=== PATIENT | male | born 1945 | race Caucasian/White ===

== ENCOUNTER 2017-12-07 07:30 | Inpatient (IN) | payer MEDICARE, SELFPAY ==
[2017-12-07] VITALS (29 sets, daily range): BP systolic 61–183; BP diastolic 40–109; PULSE 67–124; RESP 14–29; TEMP 36.9–37.4; O2SAT 88–99; BMI 42.7; BMI 40.6; BMI 40.7; BMI 40.4
[2017-12-07] MEDS: Furosemide 40 MG/4 ML Vial IV ×2 (07:45→21:33)
[2017-12-07] MEDS: Propofol 10MG/Ml 1,000 MG/100 ML Bottle 4.167 MG CONT INF ×3 (07:52→17:11)
[2017-12-07] MEDS: MethylPREDNISolone 125 MG/2 ML Vial IV (07:53)
--- NOTE | 2017-12-07 08:09 | ED.VISSUMM ---
- ER Visit Summary Date of Service: 12/07/17 Chief Complaint: Chest pain History of Present Illness: The patient is a 71 M brought in by EMS. Prehospital EKG revealed STEMI. Patient is in respiratory distress and stuporous. History is limited by his condition. He does report chest pain is been off and on for couple of days. He does admit to history of cardiac disease and has had 3 stents. STEMI alert was called off prehospital EKG and Dr. Varela met the patient in the emergency department. Physical Examination: Blood pressure is 183/109, heart rate 124, respiratory rate 16, pulse ox 88% on nonrebreather. Patient is an obese male sitting upright in bed. He is stuporous. Heart is tachycardic. Lung sounds are diminished throughout. Abdomen is soft, obese, nontender. Patient is diaphoretic. Test Results: [] Emergency Department Course and Treatment: Decision was made to intubate the patient prior to transfer to the [facility]. 30 mgs of etomidate is given. Patient was intubated by myself on second attempt with visualization of tube passing through cords and positive color change on capnography. I believe to became dislodged while being secured. Patient sat started to drop and lung sounds with bagging were no longer heard. Tube was pulled and patient was bagged. 8 oh tube was passed by Dr. Grace with good visualization. Patient has tight wheezing and poor air movement following intubation. He is given Solu-Medrol and aerosols. Prior to intubation he been given 1 sublingual nitroglycerin tablet along with 40 mg of IV Lasix. Patient was delivered to the [facility]. Treatment Plan: [] Disposition: Admit Impression: 1. STEMI 2. Respiratory failure This note was generated with J[employer] dictation software. It may contain incorrect words, spelling, and punctuation that were not noted in review of the chart prior to signing ED Disposition - Plan for ED Patient: Chief Complaint: Chest Pain
--- NOTE | 2017-12-07 08:12 | ED.DCSUM_ITS ---
- ER Visit Summary Date of Service: 12/07/17 Chief Complaint: Chest pain History of Present Illness: The patient is a 71 M brought in by EMS. Prehospital EKG revealed STEMI. Patient is in respiratory distress and stuporous. History is limited by his condition. He does report chest pain is been off and on for couple of days. He does admit to history of cardiac disease and has had 3 stents. STEMI alert was called off prehospital EKG and Dr. Varela met the patient in the emergency department. Physical Examination: Blood pressure is 183/109, heart rate 124, respiratory rate 16, pulse ox 88% on nonrebreather. Patient is an obese male sitting upright in bed. He is stuporous. Heart is tachycardic. Lung sounds are diminished throughout. Abdomen is soft, obese, nontender. Patient is diaphoretic. Test Results: [] Emergency Department Course and Treatment: Decision was made to intubate the patient prior to transfer to the [facility]. 30 mgs of etomidate is given. Patient was intubated by myself on second attempt with visualization of tube passing through cords and positive color change on capnography. I believe to became dislodged while being secured. Patient sat started to drop and lung sounds with bagging were no longer heard. Tube was pulled and patient was bagged. 8 oh tube was passed by Dr. Grace with good visualization. Patient has tight wheezing and poor air movement following intubation. He is given Solu- Medrol and aerosols. Prior to intubation he been given 1 sublingual nitroglycerin tablet along with 40 mg of IV Lasix. Patient was delivered to the [facility]. Treatment Plan: [] Disposition: Admit Impression: 1. STEMI 2. Respiratory failure This note was generated with [employer] dictation software. It may contain incorrect words, spelling, and punctuation that were not noted in review of the chart prior to signing ED Disposition - Plan for ED Patient: Chief Complaint: Chest Pain
--- NOTE | 2017-12-07 08:16 | EKG12_ITS ---
Test Reason : STEMI Blood Pressure : / mmHG Vent. Rate : 165 BPM Atrial Rate : 264 BPM P-R Int : 152 ms QRS Dur : 118 ms QT Int : 240 ms P-R-T Axes : 055 039 249 degrees QTc Int : 397 ms Sinus tachycardia with rate dependent left bundle branch block Abnormal ECG When compared with ECG of 07-DEC-2017 07:30, MANUAL COMPARISON REQUIRED, DATA IS UNCONFIRMED Confirmed by KARO VARELA ([id number]), film editor supervisor BRODIE VU ([id number] on 12/18/2017 3:05:33 PM Referred By: Karo Varela Confirmed By:KARO VARELA
[2017-12-07 08:37] LABS: Absolute Lymphocyte Count 2.72 X10^3/ul (0.83-4.51); Absolute Neutrophil Count 6.1 X10^3/uL (2.0-7.7); Basophil# 0.05 X10^3/uL; Basophil% 0.5 % (0-1); Eosinophil# 0.34 X10^3/uL; Eosinophils% 3.5 % (0-5); Hematocrit 39.8 % (40-54); Hemoglobin 12.9 g/dl (13.0-16.5); Lymphocyte # 2.72 X10^3/ul (4.0); Lymphocyte % 28.3 % (19-41); Mean Corp Hgb Conc 32.4 g/gl (32-36); Mean Corpuscular Volume 95.7 fL (80-94); Mean Platelet Vol. 9.6 fl (6.2-12.0); Monocyte# 0.36 X10^3/uL; Monocyte% 3.7 % (0-10); Neutrophil # 6.07 X10^3/uL (2.7-7.7); Neutrophil % 63.3 % (47-70); Platelet Count 373 K/mm3 (150-450); RBC Distribution Width CV 15.6 % (11.6-14.6); RBC Distribution Width SD 53.5 fl (35.1-43.9); Red Blood Count 4.16 M/mm3 (4.6-6.2); White Blood Count 9.6 K/mm3 (4.4-11.0)
[2017-12-07 08:38] LABS: POSITIVE COUNT NO; POSITIVE DIFFERENTIAL NO; POSITIVE MORPHOLOGY NO
[2017-12-07 08:48] LABS: International Normalized Ratio 1.3; Prothrombin Time (Protime)PT. 15.7 SECONDS (11.7-14.9)
[2017-12-07 08:55] LABS: Anion Gap 14 (5-15); BUN 13 mg/dL (7-18); BUN/Creat Ratio 11.8 RATIO (10-20); Calcium,Total 7.9 mg/dL (8.5-10.1); Chloride 105 mmol/L (98-107); EST Glomerular Filtration Rate 70 mL/min (>60); Est Glom Filt Rate - Afr Amer 85 mL/min (>60); Estimated Creatinine Clearance 66.55 ml/min; Glucose 336 mg/dL (74-106); Potassium 3.5 mmol/L (3.5-5.1); Sodium Level 141 mmol/L (136-145)
[2017-12-07 08:55] LABS: ACT Activated Clotting Time 125 sec (74-137)
[2017-12-07 08:55] LABS: Blood Gas Specimen Type VEN; VBG BASE EXCESS -4 mmol/L (-1.0-3.5); VBG Bicarbonate 24 mmol/L (22-26); VBG Oxygen Content 26 mmol/L (23-33); VBG PO2 43 mmHg (25-40); VBG SO2 65 % (50-70); VBG pCO2 63.9 mmHg (41-51); VBG pH 7.18 (7.32-7.42)
[2017-12-07 08:55] LABS: Base Excess -8 mmol/L (-2 to +2); Bicarbonate 21.4 mmol/L (22-26); Blood Gas Specimen Type ART; PO2 126 mmHG (75-100); SO2 97 % (95-99); Total Carbon Dioxide 23 mmol/L; pCO2 66.9 mmHg (35-45); pH 7.11 (7.35-7.45)
[2017-12-07 08:55] LABS: Base Excess -5 mmol/L (-2 to +2); Bicarbonate 23.5 mmol/L (22-26); Blood Gas Specimen Type ART; PO2 40 mmHG (75-100); SO2 60 % (95-99); Total Carbon Dioxide 25 mmol/L; pCO2 64.6 mmHg (35-45); pH 7.17 (7.35-7.45)
--- NOTE | 2017-12-07 09:34 | CASEMGMT ---
RN ZAKIA Note: If transfer to Tertiary Care is recommended, pt can transfer to any MCR accepting facility. ,[facility], [facility], [facility], [facility], [facility]. Please contact CM if questions arise. Noe ALONSON RN ACM
--- NOTE | 2017-12-07 09:57 | PCM.CON.CC ---
Reason for Consult Date of Consultation: 12/07/17 Reason for Consultation: Acute respiratory failure History of Present Illness: The patient is a 71-year-old male, with a history as outlined below, who presented to the emergency department on December 07 with chest pain of several days duration, along with lethargy and acute respiratory distress. The patient has a prior history of coronary artery disease for which he is status post PCI. On arrival to the emergency department, the patient was found to have a left bundle branch block with ST segment elevation in the anterior precordial leads. He had an initial blood pressure documented to be 169/88, which climbed to 183/109. The patient was also notably tachycardic and hypoxic. A STEMI alert was activated and the patient was taken to the [facility]. However, the patient acutely decompensated from a respiratory perspective while in the emergency department and required emergent intubation. Unfortunately, the first attempt was an esophageal intubation. The patient was stabilized and upon cardiac catheterization, single vessel coronary disease of the RCA was noted along with segmental LV systolic dysfunction. No intervention was performed. An intra-aortic balloon pump was placed, as was a Tanana-Alexx catheter. The patient was noted to have elevated PA pressures. Laboratory evaluation reveals no evidence of a leukocytosis. Chemistry profile was largely unrevealing. Glucose was elevated to 336 and troponin was increased to 0.061. The patient was subsequently transferred to the medical intensive care unit for ongoing management. Although not documented in the vitals, upon discussion with cardiology, the patient was much more hypertensive than that which was documented. He did have systolic pressures greater than 200 mmHg. Past Medical History Past Medical History (Chronic Problems): Chronic Problems HLD (hyperlipidemia) (Chronic) Cardiomyopathy, ischemic (Chronic) S/P PTCA (percutaneous transluminal coronary angioplasty) (Chronic) CAD (coronary artery disease) (Chronic) CAD S/P percutaneous coronary angioplasty (Chronic) Allergies No Known Allergies Allergy (Verified 12/07/17 07:31) Home Medications: Ambulatory Orders Medication Instructions Recorded Nitroglycerin [Nitrostat] 0.4 mg SUBLINGUAL Q5M PRN #25 03/15/15 tablet isosorbide mononitrate ER 30 mg 30 mg PO QAM 05/08/17 tablet,extended release 24 hr Aspirin [Aspirin, Baby] 81 mg PO DAILY@0800 12/07/17 Atorvastatin Calcium [Lipitor] 20 mg PO QHS 12/07/17 Lisinopril [Zestril] 2.5 mg PO QDAY 12/07/17 Metformin HCl 1,000 mg PO BID 12/07/17 Metoprolol Tartrate 50 mg PO BID 12/07/17 Surgical History: angioplasty Smoking Status: Unknown if ever smoked - *Family History Paternal History Items: Heart Disease, - - No history of colon cancer, or any cancer in first-degree family relative. No history of Crohn's disease, ulcerative colitis or chronic bowel disease in first-degree family relative. Maternal History Items: Heart Disease, - - CAD/NH Review of Systems Unable to obtain accurate/complete ROS d/t: Due to current intubation and mechanical ventilation status. Objective: The patient's most recent lab work, culture data and imaging studies have all been personally reviewed. - Physical Exam General: - - Intubated, sedated and mechanically ventilated. HEENT: Atraumatic, PERRLA, Normocephalic Oral: No Gingival or Mucosal Lesions/ Ulcerations, - - Endotracheal and OG tube in place Neck: Supple, No Nodes, Trachea Midline Lungs: Diminished, - - Coarse mechanical breath sounds across anterior lung mata. Cardiovascular: Normal S1, Normal S2, Tachycardic, - - Intra-aortic balloon pump in place with augmentation of 1:2 Abdomen: Bowel Sounds Present, Soft, Obese Extremities: No clubbing, No cyanosis, No edema Skin: No breakdown Musculoskeletal: No Muscle Wasting Lymphatic: No Cervical, Supraclavicular, or Inguinal Adenopathy Neurological: - - Currently not responsive to noxious and verbal stimulation. Sedated with a RASS of -2 Vital Signs Pulse Resp BP Pulse Ox 116 H 16 169/88 H 93 12/07/17 08:07 12/07/17 07:52 12/07/17 08:07 12/07/17 08:07 Oxygen Delivery Method Mechanical Ventilator Laboratory Tests Past 24 Hrs 12/07/17 12/07/17 12/07/17 08:07 08:10 08:10 WBC 9.6 RBC 4.16 L Hgb 12.9 L Hct 39.8 L MCV 95.7 H MCH 31.0 MCHC 32.4 RDW 15.6 H RDW Differential 53.5 H Plt Count 373 MPV 9.6 Immature Gran % (Auto) 0.700 Neut % (Auto) 63.3 Lymph % (Auto) 28.3 Martin % (Auto) 3.7 Eos % (Auto) 3.5 Baso % (Auto) 0.5 Absolute Neuts (auto) 6.1 Absolute Lymphs (auto) 2.72 Total Counted Not Reportable PT 15.7 H INR 1.3 APTT 74.0 H Activated Clotting Time Specimen Type ART pH 7.11 L* Bicarbonate Actual 21.4 L POC Total CO2 23 Base Excess -8 L O2 Saturation 97 ABG pCO2 66.9 H ABG pO2 126 H VBG pH VBG pO2 VBG O2 Sat (Calc) VBG O2 Content VBG Base Excess POC Mix VBG pCO2 Pt Tmp Sodium Potassium Chloride Carbon Dioxide Anion Gap BUN Creatinine Estim Creat Clear Calc Est GFR (MDRD) Af Amer Est GFR (MDRD) Non-Af BUN/Creatinine Ratio Glucose Calcium Troponin I 12/07/17 12/07/17 12/07/17 08:10 08:33 08:41 WBC RBC Hgb Hct MCV MCH MCHC RDW RDW Differential Plt Count MPV Immature Gran % (Auto) Neut % (Auto) Lymph % (Auto) Martin % (Auto) Eos % (Auto) Baso % (Auto) Absolute Neuts (auto) Absolute Lymphs (auto) Total Counted PT INR APTT Activated Clotting Time 125 Specimen Type ART pH 7.17 L* Bicarbonate Actual 23.5 POC Total CO2 25 Base Excess -5 L O2 Saturation 60 L ABG pCO2 64.6 H ABG pO2 40 L VBG pH VBG pO2 VBG O2 Sat (Calc) VBG O2 Content VBG Base Excess POC Mix VBG pCO2 Pt Tmp Sodium 141 Potassium 3.5 Chloride 105 Carbon Dioxide 22.0 Anion Gap 14 BUN 13 Creatinine 1.10 Estim Creat Clear Calc 66.55 Est GFR (MDRD) Af Amer 85 Est GFR (MDRD) Non-Af 70 BUN/Creatinine Ratio 11.8 Glucose 336 H Calcium 7.9 L Troponin I 0.061 H 12/07/17 08:45 WBC RBC Hgb Hct MCV MCH MCHC RDW RDW Differential Plt Count MPV Immature Gran % (Auto) Neut % (Auto) Lymph % (Auto) Martin % (Auto) Eos % (Auto) Baso % (Auto) Absolute Neuts (auto) Absolute Lymphs (auto) Total Counted PT INR APTT Activated Clotting Time Specimen Type DALILA pH Bicarbonate Actual POC Total CO2 Base Excess O2 Saturation ABG pCO2 ABG pO2 VBG pH 7.18 L* VBG pO2 43 H VBG O2 Sat (Calc) 65 VBG O2 Content 26 VBG Base Excess -4 L POC Mix VBG pCO2 Pt Tmp 63.9 H Sodium Potassium Chloride Carbon Dioxide Anion Gap BUN Creatinine Estim Creat Clear Calc Est GFR (MDRD) Af Amer Est GFR (MDRD) Non-Af BUN/Creatinine Ratio Glucose Calcium Troponin I Assessment/Plan RECOMMENDATIONS: 1. Continue current supportive measures with mechanical ventilatory support and intra-aortic balloon pump 2. Gentle diuresis as ordered 3. Obtain arterial blood gas 4. Continue fentanyl and propofol for sedation 5. Start Pepcid for GI prophylaxis 6. Start as needed aerosol treatments IMPRESSIONS: 1. ST elevation myocardial infarction/history of ischemic cardiomyopathy status post previous PCI The patient underwent urgent cardiac catheterization on the morning of December 07 without intervention performed. Continue intra-aortic balloon pump and gentle diuresis per cardiology recommendations. 2. Acute hypoxemic respiratory failure The patient became encephalopathic while in the emergency department in the setting of #1. We will continue current supportive measures with full mechanical ventilatory support. Wean FiO2 and PEEP as tolerated. Obtain arterial blood gas. Continue propofol and fentanyl for sedation. Perform daily paired spontaneous awakening and breathing trials. 3. Metabolic encephalopathy No significant metabolic derangements noted on chemistry profile. Suspect that the patient may have become hypercarbic leading to his encephalopathy. Continue the aforementioned sedatives to maintain a RASS of -1 to 1. 4. Morbid obesity/hyperlipidemia/hyperglycemia Complicates care, management, recovery and prognosis. Continue statin and start sliding scale insulin coverage. TIME: 38 minutes of critical care time, independent of procedures, was spent addressing the patient's STEMI, acute respiratory failure, metabolic encephalopathy, morbid obesity, review of all data and collaboration with the care team. ([id number]) Code Visit 9xxxx: [id number] Critical care first hour
--- NOTE | 2017-12-07 10:13 | EKG12_ITS ---
Test Reason : Blood Pressure : / mmHG Vent. Rate : 103 BPM Atrial Rate : 103 BPM P-R Int : 310 ms QRS Dur : 114 ms QT Int : 340 ms P-R-T Axes : 000 023 -77 degrees QTc Int : 445 ms Probable atrial fibrillation with left bundle branch block Inferior infarct , age undetermined Abnormal ECG When compared with ECG of 10-DEC-2017 05:24, MANUAL COMPARISON REQUIRED, DATA IS UNCONFIRMED Confirmed by JENNY SOTO, MINH ([id number]), news editor BRODIE VU ([id number]) on 12/19/2017 2:08:47 PM Referred By: Lei Varela Confirmed By:MINH ALVARADO MD
--- NOTE | 2017-12-07 10:50 | CASEMGMT ---
RN CM Note: Pt to ICU, post cardiac cath, STEMI. Assessment deferred due to critical condition. will follow and assist with dc planning. Noe ALONSON RN ACM
--- NOTE | 2017-12-07 11:11 | CRPHASE1 ---
Patient Data/Charges Sizing Machine Operator:: Lei Varela Refer Phase II:: Yes Phase II Referral:: [facility] Start Phase II:: After follow up visit with cardiology Phase I Charge:: Level I - Education Risk Factors/Lifestyle Hx Hypertension: Yes Hx Dyslipidemia: Yes Hx Obesity: Yes Height: 1.8 m Weight:: 131.542 kg BMI: 40.4 Family History: Heart Disease Issues Affecting Care:: Physical - Pt on vent. CR booklet given to primary nurse in room to give to pt and/or family for follow up. Medical/Surgical History [place]:: Yes Cardiomyopathy:: Yes - ischemic Hypertension:: Yes Dyslipidemia:: Yes Discharge/Home/Social Eval Exercise/Recreation/Interests:: Pt on vent. CR booklet given to primary nurse in room to give to pt and/or family for follow up.
--- NOTE | 2017-12-07 11:17 | CRPHASE1_ITS ---
Patient Data/Charges Sprinkler Worker:: Lei Varela Refer Phase II:: Yes Phase II Referral:: [facility] Start Phase II:: After follow up visit with cardiology Phase I Charge:: Level I - Education Risk Factors/Lifestyle Hx Hypertension: Yes Hx Dyslipidemia: Yes Hx Obesity: Yes Height: 1.8 m Weight:: 131.542 kg BMI: 40.4 Family History: Heart Disease Issues Affecting Care:: Physical - Pt on vent. CR booklet given to primary nurse in room to give to pt and/or family for follow up. Medical/Surgical History [place]:: Yes Cardiomyopathy:: Yes - ischemic Hypertension:: Yes Dyslipidemia:: Yes Discharge/Home/Social Eval Exercise/Recreation/Interests:: Pt on vent. CR booklet given to primary nurse in room to give to pt and/or family for follow up.
--- NOTE | 2017-12-07 11:24 | CRPH1.INSTRU ---
General Education CAD and cardiac anatomy and function:: Not instructed - Pt intubated on vent. CR booklet given to primary nurse in room to give to pt and/or family for follow up.
[2017-12-07 11:56] LABS: Base Excess 0 mmol/L (-2 to +2); Bicarbonate 24.7 mmol/L (22-26); Blood Gas Specimen Type ALINE; FI02 100; Mode A-C; O2 Delivery Device Vent; PEEP 5; PO2 35 mmHG (75-100); RR 14; SITE R Femoral; SO2 67 % (95-99); Time Given 1150; Total Carbon Dioxide 26 mmol/L; Vt 500; pCO2 42.1 mmHg (35-45); pH 7.38 (7.35-7.45)
[2017-12-07 12:20] LABS: M R Staph aureus DNA By PCR Negative (Negative); Probe Check PASS; Specimen Processing Control PASS
[2017-12-07] MEDS: Vital AF 1.2 Cal Liquid 1,000 ML 70 ML GT (17:13)
--- NOTE | 2017-12-07 17:19 | PCM.CONS.GEN ---
Reason for Consult Date of Consultation: 12/07/17 Reason for Consultation: Medical Management History of Present Illness: The patient is a 71 year old M with a h/o CAD s/p Stent, HTN, HLD who presented to the ER with a multiday c/o chest pain. In the ER he was found to have LBBB and an anterior STEMI. He was hypoxic and required intubation. He was taken to cath immediately and was found to have a totally occluded RCA and a patent LAD stent. His EF was 20% so a balloon pump was inserted, he was started on a heparin drip and transferred to the ICU. He is currently intubated and sedated. Past Medical History Past Medical History (Chronic Problems): Chronic Problems HLD (hyperlipidemia) (Chronic) Cardiomyopathy, ischemic (Chronic) S/P PTCA (percutaneous transluminal coronary angioplasty) (Chronic) CAD (coronary artery disease) (Chronic) CAD S/P percutaneous coronary angioplasty (Chronic) Allergies No Known Allergies Allergy (Verified 12/07/17 07:31) Home Medications: Ambulatory Orders Medication Instructions Recorded Nitroglycerin [Nitrostat] 0.4 mg SUBLINGUAL Q5M PRN #25 03/15/15 tablet isosorbide mononitrate ER 30 mg 30 mg PO QAM 05/08/17 tablet,extended release 24 hr Aspirin [Aspirin, Baby] 81 mg PO DAILY@0800 12/07/17 Atorvastatin Calcium [Lipitor] 20 mg PO QHS 12/07/17 Lisinopril [Zestril] 2.5 mg PO QDAY 12/07/17 Metformin HCl 1,000 mg PO BID 12/07/17 Metoprolol Tartrate 50 mg PO BID 12/07/17 Surgical History: angioplasty Smoking Status: Unknown if ever smoked Drugs: - - Could not obtain, sedated and intubated - *Family History Paternal History Items: Heart Disease, - - No history of colon cancer, or any cancer in first-degree family relative. No history of Crohn's disease, ulcerative colitis or chronic bowel disease in first-degree family relative. Maternal History Items: Heart Disease, - - CAD/NM Review of Systems Unable to obtain accurate/complete ROS d/t: Sedation and intubation - Physical Exam General: - - sedated and intubated HEENT: Atraumatic, Normocephalic Oral: Dry Mucosa Neck: No JVD Lungs: Clear to auscultation, Normal air movement, No rhonchi, No wheeze, No rales Cardiovascular: Regular rate, Regular Rhythm Abdomen: Soft, Non-Distended, No Hepato-splenomegaly Skin: No rashes, No breakdown Vital Signs Temp Pulse Resp BP Pulse Ox 98.5 F 80 20 H 69/53 L 95 12/07/17 09:50 12/07/17 17:00 12/07/17 17:00 12/07/17 17:00 12/07/17 17:00 Oxygen Delivery Method Mechanical Ventilator Weight: 290 lb Body Mass Index (BMI) 40.6 Intake and Output for Last 24 Hours 12/05/17 12/06/17 12/07/17 23:59 23:59 23:59 Intake Total 304 / 304 Output Total 750 / 750 Balance -446 / -446 Laboratory Tests Past 24 Hrs 12/07/17 12/07/17 12/07/17 08:07 08:10 08:10 WBC 9.6 RBC 4.16 L Hgb 12.9 L Hct 39.8 L MCV 95.7 H MCH 31.0 MCHC 32.4 RDW 15.6 H RDW Differential 53.5 H Plt Count 373 MPV 9.6 Immature Gran % (Auto) 0.700 Neut % (Auto) 63.3 Lymph % (Auto) 28.3 Nuckolls % (Auto) 3.7 Eos % (Auto) 3.5 Baso % (Auto) 0.5 Absolute Neuts (auto) 6.1 Absolute Lymphs (auto) 2.72 Total Counted Not Reportable PT 15.7 H INR 1.3 APTT 74.0 H Activated Clotting Time Specimen Type ART Sample Site pH 7.11 L* Bicarbonate Actual 21.4 L POC Total CO2 23 Base Excess -8 L O2 Saturation 97 O2 % ABG pCO2 66.9 H ABG pO2 126 H VBG pH VBG pO2 VBG O2 Sat (Calc) VBG O2 Content VBG Base Excess POC Mix VBG pCO2 Pt Tmp Respiration Rate O2 Delivery Device Minute Volume Vent Mode Tidal Volume POC PEEP Blood Gas Notified Whom Blood Gas Notified Time Sodium Potassium Chloride Carbon Dioxide Anion Gap BUN Creatinine Estim Creat Clear Calc Est GFR (MDRD) Af Amer Est GFR (MDRD) Non-Af BUN/Creatinine Ratio Glucose Calcium Troponin I MRSA (PCR) 08/12/07/17 12/07/17 08:10 08:33 08:41 WBC RBC Hgb Hct MCV MCH MCHC RDW RDW Differential Plt Count MPV Immature Gran % (Auto) Neut % (Auto) Lymph % (Auto) Nuckolls % (Auto) Eos % (Auto) Baso % (Auto) Absolute Neuts (auto) Absolute Lymphs (auto) Total Counted PT INR APTT Activated Clotting Time 125 Specimen Type ART Sample Site pH 7.17 L* Bicarbonate Actual 23.5 POC Total CO2 25 Base Excess -5 L O2 Saturation 60 L O2 % ABG pCO2 64.6 H ABG pO2 40 L VBG pH VBG pO2 VBG O2 Sat (Calc) VBG O2 Content VBG Base Excess POC Mix VBG pCO2 Pt Tmp Respiration Rate O2 Delivery Device Minute Volume Vent Mode Tidal Volume POC PEEP Blood Gas Notified Whom Blood Gas Notified Time Sodium 141 Potassium 3.5 Chloride 105 Carbon Dioxide 22.0 Anion Gap 14 BUN 13 Creatinine 1.10 Estim Creat Clear Calc 66.55 Est GFR (MDRD) Af Amer 85 Est GFR (MDRD) Non-Af 70 BUN/Creatinine Ratio 11.8 Glucose 336 H Calcium 7.9 L Troponin I 0.061 H MRSA (PCR) 12/07/17 12/07/17 12/07/17 08:45 10:00 11:30 WBC RBC Hgb Hct MCV MCH MCHC RDW RDW Differential Plt Count MPV Immature Gran % (Auto) Neut % (Auto) Lymph % (Auto) Nuckolls % (Auto) Eos % (Auto) Baso % (Auto) Absolute Neuts (auto) Absolute Lymphs (auto) Total Counted PT INR APTT Activated Clotting Time Specimen Type DALILA Sample Site pH Bicarbonate Actual POC Total CO2 Base Excess O2 Saturation O2 % ABG pCO2 ABG pO2 VBG pH 7.18 L* VBG pO2 43 H VBG O2 Sat (Calc) 65 VBG O2 Content 26 VBG Base Excess -4 L POC Mix VBG pCO2 Pt Tmp 63.9 H Respiration Rate O2 Delivery Device Minute Volume Vent Mode Tidal Volume POC PEEP Blood Gas Notified Whom Blood Gas Notified Time Sodium Potassium Chloride Carbon Dioxide Anion Gap BUN Creatinine Estim Creat Clear Calc Est GFR (MDRD) Af Amer Est GFR (MDRD) Non-Af BUN/Creatinine Ratio Glucose Calcium Troponin I 1.240 H* MRSA (PCR) Negative 0812/07/17 12/07/17 11:52 14:00 14:00 WBC RBC Hgb Hct MCV MCH MCHC RDW RDW Differential Plt Count MPV Immature Gran % (Auto) Neut % (Auto) Lymph % (Auto) Nuckolls % (Auto) Eos % (Auto) Baso % (Auto) Absolute Neuts (auto) Absolute Lymphs (auto) Total Counted PT INR APTT 169.0 H* Activated Clotting Time Specimen Type ROCIO Sample Site R Femoral pH 7.38 Bicarbonate Actual 24.7 POC Total CO2 26 Base Excess 0 O2 Saturation 67 L O2 % 100 ABG pCO2 42.1 ABG pO2 35 L* VBG pH VBG pO2 VBG O2 Sat (Calc) VBG O2 Content VBG Base Excess POC Mix VBG pCO2 Pt Tmp Respiration Rate 14 O2 Delivery Device Vent Minute Volume 11.00 Vent Mode A-C Tidal Volume 500 POC PEEP 5 Blood Gas Notified Whom ICU MD Blood Gas Notified Time 1150 Sodium Potassium Chloride Carbon Dioxide Anion Gap BUN Creatinine Estim Creat Clear Calc Est GFR (MDRD) Af Amer Est GFR (MDRD) Non-Af BUN/Creatinine Ratio Glucose Calcium Troponin I 3.220 H* MRSA (PCR) Assessment/Plan All Active Problems Abdominal pain (Acute) 1. Total RCA occlusion with acute systolic heart failure with an EF of 20%/Ischemic cardiomyopathy/CAD/HTN/HLD - In the ICU with project management instructor coverage - Cardiology is managing the balloon pump - c/w the heparin drip - Will hold his home medications of imdur, metoprolol and lisinopril during the acute phase - C/w lipitor and lasix for his fluid - Fluid restriction and aspirin DVT: Heparin gtt Code: FULL Diet: NPO Dispo: ICU Code Visit Inpatient E&M: 61870 Init Hosp L3
[2017-12-07] MEDS: 0.9% NaCl Peripheral Flush Adult/Peds IV ×3 (17:21→21:33)
[2017-12-07 20:24] LABS: Partial Thromboplast Time 24.9 Seconds (24.1-36.2)
[2017-12-07] MEDS: Atorvastatin Calcium 80 MG Tablet PO (21:36)
[2017-12-07] MEDS: Famotidine 20 MG Tablet GT (21:39)
[2017-12-07 22:23] LABS: Partial Thromboplast Time > 250.0 Seconds (24.1-36.2)
[2017-12-07] MEDS: Chlorhexidine 15 ML PO (22:28)
[2017-12-08] VITALS (47 sets, daily range): BP systolic 57–146; BP diastolic 33–87; PULSE 71–129; RESP 10–18; TEMP 36.8–37.8; O2SAT 93–100
[2017-12-08] MEDS: Propofol 10MG/Ml 1,000 MG/100 ML Bottle 4.167 MG CONT INF ×6 (00:14→22:33)
[2017-12-08 00:21] LABS: Bedside Glucose 144 mg/dL (70-110)
--- NOTE | 2017-12-08 02:09 | EKG12_ITS ---
Test Reason : CHANGE EKG Blood Pressure : / mmHG Vent. Rate : 118 BPM Atrial Rate : 118 BPM P-R Int : 172 ms QRS Dur : 116 ms QT Int : 324 ms P-R-T Axes : 058 020 168 degrees QTc Int : 454 ms Sinus tachycardia with occasional Premature ventricular complexes and Fusion complexes Inferior infarct , possibly acute Marked ST abnormality, possible anterolateral subendocardial injury ACUTE MN / STEMI Consider right ventricular involvement in acute inferior infarct Abnormal ECG When compared with ECG of 08-DEC-2017 04:57, MANUAL COMPARISON REQUIRED, DATA IS UNCONFIRMED Confirmed by KARO VARELA ([id number]), video news editor BRODIE VU ([id number]) on 12/18/2017 2:58:41 PM Referred By: Karo Varela Confirmed By:KARO VARELA
[2017-12-08] MEDS: CHLORHEXIDINE GLUC 2% CLOTH 1 EACH TOWELETTE TOPICAL (04:20)
[2017-12-08 04:30] LABS: Hemoglobin 12.5 g/dl (13.0-16.5); Mean Corp Hgb Conc 32.9 g/gl (32-36); Mean Corpuscular Hgb 31.3 pg (27.0-32.0); Mean Corpuscular Volume 95.2 fL (80-94); Mean Platelet Vol. 9.7 fl (6.2-12.0); Platelet Count 260 K/mm3 (150-450); RBC Distribution Width CV 16.1 % (11.6-14.6); RBC Distribution Width SD 53.8 fl (35.1-43.9); Red Blood Count 3.99 M/mm3 (4.6-6.2); White Blood Count 15.2 K/mm3 (4.4-11.0)
[2017-12-08 04:32] LABS: Scan Indicated on CBC? Y/N NO
[2017-12-08 04:38] LABS: Partial Thromboplast Time 23.1 Seconds (24.1-36.2)
[2017-12-08 04:42] LABS: Anion Gap 11 (5-15); BUN 24 mg/dL (7-18); BUN/Creat Ratio 19.8 RATIO (10-20); Calcium,Total 8.1 mg/dL (8.5-10.1); Chloride 105 mmol/L (98-107); Creatinine, Serum 1.21 mg/dL (0.70-1.30); EST Glomerular Filtration Rate 63 mL/min (>60); Est Glom Filt Rate - Afr Amer 76 mL/min (>60); Glucose 159 mg/dL (74-106); Sodium Level 140 mmol/L (136-145)
[2017-12-08] MEDS: Heparin Injection (Vial) 5,000 UNIT/ML VIAL IV ×3 (05:04→18:59)
[2017-12-08 05:41] LABS: Bedside Glucose 171 mg/dL (70-110)
--- NOTE | 2017-12-08 06:43 | PCM.PN.INT ---
Subjective: The patient was seen and examined at the bedside this morning. Events from the last 24 hours have been reviewed. The patient is currently afebrile, hemodynamically stable and maintaining appropriate oxygen saturations with an FiO2 requirement of 70%. The patient is currently documented to be overall net +323 mL's for the admission. Nursing staff did report that the patient became extremely agitated with lightening of his sedation. Objective: The patient's most recent lab work, culture data and imaging studies have all been personally reviewed. Surface echocardiogram revealed severe global LV systolic dysfunction with an ejection fraction of 25%. General: - - Intubated, sedated and mechanically ventilated. No ventilator dyssynchrony noted. HEENT: Atraumatic, PERRLA, Normocephalic Oral: Moist Mucosa, - - Endotracheal and OG tubes in place. Neck: Supple, No Nodes, Trachea Midline Lungs: - - Clear across anterior lung mata with diminished air movement in the posterior lung bases bilaterally. Cardiovascular: Regular rate, Normal S1, Normal S2, - - Intra-aortic balloon pump augmentation of 1: 2 Abdomen: Bowel Sounds Present, Soft, Non Tender, Obese Extremities: No clubbing, No cyanosis, No edema Skin: No breakdown Musculoskeletal: No Tenderness to Palpation of Joints or Extremities, No Muscle Wasting Lymphatic: No Cervical, Supraclavicular, or Inguinal Adenopathy Neurological: - - Currently sedated and nonresponsive to verbal stimuli. RASS of -2. Vital Signs Temp Pulse Resp BP Pulse Ox 98.4 F 73 14 89/55 L 98 12/08/17 06:00 12/08/17 06:00 12/08/17 06:00 12/08/17 06:00 12/08/17 06:00 Oxygen Delivery Method Mechanical Ventilator Weight: 278 lb 7.101 oz Body Mass Index (BMI) 40.6 Intake and Output for Last 24 Hours 12/06/17 12/07/17 12/08/17 23:59 23:59 23:59 Intake Total 1193.8 / 1193.8 867 / 867 Output Total 1549 / 1549 188 / 188 Balance -355.2 / -355.2 679 / 679 Labs (Last 48 Hours) 12/07/17 12/07/17 12/07/17 08:07 08:10 08:10 WBC 9.6 RBC 4.16 L Hgb 12.9 L Hct 39.8 L MCV 95.7 H MCH 31.0 MCHC 32.4 RDW 15.6 H RDW Differential 53.5 H Plt Count 373 MPV 9.6 Immature Gran % (Auto) 0.700 Neut % (Auto) 63.3 Lymph % (Auto) 28.3 [place] % (Auto) 3.7 Eos % (Auto) 3.5 Baso % (Auto) 0.5 Absolute Neuts (auto) 6.1 Absolute Lymphs (auto) 2.72 Total Counted Not Reportable PT 15.7 H INR 1.3 APTT 74.0 H Activated Clotting Time Specimen Type ART Sample Site pH 7.11 L* Bicarbonate Actual 21.4 L POC Total CO2 23 Base Excess -8 L O2 Saturation 97 O2 % ABG pCO2 66.9 H ABG pO2 126 H VBG pH VBG pO2 VBG O2 Sat (Calc) VBG O2 Content VBG Base Excess POC Mix VBG pCO2 Pt Tmp Respiration Rate O2 Delivery Device Minute Volume Vent Mode Tidal Volume POC PEEP Blood Gas Notified Whom Blood Gas Notified Time Sodium Potassium Chloride Carbon Dioxide Anion Gap BUN Creatinine Estim Creat Clear Calc Est GFR (MDRD) Af Amer Est GFR (MDRD) Non-Af BUN/Creatinine Ratio Glucose Calcium Troponin I MRSA (PCR) POC Glucose 12/07/17 12/07/17 12/07/17 08:10 08:33 08:41 WBC RBC Hgb Hct MCV MCH MCHC RDW RDW Differential Plt Count MPV Immature Gran % (Auto) Neut % (Auto) Lymph % (Auto) [place] % (Auto) Eos % (Auto) Baso % (Auto) Absolute Neuts (auto) Absolute Lymphs (auto) Total Counted PT INR APTT Activated Clotting Time 125 Specimen Type ART Sample Site pH 7.17 L* Bicarbonate Actual 23.5 POC Total CO2 25 Base Excess -5 L O2 Saturation 60 L O2 % ABG pCO2 64.6 H ABG pO2 40 L VBG pH VBG pO2 VBG O2 Sat (Calc) VBG O2 Content VBG Base Excess POC Mix VBG pCO2 Pt Tmp Respiration Rate O2 Delivery Device Minute Volume Vent Mode Tidal Volume POC PEEP Blood Gas Notified Whom Blood Gas Notified Time Sodium 141 Potassium 3.5 Chloride 105 Carbon Dioxide 22.0 Anion Gap 14 BUN 13 Creatinine 1.10 Estim Creat Clear Calc 66.55 Est GFR (MDRD) Af Amer 85 Est GFR (MDRD) Non-Af 70 BUN/Creatinine Ratio 11.8 Glucose 336 H Calcium 7.9 L Troponin I 0.061 H MRSA (PCR) POC Glucose 12/07/17 12/07/17 12/07/17 08:45 10:00 11:30 WBC RBC Hgb Hct MCV MCH MCHC RDW RDW Differential Plt Count MPV Immature Gran % (Auto) Neut % (Auto) Lymph % (Auto) [place] % (Auto) Eos % (Auto) Baso % (Auto) Absolute Neuts (auto) Absolute Lymphs (auto) Total Counted PT INR APTT Activated Clotting Time Specimen Type DALILA Sample Site pH Bicarbonate Actual POC Total CO2 Base Excess O2 Saturation O2 % ABG pCO2 ABG pO2 VBG pH 7.18 L* VBG pO2 43 H VBG O2 Sat (Calc) 65 VBG O2 Content 26 VBG Base Excess -4 L POC Mix VBG pCO2 Pt Tmp 63.9 H Respiration Rate O2 Delivery Device Minute Volume Vent Mode Tidal Volume POC PEEP Blood Gas Notified Whom Blood Gas Notified Time Sodium Potassium Chloride Carbon Dioxide Anion Gap BUN Creatinine Estim Creat Clear Calc Est GFR (MDRD) Af Amer Est GFR (MDRD) Non-Af BUN/Creatinine Ratio Glucose Calcium Troponin I 1.240 H* MRSA (PCR) Negative POC Glucose 12/07/17 12/07/17 12/07/17 11:52 14:00 14:00 WBC RBC Hgb Hct MCV MCH MCHC RDW RDW Differential Plt Count MPV Immature Gran % (Auto) Neut % (Auto) Lymph % (Auto) [place] % (Auto) Eos % (Auto) Baso % (Auto) Absolute Neuts (auto) Absolute Lymphs (auto) Total Counted PT INR APTT 169.0 H* Activated Clotting Time Specimen Type ROCIO Sample Site R Femoral pH 7.38 Bicarbonate Actual 24.7 POC Total CO2 26 Base Excess 0 O2 Saturation 67 L O2 % 100 ABG pCO2 42.1 ABG pO2 35 L* VBG pH VBG pO2 VBG O2 Sat (Calc) VBG O2 Content VBG Base Excess POC Mix VBG pCO2 Pt Tmp Respiration Rate 14 O2 Delivery Device Vent Minute Volume 11.00 Vent Mode A-C Tidal Volume 500 POC PEEP 5 Blood Gas Notified Whom ICU MD Blood Gas Notified Time 1150 Sodium Potassium Chloride Carbon Dioxide Anion Gap BUN Creatinine Estim Creat Clear Calc Est GFR (MDRD) Af Amer Est GFR (MDRD) Non-Af BUN/Creatinine Ratio Glucose Calcium Troponin I 3.220 H* MRSA (PCR) POC Glucose 12/07/17 12/07/17 12/07/17 20:03 20:03 20:59 WBC RBC Hgb Hct MCV MCH MCHC RDW RDW Differential Plt Count MPV Immature Gran % (Auto) Neut % (Auto) Lymph % (Auto) [place] % (Auto) Eos % (Auto) Baso % (Auto) Absolute Neuts (auto) Absolute Lymphs (auto) Total Counted PT INR APTT 24.9 Cancelled Activated Clotting Time Specimen Type Sample Site pH Bicarbonate Actual POC Total CO2 Base Excess O2 Saturation O2 % ABG pCO2 ABG pO2 VBG pH VBG pO2 VBG O2 Sat (Calc) VBG O2 Content VBG Base Excess POC Mix VBG pCO2 Pt Tmp Respiration Rate O2 Delivery Device Minute Volume Vent Mode Tidal Volume POC PEEP Blood Gas Notified Whom Blood Gas Notified Time Sodium Potassium Chloride Carbon Dioxide Anion Gap BUN Creatinine Estim Creat Clear Calc Est GFR (MDRD) Af Amer Est GFR (MDRD) Non-Af BUN/Creatinine Ratio Glucose Calcium Troponin I 3.990 H* MRSA (PCR) POC Glucose 12/07/17 12/07/17 12/08/17 21:27 23:54 04:10 WBC RBC Hgb Hct MCV MCH MCHC RDW RDW Differential Plt Count MPV Immature Gran % (Auto) Neut % (Auto) Lymph % (Auto) [place] % (Auto) Eos % (Auto) Baso % (Auto) Absolute Neuts (auto) Absolute Lymphs (auto) Total Counted PT INR APTT > 250.0 H* Activated Clotting Time Specimen Type Sample Site pH Bicarbonate Actual POC Total CO2 Base Excess O2 Saturation O2 % ABG pCO2 ABG pO2 VBG pH VBG pO2 VBG O2 Sat (Calc) VBG O2 Content VBG Base Excess POC Mix VBG pCO2 Pt Tmp Respiration Rate O2 Delivery Device Minute Volume Vent Mode Tidal Volume POC PEEP Blood Gas Notified Whom Blood Gas Notified Time Sodium 140 Potassium 5.0 Chloride 105 Carbon Dioxide 24.0 Anion Gap 11 BUN 24 H Creatinine 1.21 Estim Creat Clear Calc 60.50 Est GFR (MDRD) Af Amer 76 Est GFR (MDRD) Non-Af 63 BUN/Creatinine Ratio 19.8 Glucose 159 H Calcium 8.1 L Troponin I MRSA (PCR) POC Glucose 144 H 12/08/17 12/08/17 12/08/17 04:10 04:10 05:36 WBC 15.2 H RBC 3.99 L Hgb 12.5 L Hct 38.0 L MCV 95.2 H MCH 31.3 MCHC 32.9 RDW 16.1 H RDW Differential 53.8 H Plt Count 260 MPV 9.7 Immature Gran % (Auto) Neut % (Auto) Lymph % (Auto) [place] % (Auto) Eos % (Auto) Baso % (Auto) Absolute Neuts (auto) Absolute Lymphs (auto) Total Counted PT INR APTT 23.1 L Activated Clotting Time Specimen Type Sample Site pH Bicarbonate Actual POC Total CO2 Base Excess O2 Saturation O2 % ABG pCO2 ABG pO2 VBG pH VBG pO2 VBG O2 Sat (Calc) VBG O2 Content VBG Base Excess POC Mix VBG pCO2 Pt Tmp Respiration Rate O2 Delivery Device Minute Volume Vent Mode Tidal Volume POC PEEP Blood Gas Notified Whom Blood Gas Notified Time Sodium Potassium Chloride Carbon Dioxide Anion Gap BUN Creatinine Estim Creat Clear Calc Est GFR (MDRD) Af Amer Est GFR (MDRD) Non-Af BUN/Creatinine Ratio Glucose Calcium Troponin I MRSA (PCR) POC Glucose 171 H Clinical Impression(s) from Imaging Studies KUB X-Ray 12/07/17 12:13 IMPRESSION: The tip of the orogastric tube is in the body of the stomach just distal to the gastroesophageal junction. Electronically Signed: Cliff Pyle MD at 13:25 EDT Tel [phone], Service support , Medical Necessity - Tobacco Use Smoking Status: Unknown if ever smoked Assessment/Plan All Active Problems Abdominal pain (Acute) RECOMMENDATIONS: 1. Continue current supportive measures with mechanical ventilatory support and intra-aortic balloon pump. 2. Obtain repeat plain film chest x-ray this morning. 3. Continue IV Lasix as ordered. 4. Continue fentanyl and propofol for sedation 5. Continue Pepcid for GI prophylaxis 6. Continue as needed aerosol treatments 7. Continue tube feeds and start sliding scale insulin coverage every [address]: 1. [address] elevation myocardial infarction/history of ischemic cardiomyopathy status post previous PCI The patient underwent urgent cardiac catheterization on the morning of December 07 without intervention performed. Continue intra-aortic balloon pump and gentle diuresis per cardiology recommendations. 2. Acute hypoxemic respiratory failure The patient became encephalopathic while in the emergency department in the setting of #1. We will continue current supportive measures with full mechanical ventilatory support. Wean FiO2 and PEEP as tolerated. Continue propofol and fentanyl for sedation. Perform daily paired spontaneous awakening and breathing trials, once the patient's FiO2 requirement has been able to be weaned. Continue as needed aerosol treatments. Continue tube feeds and start sliding scale insulin coverage. Will obtain repeat plain film chest x-ray this morning. 3. Metabolic encephalopathy No significant metabolic derangements noted on chemistry profile. Suspect that the patient may have become hypercarbic leading to his encephalopathy. Continue the aforementioned sedatives to maintain a RASS of -1 to 1. 4. Morbid obesity/hyperlipidemia/hyperglycemia Complicates care, management, recovery and prognosis. Continue statin and start sliding scale insulin coverage. TIME: 38 minutes of critical care time, independent of procedures, was spent addressing the patient's STEMI, acute respiratory failure, metabolic encephalopathy, morbid obesity, review of all data and collaboration with the care team. ([id number]) Code Visit 9xxxx: [id number] Critical care first hour
[2017-12-08] MEDS: Aspirin E.C. 81 MG Tablet PO (08:53)
[2017-12-08] MEDS: Furosemide 40 MG/4 ML Vial IV ×2 (08:53→19:23)
[2017-12-08] MEDS: Losartan Potassium 25 MG Tablet PO (08:53)
[2017-12-08] MEDS: Famotidine 20 MG Tablet GT ×2 (08:53→21:07)
[2017-12-08] MEDS: Chlorhexidine 15 ML PO ×2 (08:53→21:07)
[2017-12-08] MEDS: 0.9% NaCl Peripheral Flush Adult/Peds IV ×2 (08:56→19:23)
--- NOTE | 2017-12-08 11:15 | PCM.PN.CARD ---
Objective: Vital Signs Temp Pulse Resp BP Pulse Ox 98.3 F 75 14 105/87 H 100 12/08/17 10:00 12/08/17 11:02 12/08/17 11:02 12/08/17 10:00 12/08/17 11:02 Oxygen Delivery Method Mechanical Ventilator Weight: 126.3 kg Body Mass Index (BMI) 40.6 Intake and Output for Last 24 Hours 12/06/17 12/07/17 12/08/17 23:59 23:59 23:59 Intake Total 1193.8 / 1193.8 987.2 / 987.2 Output Total 1549 / 1549 527 / 527 Balance -355.2 / -355.2 460.2 / 460.2 12/07/17 11:30: Troponin I 1.240 H* 12/07/17 11:52: pH 7.38, Bicarbonate Actual 24.7, POC Total CO2 26, Base Excess 0, O2 Saturation 67 L, ABG pCO2 42.1, ABG pO2 35 L* 12/07/17 14:00: Troponin I 3.220 H* 12/07/17 14:00: APTT 169.0 H* 12/07/17 20:03: APTT 24.9 12/07/17 20:03: Troponin I 3.990 H* 12/07/17 20:59: APTT Cancelled 12/07/17 21:27: APTT > 250.0 H* 12/08/17 04:10: Sodium 140, Potassium 5.0, Chloride 105, Carbon Dioxide 24.0, Anion Gap 11, BUN 24 H, Creatinine 1.21, Est GFR (MDRD) Af Amer 76, Est GFR (MDRD) Non-Af 63, BUN/Creatinine Ratio 19.8, Glucose 159 H, Calcium 8.1 L 12/08/17 04:10: WBC 15.2 H, RBC 3.99 L, Hgb 12.5 L, Hct 38.0 L, MCV 95.2 H, MCH 31.3, MCHC 32.9, RDW 16.1 H, RDW Differential 53.8 H, Plt Count 260, MPV 9.7 12/08/17 04:10: APTT 23.1 L Rhythm: EKG: ECHO: Stress Test: Cardiac Cath: PCI: CT Surgery: Holter monitor: EPS: PPM: CXR: Chest CT Scan: Medical Necessity - Tobacco Use Smoking Status: Unknown if ever smoked Assessment/Plan Interval events, notes results were reviewed and pt examined. Pt with decompensated CHF, probably acute pulmonary edema, non ST Elevation WI, HEEL BUFFER of the RCA, couldn't be crossed. Severe LV systolic dysfunction, LVEF: 25%, by LV angiogram, severe inferior hypokinesia, Mild MR. On Vent, sedated, O2, okay on FIO2 of 0.7. IABP, mildly augmenting, no vasopressors at this time. Cold legs, feet, bilateral. Morbid obesity. Mild PHTN. Will add Dobutamine. Continue medical management. Case was discussed with Dr. Varela , nurses and the attending hospitalist. Will FU closely.
[2017-12-08 11:54] LABS: Partial Thromboplast Time 25.1 Seconds (24.1-36.2)
[2017-12-08 13:16] LABS: Bedside Glucose 139 mg/dL (70-110)
--- NOTE | 2017-12-08 15:35 | PCM.PN.HOSP ---
Subjective: f/u for cardiogenic shock and respiratory failure Patient seen and examined Chart extensively reviewed Vitals/I&O's: Vital Signs Temp Pulse Resp BP Pulse Ox 98.9 F 106 H 15 91/62 95 12/08/17 15:00 12/08/17 15:00 12/08/17 15:00 12/08/17 15:00 12/08/17 15:00 Oxygen Delivery Method Mechanical Ventilator Weight: 126.3 kg Body Mass Index (BMI) 40.6 Intake and Output for Last 24 Hours 12/06/17 12/07/17 12/08/17 23:59 23:59 23:59 Intake Total 1193.8 / 1193.8 1514.8 / 1514.8 Output Total 1549 / 1549 1057 / 1057 Balance -355.2 / -355.2 457.8 / 457.8 General: - - sedated, intubated and on ventilator HEENT: Atraumatic Oral: Dry Mucosa Neck: Supple Lungs: Clear to auscultation Cardiovascular: Regular rate, Regular Rhythm, Normal S1, Normal S2, No murmurs - heart sounds are distant Abdomen: Obese, - - MWR Skin: No rashes, Skin Tear - sedated Psych/Mental Status: - - sedated Laboratory Results 12/07/17 20:03: APTT 24.9 12/07/17 20:03: Troponin I 3.990 H* 12/07/17 20:59: APTT Cancelled 12/07/17 21:27: APTT > 250.0 H* 12/07/17 23:54: POC Glucose 144 H 12/08/17 04:10: Sodium 140, Potassium 5.0, Chloride 105, Carbon Dioxide 24.0, Anion Gap 11, BUN 24 H, Creatinine 1.21, Estim Creat Clear Calc 60.50, Est GFR (MDRD) Af Amer 76, Est GFR (MDRD) Non-Af 63, BUN/Creatinine Ratio 19.8, Glucose 159 H, Calcium 8.1 L 12/08/17 04:10: WBC 15.2 H, RBC 3.99 L, Hgb 12.5 L, Hct 38.0 L, MCV 95.2 H, MCH 31.3, MCHC 32.9, RDW 16.1 H, RDW Differential 53.8 H, Plt Count 260, MPV 9.7 12/08/17 04:10: APTT 23.1 L 12/08/17 05:36: POC Glucose 171 H 12/08/17 11:40: APTT 25.1 12/08/17 12:10: POC Glucose 139 H Current Medications Albuterol Sulfate (Ventolin Aerosols) 2.5 mg INHALATION Q2H PRN PRN PRN Reason: SOB/WHEEZING Aspirin (Ecotrin) 81 mg PO DAILY@0800 COUNT INCLUDES THE [facility] Last Admin: 12/08/17 08:53 Dose: 81 mg Atorvastatin Calcium (Lipitor) 80 mg PO QHS COUNT INCLUDES THE [facility] Last Admin: 12/07/17 21:36 Dose: 80 mg Atropine Sulfate () 0.5 mg IV UD PRN PRN Reason: HR <50 bpm Chlorhexidine Gluconate () 15 ml PO BID COUNT INCLUDES THE [facility] Last Admin: 12/08/17 08:53 Dose: 15 ml Chlorhexidine Gluconate () 1 each TOPICAL DAILY COUNT INCLUDES THE [facility] Last Admin: 12/08/17 04:20 Dose: 1 each Famotidine (Pepcid) 20 mg GT BID COUNT INCLUDES THE [facility] Last Admin: 12/08/17 08:53 Dose: 20 mg Furosemide (Lasix) 40 mg IV BID@1000,1800 COUNT INCLUDES THE [facility] Last Admin: 12/08/17 08:53 Dose: 40 mg Heparin Sodium (Beef Lung) (Heparin 500 Unit/5 Ml (100/Ml)) 500 unit IV UD PRN PRN Reason: HEPARIN FLUSH Last Admin: 12/07/17 21:35 Dose: 500 unit Heparin Sodium (Porcine) (Heparin Na) 0 unit IV UD PRN PRN Reason: Protocol Last Admin: 12/08/17 12:12 Dose: 1,000 unit Heparin Sodium/Sodium Chloride () 2,000 units IV UD NASIM Last Admin: 12/07/17 22:25 Dose: 2,000 units Heparin Sodium/Sodium Chloride () 2,000 units IV UD COUNT INCLUDES THE [facility] Last Admin: 12/08/17 11:22 Dose: Not Given Propofol (Diprivan) 1,000 mg in 100 mls @ 4.167 mls/hr CONT INF .Q12H NASIM; 5 MCG/KG/MIN PRN Reason: Protocol Last Admin: 12/08/17 15:18 Dose: 4.167 mls/hr Heparin Sodium/Sodium Chloride () 25,000 unit in 250 mls @ 10 mls/hr IV .Q25H NASIM; As Directed PRN Reason: Protocol Last Admin: 12/08/17 11:47 Dose: Not Given Sodium Chloride () 1,000 mls @ 1 mls/hr IV .Q48H PRN PRN Reason: SALINE FLUSH Fentanyl () 100 mls @ 5 mls/hr IV .Q20H COUNT INCLUDES THE [facility] Last Admin: 12/08/17 08:54 Dose: 5 mls/hr Enteral Nutritional Formula (Vital Af 1.2 Willian Liquid) 1,000 mls @ 70 mls/hr GT .[id number] COUNT INCLUDES THE [facility] Last Admin: 12/08/17 05:17 Dose: Not Given Dobutamine HCl/Dextrose 500 mg (/ N/A) 250 mls @ 11.36 mls/hr IV .Q22H1M COUNT INCLUDES THE [facility] PRN Reason: 3 MCG/KG/MIN Last Admin: 12/08/17 12:12 Dose: 11.36 mls/hr Insulin Human Lispro (Humalog Kwikpen (Bkc)) 0 unit SC Q6 NASIM PRN Reason: Protocol Last Admin: 12/08/17 12:11 Dose: Not Given Labetalol HCl (Trandate) 5 mg IV X1 PRN PRN Reason: SBP > 160 when pulling sheath Losartan Potassium (Cozaar) 25 mg PO DAILY COUNT INCLUDES THE [facility] Last Admin: 12/08/17 08:53 Dose: 25 mg Morphine Sulfate () 2 mg IV Q4H PRN PRN PRN Reason: Mild back pain (0-2/10) Sodium Chloride () 5 - 30 ml IV UD PRN PRN Reason: SALINE FLUSH Last Admin: 12/08/17 08:56 Dose: 30 ml Sodium Chloride () 500 ml IV BOLUS PRN PRN Reason: VASO-VAGAL PROTOCOL Medical Necessity - Tobacco Use Smoking Status: Unknown if ever smoked Assessment/Plan All Active Problems Abdominal pain (Acute) 1. Acute hypoxic respiratory failure. Likely related to pulmonary edema from CHF. patient intubated on on mechanical ventilation. 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 Cardiogenic shock secondary to severe MA. Patient on IABP at this time. Management per cardiology 3. STEMI. Completely occluded RCA on left heart catheterization, unamenable to any percutaneous coronary intervention and will require medical management. 4. Morbid obesity. 5. Hyperglycemia. Uncertain if has h/o DM. Blood glucose levels lower today. May be related to stress of acute MA. On SSI insulin and will see if this suffices Code Visit Inpatient E&M: 72599 Subs Hosp L3
--- NOTE | 2017-12-08 15:43 | PN_ITS ---
Subjective: f/u for cardiogenic shock and respiratory failure Patient seen and examined Chart extensively reviewed Vitals/I&O's: Vital Signs Temp Pulse Resp BP Pulse Ox 98.9 F 106 H 15 91/62 95 12/08/17 15:00 12/08/17 15:00 12/08/17 15:00 12/08/17 15:00 12/08/17 15:00 Oxygen Delivery Method Mechanical Ventilator Weight: 126.3 kg Body Mass Index (BMI) 40.6 Intake and Output for Last 24 Hours 12/06/17 12/07/17 12/08/17 23:59 23:59 23:59 Intake Total 1193.8 / 1193.8 1514.8 / 1514.8 Output Total 1549 / 1549 1057 / 1057 Balance -355.2 / -355.2 457.8 / 457.8 General: - - sedated, intubated and on ventilator HEENT: Atraumatic Oral: Dry Mucosa Neck: Supple Lungs: Clear to auscultation Cardiovascular: Regular rate, Regular Rhythm, Normal S1, Normal S2, No murmurs - heart sounds are distant Abdomen: Obese, - - MWR Skin: No rashes, Skin Tear - sedated Psych/Mental Status: - - sedated Laboratory Results 12/07/17 20:03: APTT 24.9 12/07/17 20:03: Troponin I 3.990 H* 12/07/17 20:59: APTT Cancelled 12/07/17 21:27: APTT > 250.0 H* 12/07/17 23:54: POC Glucose 144 H 12/08/17 04:10: Sodium 140, Potassium 5.0, Chloride 105, Carbon Dioxide 24.0, Anion Gap 11, BUN 24 H, Creatinine 1.21, Estim Creat Clear Calc 60.50, Est GFR ( MDRD) Af Amer 76, Est GFR (MDRD) Non-Af 63, BUN/Creatinine Ratio 19.8, Glucose 159 H, Calcium 8.1 L 12/08/17 04:10: WBC 15.2 H, RBC 3.99 L, Hgb 12.5 L, Hct 38.0 L, MCV 95.2 H, MCH 31.3, MCHC 32.9, RDW 16.1 H, RDW Differential 53.8 H, Plt Count 260, MPV 9.7 12/08/17 04:10: APTT 23.1 L 12/08/17 05:36: POC Glucose 171 H 12/08/17 11:40: APTT 25.1 12/08/17 12:10: POC Glucose 139 H Current Medications Albuterol Sulfate (Ventolin Aerosols) 2.5 mg INHALATION Q2H PRN PRN PRN Reason: SOB/WHEEZING Aspirin (Ecotrin) 81 mg PO DAILY@0800 [facility] Last Admin: 12/08/17 08:53 Dose: 81 mg Atorvastatin Calcium (Lipitor) [address] [facility] Last Admin: 12/07/17 21:36 Dose: 80 mg Atropine Sulfate () 0.5 mg IV UD PRN PRN Reason: HR <50 bpm Chlorhexidine Gluconate () [address] [facility] Last Admin: 12/08/17 08:53 Dose: 15 ml Chlorhexidine Gluconate () [address] [facility] Last Admin: 12/08/17 04:20 Dose: 1 each Famotidine (Pepcid) [address] [facility] Last Admin: 12/08/17 08:53 Dose: 20 mg Furosemide (Lasix) 40 mg IV BID@1000,1800 [facility] Last Admin: 12/08/17 08:53 Dose: 40 mg Heparin Sodium (Beef Lung) (Heparin 500 Unit/5 Ml (100/Ml)) 500 unit IV UD PRN PRN Reason: HEPARIN FLUSH Last Admin: 12/07/17 21:35 Dose: 500 unit Heparin Sodium (Porcine) (Heparin Na) 0 unit IV UD PRN PRN Reason: Protocol Last Admin: 12/08/17 12:12 Dose: 1,000 unit Heparin Sodium/Sodium Chloride () 2,000 units IV UD NASIM Last Admin: 12/07/17 22:25 Dose: 2,000 units Heparin Sodium/Sodium Chloride () 2,[address] [facility] Last Admin: 12/08/17 11:22 Dose: Not Given Propofol (Diprivan) 1,000 mg in 100 mls @ 4.167 mls/hr CONT INF .Q12H NASIM; 5 MCG/KG/MIN PRN Reason: Protocol Last Admin: 12/08/17 15:18 Dose: 4.167 mls/hr Heparin Sodium/Sodium Chloride () 25,000 unit in 250 mls @ 10 mls/hr IV .Q25H NASIM; As Directed PRN Reason: Protocol Last Admin: 12/08/17 11:47 Dose: Not Given Sodium Chloride () 1,000 mls @ 1 mls/hr IV .Q48H PRN PRN Reason: SALINE FLUSH Fentanyl () 100 mls @ 5 mls/hr IV .Q20H [facility] Last Admin: 12/08/17 08:54 Dose: 5 mls/hr Enteral Nutritional Formula (Vital Af 1.2 Willian Liquid) 1,000 mls @ 70 mls/hr GT .[id number] [facility] Last Admin: 12/08/17 05:17 Dose: Not Given Dobutamine HCl/Dextrose 500 mg (/ N/A) 250 mls @ 11.36 mls/hr IV .Q22H1M [facility] PRN Reason: 3 MCG/KG/MIN Last Admin: 12/08/17 12:12 Dose: 11.36 mls/hr Insulin Human Lispro (Humalog Kwikpen (Bkc)) 0 unit SC Q6 NASIM PRN Reason: Protocol Last Admin: 12/08/17 12:11 Dose: Not Given Labetalol HCl (Trandate) 5 mg IV X1 PRN PRN Reason: SBP > 160 when pulling sheath Losartan Potassium (Cozaar) [address] [facility] Last Admin: 12/08/17 08:53 Dose: 25 mg Morphine Sulfate () 2 mg IV Q4H PRN PRN PRN Reason: Mild back pain (0-2/10) Sodium Chloride () 5 - 30 ml IV UD PRN PRN Reason: SALINE FLUSH Last Admin: 12/08/17 08:56 Dose: 30 ml Sodium Chloride () 500 ml IV BOLUS PRN PRN Reason: VASO-VAGAL PROTOCOL Medical Necessity - Tobacco Use Smoking Status: Unknown if ever smoked Assessment/Plan All Active Problems Abdominal pain (Acute) 1. Acute hypoxic respiratory failure. Likely related to pulmonary edema from CHF. patient intubated on on mechanical ventilation. 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 Cardiogenic shock secondary to severe OR. Patient on IABP at this time. Management per cardiology 3. STEMI. Completely occluded RCA on left heart catheterization, unamenable to any percutaneous coronary intervention and will require medical management. 4. Morbid obesity. 5. Hyperglycemia. Uncertain if has h/o DM. Blood glucose levels lower today. May be related to stress of acute OR. On SSI insulin and will see if this suffices Code Visit Inpatient E&M: 22876 Subs Hosp L3
[2017-12-08 17:20] LABS: Bedside Glucose 142 mg/dL (70-110)
[2017-12-08 18:37] LABS: Partial Thromboplast Time 27.3 Seconds (24.1-36.2)
[2017-12-08 18:41] LABS: Anion Gap 11 (5-15); BUN 31 mg/dL (7-18); BUN/Creat Ratio 19.4 RATIO (10-20); Calcium,Total 7.9 mg/dL (8.5-10.1); Chloride 105 mmol/L (98-107); EST Glomerular Filtration Rate 46 mL/min (>60); Est Glom Filt Rate - Afr Amer 55 mL/min (>60); Estimated Creatinine Clearance 45.76 ml/min; Glucose 155 mg/dL (74-106); Magnesium 1.7 mg/dL (1.6-2.6); Potassium 4.5 mmol/L (3.5-5.1); Sodium Level 141 mmol/L (136-145)
[2017-12-08] MEDS: Vital AF 1.2 Cal Liquid 1,000 ML 70 ML GT (20:09)
[2017-12-08] MEDS: Atorvastatin Calcium 80 MG Tablet PO (21:07)
[2017-12-09] VITALS (63 sets, daily range): BP systolic 59–134; BP diastolic 34–96; PULSE 89–126; RESP 14–30; TEMP 37.8–38.8; O2SAT 92–99
[2017-12-09] MEDS: Insulin Lispro 100 UNIT/ML INSULN.PEN SC ×5 (00:28→23:45)
[2017-12-09 00:31] LABS: Bedside Glucose 172 mg/dL (70-110)
[2017-12-09 01:41] LABS: Partial Thromboplast Time 22.7 Seconds (24.1-36.2)
[2017-12-09] MEDS: Heparin Injection (Vial) 5,000 UNIT/ML VIAL IV (02:10)
[2017-12-09] MEDS: Propofol 10MG/Ml 1,000 MG/100 ML Bottle 4.167 MG CONT INF ×4 (02:35→21:13)
[2017-12-09 04:59] LABS: Hematocrit 37.1 % (40-54); Mean Corp Hgb Conc 32.3 g/gl (32-36); Mean Corpuscular Hgb 30.7 pg (27.0-32.0); Mean Corpuscular Volume 94.9 fL (80-94); Mean Platelet Vol. 9.8 fl (6.2-12.0); Platelet Count 234 K/mm3 (150-450); RBC Distribution Width CV 16.3 % (11.6-14.6); RBC Distribution Width SD 54.9 fl (35.1-43.9); Red Blood Count 3.91 M/mm3 (4.6-6.2); Scan Indicated on CBC? Y/N NO; White Blood Count 12.6 K/mm3 (4.4-11.0)
[2017-12-09 05:23] LABS: Anion Gap 13 (5-15); BUN 34 mg/dL (7-18); BUN/Creat Ratio 22.1 RATIO (10-20); Calcium,Total 7.9 mg/dL (8.5-10.1); Chloride 102 mmol/L (98-107); Creatinine, Serum 1.54 mg/dL (0.70-1.30); EST Glomerular Filtration Rate 48 mL/min (>60); Est Glom Filt Rate - Afr Amer 58 mL/min (>60); Estimated Creatinine Clearance 47.54 ml/min; Glucose 235 mg/dL (74-106); Magnesium 1.5 mg/dL (1.6-2.6); Phosphorus 3.1 mg/dL (2.5-4.9); Potassium 4.1 mmol/L (3.5-5.1); Sodium Level 138 mmol/L (136-145)
[2017-12-09] MEDS: CHLORHEXIDINE GLUC 2% CLOTH 1 EACH TOWELETTE TOPICAL (05:52)
[2017-12-09] MEDS: Acetaminophen 650 MG/20 ML UDC GT ×4 (06:11→23:40)
[2017-12-09] MEDS: HEPARIN/D5w 25,000 UNITS 25,000 UNITS/250 ML IV.SOLN. 10 UNITS IV (06:12)
[2017-12-09 06:31] LABS: Bedside Glucose 187 mg/dL (70-110)
--- NOTE | 2017-12-09 07:39 | PCM.PN.INT ---
Subjective: The patient was seen and examined at the bedside this morning. Events from the last 24 hours have been reviewed. The patient is now febrile with a T-max this morning of 101.6?F. The patient appears to have been started on both dobutamine and Levophed since yesterday. He is currently overall net +1.2 L for the admission. Nursing staff once again reported that with lightening of his sedation, the patient becomes extremely agitated and restless. Objective: The patient's most recent lab work, culture data and imaging studies have all been personally reviewed. Surface echocardiogram revealed severe global LV systolic dysfunction with an ejection fraction of 25%. Blood, urine and sputum cultures have been ordered for this morning. General: - - Intubated, sedated and mechanically ventilated. HEENT: Atraumatic, PERRLA, Normocephalic Oral: Moist Mucosa, - - Endotracheal and OG tubes remain in place. Neck: Supple, No Nodes, Trachea Midline Lungs: Diminished, Rhonchi Cardiovascular: Regular rate, Regular Rhythm, Normal S1, Normal S2, - - Intra-aortic balloon pump augmenting his previous Abdomen: Bowel Sounds Present, Soft, Non Tender, Obese Extremities: No clubbing, No cyanosis, No edema, - - Cold peripheral extremities Skin: - - No significant change from previous Musculoskeletal: No Muscle Wasting Lymphatic: No Cervical, Supraclavicular, or Inguinal Adenopathy Neurological: - - No focal neurological deficits. The patient is once again sedated and nonresponsive to verbal or tactile stimulation. Vital Signs Temp Pulse Resp BP Pulse Ox 101.6 F H 100 14 87/59 L 95 12/09/17 07:00 12/09/17 07:00 12/09/17 07:00 12/09/17 07:00 12/09/17 07:00 Oxygen Delivery Method Mechanical Ventilator Weight: 290 lb 2.053 oz Body Mass Index (BMI) 40.6 Intake and Output for Last 24 Hours 12/07/17 12/08/17 12/09/17 23:59 23:59 23:59 Intake Total 1193.8 / 1193.8 2418.0 / 2418.0 1326.2 / 1326.2 Output Total 1549 / 1549 1645 / 1645 510 / 510 Balance -355.2 / -355.2 773.0 / 773.0 816.2 / 816.2 Labs (Last 48 Hours) 12/07/17 12/07/17 12/07/17 08:07 08:10 08:10 WBC 9.6 RBC 4.16 L Hgb 12.9 L Hct 39.8 L MCV 95.7 H MCH 31.0 MCHC 32.4 RDW 15.6 H RDW Differential 53.5 H Plt Count 373 MPV 9.6 Immature Gran % (Auto) 0.700 Neut % (Auto) 63.3 Lymph % (Auto) 28.3 [place] % (Auto) 3.7 Eos % (Auto) 3.5 Baso % (Auto) 0.5 Absolute Neuts (auto) 6.1 Absolute Lymphs (auto) 2.72 Total Counted Not Reportable PT 15.7 H INR 1.3 APTT 74.0 H Activated Clotting Time Specimen Type ART Sample Site pH 7.11 L* Bicarbonate Actual 21.4 L POC Total CO2 23 Base Excess -8 L O2 Saturation 97 O2 % ABG pCO2 66.9 H ABG pO2 126 H VBG pH VBG pO2 VBG O2 Sat (Calc) VBG O2 Content VBG Base Excess POC Mix VBG pCO2 Pt Tmp Respiration Rate O2 Delivery Device Minute Volume Vent Mode Tidal Volume POC PEEP Blood Gas Notified Whom Blood Gas Notified Time Sodium Potassium Chloride Carbon Dioxide Anion Gap BUN Creatinine Estim Creat Clear Calc Est GFR (MDRD) Af Amer Est GFR (MDRD) Non-Af BUN/Creatinine Ratio Glucose Calcium Phosphorus Magnesium Troponin I MRSA (PCR) POC Glucose 12/07/17 12/07/17 12/07/17 08:10 08:33 08:41 WBC RBC Hgb Hct MCV MCH MCHC RDW RDW Differential Plt Count MPV Immature Gran % (Auto) Neut % (Auto) Lymph % (Auto) [place] % (Auto) Eos % (Auto) Baso % (Auto) Absolute Neuts (auto) Absolute Lymphs (auto) Total Counted PT INR APTT Activated Clotting Time 125 Specimen Type ART Sample Site pH 7.17 L* Bicarbonate Actual 23.5 POC Total CO2 25 Base Excess -5 L O2 Saturation 60 L O2 % ABG pCO2 64.6 H ABG pO2 40 L VBG pH VBG pO2 VBG O2 Sat (Calc) VBG O2 Content VBG Base Excess POC Mix VBG pCO2 Pt Tmp Respiration Rate O2 Delivery Device Minute Volume Vent Mode Tidal Volume POC PEEP Blood Gas Notified Whom Blood Gas Notified Time Sodium 141 Potassium 3.5 Chloride 105 Carbon Dioxide 22.0 Anion Gap 14 BUN 13 Creatinine 1.10 Estim Creat Clear Calc 66.55 Est GFR (MDRD) Af Amer 85 Est GFR (MDRD) Non-Af 70 BUN/Creatinine Ratio 11.8 Glucose 336 H Calcium 7.9 L Phosphorus Magnesium Troponin I 0.061 H MRSA (PCR) POC Glucose 12/07/17 12/07/17 12/07/17 08:45 10:00 11:30 WBC RBC Hgb Hct MCV MCH MCHC RDW RDW Differential Plt Count MPV Immature Gran % (Auto) Neut % (Auto) Lymph % (Auto) [place] % (Auto) Eos % (Auto) Baso % (Auto) Absolute Neuts (auto) Absolute Lymphs (auto) Total Counted PT INR APTT Activated Clotting Time Specimen Type DALILA Sample Site pH Bicarbonate Actual POC Total CO2 Base Excess O2 Saturation O2 % ABG pCO2 ABG pO2 VBG pH 7.18 L* VBG pO2 43 H VBG O2 Sat (Calc) 65 VBG O2 Content 26 VBG Base Excess -4 L POC Mix VBG pCO2 Pt Tmp 63.9 H Respiration Rate O2 Delivery Device Minute Volume Vent Mode Tidal Volume POC PEEP Blood Gas Notified Whom Blood Gas Notified Time Sodium Potassium Chloride Carbon Dioxide Anion Gap BUN Creatinine Estim Creat Clear Calc Est GFR (MDRD) Af Amer Est GFR (MDRD) Non-Af BUN/Creatinine Ratio Glucose Calcium Phosphorus Magnesium Troponin I 1.240 H* MRSA (PCR) Negative POC Glucose 12/07/17 12/07/17 12/07/17 11:52 14:00 14:00 WBC RBC Hgb Hct MCV MCH MCHC RDW RDW Differential Plt Count MPV Immature Gran % (Auto) Neut % (Auto) Lymph % (Auto) [place] % (Auto) Eos % (Auto) Baso % (Auto) Absolute Neuts (auto) Absolute Lymphs (auto) Total Counted PT INR APTT 169.0 H* Activated Clotting Time Specimen Type ROCIO Sample Site R Femoral pH 7.38 Bicarbonate Actual 24.7 POC Total CO2 26 Base Excess 0 O2 Saturation 67 L O2 % 100 ABG pCO2 42.1 ABG pO2 35 L* VBG pH VBG pO2 VBG O2 Sat (Calc) VBG O2 Content VBG Base Excess POC Mix VBG pCO2 Pt Tmp Respiration Rate 14 O2 Delivery Device Vent Minute Volume 11.00 Vent Mode A-C Tidal Volume 500 POC PEEP 5 Blood Gas Notified Whom ICU MD Blood Gas Notified Time 1150 Sodium Potassium Chloride Carbon Dioxide Anion Gap BUN Creatinine Estim Creat Clear Calc Est GFR (MDRD) Af Amer Est GFR (MDRD) Non-Af BUN/Creatinine Ratio Glucose Calcium Phosphorus Magnesium Troponin I 3.220 H* MRSA (PCR) POC Glucose 12/07/17 12/07/17 12/07/17 20:03 20:03 20:59 WBC RBC Hgb Hct MCV MCH MCHC RDW RDW Differential Plt Count MPV Immature Gran % (Auto) Neut % (Auto) Lymph % (Auto) [place] % (Auto) Eos % (Auto) Baso % (Auto) Absolute Neuts (auto) Absolute Lymphs (auto) Total Counted PT INR APTT 24.9 Cancelled Activated Clotting Time Specimen Type Sample Site pH Bicarbonate Actual POC Total CO2 Base Excess O2 Saturation O2 % ABG pCO2 ABG pO2 VBG pH VBG pO2 VBG O2 Sat (Calc) VBG O2 Content VBG Base Excess POC Mix VBG pCO2 Pt Tmp Respiration Rate O2 Delivery Device Minute Volume Vent Mode Tidal Volume POC PEEP Blood Gas Notified Whom Blood Gas Notified Time Sodium Potassium Chloride Carbon Dioxide Anion Gap BUN Creatinine Estim Creat Clear Calc Est GFR (MDRD) Af Amer Est GFR (MDRD) Non-Af BUN/Creatinine Ratio Glucose Calcium Phosphorus Magnesium Troponin I 3.990 H* MRSA (PCR) POC Glucose 12/07/17 12/07/17 12/08/17 21:27 23:54 04:10 WBC RBC Hgb Hct MCV MCH MCHC RDW RDW Differential Plt Count MPV Immature Gran % (Auto) Neut % (Auto) Lymph % (Auto) [place] % (Auto) Eos % (Auto) Baso % (Auto) Absolute Neuts (auto) Absolute Lymphs (auto) Total Counted PT INR APTT > 250.0 H* Activated Clotting Time Specimen Type Sample Site pH Bicarbonate Actual POC Total CO2 Base Excess O2 Saturation O2 % ABG pCO2 ABG pO2 VBG pH VBG pO2 VBG O2 Sat (Calc) VBG O2 Content VBG Base Excess POC Mix VBG pCO2 Pt Tmp Respiration Rate O2 Delivery Device Minute Volume Vent Mode Tidal Volume POC PEEP Blood Gas Notified Whom Blood Gas Notified Time Sodium 140 Potassium 5.0 Chloride 105 Carbon Dioxide 24.0 Anion Gap 11 BUN 24 H Creatinine 1.21 Estim Creat Clear Calc 60.50 Est GFR (MDRD) Af Amer 76 Est GFR (MDRD) Non-Af 63 BUN/Creatinine Ratio 19.8 Glucose 159 H Calcium 8.1 L Phosphorus Magnesium Troponin I MRSA (PCR) POC Glucose 144 H 12/08/17 12/08/17 12/08/17 04:10 04:10 05:36 WBC 15.2 H RBC 3.99 L Hgb 12.5 L Hct 38.0 L MCV 95.2 H MCH 31.3 MCHC 32.9 RDW 16.1 H RDW Differential 53.8 H Plt Count 260 MPV 9.7 Immature Gran % (Auto) Neut % (Auto) Lymph % (Auto) [place] % (Auto) Eos % (Auto) Baso % (Auto) Absolute Neuts (auto) Absolute Lymphs (auto) Total Counted PT INR APTT 23.1 L Activated Clotting Time Specimen Type Sample Site pH Bicarbonate Actual POC Total CO2 Base Excess O2 Saturation O2 % ABG pCO2 ABG pO2 VBG pH VBG pO2 VBG O2 Sat (Calc) VBG O2 Content VBG Base Excess POC Mix VBG pCO2 Pt Tmp Respiration Rate O2 Delivery Device Minute Volume Vent Mode Tidal Volume POC PEEP Blood Gas Notified Whom Blood Gas Notified Time Sodium Potassium Chloride Carbon Dioxide Anion Gap BUN Creatinine Estim Creat Clear Calc Est GFR (MDRD) Af Amer Est GFR (MDRD) Non-Af BUN/Creatinine Ratio Glucose Calcium Phosphorus Magnesium Troponin I MRSA (PCR) POC Glucose 171 H 12/08/17 12/08/17 12/08/17 11:40 12:10 17:17 WBC RBC Hgb Hct MCV MCH MCHC RDW RDW Differential Plt Count MPV Immature Gran % (Auto) Neut % (Auto) Lymph % (Auto) [place] % (Auto) Eos % (Auto) Baso % (Auto) Absolute Neuts (auto) Absolute Lymphs (auto) Total Counted PT INR APTT 25.1 Activated Clotting Time Specimen Type Sample Site pH Bicarbonate Actual POC Total CO2 Base Excess O2 Saturation O2 % ABG pCO2 ABG pO2 VBG pH VBG pO2 VBG O2 Sat (Calc) VBG O2 Content VBG Base Excess POC Mix VBG pCO2 Pt Tmp Respiration Rate O2 Delivery Device Minute Volume Vent Mode Tidal Volume POC PEEP Blood Gas Notified Whom Blood Gas Notified Time Sodium Potassium Chloride Carbon Dioxide Anion Gap BUN Creatinine Estim Creat Clear Calc Est GFR (MDRD) Af Amer Est GFR (MDRD) Non-Af BUN/Creatinine Ratio Glucose Calcium Phosphorus Magnesium Troponin I MRSA (PCR) POC Glucose 139 H 142 H 12/08/17 12/08/17 12/09/17 18:00 18:00 00:02 WBC RBC Hgb Hct MCV MCH MCHC RDW RDW Differential Plt Count MPV Immature Gran % (Auto) Neut % (Auto) Lymph % (Auto) [place] % (Auto) Eos % (Auto) Baso % (Auto) Absolute Neuts (auto) Absolute Lymphs (auto) Total Counted PT INR APTT 27.3 Activated Clotting Time Specimen Type Sample Site pH Bicarbonate Actual POC Total CO2 Base Excess O2 Saturation O2 % ABG pCO2 ABG pO2 VBG pH VBG pO2 VBG O2 Sat (Calc) VBG O2 Content VBG Base Excess POC Mix VBG pCO2 Pt Tmp Respiration Rate O2 Delivery Device Minute Volume Vent Mode Tidal Volume POC PEEP Blood Gas Notified Whom Blood Gas Notified Time Sodium 141 Potassium 4.5 Chloride 105 Carbon Dioxide 25.0 Anion Gap 11 BUN 31 H Creatinine 1.60 H Estim Creat Clear Calc 45.76 Est GFR (MDRD) Af Amer 55 L Est GFR (MDRD) Non-Af 46 L BUN/Creatinine Ratio 19.4 Glucose 155 H Calcium 7.9 L Phosphorus Magnesium 1.7 Troponin I MRSA (PCR) POC Glucose 172 H 12/09/17 12/09/17 12/09/17 01:15 04:35 04:35 WBC 12.6 H RBC 3.91 L Hgb 12.0 L Hct 37.1 L MCV 94.9 H MCH 30.7 MCHC 32.3 RDW 16.3 H RDW Differential 54.9 H Plt Count 234 MPV 9.8 Immature Gran % (Auto) Neut % (Auto) Lymph % (Auto) [place] % (Auto) Eos % (Auto) Baso % (Auto) Absolute Neuts (auto) Absolute Lymphs (auto) Total Counted PT INR APTT 22.7 L Activated Clotting Time Specimen Type Sample Site pH Bicarbonate Actual POC Total CO2 Base Excess O2 Saturation O2 % ABG pCO2 ABG pO2 VBG pH VBG pO2 VBG O2 Sat (Calc) VBG O2 Content VBG Base Excess POC Mix VBG pCO2 Pt Tmp Respiration Rate O2 Delivery Device Minute Volume Vent Mode Tidal Volume POC PEEP Blood Gas Notified Whom Blood Gas Notified Time Sodium 138 Potassium 4.1 Chloride 102 Carbon Dioxide 23.0 Anion Gap 13 BUN 34 H Creatinine 1.54 H Estim Creat Clear Calc 47.54 Est GFR (MDRD) Af Amer 58 L Est GFR (MDRD) Non-Af 48 L BUN/Creatinine Ratio 22.1 H Glucose 235 H Calcium 7.9 L Phosphorus 3.1 Magnesium 1.5 L Troponin I MRSA (PCR) POC Glucose 12/09/17 05:50 WBC RBC Hgb Hct MCV MCH MCHC RDW RDW Differential Plt Count MPV Immature Gran % (Auto) Neut % (Auto) Lymph % (Auto) [place] % (Auto) Eos % (Auto) Baso % (Auto) Absolute Neuts (auto) Absolute Lymphs (auto) Total Counted PT INR APTT Activated Clotting Time Specimen Type Sample Site pH Bicarbonate Actual POC Total CO2 Base Excess O2 Saturation O2 % ABG pCO2 ABG pO2 VBG pH VBG pO2 VBG O2 Sat (Calc) VBG O2 Content VBG Base Excess POC Mix VBG pCO2 Pt Tmp Respiration Rate O2 Delivery Device Minute Volume Vent Mode Tidal Volume POC PEEP Blood Gas Notified Whom Blood Gas Notified Time Sodium Potassium Chloride Carbon Dioxide Anion Gap BUN Creatinine Estim Creat Clear Calc Est GFR (MDRD) Af Amer Est GFR (MDRD) Non-Af BUN/Creatinine Ratio Glucose Calcium Phosphorus Magnesium Troponin I MRSA (PCR) POC Glucose 187 H Clinical Impression(s) from Imaging Studies [facility] X-Ray 12/07/17 12:13 IMPRESSION: The tip of the orogastric tube is in the body of the stomach just distal to the gastroesophageal junction. Electronically Signed: Cliff Pyle MD at 13:25 EDT Tel [phone], Service support , Chest X-Ray 12/08/17 05:55 IMPRESSION: 1. Endotracheal tube, orogastric tube and likely mediastinal tube present in place. 2. Borderline/mild cardiomegaly. Patchy bilateral parenchymal densities suggestive of edema versus multifocal pneumonia. Electronically Signed: Anthony Moore MD at 7:04 EDT Tel , Service support , Medical Necessity - Tobacco Use Smoking Status: Unknown if ever smoked Assessment/Plan All Active Problems Abdominal pain (Acute) RECOMMENDATIONS: 1. Continue current supportive measures with mechanical ventilatory support and intra-aortic balloon pump. 2. Given the patient's fever, recommend starting broad-spectrum antibiotics and initiating an infectious workup. 3. Discontinue Lasix, given requirement for vasopressor support. 4. Continue fentanyl and propofol for sedation 5. Wean Levophed to maintain a mean arterial pressure at or above 65 mmHg. 6. Continue Pepcid for GI prophylaxis 7. Continue as needed aerosol treatments 8. Continue tube feeds and start sliding scale insulin coverage every [address]: 1[address] elevation myocardial infarction/history of ischemic cardiomyopathy status post previous PCI/cardiogenic shock The patient underwent urgent cardiac catheterization on the morning of December 07 without intervention performed. Continue intra-aortic balloon pump augmentation per cardiology recommendations. IV Lasix regimen currently on hold given underlying vasopressor requirement. Wean Levophed to maintain a mean arterial pressure at or above 65 mmHg. 2. Acute hypoxemic respiratory failure The patient became encephalopathic while in the emergency department in the setting of #1. We will continue current supportive measures with full mechanical ventilatory support. Wean FiO2 and PEEP as tolerated. Continue propofol and fentanyl for sedation. Perform daily paired spontaneous awakening and breathing trials, once the patient's FiO2 requirement has been able to be weaned. Continue as needed aerosol treatments. Continue tube feeds and start sliding scale insulin coverage. 3. Fevers Given the patient's fevers overnight, will start broad-spectrum antibiotics and initiate an infectious workup. 4. Acute kidney injury Likely secondary to hemodynamic instability in the setting of #1. Continue current supportive measures and vasopressor support. 5. Metabolic encephalopathy No significant metabolic derangements noted on chemistry profile. Suspect that the patient may have become hypercarbic leading to his encephalopathy. Continue the aforementioned sedatives to maintain a RASS of -1 to 1. 6. Morbid obesity/hyperlipidemia/hyperglycemia Complicates care, management, recovery and prognosis. Continue statin and start sliding scale insulin coverage. TIME: 35 minutes of critical care time, independent of procedures, was spent addressing the patient's STEMI, acute respiratory failure, metabolic encephalopathy, morbid obesity, fevers, acute kidney injury review of all data and collaboration with the care team. ([id number]) Code Visit [id number]: [id number] Critical care first hour
--- NOTE | 2017-12-09 09:14 | PCM.RX.CS ---
Consult Pharmacy has been consulted to manage selected antiobiotic: Vancomycin Type of Consult: New start Suspected Infection: Sepsis Prior Doses of Antibiotics Received/Current Regimen: None Labs: Sodium 138 mmol/L (136-145) 12/09/17 04:35 Potassium 4.1 mmol/L (3.5-5.1) 12/09/17 04:35 Chloride 102 mmol/L (98-107) 12/09/17 04:35 Carbon Dioxide 23.0 mmol/L (21.0-32.0) 12/09/17 04:35 Anion Gap 13 (5-15) 12/09/17 04:35 BUN 34 mg/dL (7-18) H 12/09/17 04:35 Creatinine 1.54 mg/dL (0.70-1.30) H 12/09/17 04:35 Est GFR (MDRD) Af Amer 58 mL/min (>60) L 12/09/17 04:35 Est GFR (MDRD) Non-Af 48 mL/min (>60) L 12/09/17 04:35 BUN/Creatinine Ratio 22.1 RATIO (10-20) H 12/09/17 04:35 Glucose 235 mg/dL (74-106) H 12/09/17 04:35 Weight used for dosin.6 kg Estimated Creatinine Clearance: 47ml/min Goal Trough: 15-20 mcg/mL Pharmacy Plan for Drug Dosing: Recommend Vancomycin 1000mg IV q12h starting 12/09/17 at 1000. Drawing a trough before the 4th dose on 12/10/17 at 2130 Pharmacy Service will continue to monitor and adjust dosing as required. Follow-Up Labs: Trough Vancomycin Labs to be done on [date and time ordered]: trough level on 12/10/17 at 2130
--- NOTE | 2017-12-09 10:00 | EKG12_ITS ---
Test Reason : AM EKG Blood Pressure : / mmHG Vent. Rate : 104 BPM Atrial Rate : 104 BPM P-R Int : 182 ms QRS Dur : 174 ms QT Int : 394 ms P-R-T Axes : 058 013 196 degrees QTc Int : 518 ms Sinus tachycardia with occasional Premature ventricular complexes and Fusion complexes Left bundle branch block Abnormal ECG When compared with ECG of 08-DEC-2017 13:02, MANUAL COMPARISON REQUIRED, DATA IS UNCONFIRMED Confirmed by KARO VARELA ([id number]), editor producer BRODIE VU ([id number]) on 12/18/2017 2:58:20 PM Referred By: Karo Varela Confirmed By:KARO VARELA
[2017-12-09 10:05] LABS: Partial Thromboplast Time 48.3 Seconds (24.1-36.2)
[2017-12-09] MEDS: Aspirin E.C. 81 MG Tablet PO (10:39)
[2017-12-09] MEDS: Famotidine 20 MG Tablet GT ×2 (10:39→21:14)
[2017-12-09] MEDS: Losartan Potassium 25 MG Tablet PO (10:39)
[2017-12-09] MEDS: Chlorhexidine 15 ML PO ×2 (10:39→21:23)
[2017-12-09] MEDS: Vancomycin IV 1,000 MG/200 ML BAG 200 MG IV ×2 (11:07→21:14)
[2017-12-09 11:15] LABS: Bedside Glucose 257 mg/dL (70-110)
[2017-12-09] MEDS: 0.9% NaCl Peripheral Flush Adult/Peds IV ×2 (11:22→12:32)
--- NOTE | 2017-12-09 12:23 | PCM.PN.CARD ---
Subjectve: Remains sedated on Vent. and IABP. Objective: Vital Signs Temp Pulse Resp BP Pulse Ox 101.6 F H 104 H 20 H 89/48 L 95 12/09/17 11:00 12/09/17 11:00 12/09/17 11:00 12/09/17 11:30 12/09/17 11:00 Oxygen Delivery Method Mechanical Ventilator Weight: 131.6 kg Body Mass Index (BMI) 40.6 Intake and Output for Last 24 Hours 12/07/17 12/08/17 12/09/17 23:59 23:59 23:59 Intake Total 1193.8 / 1193.8 2418.0 / 2418.0 1326.2 / 1326.2 Output Total 1549 / 1549 1645 / 1645 660 / 660 Balance -355.2 / -355.2 773.0 / 773.0 666.2 / 666.2 12/08/17 18:00: APTT 27.3 12/08/17 18:00: Sodium 141, Potassium 4.5, Chloride 105, Carbon Dioxide 25.0, Anion Gap 11, BUN 31 H, Creatinine 1.60 H, Est GFR (MDRD) Af Amer 55 L, Est GFR (MDRD) Non-Af 46 L, BUN/Creatinine Ratio 19.4, Glucose 155 H, Calcium 7.9 L, Magnesium 1.7 12/09/17 01:15: APTT 22.7 L 12/09/17 04:35: WBC 12.6 H, RBC 3.91 L, Hgb 12.0 L, Hct 37.1 L, MCV 94.9 H, MCH 30.7, MCHC 32.3, RDW 16.3 H, RDW Differential 54.9 H, Plt Count 234, MPV 9.8 12/09/17 04:35: Sodium 138, Potassium 4.1, Chloride 102, Carbon Dioxide 23.0, Anion Gap 13, BUN 34 H, Creatinine 1.54 H, Est GFR (MDRD) Af Amer 58 L, Est GFR (MDRD) Non-Af 48 L, BUN/Creatinine Ratio 22.1 H, Glucose 235 H, Calcium 7.9 L, Phosphorus 3.1, Magnesium 1.5 L 12/09/17 08:30: APTT Cancelled 12/09/17 08:55: APTT Cancelled 12/09/17 09:50: APTT 48.3 H Rhythm: EKG: ECHO: Stress Test: Cardiac Cath: PCI: CT Surgery: Holter monitor: EPS: PPM: CXR: Chest CT Scan: Medical Necessity - Tobacco Use Smoking Status: Unknown if ever smoked Assessment/Plan Interval events, notes results were reviewed and pt examined. 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 Severe LV systolic dysfunction, LVEF: 25%, by LV angiogram, severe inferior hypokinesia, Mild MR. On Vent, sedated, O2, okay on FIO2 of 0.7. IABP, mildly augmenting, On Grady, 2.5 mics. Warm legs, feet, PP by Doppler on the R foot.Urinary output borderline. Fever, uncertain etiology, ABX have been started. Will continue medical management. Case was discussed the nurses and will contact Dr. Varela. Will FU closely.
[2017-12-09] MEDS: Nystatin/Triamcin Oint 1 APPLIC TOPICAL ×2 (12:33→21:22)
[2017-12-09] MEDS: Vital AF 1.2 Cal Liquid 1,000 ML 70 ML GT (13:00)
[2017-12-09 13:11] LABS: Bedside Glucose 241 mg/dL (70-110)
--- NOTE | 2017-12-09 14:43 | PCM.PN.HOSP ---
Subjective: f/u for acute LF failure with cardiogenic shock and respiratory failure Patient seen and examined D/w nursing staff and updated Chart reviewed Vitals/I&O's: Vital Signs Temp Pulse Resp BP Pulse Ox 101.4 F H 96 15 94/34 L 94 12/09/17 12:30 12/09/17 13:52 12/09/17 13:52 12/09/17 12:30 12/09/17 13:52 Oxygen Delivery Method Mechanical Ventilator Weight: 131.6 kg Body Mass Index (BMI) 40.6 Intake and Output for Last 24 Hours 12/07/17 12/08/17 12/09/17 23:59 23:59 23:59 Intake Total 1193.8 / 1193.8 2418.0 / 2418.0 2448.2 / 2448.2 Output Total 1549 / 1549 1645 / 1645 752 / 752 Balance -355.2 / -355.2 773.0 / 773.0 1696.2 / 1696.2 General: - - sedated, intubated and on mechanical ventilator, not agitated HEENT: Atraumatic Neck: Supple Lungs: Clear to auscultation Abdomen: Obese Psych/Mental Status: - - sedated at this time Laboratory Results 12/08/17 17:17: POC Glucose 142 H 12/08/17 18:00: APTT 27.3 12/08/17 18:00: Sodium 141, Potassium 4.5, Chloride 105, Carbon Dioxide 25.0, Anion Gap 11, BUN 31 H, Creatinine 1.60 H, Estim Creat Clear Calc 45.76, Est GFR (MDRD) Af Amer 55 L, Est GFR (MDRD) Non-Af 46 L, BUN/Creatinine Ratio 19.4, Glucose 155 H, Calcium 7.9 L, Magnesium 1.7 12/09/17 00:02: POC Glucose 172 H 12/09/17 01:15: APTT 22.7 L 12/09/17 04:35: WBC 12.6 H, RBC 3.91 L, Hgb 12.0 L, Hct 37.1 L, MCV 94.9 H, MCH 30.7, MCHC 32.3, RDW 16.3 H, RDW Differential 54.9 H, Plt Count 234, MPV 9.8 12/09/17 04:35: Sodium 138, Potassium 4.1, Chloride 102, Carbon Dioxide 23.0, Anion Gap 13, BUN 34 H, Creatinine 1.54 H, Estim Creat Clear Calc 47.54, Est GFR (MDRD) Af Amer 58 L, Est GFR (MDRD) Non-Af 48 L, BUN/Creatinine Ratio 22.1 H, Glucose 235 H, Calcium 7.9 L, Phosphorus 3.1, Magnesium 1.5 L 12/09/17 05:50: POC Glucose 187 H 12/09/17 08:30: APTT Cancelled 12/09/17 08:55: APTT Cancelled 12/09/17 09:50: APTT 48.3 H 12/09/17 10:46: POC Glucose 257 H 12/09/17 12:22: POC Glucose 241 H Current Medications Acetaminophen (Tylenol Liquid) 650 mg GT Q4H PRN PRN PRN Reason: pain/fever Last Admin: 12/09/17 12:40 Dose: 650 mg Albuterol Sulfate (Ventolin Aerosols) 2.5 mg INHALATION Q2H PRN PRN PRN Reason: SOB/WHEEZING Aspirin (Ecotrin) 81 mg PO DAILY@0800 [facility] Last Admin: 12/09/17 10:39 Dose: 81 mg Atorvastatin Calcium (Lipitor) 80 mg PO QHS [facility] Last Admin: 12/08/17 21:07 Dose: 80 mg Atropine Sulfate () 0.5 mg IV UD PRN PRN Reason: HR <50 bpm Chlorhexidine Gluconate () 15 ml PO BID [facility] Last Admin: 12/09/17 10:39 Dose: 15 ml Chlorhexidine Gluconate () 1 each TOPICAL DAILY [facility] Last Admin: 12/09/17 05:52 Dose: 1 each Famotidine (Pepcid) 20 mg GT BID [facility] Last Admin: 12/09/17 10:39 Dose: 20 mg Furosemide (Lasix) 80 mg IV BID@1000,1800 [facility] Last Admin: 12/09/17 10:19 Dose: Not Given Heparin Sodium (Beef Lung) (Heparin 500 Unit/5 Ml (100/Ml)) 500 unit IV UD PRN PRN Reason: HEPARIN FLUSH Last Admin: 12/07/17 21:35 Dose: 500 unit Heparin Sodium (Porcine) (Heparin Na) 0 unit IV UD PRN PRN Reason: Protocol Last Admin: 12/09/17 02:10 Dose: 1,000 unit Heparin Sodium/Sodium Chloride () 2,000 units IV UD [facility] Last Admin: 12/07/17 22:25 Dose: 2,000 units Heparin Sodium/Sodium Chloride () 2,000 units IV UD [facility] Last Admin: 12/08/17 11:22 Dose: Not Given Propofol (Diprivan) 1,000 mg in 100 mls @ 4.167 mls/hr CONT INF .Q12H NASIM; 5 MCG/KG/MIN PRN Reason: Protocol Last Admin: 12/09/17 09:00 Dose: 4.167 mls/hr Sodium Chloride () 1,000 mls @ 1 mls/hr IV .Q48H PRN PRN Reason: SALINE FLUSH Fentanyl () 100 mls @ 5 mls/hr IV .Q20H [facility] Last Admin: 12/09/17 01:49 Dose: 5 mls/hr Enteral Nutritional Formula (Vital Af 1.2 Willian Liquid) 1,000 mls @ 70 mls/hr GT .[id number] [facility] Last Admin: 12/08/17 20:09 Dose: 70 mls/hr Norepinephrine Bitartrate 8 mg (/ Dextrose) 258 mls @ 9.67 mls/hr IV .[id number] NASIM PRN Reason: 5 MCG/MIN Last Admin: 12/08/17 19:23 Dose: 9.67 mls/hr Heparin Sodium/Dextrose () 25,000 units in 250 mls @ 10 mls/hr IV .Q25H [facility]; As Directed PRN Reason: Protocol Last Admin: 12/09/17 06:12 Dose: 10 mls/hr Vancomycin IV Pharmacy to Dose (1 ea/ Sodium Chloride) 500 mls @ 250 mls/hr IV X1 PRN; Protocol PRN Reason: Rx to Dose Piperacillin Sod/Tazobactam Sod (Zosyn) 3.375 gm in 50 mls @ 12.5 mls/hr IV Q8 [facility] Vancomycin HCl (Vancomycin) 1,000 mg in 200 mls @ 200 mls/hr IV Q12H [facility] Last Admin: 12/09/17 11:07 Dose: 200 mls/hr Insulin Glargine (Lantus (Bkc)) 12 units SC DAILY [facility] Last Admin: 12/09/17 10:46 Dose: 12 u Insulin Human Lispro (Humalog Kwikpen (Bkc)) 0 unit SC Q6 [facility] PRN Reason: Protocol Last Admin: 12/09/17 05:52 Dose: 1 u Labetalol HCl (Trandate) 5 mg IV X1 PRN PRN Reason: SBP > 160 when pulling sheath Losartan Potassium (Cozaar) 25 mg PO DAILY [facility] Last Admin: 12/09/17 10:39 Dose: 25 mg Morphine Sulfate () 2 mg IV Q4H PRN PRN PRN Reason: Mild back pain (0-2/10) Nystatin/Triamcinolone Acetonide (Mycolog) 1 applic TOPICAL BID [facility]IM PRN Reason: Protocol Last Admin: 12/09/17 12:33 Dose: 1 applicatio Sodium Chloride () 5 - 30 ml IV UD PRN PRN Reason: SALINE FLUSH Last Admin: 12/09/17 12:32 Dose: 30 ml Sodium Chloride () 500 ml IV BOLUS PRN PRN Reason: VASO-VAGAL PROTOCOL Medical Necessity - Tobacco Use Smoking Status: Unknown if ever smoked Assessment/Plan All Active Problems Abdominal pain (Acute) 1. Acute hypoxic respiratory failure. Likely related to pulmonary edema from CHF and paerhaps bronchospasm from exacerbation of CHF or from cardiac asthma based on initial presentation of wheezing and reduced breath sounds. Patient intubated on on mechanical ventilation and PEEP and FiO2 able to be weaned down Continued management per promotions assistant sales marketing/critical care. 2. Cardiogenic shock secondary to acute GA. Patient on IABP at this time. Management per cardiology. Plans to discontinue this soon. Patient still on pressor/inotropic support 3. STEMI. Completely occluded RCA on left heart catheterization, unamenable to any percutaneous coronary intervention and will require medical management going forward. 4. Morbid obesity. 5. Hyperglycemia. Uncertain if has h/o DM. Blood glucose levels lower today. May have been related to stress of acute GA. On SSI insulin but blood glucose control less than optimal. Gone ahead to add basal insulin (Lantus) and will continue to monitor 6. Hypertensive emergency. Present on admission. SBP was > 200. Improved now. Likely sympathetic response to GA. 7. Acute encephalopathy. Present on admission with stupor and was secondary most likely to hypoxia. Expect to improve. 8. KIMBERLY. Secondary to cardiogenic shock. Hemodynamics improved and so expect to slowly recover as well. Code Visit Inpatient E&M: 50233 Subs Hosp L3
[2017-12-09] MEDS: Piperacil/Tazobactam 3.375 GM/50 ML ML IV ×2 (15:22→21:14)
[2017-12-09 17:36] LABS: Bedside Glucose 256 mg/dL (70-110)
[2017-12-09 17:57] LABS: Partial Thromboplast Time 44.1 Seconds (24.1-36.2)
[2017-12-09] MEDS: Atorvastatin Calcium 80 MG Tablet PO (21:14)
[2017-12-10] VITALS (58 sets, daily range): BP systolic 62–141; BP diastolic 33–81; PULSE 88–118; RESP 13–24; TEMP 38.1–38.7; O2SAT 93–99
[2017-12-10 00:11] LABS: Bedside Glucose 272 mg/dL (70-110)
[2017-12-10 01:36] LABS: Partial Thromboplast Time 52.5 Seconds (24.1-36.2)
[2017-12-10] MEDS: Propofol 10MG/Ml 1,000 MG/100 ML Bottle 4.167 MG CONT INF ×4 (03:06→22:17)
[2017-12-10] MEDS: Piperacil/Tazobactam 3.375 GM/50 ML ML IV ×3 (05:18→21:55)
[2017-12-10] MEDS: Jevity 1.5 1,000 ML 60 ML GT ×2 (05:49→22:52)
[2017-12-10] MEDS: HEPARIN/D5w 25,000 UNITS 25,000 UNITS/250 ML IV.SOLN. 10 UNITS IV (05:49)
[2017-12-10 05:59] LABS: Anion Gap 13 (5-15); BUN 41 mg/dL (7-18); BUN/Creat Ratio 23.7 RATIO (10-20); Calcium,Total 7.5 mg/dL (8.5-10.1); Chloride 98 mmol/L (98-107); Creatinine, Serum 1.73 mg/dL (0.70-1.30); EST Glomerular Filtration Rate 42 mL/min (>60); Est Glom Filt Rate - Afr Amer 50 mL/min (>60); Estimated Creatinine Clearance 42.32 ml/min; Glucose 277 mg/dL (74-106); Potassium 3.9 mmol/L (3.5-5.1); Sodium Level 135 mmol/L (136-145)
[2017-12-10 06:06] LABS: Magnesium 1.7 mg/dL (1.6-2.6); Phosphorus 3.3 mg/dL (2.5-4.9)
[2017-12-10] MEDS: CHLORHEXIDINE GLUC 2% CLOTH 1 EACH TOWELETTE TOPICAL (06:12)
[2017-12-10 06:21] LABS: Absolute Lymphocyte Count 1.67 X10^3/ul (0.83-4.51); Absolute Neutrophil Count 14.7 X10^3/uL (2.0-7.7); Basophil# 0.04 X10^3/uL; Basophil% 0.2 % (0-1); Eosinophil# 0.25 X10^3/uL; Eosinophils% 1.4 % (0-5); Hematocrit 36.4 % (40-54); Hemoglobin 11.6 g/dl (13.0-16.5); Lymphocyte # 1.67 X10^3/ul (4.0); Mean Corp Hgb Conc 31.9 g/gl (32-36); Mean Corpuscular Hgb 30.1 pg (27.0-32.0); Mean Corpuscular Volume 94.3 fL (80-94); Mean Platelet Vol. 10.5 fl (6.2-12.0); Monocyte# 1.73 X10^3/uL; Monocyte% 9.4 % (0-10); Neutrophil # 14.71 X10^3/uL (2.7-7.7); Neutrophil % 79.6 % (47-70); Platelet Count 216 K/mm3 (150-450); RBC Distribution Width CV 16.3 % (11.6-14.6); RBC Distribution Width SD 56.5 fl (35.1-43.9); Red Blood Count 3.86 M/mm3 (4.6-6.2); White Blood Count 18.5 K/mm3 (4.4-11.0)
--- NOTE | 2017-12-10 06:28 | PCM.PN.INT ---
Subjective: The patient was seen and examined at the bedside this morning. Events from the last 24 hours have been reviewed. The patient remains febrile with a T-max of 101.8?F. His Levophed has been increased to 20 mcg. Attempts to wean his sedation this morning was unsuccessful due to a significant amount of agitation. Intra-aortic balloon pump remains in place. Objective: The patient's most recent lab work, culture data and imaging studies have all been personally reviewed. Surface echocardiogram revealed severe global LV systolic dysfunction with an ejection fraction of 25%. Blood, urine and sputum cultures have been ordered for this morning. Urine and blood cultures are pending. Respiratory Gram stain and culture also pending. General: - - Intubated, sedated and mechanically ventilated. HEENT: Atraumatic, PERRLA, Normocephalic Oral: Moist Mucosa, - - Endotracheal and OG tubes remain in place. Neck: Supple, No Nodes, Trachea Midline Lungs: Diminished, Rales Cardiovascular: Regular rate, Regular Rhythm, Normal S1, Normal S2, Murmur, - - Intra-aortic balloon pump in place. Abdomen: Bowel Sounds Present, Soft, Non Tender, Obese Extremities: No clubbing, No cyanosis, No edema Skin: - - No significant change from previous. Musculoskeletal: No Tenderness to Palpation of Joints or Extremities Lymphatic: No Cervical, Supraclavicular, or Inguinal Adenopathy Neurological: - - No focal deficits. Currently nonresponsive to verbal and tactile stimulation. RASS is -3. Vital Signs Temp Pulse Resp BP Pulse Ox 101.3 F H 102 H 19 H 90/62 94 12/10/17 00:00 12/10/17 00:45 12/10/17 00:00 12/10/17 06:00 12/10/17 00:00 Oxygen Delivery Method Mechanical Ventilator Weight: 291 lb 14.272 oz Body Mass Index (BMI) 40.6 Intake and Output for Last 24 Hours 12/08/17 12/09/17 12/10/17 23:59 23:59 23:59 Intake Total 2418.0 / 2418.0 3608.2 / 3608.2 2330.4 / 2330.4 Output Total 1645 / 1645 1198 / 1198 482 / 482 Balance 773.0 / 773.0 2410.2 / 2410.2 1848.4 / 1848.4 Labs (Last 48 Hours) 12/08/17 12/08/17 12/08/17 11:40 12:10 17:17 WBC RBC Hgb Hct MCV MCH MCHC RDW RDW Differential Plt Count MPV Neut % (Auto) Absolute Neuts (auto) Total Counted APTT 25.1 Sodium Potassium Chloride Carbon Dioxide Anion Gap BUN Creatinine Estim Creat Clear Calc Est GFR (MDRD) Af Amer Est GFR (MDRD) Non-Af BUN/Creatinine Ratio Glucose Calcium Phosphorus Magnesium POC Glucose 139 H 142 H 12/08/17 12/08/17 12/09/17 18:00 18:00 00:02 WBC RBC Hgb Hct MCV MCH MCHC RDW RDW Differential Plt Count MPV Neut % (Auto) Absolute Neuts (auto) Total Counted APTT 27.3 Sodium 141 Potassium 4.5 Chloride 105 Carbon Dioxide 25.0 Anion Gap 11 BUN 31 H Creatinine 1.60 H Estim Creat Clear Calc 45.76 Est GFR (MDRD) Af Amer 55 L Est GFR (MDRD) Non-Af 46 L BUN/Creatinine Ratio 19.4 Glucose 155 H Calcium 7.9 L Phosphorus Magnesium 1.7 POC Glucose 172 H 12/09/17 12/09/17 12/09/17 01:15 04:35 04:35 WBC 12.6 H RBC 3.91 L Hgb 12.0 L Hct 37.1 L MCV 94.9 H MCH 30.7 MCHC 32.3 RDW 16.3 H RDW Differential 54.9 H Plt Count 234 MPV 9.8 Neut % (Auto) Absolute Neuts (auto) Total Counted APTT 22.7 L Sodium 138 Potassium 4.1 Chloride 102 Carbon Dioxide 23.0 Anion Gap 13 BUN 34 H Creatinine 1.54 H Estim Creat Clear Calc 47.54 Est GFR (MDRD) Af Amer 58 L Est GFR (MDRD) Non-Af 48 L BUN/Creatinine Ratio 22.1 H Glucose 235 H Calcium 7.9 L Phosphorus 3.1 Magnesium 1.5 L POC Glucose 12/09/17 12/09/17 12/09/17 05:50 08:30 08:55 WBC RBC Hgb Hct MCV MCH MCHC RDW RDW Differential Plt Count MPV Neut % (Auto) Absolute Neuts (auto) Total Counted APTT Cancelled Cancelled Sodium Potassium Chloride Carbon Dioxide Anion Gap BUN Creatinine Estim Creat Clear Calc Est GFR (MDRD) Af Amer Est GFR (MDRD) Non-Af BUN/Creatinine Ratio Glucose Calcium Phosphorus Magnesium POC Glucose 187 H 12/09/17 12/09/17 12/09/17 09:50 10:46 12:22 WBC RBC Hgb Hct MCV MCH MCHC RDW RDW Differential Plt Count MPV Neut % (Auto) Absolute Neuts (auto) Total Counted APTT 48.3 H Sodium Potassium Chloride Carbon Dioxide Anion Gap BUN Creatinine Estim Creat Clear Calc Est GFR (MDRD) Af Amer Est GFR (MDRD) Non-Af BUN/Creatinine Ratio Glucose Calcium Phosphorus Magnesium POC Glucose 257 H 241 H 12/09/17 12/09/17 12/09/17 17:25 17:27 23:44 WBC RBC Hgb Hct MCV MCH MCHC RDW RDW Differential Plt Count MPV Neut % (Auto) Absolute Neuts (auto) Total Counted APTT 44.1 H Sodium Potassium Chloride Carbon Dioxide Anion Gap BUN Creatinine Estim Creat Clear Calc Est GFR (MDRD) Af Amer Est GFR (MDRD) Non-Af BUN/Creatinine Ratio Glucose Calcium Phosphorus Magnesium POC Glucose 256 H 272 H 12/10/17 12/10/17 12/10/17 01:15 04:30 04:30 WBC Pending RBC Pending Hgb Pending Hct Pending MCV Pending MCH Pending MCHC Pending RDW Pending RDW Differential Pending Plt Count Pending MPV Neut % (Auto) Pending Absolute Neuts (auto) Pending Total Counted Pending APTT 52.5 H Sodium 135 L Potassium 3.9 Chloride 98 Carbon Dioxide 24.0 Anion Gap 13 BUN 41 H Creatinine 1.73 H Estim Creat Clear Calc 42.32 Est GFR (MDRD) Af Amer 50 L Est GFR (MDRD) Non-Af 42 L BUN/Creatinine Ratio 23.7 H Glucose 277 H Calcium 7.5 L Phosphorus Magnesium POC Glucose 12/10/17 04:30 WBC RBC Hgb Hct MCV MCH MCHC RDW RDW Differential Plt Count MPV Neut % (Auto) Absolute Neuts (auto) Total Counted APTT Sodium Potassium Chloride Carbon Dioxide Anion Gap BUN Creatinine Estim Creat Clear Calc Est GFR (MDRD) Af Amer Est GFR (MDRD) Non-Af BUN/Creatinine Ratio Glucose Calcium Phosphorus 3.3 Magnesium 1.7 POC Glucose Clinical Impression(s) from Imaging Studies KUB X-Ray 12/07/17 12:13 IMPRESSION: The tip of the orogastric tube is in the body of the stomach just distal to the gastroesophageal junction. Electronically Signed: Cliff Pyle MD at 13:25 EDT Tel [phone], Service support , Chest X-Ray 12/08/17 05:55 IMPRESSION: 1. Endotracheal tube, orogastric tube and likely mediastinal tube present in place. 2. Borderline/mild cardiomegaly. Patchy bilateral parenchymal densities suggestive of edema versus multifocal pneumonia. Electronically Signed: Anthony Moore MD at 7:04 EDT Tel , Service support , Chest X-Ray 12/09/17 06:00 IMPRESSION: Cardiomegaly and Central pulmonary vascular prominence. Mild left pleural effusion. Electronically Signed: Mihai Holcomb DO at 10:39 EDT Tel [phone], Service support , Medical Necessity - Tobacco Use Smoking Status: Unknown if ever smoked Assessment/Plan All Active Problems Abdominal pain (Acute) RECOMMENDATIONS: 1. Continue current supportive measures with mechanical ventilatory support and intra-aortic balloon pump. 2. Continue broad-spectrum antibiotics, pending infectious workup. 3. Discontinue Lasix, given requirement for vasopressor support. 4. Continue fentanyl and propofol for sedation. Wean sedatives to maintain a RASS of -1 to 1. 5. Wean Levophed to maintain a mean arterial pressure at or above 65 mmHg. 6. Continue Pepcid for GI prophylaxis 7. Continue as needed aerosol treatments 8. Continue tube feeds and start sliding scale insulin coverage every [address]: 1. [address] elevation myocardial infarction/history of ischemic cardiomyopathy status post previous PCI/cardiogenic shock The patient underwent urgent cardiac catheterization on the morning of December 07 without intervention performed. Continue intra-aortic balloon pump augmentation per cardiology recommendations. IV Lasix regimen currently on hold given underlying vasopressor requirement. Wean Levophed to maintain a mean arterial pressure at or above 65 mmHg. 2. Acute hypoxemic respiratory failure The patient became encephalopathic while in the emergency department in the setting of #1. We will continue current supportive measures with full mechanical ventilatory support. Wean FiO2 and PEEP as tolerated. Continue propofol and fentanyl for sedation. Perform daily paired spontaneous awakening and breathing trials, once the patient's FiO2 requirement has been able to be weaned. Continue as needed aerosol treatments. Continue tube feeds and start sliding scale insulin coverage. 3. Fevers Continue broad-spectrum antibiotics, pending infectious workup. 4. Acute kidney injury Likely secondary to hemodynamic instability in the setting of #1. Continue current supportive measures and vasopressor support. Continue to monitor urine output. No indication for renal replacement therapy at the current time. 5. Metabolic encephalopathy No significant metabolic derangements noted on chemistry profile. Suspect that the patient may have become hypercarbic leading to his encephalopathy. Continue the aforementioned sedatives to maintain a RASS of -1 to 1. 6. Morbid obesity/hyperlipidemia/hyperglycemia Complicates care, management, recovery and prognosis. Continue statin and start sliding scale insulin coverage. TIME: 35 minutes of critical care time, independent of procedures, was spent addressing the patient's STEMI, acute respiratory failure, metabolic encephalopathy, morbid obesity, fevers, acute kidney injury review of all data and collaboration with the care team. ([id number]) Code Visit 9xxxx: [id number] Critical care first hour
[2017-12-10 06:41] LABS: Differential Indicated SCAN CRITERIA MET; POSITIVE COUNT NO; POSITIVE DIFFERENTIAL YES; POSITIVE MORPHOLOGY NO
[2017-12-10 06:44] LABS: Differential Comment SCANNED
[2017-12-10] MEDS: Insulin Lispro 100 UNIT/ML INSULN.PEN SC ×4 (07:29→23:40)
[2017-12-10 07:36] LABS: Bedside Glucose 261 mg/dL (70-110)
--- NOTE | 2017-12-10 08:23 | NURSING ---
dr Varela present at bedside evaluating patient. When the PA Catheter was assessed, Dr Varela felt that it is no longer accurately reading PA pressures. Order received to discontinue obtaining measurements from PA Cath and use it only as a central line for Levophed administration until it is discontinued.
--- NOTE | 2017-12-10 08:43 | PCM.PN.CARD ---
Subjectve: Patient remains intubated, sedated on propofol and fentanyl drip, also on levo fed drip for blood pressure support. Hamilton-Alexx waveform appears to be right atrial in origin, and chest x-ray sequence from the last couple of days suggest migration backwards into the right atrium. I attempted to reposition the Hamilton at the bedside, in the past could get into the right ventricle. Telemetry shows sinus tachycardia with rare PVCs and occasional bursts of nonsustained ventricular tachycardia. Intrinsic balloon pump at 1: 1. Right groin is clean/dry/intact without evidence of thrills, hematoma or bruits. Faint pulses in his DP position with balloon pump in standby. Patient a proximally 5 L positive over the last 3 days. Diuretics held yesterday for hypotension. Patient apparently becomes quite agitated when sedation is removed. Objective: Vital Signs Temp Pulse Resp BP Pulse Ox 100.7 F H 94 16 99/60 95 12/10/17 08:00 12/10/17 08:00 12/10/17 08:00 12/10/17 08:00 12/10/17 08:00 Oxygen Delivery Method Mechanical Ventilator Weight: 291 lb 14.272 oz Body Mass Index (BMI) 40.6 Intake and Output for Last 24 Hours 12/08/17 12/09/17 12/10/17 23:59 23:59 23:59 Intake Total 2418.0 / 2418.0 3608.2 / 3608.2 2330.4 / 2330.4 Output Total 1645 / 1645 1198 / 1198 582 / 582 Balance 773.0 / 773.0 2410.2 / 2410.2 1748.4 / 1748.4 General: Awake, Alert, Oriented x 3 HEENT: PERRL, EOMI, Sclera Non Icteric Neck: Supple, Good ROM, No Lymph Node Enlargement Lungs: Rales - Jose M Bases Cardiovascular: Regular Rhythm, Normal S1, Normal S2, No Rubs, No Gallops Murmur Murmur: Grade 2/6 Vascular: No Carotid Bruits, Normal Femoral Pulses, Normal Radial Pulses, Normal Dorsalis Pedal Pulse, Normal Posterior Tibial Pulses Abdomen: Bowel Sounds Present, Soft, Non Tender, No HSM, No Organomegaly Extremities: No Cyanosis, No Clubbing, No edema Neurological: No Focal Motor or Sensory Deficit 12/09/17 08:30: APTT Cancelled 12/09/17 08:55: APTT Cancelled 12/09/17 09:50: APTT 48.3 H 12/09/17 17:25: APTT 44.1 H 12/10/17 01:15: APTT 52.5 H 12/10/17 04:30: Sodium 135 L, Potassium 3.9, Chloride 98, Carbon Dioxide 24.0, Anion Gap 13, BUN 41 H, Creatinine 1.73 H, Est GFR (MDRD) Af Amer 50 L, Est GFR (MDRD) Non-Af 42 L, BUN/Creatinine Ratio 23.7 H, Glucose 277 H, Calcium 7.5 L 12/10/17 04:30: WBC 18.5 H, RBC 3.86 L, Hgb 11.6 L, Hct 36.4 L, MCV 94.3 H, MCH 30.1, MCHC 31.9 L, RDW 16.3 H, RDW Differential 56.5 H, Plt Count 216, MPV 10.5, Immature Gran % (Auto) 0.400, Neut % (Auto) 79.6 H, Lymph % (Auto) 9.0 L, [place] % (Auto) 9.4, Eos % (Auto) 1.4, Baso % (Auto) 0.2, Absolute Neuts (auto) 14.7 H, Total Counted Not Reportable 12/10/17 04:30: Phosphorus 3.3, Magnesium 1.7 Rhythm: EKG: ECHO: Severe LV dysfunction with EF around 25%. Stress Test: Cardiac Cath: PCI: CT Surgery: Holter monitor: EPS: PPM: CXR: Chest CT Scan: Medical Necessity - Tobacco Use Smoking Status: Unknown if ever smoked Assessment/Plan 1. Ischemic cardiomyopathy: The patient presented with hypertensive crisis, with subsequent respiratory failure requiring emergent intubation and emergent catheterization. 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 He has a previous LAD stent as well which was widely patent with nonobstructive coronary disease of his LAD and left circumflex system. He has severe LV dysfunction with an EF around 20-25%. His Hamilton-Alexx catheter appears to be in the right atrium based upon chest x-rays and arterial waveform. We will confirm this with a additional chest x-ray. At this point I would recommend continuing the intrinsic balloon pump at 1: 1, continuing IV heparin, holding his antihypertensive medications of Coreg and Cozaar, begin gentle diuresis with Lasix 40 mg IV twice daily and titrate up from there. My hope is that we can wean him off of levo fed as the infection resolves, followed by extubation once he has reached his dry weight. Would recommend keeping the intrinsic balloon pump in until the patient is extubated and then only removing it if he remains stabilized from a pulmonary standpoint. If however the patient continues to persistently have elevated white blood cell count despite antibiotic therapy or persistent positive blood cultures should they be positive at all, we may require intrinsic balloon pump removal. Would not recommend transfer at this time. Would recommend shooting for 1500 daily net fluid removal assuming his blood pressure is able to support it. The patient is preload dependent given his occluded right coronary artery and occluded acute marginal branches, so may require higher filling pressures. His chest x-ray demonstrates bilateral pulmonary edema with fluid in the right main fissure. We made several attempts to gain access into the occluded right coronary artery stent, but this appears to be a chronic total occlusion, and would not recommend aggressive measures of reopening this vessel at this time. 2. Hamilton-Alexx catheter: It appears by chest x-ray as well as by waveforms at the tip of the Hamilton-Alexx catheter may be prolapsing into the right atrium. Patient requires IV levo fed through a central catheter, so would just recommend keeping the Hamilton-Alexx catheter in place as long as it is not causing ventricular irritation and V. tach. 3. Discussed with ICU nursing staff, L[place]. Thank you very much for the opportunity to participate in the cardiac care of your patient. Code Visit Inpatient E&M: 88131 Subs Hosp L3
--- NOTE | 2017-12-10 09:35 | PCM.PN.HOSP ---
Subjective: Patient remains intubated on 45% FiO2, CMV mode, respiratory rate 18 and pulse ox 95%. Patient is still on Levophed drip. Sedated on IV propofol and fentanyl drip. Blood pressure 113/40. On intra-aortic balloon pump Vitals/I&O's: Vital Signs Temp Pulse Resp BP Pulse Ox 100.6 F H 89 16 83/59 L 97 12/10/17 09:00 12/10/17 09:00 12/10/17 09:00 12/10/17 09:00 12/10/17 09:00 Oxygen Delivery Method Mechanical Ventilator Weight: 291 lb 14.272 oz Body Mass Index (BMI) 40.6 Intake and Output for Last 24 Hours 12/08/17 12/09/17 12/10/17 23:59 23:59 23:59 Intake Total 2418.0 / 2418.0 3608.2 / 3608.2 2330.4 / 2330.4 Output Total 1645 / 1645 1198 / 1198 637 / 637 Balance 773.0 / 773.0 2410.2 / 2410.2 1693.4 / 1693.4 General: - - Sedated HEENT: Atraumatic, PERRLA, EOMI, Normocephalic Oral: - - ET and OG tube Neck: Supple, No JVD, Negative Carotid Bruits Lungs: No rhonchi, No wheeze, - - On vent support Cardiovascular: Regular rate, Normal S1, Normal S2, No murmurs, - Abdomen: Bowel Sounds Present, Soft, Non Tender, Hypoactive Bowel Sounds Extremities: Edema, - - Right femoral central line with Aneta-Alexx catheter and intra-aortic balloon pump Skin: No rashes, No breakdown Musculoskeletal: Arthritic Changes Neurological: - Laboratory Results 12/09/17 09:50: APTT 48.3 H 12/09/17 10:46: POC Glucose 257 H 12/09/17 12:22: POC Glucose 241 H 12/09/17 17:25: APTT 44.1 H 12/09/17 17:27: POC Glucose 256 H 12/09/17 23:44: POC Glucose 272 H 12/10/17 01:15: APTT 52.5 H 12/10/17 04:30: Sodium 135 L, Potassium 3.9, Chloride 98, Carbon Dioxide 24.0, Anion Gap 13, BUN 41 H, Creatinine 1.73 H, Estim Creat Clear Calc 42.32, Est GFR (MDRD) Af Amer 50 L, Est GFR (MDRD) Non-Af 42 L, BUN/Creatinine Ratio 23.7 H, Glucose 277 H, Calcium 7.5 L 12/10/17 04:30: WBC 18.5 H, RBC 3.86 L, Hgb 11.6 L, Hct 36.4 L, MCV 94.3 H, MCH 30.1, MCHC 31.9 L, RDW 16.3 H, RDW Differential 56.5 H, Plt Count 216, MPV 10.5, Immature Gran % (Auto) 0.400, Neut % (Auto) 79.6 H, Lymph % (Auto) 9.0 L, [place] % (Auto) 9.4, Eos % (Auto) 1.4, Baso % (Auto) 0.2, Absolute Neuts (auto) 14.7 H, Absolute Lymphs (auto) 1.67, Total Counted Not Reportable, Differential Comment SCANNED 12/10/17 04:30: Phosphorus 3.3, Magnesium 1.7 12/10/17 07:28: POC Glucose 261 H Current Medications Acetaminophen (Tylenol Liquid) 650 mg GT Q4H PRN PRN PRN Reason: pain/fever Last Admin: 12/09/17 23:40 Dose: 650 mg Albuterol Sulfate (Ventolin Aerosols) 2.5 mg INHALATION Q2H PRN PRN PRN Reason: SOB/WHEEZING Aspirin (Ecotrin) 81 mg PO DAILY@0800 [facility] Last Admin: 12/09/17 10:39 Dose: 81 mg Atorvastatin Calcium (Lipitor) 80 mg PO QHS [facility] Last Admin: 12/09/17 21:14 Dose: 80 mg Atropine Sulfate () 0.5 mg IV UD PRN PRN Reason: HR <50 bpm Chlorhexidine Gluconate () 15 ml PO BID [facility] Last Admin: 12/09/17 21:23 Dose: 15 ml Chlorhexidine Gluconate () 1 each TOPICAL DAILY [facility] Last Admin: 12/10/17 06:12 Dose: 1 each Famotidine (Pepcid) 20 mg GT BID [facility] Last Admin: 12/09/17 21:14 Dose: 20 mg Furosemide (Lasix) 80 mg IV BID@1000,1800 [facility] Last Admin: 12/09/17 18:10 Dose: Not Given Heparin Sodium (Beef Lung) (Heparin 500 Unit/5 Ml (100/Ml)) 500 unit IV UD PRN PRN Reason: HEPARIN FLUSH Last Admin: 12/07/17 21:35 Dose: 500 unit Heparin Sodium (Porcine) (Heparin Na) 0 unit IV UD PRN PRN Reason: Protocol Last Admin: 12/09/17 02:10 Dose: 1,000 unit Heparin Sodium/Sodium Chloride () 2,000 units IV UD [facility] Last Admin: 12/09/17 15:29 Dose: Not Given Heparin Sodium/Sodium Chloride () 2,000 units IV UD [facility] Last Admin: 12/09/17 15:30 Dose: Not Given Propofol (Diprivan) 1,000 mg in 100 mls @ 4.167 mls/hr CONT INF .Q12H [facility]; 5 MCG/KG/MIN PRN Reason: Protocol Last Admin: 12/10/17 03:06 Dose: 4.167 mls/hr Sodium Chloride () 1,000 mls @ 1 mls/hr IV .Q48H PRN PRN Reason: SALINE FLUSH Fentanyl () 100 mls @ 5 mls/hr IV .Q20H [facility] Last Admin: 12/09/17 23:40 Dose: 5 mls/hr Norepinephrine Bitartrate 8 mg (/ Dextrose) 258 mls @ 9.67 mls/hr IV .[id number] [facility] PRN Reason: 5 MCG/MIN Last Admin: 12/10/17 04:43 Dose: 9.67 mls/hr Heparin Sodium/Dextrose () 25,000 units in 250 mls @ 10 mls/hr IV .Q25H [facility]; As Directed PRN Reason: Protocol Last Admin: 12/10/17 05:49 Dose: 10 mls/hr Vancomycin IV Pharmacy to Dose (1 ea/ Sodium Chloride) 500 mls @ 250 mls/hr IV X1 PRN; Protocol PRN Reason: Rx to Dose Piperacillin Sod/Tazobactam Sod (Zosyn) 3.375 gm in 50 mls @ 12.5 mls/hr IV Q8 [facility] Last Admin: 12/10/17 05:18 Dose: 12.5 mls/hr Vancomycin HCl (Vancomycin) 1,000 mg in 200 mls @ 200 mls/hr IV Q12H [facility] Last Admin: 12/09/17 21:14 Dose: 200 mls/hr Enteral Nutritional Formula (Jevity 1.5) 1,000 mls @ 60 mls/hr GT .[id number] [facility] Last Admin: 12/10/17 05:49 Dose: 60 mls/hr Insulin Glargine (Lantus (Bk)) 12 units SC DAILY [facility] Last Admin: 12/09/17 10:46 Dose: 12 u Insulin Human Lispro (Humalog Kwikpen (Bk)) 0 unit SC Q6 [facility] PRN Reason: Protocol Labetalol HCl (Trandate) 5 mg IV X1 PRN PRN Reason: SBP > 160 when pulling sheath Losartan Potassium (Cozaar) 25 mg PO DAILY [facility] Last Admin: 12/09/17 10:39 Dose: 25 mg Morphine Sulfate () 2 mg IV Q4H PRN PRN PRN Reason: Mild back pain (0-2/10) Nystatin/Triamcinolone Acetonide (Mycolog) 1 applic TOPICAL BID [facility] PRN Reason: Protocol Last Admin: 12/09/17 21:22 Dose: 1 applicatio Sodium Chloride () 5 - 30 ml IV UD PRN PRN Reason: SALINE FLUSH Last Admin: 12/09/17 12:32 Dose: 30 ml Sodium Chloride () 500 ml IV BOLUS PRN PRN Reason: VASO-VAGAL PROTOCOL Medical Necessity - Tobacco Use Smoking Status: Unknown if ever smoked Assessment/Plan All Active Problems Abdominal pain (Acute) 71-year-old gentleman was admitted with hypertensive crisis with subsequent respiratory failure which required emergent intubation and cardiac catheterization. Patient found to have previously placed RCA stent occluded with same chronic with minimal collaterals. Severe LV dysfunction with EF 20-25%. On intra-aortic balloon pump 1:1. On IV heparin drip. On Levophed drip. 1. Acute hypoxic respiratory failure. Likely related to pulmonary edema from CHF and perhaps bronchospasm from exacerbation of CHF or from cardiac asthma based on initial presentation of wheezing and reduced breath sounds. 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 Patient is sedated on IV propofol and Levophed drip. On ICU protocol daily for RAAS monitoring and sedatives 2. Cardiogenic shock secondary to STEMI resulting into acute on chronic systolic heart failure. Patient on IABP at this time. Management per cardiology. Patient still on pressor/inotropic support. 3. STEMI. Completely occluded RCA on left heart catheterization, not amenable to any percutaneous coronary intervention and will require medical management going forward. 4. Morbid obesity. 5. Hyperglycemia. Uncertain if has h/o DM. Blood glucose levels lower today. May have been related to stress of acute MT. On SSI insulin but blood glucose control less than optimal. Gone ahead to add basal insulin (Lantus) and will continue to monitor 6. Hypertensive emergency. Present on admission. SBP was > 200. Improved now. Likely sympathetic response to MT. 7. Acute encephalopathy. Present on admission with stupor and was secondary most likely to hypoxia. Expect to improve. 8. KIMBERLY. Secondary to cardiogenic shock. Hemodynamics improved and so expect to slowly recover as well. Laboratory Results 12/10/17 04:30: Sodium 135 L, Potassium 3.9, Chloride 98, Carbon Dioxide 24.0, Anion Gap 13, BUN 41 H, Creatinine 1.73 H, Estim Creat Clear Calc 42.32, Est GFR (MDRD) Af Amer 50 L, Est GFR (MDRD) Non-Af 42 L, BUN/Creatinine Ratio 23.7 H, Glucose 277 H, Calcium 7.5 L 12/10/17 04:30: WBC 18.5 H, RBC 3.86 L, Hgb 11.6 L, Hct 36.4 L, MCV 94.3 H, MCH 30.1, MCHC 31.9 L, RDW 16.3 H, RDW Differential 56.5 H, Plt Count 216, MPV 10.5, Immature Gran % (Auto) 0.400, Neut % (Auto) 79.6 H, Lymph % (Auto) 9.0 L, [place] % (Auto) 9.4, Eos % (Auto) 1.4, Baso % (Auto) 0.2, Absolute Neuts (auto) 14.7 H, Absolute Lymphs (auto) 1.67, Total Counted Not Reportable, Differential Comment SCANNED 12/10/17 04:30: Phosphorus 3.3, Magnesium 1.7 12/10/17 07:28: POC Glucose 261 H Clinical Impression(s) from Imaging Studies Chest X-Ray 12/10/17 04:10 IMPRESSION: Tubes are in adequate position. Tip of intra-aortic balloon pump is at the T4-5 level. Small left pleural effusion mild CHF, with interval improvement from previous study. This note was generated with [employer] dictation software. Every effort was made to ensure accuracy, however computerized ap processor mistakes may persist. Code Visit Inpatient E&M: 91713 Subs Hosp L3
[2017-12-10] MEDS: Aspirin E.C. 81 MG Tablet PO (09:54)
[2017-12-10] MEDS: Famotidine 20 MG Tablet GT ×2 (09:54→21:27)
[2017-12-10] MEDS: Chlorhexidine 15 ML PO ×2 (09:55→21:28)
[2017-12-10] MEDS: Nystatin/Triamcin Oint 1 APPLIC TOPICAL ×2 (09:57→21:27)
--- NOTE | 2017-12-10 10:00 | EKG12_ITS ---
Test Reason : AM EKG Blood Pressure : / mmHG Vent. Rate : 100 BPM Atrial Rate : 100 BPM P-R Int : 186 ms QRS Dur : 174 ms QT Int : 390 ms P-R-T Axes : 058 013 209 degrees QTc Int : 503 ms Sinus rhythm with occasional Premature ventricular complexes and Fusion complexes Left bundle branch block Abnormal ECG When compared with ECG of 09-DEC-2017 05:08, MANUAL COMPARISON REQUIRED, DATA IS UNCONFIRMED Confirmed by KARO VARELA ([id number]), clinical editor BRODIE VU ([id number]) on 12/18/2017 2:57:52 PM Referred By: Karo Varela Confirmed By:KARO VARELA
[2017-12-10] MEDS: Vancomycin IV 1,000 MG/200 ML BAG 200 MG IV ×2 (10:01→22:52)
[2017-12-10 10:35] LABS: Partial Thromboplast Time 76.1 Seconds (24.1-36.2)
[2017-12-10 11:45] LABS: Bedside Glucose 257 mg/dL (70-110)
[2017-12-10 17:21] LABS: Bedside Glucose 304 mg/dL (70-110)
[2017-12-10] MEDS: Acetaminophen 650 MG/20 ML UDC GT (18:41)
[2017-12-10] MEDS: Lactated Ringers 1,000 ML 999 ML IV (21:01)
[2017-12-10] MEDS: Atorvastatin Calcium 80 MG Tablet PO (21:27)
[2017-12-10 22:02] LABS: Vancomycin, Trough Level 20.6 ug/mL (5.0-15.0)
[2017-12-10] MEDS: 0.9% NaCl Peripheral Flush Adult/Peds IV (22:57)
[2017-12-10 23:14] LABS: Partial Thromboplast Time 55.1 Seconds (24.1-36.2)
[2017-12-11] VITALS (66 sets, daily range): BP systolic 53–137; BP diastolic 21–90; PULSE 56–123; RESP 14–30; TEMP 37.8–38.6; O2SAT 92–100
[2017-12-11 00:16] LABS: Bedside Glucose 287 mg/dL (70-110)
[2017-12-11] MEDS: CHLORHEXIDINE GLUC 2% CLOTH 1 EACH TOWELETTE TOPICAL (02:50)
[2017-12-11] MEDS: HEPARIN/D5w 25,000 UNITS 25,000 UNITS/250 ML IV.SOLN. 10 UNITS IV (03:46)
[2017-12-11 04:25] LABS: Partial Thromboplast Time 62.1 Seconds (24.1-36.2)
[2017-12-11 04:33] LABS: ALB/GLOB Ratio 0.5 RATIO (0.9-2.4); AST(SGOT) 84 U/L (15-37); Alanine Aminotransfer ALT/SGPT 29 U/L (16-61); Albumin, Serum 2.2 g/dL (3.2-5.0); Alkaline Phosphatase 93 U/L (45-117); Anion Gap 14 (5-15); BUN 50 mg/dL (7-18); Calcium,Total 7.5 mg/dL (8.5-10.1); Chloride 97 mmol/L (98-107); Creatinine, Serum 2.63 mg/dL (0.70-1.30); EST Glomerular Filtration Rate 26 mL/min (>60); Est Glom Filt Rate - Afr Amer 31 mL/min (>60); Estimated Creatinine Clearance 27.84 ml/min; Globulin 4.1 g/dL (2.2-4.2); Glucose 281 mg/dL (74-106); Potassium 4.1 mmol/L (3.5-5.1); Protein, Total 6.3 g/dL (6.4-8.2); Sodium Level 133 mmol/L (136-145)
[2017-12-11 04:41] LABS: Absolute Lymphocyte Count 1.49 X10^3/ul (0.83-4.51); Absolute Neutrophil Count 13.3 X10^3/uL (2.0-7.7); Basophil# 0.04 X10^3/uL; Basophil% 0.2 % (0-1); Eosinophil# 0.42 X10^3/uL; Eosinophils% 2.4 % (0-5); Hematocrit 34.1 % (40-54); Hemoglobin 10.9 g/dl (13.0-16.5); Lymphocyte # 1.49 X10^3/ul (4.0); Lymphocyte % 8.6 % (19-41); Mean Corpuscular Hgb 29.9 pg (27.0-32.0); Mean Corpuscular Volume 93.4 fL (80-94); Mean Platelet Vol. 10.3 fl (6.2-12.0); Neutrophil # 13.29 X10^3/uL (2.7-7.7); Neutrophil % 77.3 % (47-70); Platelet Count 187 K/mm3 (150-450); RBC Distribution Width CV 16.4 % (11.6-14.6); RBC Distribution Width SD 56.8 fl (35.1-43.9); Red Blood Count 3.65 M/mm3 (4.6-6.2); White Blood Count 17.2 K/mm3 (4.4-11.0)
[2017-12-11 04:45] LABS: POSITIVE COUNT NO; POSITIVE MORPHOLOGY NO
[2017-12-11 04:46] LABS: Differential Indicated SCAN CRITERIA MET; POSITIVE DIFFERENTIAL YES
[2017-12-11 04:59] LABS: Differential Comment SCANNED
[2017-12-11] MEDS: Piperacil/Tazobactam 3.375 GM/50 ML ML IV ×3 (05:25→21:11)
[2017-12-11] MEDS: Insulin Lispro 100 UNIT/ML INSULN.PEN SC ×3 (05:25→17:52)
--- NOTE | 2017-12-11 05:50 | PCM.RX.CS ---
Consult Pharmacy has been consulted to manage selected antiobiotic: Vancomycin Type of Consult: Follow-up Suspected Infection: Sepsis Labs: Sodium 133 mmol/L (136-145) L 12/11/17 04:05 Potassium 4.1 mmol/L (3.5-5.1) 12/11/17 04:05 Chloride 97 mmol/L (98-107) L 12/11/17 04:05 Carbon Dioxide 22.0 mmol/L (21.0-32.0) 12/11/17 04:05 Anion Gap 14 (5-15) 12/11/17 04:05 BUN 50 mg/dL (7-18) H 12/11/17 04:05 Creatinine 2.63 mg/dL (0.70-1.30) H 12/11/17 04:05 Est GFR (MDRD) Af Amer 31 mL/min (>60) L 12/11/17 04:05 Est GFR (MDRD) Non-Af 26 mL/min (>60) L 12/11/17 04:05 BUN/Creatinine Ratio 19.0 RATIO (10-20) 12/11/17 04:05 Glucose 281 mg/dL (74-106) H 12/11/17 04:05 Vancomycin Trough 20.6 ug/mL (5.0-15.0) H 12/10/17 21:00 Microbiology: Microbiology 12/09/17 22:25 Transtracheal Aspirate Gram Stain - Final 12/09/17 22:25 Transtracheal Aspirate Respiratory Culture - Preliminary Appears to be normal respiratory edu. Further studies to follow. 12/09/17 13:05 Urine Catheter - Mckeon Urine Culture - Preliminary Culture exhibits no growth. Goal Trough: 15-20 mcg/mL Pharmacy Plan for Drug Dosing: Pharmacy Service will continue to monitor and adjust dosing as required. Medications Vancomycin HCl (Vancomycin) 1,000 mg in 200 mls @ 200 mls/hr IV Q12H [facility] Last Admin: 12/10/17 22:52 Dose: 200 mls/hr Follow-Up Labs: Trough Vancomycin Labs to be done on [date and time ordered]: 12/12 @ 7552
[2017-12-11 06:06] LABS: Bedside Glucose 277 mg/dL (70-110)
--- NOTE | 2017-12-11 07:38 | PN_ITS ---
Subjective: Patient did okay overnight. Patient has had fevers and pressors were as high as 25 overnight. Patient did have a spontaneous awakening trial this morning, but became tachypneic on spontaneous breathing trial. Patient has been tolerating tube feeds. Patient not following commands at this time. Patient was transitioned to 1-2 on the balloon pump and blood pressures improved. General: - - RASS -2. Morbidly obese. Appears older than stated age. Fair vent synchrony noted. HEENT: Atraumatic, PERRLA, EOMI, Normocephalic, - - Scleral injection without icterus Oral: Moist Mucosa, No Gingival or Mucosal Lesions/ Ulcerations Neck: Supple, No Nodes, Trachea Midline, JVD, Right Lungs: No rhonchi, No wheeze, No rales, Diminished, - - Symmetric expansion. No dullness to percussion. Cardiovascular: Regular rate, Regular Rhythm, Normal S1, Normal S2, No murmurs, No rub noted, No Gallop, - - Intra-aortic balloon pump in appropriate position by x-ray Abdomen: Bowel Sounds Present, Soft, Non Tender, Non-Distended, Obese Extremities: No clubbing, No cyanosis, Diminished Peripheral Pulses, Edema, - - Groin lines clean, dry and intact. Skin: No rashes, No breakdown Musculoskeletal: No Tenderness to Palpation of Joints or Extremities Lymphatic: No Cervical, Supraclavicular, or Inguinal Adenopathy Neurological: Cranial nerves II-XII grossly intact, Neuro grossly intact - Spontaneous movement of all extremities. Psych/Mental Status: Flat Affect, Restless Vital Signs Temp Pulse Resp BP Pulse Ox 37.9 C H 117 H 26 H 106/57 L 96 12/11/17 07:00 12/11/17 07:28 12/11/17 07:00 12/11/17 07:00 12/11/17 07:00 Oxygen Delivery Method Mechanical Ventilator Weight: 137 kg Body Mass Index (BMI) 40.6 Intake and Output for Last 24 Hours 12/09/17 12/10/17 12/11/17 23:59 23:59 23:59 Intake Total 3608.2 / 3608.2 6921.4 / 6921.4 1149 / 1149 Output Total 1198 / 1198 1231 / 1231 423 / 423 Balance 2410.2 / 2410.2 5690.4 / 5690.4 726 / 726 Labs (Last 48 Hours) 12/09/17 12/09/17 12/09/17 08:30 08:55 09:50 WBC RBC Hgb Hct MCV MCH MCHC RDW RDW Differential Plt Count MPV Immature Gran % (Auto) Neut % (Auto) Lymph % (Auto) [place] % (Auto) Eos % (Auto) Baso % (Auto) Absolute Neuts (auto) Absolute Lymphs (auto) Total Counted Differential Comment Diff Path Review APTT Cancelled Cancelled 48.3 H Sodium Potassium Chloride Carbon Dioxide Anion Gap BUN Creatinine Estim Creat Clear Calc Est GFR (MDRD) Af Amer Est GFR (MDRD) Non-Af BUN/Creatinine Ratio Glucose Calcium Phosphorus Magnesium Total Bilirubin AST ALT Alkaline Phosphatase Total Protein Albumin Globulin Albumin/Globulin Ratio Vancomycin Trough POC Glucose 12/09/17 12/09/17 12/09/17 10:46 12:22 17:25 WBC RBC Hgb Hct MCV MCH MCHC RDW RDW Differential Plt Count MPV Immature Gran % (Auto) Neut % (Auto) Lymph % (Auto) [place] % (Auto) Eos % (Auto) Baso % (Auto) Absolute Neuts (auto) Absolute Lymphs (auto) Total Counted Differential Comment Diff Path Review APTT 44.1 H Sodium Potassium Chloride Carbon Dioxide Anion Gap BUN Creatinine Estim Creat Clear Calc Est GFR (MDRD) Af Amer Est GFR (MDRD) Non-Af BUN/Creatinine Ratio Glucose Calcium Phosphorus Magnesium Total Bilirubin AST ALT Alkaline Phosphatase Total Protein Albumin Globulin Albumin/Globulin Ratio Vancomycin Trough POC Glucose 257 H 241 H 12/09/17 12/09/17 12/10/17 17:27 23:44 01:15 WBC RBC Hgb Hct MCV MCH MCHC RDW RDW Differential Plt Count MPV Immature Gran % (Auto) Neut % (Auto) Lymph % (Auto) [place] % (Auto) Eos % (Auto) Baso % (Auto) Absolute Neuts (auto) Absolute Lymphs (auto) Total Counted Differential Comment Diff Path Review APTT 52.5 H Sodium Potassium Chloride Carbon Dioxide Anion Gap BUN Creatinine Estim Creat Clear Calc Est GFR (MDRD) Af Amer Est GFR (MDRD) Non-Af BUN/Creatinine Ratio Glucose Calcium Phosphorus Magnesium Total Bilirubin AST ALT Alkaline Phosphatase Total Protein Albumin Globulin Albumin/Globulin Ratio Vancomycin Trough POC Glucose 256 H 272 H 12/10/17 12/10/17 12/10/17 04:30 04:30 04:30 WBC 18.5 H RBC 3.86 L Hgb 11.6 L Hct 36.4 L MCV 94.3 H MCH 30.1 MCHC 31.9 L RDW 16.3 H RDW Differential 56.5 H Plt Count 216 MPV 10.5 Immature Gran % (Auto) 0.400 Neut % (Auto) 79.6 H Lymph % (Auto) 9.0 L [place] % (Auto) 9.4 Eos % (Auto) 1.4 Baso % (Auto) 0.2 Absolute Neuts (auto) 14.7 H Absolute Lymphs (auto) 1.67 Total Counted Not Reportable Differential Comment SCANNED Diff Path Review APTT Sodium 135 L Potassium 3.9 Chloride 98 Carbon Dioxide 24.0 Anion Gap 13 BUN 41 H Creatinine 1.73 H Estim Creat Clear Calc 42.32 Est GFR (MDRD) Af Amer 50 L Est GFR (MDRD) Non-Af 42 L BUN/Creatinine Ratio 23.7 H Glucose 277 H Calcium 7.5 L Phosphorus 3.3 Magnesium 1.7 Total Bilirubin AST ALT Alkaline Phosphatase Total Protein Albumin Globulin Albumin/Globulin Ratio Vancomycin Trough POC Glucose 12/10/17 12/10/17 12/10/17 07:28 09:30 11:41 WBC RBC Hgb Hct MCV MCH MCHC RDW RDW Differential Plt Count MPV Immature Gran % (Auto) Neut % (Auto) Lymph % (Auto) [place] % (Auto) Eos % (Auto) Baso % (Auto) Absolute Neuts (auto) Absolute Lymphs (auto) Total Counted Differential Comment Diff Path Review APTT 76.1 H Sodium Potassium Chloride Carbon Dioxide Anion Gap BUN Creatinine Estim Creat Clear Calc Est GFR (MDRD) Af Amer Est GFR (MDRD) Non-Af BUN/Creatinine Ratio Glucose Calcium Phosphorus Magnesium Total Bilirubin AST ALT Alkaline Phosphatase Total Protein Albumin Globulin Albumin/Globulin Ratio Vancomycin Trough POC Glucose 261 H 257 H 12/10/17 12/10/17 12/10/17 16:45 17:06 21:00 WBC RBC Hgb Hct MCV MCH MCHC RDW RDW Differential Plt Count MPV Immature Gran % (Auto) Neut % (Auto) Lymph % (Auto) [place] % (Auto) Eos % (Auto) Baso % (Auto) Absolute Neuts (auto) Absolute Lymphs (auto) Total Counted Differential Comment Diff Path Review APTT 56.0 H Sodium Potassium Chloride Carbon Dioxide Anion Gap BUN Creatinine Estim Creat Clear Calc Est GFR (MDRD) Af Amer Est GFR (MDRD) Non-Af BUN/Creatinine Ratio Glucose Calcium Phosphorus Magnesium Total Bilirubin AST ALT Alkaline Phosphatase Total Protein Albumin Globulin Albumin/Globulin Ratio Vancomycin Trough 20.6 H POC Glucose 304 H 12/10/17 12/10/17 12/11/17 23:00 23:39 04:05 WBC 17.2 H RBC 3.65 L Hgb 10.9 L Hct 34.1 L MCV 93.4 MCH 29.9 MCHC 32.0 RDW 16.4 H RDW Differential 56.8 H Plt Count 187 MPV 10.3 Immature Gran % (Auto) 0.500 Neut % (Auto) 77.3 H Lymph % (Auto) 8.6 L [place] % (Auto) 11.0 H Eos % (Auto) 2.4 Baso % (Auto) 0.2 Absolute Neuts (auto) 13.3 H Absolute Lymphs (auto) 1.49 Total Counted Not Reportable Differential Comment SCANNED Diff Path Review May foll APTT 55.1 H Sodium Potassium Chloride Carbon Dioxide Anion Gap BUN Creatinine Estim Creat Clear Calc Est GFR (MDRD) Af Amer Est GFR (MDRD) Non-Af BUN/Creatinine Ratio Glucose Calcium Phosphorus Magnesium Total Bilirubin AST ALT Alkaline Phosphatase Total Protein Albumin Globulin Albumin/Globulin Ratio Vancomycin Trough POC Glucose 287 H 12/11/17 12/11/17 12/11/17 04:05 04:05 05:23 WBC RBC Hgb Hct MCV MCH MCHC RDW RDW Differential Plt Count MPV Immature Gran % (Auto) Neut % (Auto) Lymph % (Auto) [place] % (Auto) Eos % (Auto) Baso % (Auto) Absolute Neuts (auto) Absolute Lymphs (auto) Total Counted Differential Comment Diff Path Review APTT 62.1 H Sodium 133 L Potassium 4.1 Chloride 97 L Carbon Dioxide 22.0 Anion Gap 14 BUN 50 H Creatinine 2.63 H Estim Creat Clear Calc 27.84 Est GFR (MDRD) Af Amer 31 L Est GFR (MDRD) Non-Af 26 L BUN/Creatinine Ratio 19.0 Glucose 281 H Calcium 7.5 L Phosphorus Magnesium Total Bilirubin 0.80 AST 84 H ALT 29 Alkaline Phosphatase 93 Total Protein 6.3 L Albumin 2.2 L Globulin 4.1 Albumin/Globulin Ratio 0.5 L Vancomycin Trough POC Glucose 277 H Microbiology 12/09/17 22:25 Transtracheal Aspirate Gram Stain - Final 12/09/17 22:25 Transtracheal Aspirate Respiratory Culture - Preliminary Appears to be normal respiratory edu. Further studies to follow. 12/09/17 13:05 Urine Catheter - Mckeon Urine Culture - Preliminary Culture exhibits no growth. Clinical Impression(s) from Imaging Studies Chest X-Ray 12/11/17 04:18 IMPRESSION: Intra-aortic balloon pump tip is at the T6 level. At the time of this reading, tube has already been repositioned. Other tubes are in adequate position. No evidence for acute cardiopulmonary pathology. Electronically Signed: Lencho Coleman MD at 7:33 EDT , Service support , Chest X-Ray 12/11/17 06:20 IMPRESSION: Tubes are in adequate position. No evidence for acute cardiopulmonary pathology. Electronically Signed: Lencho Coleman MD at 6:47 EDT , Service support , Medical Necessity - Tobacco Use Smoking Status: Unknown if ever smoked Assessment/Plan All Active Problems Abdominal pain (Acute) RECOMMENDATIONS: 1. Continue current supportive measures with mechanical ventilatory support and intra-aortic balloon pump. 2. Continue broad-spectrum antibiotics, pending infectious workup. 3. Discontinue Lasix and losartan, given requirement for vasopressor support. 4. Continue fentanyl and propofol for sedation. Wean sedatives to maintain a RASS of -1 to 1. 5. Wean Levophed to maintain a mean arterial pressure at or above 65 mmHg. 6. Continue Pepcid for GI prophylaxis 7. Continue as needed aerosol treatments 8. Continue tube feeds and start sliding scale insulin coverage every 6 hours. 9. Transition balloon pump to 1-[address]: 1[address] elevation myocardial infarction/history of ischemic cardiomyopathy status post previous PCI/cardiogenic shock The patient underwent urgent cardiac catheterization on the morning of December 07 without intervention performed. Continue intra-aortic balloon pump augmentation per cardiology recommendations. Possibly dose with IV Lasix later today. Wean Levophed to maintain a mean arterial pressure at or above 65 mmHg. 2. Acute hypoxemic respiratory failure The patient became encephalopathic while in the emergency department in the setting of #1. We will continue current supportive measures with full mechanical ventilatory support. Wean FiO2 and PEEP as tolerated. Continue propofol and fentanyl for sedation. Perform daily paired spontaneous awakening and breathing trials, once the patient's FiO2 requirement has been able to be weaned. Continue as needed aerosol treatments. Continue tube feeds and continue sliding scale insulin coverage. 3. Septic shock Continue broad-spectrum antibiotics, pending infectious workup. Some concern for line infection. Unfortunately, patient has multiple possible sources. Patient was transitioned to 1-2 augmentation this morning. Will see if balloon pump can be discontinued if pressors can be improved. Continue with empiric antibiotics in the interim. 4. Acute kidney injury Worsening compared to previous. Likely secondary to hemodynamic instability in the setting of #1. Continue current supportive measures and vasopressor support. Continue to monitor urine output. No indication for renal replacement therapy at the current time. 5. Metabolic encephalopathy No significant metabolic derangements noted on chemistry profile. Suspect that the patient may have become hypercarbic leading to his encephalopathy. Continue the aforementioned sedatives to maintain a RASS of -1 to 1. 6. Morbid obesity/hyperlipidemia/hyperglycemia Complicates care, management, recovery and prognosis. Continue statin and start sliding scale insulin coverage. TIME: 45 minutes of critical care time, independent of procedures, was spent addressing the patient's STEMI, acute respiratory failure, metabolic encephalopathy, morbid obesity, fevers, acute kidney injury review of all data and collaboration with the care team. (6:30 AM-7:45 AM) Code Visit 9xxxx: [id number] Critical care first hour
--- NOTE | 2017-12-11 08:40 | PCM.PN.HOSP ---
Subjective: Temperature 100.4 - 100.6 Fahrenheit T-max 101.2. patient dropped blood pressure yesterday night on lowering the Levophed drip back on 10 mcg per minute. Patient could not tolerate spontaneous breathing trial As it became tachypneic and short of breath. Currently patient is awake and follows simple command. Intra-aortic balloon pump on 1-2. Blood pressure has improved. Map [id number]. Objective: General: -Awake. HEENT: Atraumatic, PERRLA, EOMI, Normocephalic Oral: - - ET and OG tube Neck: Supple, No JVD, Negative Carotid Bruits Lungs: No rhonchi, No wheeze, - On vent support; volume control/CMV on 45% FiO2. Patient on respiratory rate 20/min Cardiovascular: Regular rate, Normal S1, Normal S2, No murmurs, - Abdomen: Bowel Sounds Present, Soft, Non Tender, Hypoactive Bowel Sounds Extremities: Edema, - - Right femoral central line with [place]-Alexx catheter and intra-aortic balloon pump Skin: No rashes, No breakdown Musculoskeletal: Arthritic Changes Vitals/I&O's: Vital Signs Temp Pulse Resp BP Pulse Ox 100.4 F H 112 H 20 H 80/44 L 96 12/11/17 08:00 12/11/17 08:30 12/11/17 08:00 12/11/17 08:30 12/11/17 08:00 Oxygen Delivery Method Mechanical Ventilator Weight: 302 lb 0.533 oz Body Mass Index (BMI) 40.6 Intake and Output for Last 24 Hours 12/09/17 12/10/17 12/11/17 23:59 23:59 23:59 Intake Total 3608.2 / 3608.2 6921.4 / 6921.4 1249 / 1249 Output Total 1198 / 1198 1231 / 1231 498 / 498 Balance 2410.2 / 2410.2 5690.4 / 5690.4 751 / 751 Microbiology Past 72 Hours 12/09/17 22:25 Transtracheal Aspirate Gram Stain - Final 12/09/17 22:25 Transtracheal Aspirate Respiratory Culture - Preliminary Appears to be normal respiratory edu. Further studies to follow. 12/09/17 13:05 Urine Catheter - Mckeon Urine Culture - Preliminary Culture exhibits no growth. Laboratory Results 12/10/17 09:30: APTT 76.1 H 12/10/17 11:41: POC Glucose 257 H 12/10/17 16:45: APTT 56.0 H 12/10/17 17:06: POC Glucose 304 H 12/10/17 21:00: Vancomycin Trough 20.6 H 12/10/17 23:00: APTT 55.1 H 12/10/17 23:39: POC Glucose 287 H 12/11/17 04:05: WBC 17.2 H, RBC 3.65 L, Hgb 10.9 L, Hct 34.1 L, MCV 93.4, MCH 29.9, MCHC 32.0, RDW 16.4 H, RDW Differential 56.8 H, Plt Count 187, MPV 10.3, Immature Gran % (Auto) 0.500, Neut % (Auto) 77.3 H, Lymph % (Auto) 8.6 L, [place] % (Auto) 11.0 H, Eos % (Auto) 2.4, Baso % (Auto) 0.2, Absolute Neuts (auto) 13.3 H, Absolute Lymphs (auto) 1.49, Total Counted Not Reportable, Differential Comment SCANNED, Diff Path Review August foll 12/11/17 04:05: Sodium 133 L, Potassium 4.1, Chloride 97 L, Carbon Dioxide 22.0, Anion Gap 14, BUN 50 H, Creatinine 2.63 H, Estim Creat Clear Calc 27.84, Est GFR (MDRD) Af Amer 31 L, Est GFR (MDRD) Non-Af 26 L, BUN/Creatinine Ratio 19.0, Glucose 281 H, Calcium 7.5 L, Total Bilirubin 0.80, AST 84 H, ALT 29, Alkaline Phosphatase 93, Total Protein 6.3 L, Albumin 2.2 L, Globulin 4.1, Albumin/Globulin Ratio 0.5 L 12/11/17 04:05: APTT 62.1 H 12/11/17 05:23: POC Glucose 277 H Current Medications Acetaminophen (Tylenol Liquid) 650 mg GT Q4H PRN PRN PRN Reason: pain/fever Last Admin: 12/10/17 18:41 Dose: 650 mg Albuterol Sulfate (Ventolin Aerosols) 2.5 mg INHALATION Q2H PRN PRN PRN Reason: SOB/WHEEZING Aspirin (Ecotrin) 81 mg PO DAILY@0800 COUNT INCLUDES THE [facility] Last Admin: 12/10/17 09:54 Dose: 81 mg Atorvastatin Calcium (Lipitor) 80 mg PO QHS COUNT INCLUDES THE [facility] Last Admin: 12/10/17 21:27 Dose: 80 mg Atropine Sulfate () 0.5 mg IV UD PRN PRN Reason: HR <50 bpm Chlorhexidine Gluconate () 15 ml PO BID COUNT INCLUDES THE [facility] Last Admin: 12/10/17 21:28 Dose: 15 ml Chlorhexidine Gluconate () 1 each TOPICAL DAILY COUNT INCLUDES THE [facility] Last Admin: 12/11/17 02:50 Dose: 1 each Famotidine (Pepcid) 20 mg GT BID COUNT INCLUDES THE [facility] Last Admin: 12/10/17 21:27 Dose: 20 mg Heparin Sodium (Beef Lung) (Heparin 500 Unit/5 Ml (100/Ml)) 500 unit IV UD PRN PRN Reason: HEPARIN FLUSH Last Admin: 12/07/17 21:35 Dose: 500 unit Heparin Sodium (Porcine) (Heparin Na) 0 unit IV UD PRN PRN Reason: Protocol Last Admin: 12/09/17 02:10 Dose: 1,000 unit Heparin Sodium/Sodium Chloride () 2,000 units IV UD COUNT INCLUDES THE [facility] Last Admin: 12/10/17 09:51 Dose: Not Given Heparin Sodium/Sodium Chloride () 2,000 units IV UD COUNT INCLUDES THE [facility] Last Admin: 12/10/17 09:58 Dose: Not Given Propofol (Diprivan) 1,000 mg in 100 mls @ 4.167 mls/hr CONT INF .Q12H NASIM; 5 MCG/KG/MIN PRN Reason: Protocol Last Admin: 12/10/17 22:17 Dose: 4.167 mls/hr Sodium Chloride () 1,000 mls @ 1 mls/hr IV .Q48H PRN PRN Reason: SALINE FLUSH Fentanyl () 100 mls @ 5 mls/hr IV .Q20H COUNT INCLUDES THE [facility] Last Admin: 12/11/17 03:45 Dose: 5 mls/hr Norepinephrine Bitartrate 8 mg (/ Dextrose) 258 mls @ 9.67 mls/hr IV .[id number] COUNT INCLUDES THE [facility] PRN Reason: 5 MCG/MIN Last Admin: 12/11/17 06:43 Dose: 9.67 mls/hr Heparin Sodium/Dextrose () 25,000 units in 250 mls @ 10 mls/hr IV .Q25H NASIM; As Directed PRN Reason: Protocol Last Admin: 12/11/17 03:46 Dose: 10 mls/hr Vancomycin IV Pharmacy to Dose (1 ea/ Sodium Chloride) 500 mls @ 250 mls/hr IV X1 PRN; Protocol PRN Reason: Rx to Dose Piperacillin Sod/Tazobactam Sod (Zosyn) 3.375 gm in 50 mls @ 12.5 mls/hr IV Q8 NASIM Last Admin: 12/11/17 05:25 Dose: 12.5 mls/hr Vancomycin HCl (Vancomycin) 1,000 mg in 200 mls @ 200 mls/hr IV Q12H NASIM Last Admin: 12/10/17 22:52 Dose: 200 mls/hr Enteral Nutritional Formula (Jevity 1.5) 1,000 mls @ 60 mls/hr GT .[id number] COUNT INCLUDES THE [facility] Last Admin: 12/10/17 22:53 Dose: Not Given Insulin Glargine (Lantus (Bkc)) 15 units SC DAILY COUNT INCLUDES THE [facility] Insulin Human Lispro (Humalog Kwikpen (Bkc)) 0 unit SC Q6 NASIM PRN Reason: Protocol Last Admin: 12/11/17 05:25 Dose: 9 u Labetalol HCl (Trandate) 5 mg IV X1 PRN PRN Reason: SBP > 160 when pulling sheath Morphine Sulfate () 2 mg IV Q4H PRN PRN PRN Reason: Mild back pain (0-2/10) Nystatin/Triamcinolone Acetonide (Mycolog) 1 applic TOPICAL BID NASIM PRN Reason: Protocol Last Admin: 12/10/17 21:27 Dose: 1 applicatio Sodium Chloride () 5 - 30 ml IV UD PRN PRN Reason: SALINE FLUSH Last Admin: 12/10/17 22:57 Dose: 20 ml Sodium Chloride () 500 ml IV BOLUS PRN PRN Reason: VASO-VAGAL PROTOCOL Medical Necessity - Tobacco Use Smoking Status: Unknown if ever smoked Assessment/Plan All Active Problems Abdominal pain (Acute) 71-year-old gentleman was admitted with hypertensive crisis with subsequent respiratory failure which required emergent intubation and cardiac catheterization. Patient found to have previously placed RCA stent occluded with same chronic with minimal collaterals. Severe LV dysfunction with EF 20-25%. On intra-aortic balloon pump 1:1. On IV heparin drip. On Levophed drip. 1. Acute hypoxic respiratory failure. Likely related to pulmonary edema from CHF and perhaps bronchospasm from exacerbation of CHF or from cardiac asthma based on initial presentation of wheezing and reduced breath sounds. Patient intubated on on mechanical ventilation and PEEP and FiO2 able to be weaned down Continued management per appellate court judge/critical care. Patient on IV propofol, fentanyl and Levophed drip. On ICU protocol daily for RAAS monitoring and spontaneous awakening trial 2. Cardiogenic shock secondary to STEMI resulting into acute on chronic systolic heart failure possible septic shock. Patient on IABP at this time. Management per cardiology. Patient still on pressor/inotropic support. Patient on broad-spectrum IV antibiotic vancomycin and Zosyn pending infectious workup. Prelim tracheal aspirate shows normal respiratory edu. Urine culture shows no growth. Blood cultures are pending. 3. STEMI. Completely occluded RCA on left heart catheterization, not amenable to any percutaneous coronary intervention and will require medical management going forward. 4. Morbid obesity. 5. Hyperglycemia. Uncertain if has h/o DM. Blood glucose levels lower today. May have been related to stress of acute OH. On SSI insulin but blood glucose control less than optimal. Gone ahead to add basal insulin (Lantus) and will continue to monitor 6. Hypertensive emergency. Present on admission. SBP was > 200. Improved now. Likely sympathetic response to OH. 7. Acute encephalopathy. Present on admission with stupor and was secondary most likely to hypoxia. Expect to improve. 8. KIMBERLY. Secondary to cardiogenic shock. Hemodynamics improved and so expect to slowly recover as well. Microbiology Past 72 Hours 12/09/17 22:25 Transtracheal Aspirate Gram Stain - Final 12/09/17 22:25 Transtracheal Aspirate Respiratory Culture - Preliminary Appears to be normal respiratory edu. Further studies to follow. 12/09/17 13:05 Urine Catheter - Mckeon Urine Culture - Preliminary Culture exhibits no growth. Laboratory Results 12/10/17 09:30: APTT 76.1 H 12/10/17 11:41: POC Glucose 257 H 12/10/17 16:45: APTT 56.0 H 12/10/17 17:06: POC Glucose 304 H 12/10/17 21:00: Vancomycin Trough 20.6 H 12/10/17 23:00: APTT 55.1 H 12/10/17 23:39: POC Glucose 287 H 12/11/17 04:05: WBC 17.2 H, RBC 3.65 L, Hgb 10.9 L, Hct 34.1 L, MCV 93.4, MCH 29.9, MCHC 32.0, RDW 16.4 H, RDW Differential 56.8 H, Plt Count 187, MPV 10.3, Immature Gran % (Auto) 0.500, Neut % (Auto) 77.3 H, Lymph % (Auto) 8.6 L, [place] % (Auto) 11.0 H, Eos % (Auto) 2.4, Baso % (Auto) 0.2, Absolute Neuts (auto) 13.3 H, Absolute Lymphs (auto) 1.49, Total Counted Not Reportable, Differential Comment SCANNED, Diff Path Review August12/11/17 04:05: Sodium 133 L, Potassium 4.1, Chloride 97 L, Carbon Dioxide 22.0, Anion Gap 14, BUN 50 H, Creatinine 2.63 H, Estim Creat Clear Calc 27.84, Est GFR (MDRD) Af Amer 31 L, Est GFR (MDRD) Non-Af 26 L, BUN/Creatinine Ratio 19.0, Glucose 281 H, Calcium 7.5 L, Total Bilirubin 0.80, AST 84 H, ALT 29, Alkaline Phosphatase 93, Total Protein 6.3 L, Albumin 2.2 L, Globulin 4.1, Albumin/Globulin Ratio 0.5 L 12/11/17 04:05: APTT 62.1 H 12/11/17 05:23: POC Glucose 277 H Clinical Impression(s) from Imaging Studies Chest X-Ray 12/11/17 06:20 IMPRESSION: Tubes are in adequate position. No evidence for acute cardiopulmonary pathology. Electronically Signed: Lencho Coleman MD at 6:47 EDT , Service support , This note was generated with [employer] dictation software. Every effort was made to ensure accuracy, however computerized wardrobe stylist mistakes may persist. Active Medications Acetaminophen (Tylenol Liquid) 650 mg GT Q4H PRN PRN PRN Reason: pain/fever Last Admin: 12/10/17 18:41 Dose: 650 mg Albuterol Sulfate (Ventolin Aerosols) 2.5 mg INHALATION Q2H PRN PRN PRN Reason: SOB/WHEEZING Aspirin (Ecotrin) 81 mg PO DAILY@0800 COUNT INCLUDES THE [facility] Last Admin: 12/10/17 09:54 Dose: 81 mg Atorvastatin Calcium (Lipitor) 80 mg PO QHS COUNT INCLUDES THE [facility] Last Admin: 12/10/17 21:27 Dose: 80 mg Atropine Sulfate () 0.5 mg IV UD PRN PRN Reason: HR <50 bpm Chlorhexidine Gluconate () 15 ml PO BID COUNT INCLUDES THE [facility] Last Admin: 12/10/17 21:28 Dose: 15 ml Chlorhexidine Gluconate () 1 each TOPICAL DAILY COUNT INCLUDES THE [facility] Last Admin: 12/11/17 02:50 Dose: 1 each Famotidine (Pepcid) 20 mg GT BID COUNT INCLUDES THE [facility] Last Admin: 12/10/17 21:27 Dose: 20 mg Heparin Sodium (Beef Lung) (Heparin 500 Unit/5 Ml (100/Ml)) 500 unit IV UD PRN PRN Reason: HEPARIN FLUSH Last Admin: 12/07/17 21:35 Dose: 500 unit Heparin Sodium (Porcine) (Heparin Na) 0 unit IV UD PRN PRN Reason: Protocol Last Admin: 12/09/17 02:10 Dose: 1,000 unit Heparin Sodium/Sodium Chloride () 2,000 units IV UD COUNT INCLUDES THE [facility] Last Admin: 12/10/17 09:51 Dose: Not Given Heparin Sodium/Sodium Chloride () 2,000 units IV UD COUNT INCLUDES THE [facility] Last Admin: 12/10/17 09:58 Dose: Not Given Propofol (Diprivan) 1,000 mg in 100 mls @ 4.167 mls/hr CONT INF .Q12H COUNT INCLUDES THE [facility]; 5 MCG/KG/MIN PRN Reason: Protocol Last Admin: 12/10/17 22:17 Dose: 4.167 mls/hr Sodium Chloride () 1,000 mls @ 1 mls/hr IV .Q48H PRN PRN Reason: SALINE FLUSH Fentanyl () 100 mls @ 5 mls/hr IV .Q20H COUNT INCLUDES THE [facility] Last Admin: 12/11/17 03:45 Dose: 5 mls/hr Norepinephrine Bitartrate 8 mg (/ Dextrose) 258 mls @ 9.67 mls/hr IV .[id number] COUNT INCLUDES THE [facility] PRN Reason: 5 MCG/MIN Last Admin: 12/11/17 06:43 Dose: 9.67 mls/hr Heparin Sodium/Dextrose () 25,000 units in 250 mls @ 10 mls/hr IV .Q25H NASIM; As Directed PRN Reason: Protocol Last Admin: 12/11/17 03:46 Dose: 10 mls/hr Vancomycin IV Pharmacy to Dose (1 ea/ Sodium Chloride) 500 mls @ 250 mls/hr IV X1 PRN; Protocol PRN Reason: Rx to Dose Piperacillin Sod/Tazobactam Sod (Zosyn) 3.375 gm in 50 mls @ 12.5 mls/hr IV Q8 NASIM Last Admin: 12/11/17 05:25 Dose: 12.5 mls/hr Vancomycin HCl (Vancomycin) 1,000 mg in 200 mls @ 200 mls/hr IV Q12H COUNT INCLUDES THE [facility] Last Admin: 12/10/17 22:52 Dose: 200 mls/hr Enteral Nutritional Formula (Jevity 1.5) 1,000 mls @ 60 mls/hr GT .[id number] COUNT INCLUDES THE [facility] Last Admin: 12/10/17 22:53 Dose: Not Given Insulin Glargine (Lantus (Bkc)) 15 units SC DAILY COUNT INCLUDES THE [facility] Insulin Human Lispro (Humalog Kwikpen (Bkc)) 0 unit SC Q6 NASIM PRN Reason: Protocol Last Admin: 12/11/17 05:25 Dose: 9 u Labetalol HCl (Trandate) 5 mg IV X1 PRN PRN Reason: SBP > 160 when pulling sheath Morphine Sulfate () 2 mg IV Q4H PRN PRN PRN Reason: Mild back pain (0-2/10) Nystatin/Triamcinolone Acetonide (Mycolog) 1 applic TOPICAL BID NASIM PRN Reason: Protocol Last Admin: 12/10/17 21:27 Dose: 1 applicatio Sodium Chloride () 5 - 30 ml IV UD PRN PRN Reason: SALINE FLUSH Last Admin: 12/10/17 22:57 Dose: 20 ml Sodium Chloride () 500 ml IV BOLUS PRN PRN Reason: VASO-VAGAL PROTOCOL Code Visit Inpatient E&M: [id number] [facility] Hosp L3
--- NOTE | 2017-12-11 10:09 | PCM.PN.CARD ---
Subjectve: Patient remains intubated, sedated on propofol and fentanyl although of lesser amount today, still remains on 10 mcg of levo fed. Intruding balloon pump functioning well at 1: 2, patient unresponsive due to sedation. Blood pressure has improved with IV fluids, antibiotics, and intrinsic balloon pump. Right femoral vein [place]-Alexx catheter removed this morning, as well as right femoral venous sheath by nursing personnel. Right groin is clean/dry/intact. He has 1+ DP PT pulses bilaterally. Chest x-ray with poor penetration suggest bilateral pulmonary edema. Objective: Vital Signs Temp Pulse Resp BP Pulse Ox 100.4 F H 112 H 20 H 80/44 L 96 12/11/17 08:00 12/11/17 08:30 12/11/17 08:00 12/11/17 08:30 12/11/17 08:00 Oxygen Delivery Method Mechanical Ventilator Weight: 302 lb 0.533 oz Body Mass Index (BMI) 40.6 Intake and Output for Last 24 Hours 12/09/17 12/10/17 12/11/17 23:59 23:59 23:59 Intake Total 3608.2 / 3608.2 6921.4 / 6921.4 1249 / 1249 Output Total 1198 / 1198 1231 / 1231 498 / 498 Balance 2410.2 / 2410.2 5690.4 / 5690.4 751 / 751 General: Awake, Alert, Oriented x 3 HEENT: PERRL, EOMI, Sclera Non Icteric Neck: Supple, Good ROM, No Lymph Node Enlargement Lungs: Clear to auscultation Cardiovascular: Regular Rhythm, Normal S1, Normal S2, No Murmurs, No Rubs, No Gallops 12/10/17 09:30: APTT 76.1 H 12/10/17 16:45: APTT 56.0 H 12/10/17 23:00: APTT 55.1 H 12/11/17 04:05: WBC 17.2 H, RBC 3.65 L, Hgb 10.9 L, Hct 34.1 L, MCV 93.4, MCH 29.9, MCHC 32.0, RDW 16.4 H, RDW Differential 56.8 H, Plt Count 187, MPV 10.3, Immature Gran % (Auto) 0.500, Neut % (Auto) 77.3 H, Lymph % (Auto) 8.6 L, Graves % (Auto) 11.0 H, Eos % (Auto) 2.4, Baso % (Auto) 0.2, Absolute Neuts (auto) 13.3 H, Total Counted Not Reportable 12/11/17 04:05: Sodium 133 L, Potassium 4.1, Chloride 97 L, Carbon Dioxide 22.0, Anion Gap 14, BUN 50 H, Creatinine 2.63 H, Est GFR (MDRD) Af Amer 31 L, Est GFR (MDRD) Non-Af 26 L, BUN/Creatinine Ratio 19.0, Glucose 281 H, Calcium 7.5 L, Total Bilirubin 0.80 12/11/17 04:05: APTT 62.1 H Rhythm: EKG: ECHO: Stress Test: Cardiac Cath: PCI: CT Surgery: Holter monitor: EPS: PPM: CXR: Chest CT Scan: Medical Necessity - Tobacco Use Smoking Status: Unknown if ever smoked Assessment/Plan 1. Ischemic cardiomyopathy: The patient presented with hypertensive crisis, with subsequent respiratory failure requiring emergent intubation and emergent catheterization. 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 He has a previous LAD stent as well which was widely patent with nonobstructive coronary disease of his LAD and left circumflex system. He has severe LV dysfunction with an EF around 20-25%. His [place]-Alexx catheter appeared to be in the right atrium based upon chest x-rays and arterial waveform. [place]-Alexx catheter removed this morning and attempt to begin the lining the patient. He is only on 10 mcg/kg of levo fed, and is responded well to IV fluids. His blood pressure appears to deteriorate with diuresis. At this point I would recommend continuing the intrinsic balloon pump at 1: 2, and an attempt to wean the patient off his balloon pump prior to extubation. My preference would be to extubate the patient first with the balloon pump in place in case he has an acute deterioration however due to his septic picture this may not be an option. Would continue to wean the pump to 1:3 after 12 hours of it being at 1: 2, assuming his blood pressure remained stable and his Levophed requirements do not go up. If his blood pressure deteriorates would increase it back to 1: 2 or 1: 1 if needed. I am pleased to see that his blood pressure and mean arterial pressure are improving as his Levophed requirements go down. Recommend continuing IV heparin, keeping his PTT between 50 and 70, holding his antihypertensive medications of Coreg and Cozaar. My hope is that we can wean him off of levo fed as the infection resolves, followed by extubation once he has reached his dry weight. . If however the patient continues to persistently have elevated white blood cell count despite antibiotic therapy or persistent positive blood cultures should they be positive at all, we may require intrinsic balloon pump removal. Would not recommend transfer at this time. Once the patient is off his Levophed, would consider gentle diuresis with Lasix IV 40 mg a day. It appears that he is preload dependent given his pulmonary hypertension, severe LV dysfunction, and occluded right coronary artery. We made several attempts to gain access into the occluded right coronary artery stent, but this appears to be a chronic total occlusion, and would not recommend aggressive measures of reopening this vessel at this time. Another option would be to consider starting him on milrinone, and attempt to assist his LV dysfunction and facilitate extubation. 2. [place]-Alexx catheter: [place]-Alexx catheter and RFA sheath removed this morning and attempt to begin the lining him from acute care line implantation. 3. Discussed with ICU nursing staff, L[place]. Thank you very much for the opportunity to participate in the cardiac care of your patient. Discussed with Dr. Joshi. Code Visit Inpatient E&M: [id number] [facility] Hosp L3
[2017-12-11] MEDS: Aspirin 81 MG TAB.CHEW GT (10:46)
[2017-12-11] MEDS: Propofol 10MG/Ml 1,000 MG/100 ML Bottle 4.167 MG CONT INF (10:47)
[2017-12-11] MEDS: Famotidine 20 MG Tablet GT (10:48)
[2017-12-11] MEDS: Chlorhexidine 15 ML PO ×2 (10:49→21:11)
[2017-12-11] MEDS: Nystatin/Triamcin Oint 1 APPLIC TOPICAL ×2 (10:50→21:12)
[2017-12-11 12:40] LABS: Bedside Glucose 303 mg/dL (70-110)
--- NOTE | 2017-12-11 13:27 | PCM.OP.BLANK ---
Operative Report Date of Procedure: 12/11/17 - Triple-lumen catheter insertion Central line placement procedure note Indication: IV access/hemodynamic instability/vasoactive medications Procedure: A time-out was completed to verify correct patient, indication, medication allergies, procedure, coagulation studies, informed consent signed, and equipment needed. The patient was placed in the supine position for a central line placement to the rt IJ vein. The patients rt neck was prepped using chlorhexidine and a full body sterile drape was applied. 1% lidocaine was used to anesthetize the surrounding skin. A 7fr 16 cm blue guard triple lumen catheter introduced into the internal jugular vein using the modified Seldinger technique with the assistance of ultrasound. The catheter was threaded smoothly over the guidewire, the guidewire was removed easily, nonpulsatile blood returned. All ports were aspirated of air and flushed with sterile saline. The catheter was sutured in place and covered with an occlusive dressing impregnated with chlorhexidine. Post-procedure: The patient tolerated the procedure well. Vital signs remained stable. EBL 5cc. No complications. Chest X Ray ordered and confirmed tip placement and the absence of pneumothorax. Code Visit Procedures: 27810 Insert Non-tunnel CV Cath
[2017-12-11] MEDS: Heparin Injection (Vial) 5,000 UNIT/ML VIAL IV (14:00)
[2017-12-11 14:43] LABS: Pathologist Review Reviewed
[2017-12-11] MEDS: Acetaminophen 650 MG/20 ML UDC GT (15:47)
--- NOTE | 2017-12-11 16:20 | CASEMGMT ---
RN CM Note: assessment deferred. Pt remains in ICU, on ventilator, IABP. Pt's contact/next of kin is his brother (not at bedside). CM will continue to follow and assist with dc planning as pt is extubated and able to participate. Noe ALONSON RN ACM
[2017-12-11 17:56] LABS: Bedside Glucose 303 mg/dL (70-110)
[2017-12-11] MEDS: Jevity 1.5 1,000 ML 60 ML GT (17:57)
[2017-12-11 19:02] LABS: Partial Thromboplast Time 55.3 Seconds (24.1-36.2)
[2017-12-11] MEDS: Atorvastatin Calcium 80 MG Tablet GT (21:12)
[2017-12-12] VITALS (80 sets, daily range): BP systolic 68–142; BP diastolic 31–77; PULSE 60–103; RESP 14–93; TEMP 37.8–38.6; O2SAT 96–100
[2017-12-12] MEDS: Insulin Lispro 100 UNIT/ML INSULN.PEN SC ×5 (00:17→23:55)
[2017-12-12] MEDS: CHLORHEXIDINE GLUC 2% CLOTH 1 EACH TOWELETTE TOPICAL (00:19)
[2017-12-12 00:26] LABS: Bedside Glucose 293 mg/dL (70-110)
[2017-12-12] MEDS: Albuterol 2.5 MG/3 ML VIAL.NEB. INHALATION (01:02)
[2017-12-12 01:33] LABS: Partial Thromboplast Time 78.4 Seconds (24.1-36.2)
[2017-12-12 04:32] LABS: Absolute Lymphocyte Count 0.97 X10^3/ul (0.83-4.51); Absolute Neutrophil Count 10.1 X10^3/uL (2.0-7.7); Basophil# 0.02 X10^3/uL; Basophil% 0.2 % (0-1); Eosinophil# 0.47 X10^3/uL; Eosinophils% 3.9 % (0-5); Hematocrit 30.9 % (40-54); Hemoglobin 10.2 g/dl (13.0-16.5); Lymphocyte # 0.97 X10^3/ul (4.0); Lymphocyte % 7.6 % (19-41); Mean Corp Hgb Conc 33.1 g/gl (32-36); Mean Corpuscular Hgb 29.9 pg (27.0-32.0); Mean Corpuscular Volume 91.4 fL (80-94); Mean Platelet Vol. 10.4 fl (6.2-12.0); Neutrophil # 10.05 X10^3/uL (2.7-7.7); Neutrophil % 77.1 % (47-70); POSITIVE COUNT NO; POSITIVE DIFFERENTIAL NO; POSITIVE MORPHOLOGY NO; Platelet Count 174 K/mm3 (150-450); RBC Distribution Width CV 16.5 % (11.6-14.6); RBC Distribution Width SD 53.9 fl (35.1-43.9); Red Blood Count 3.35 M/mm3 (4.6-6.2); White Blood Count 12.8 K/mm3 (4.4-11.0)
[2017-12-12 04:43] LABS: ALB/GLOB Ratio 0.5 RATIO (0.9-2.4); AST(SGOT) 79 U/L (15-37); Alanine Aminotransfer ALT/SGPT 29 U/L (16-61); Alkaline Phosphatase 105 U/L (45-117); Anion Gap 11 (5-15); BUN 50 mg/dL (7-18); BUN/Creat Ratio 18.5 RATIO (10-20); Calcium,Total 7.8 mg/dL (8.5-10.1); Chloride 101 mmol/L (98-107); Creatinine, Serum 2.71 mg/dL (0.70-1.30); EST Glomerular Filtration Rate 25 mL/min (>60); Est Glom Filt Rate - Afr Amer 30 mL/min (>60); Estimated Creatinine Clearance 27.01 ml/min; Globulin 4.1 g/dL (2.2-4.2); Glucose 272 mg/dL (74-106); Protein, Total 6.1 g/dL (6.4-8.2); Sodium Level 136 mmol/L (136-145)
[2017-12-12] MEDS: Piperacil/Tazobactam 3.375 GM/50 ML ML IV ×3 (05:36→21:04)
[2017-12-12] MEDS: 0.9% NaCl Peripheral Flush Adult/Peds IV ×6 (05:40→23:54)
[2017-12-12] MEDS: HEPARIN/D5w 25,000 UNITS 25,000 UNITS/250 ML IV.SOLN. 10 UNITS IV (05:49)
[2017-12-12 05:51] LABS: Bedside Glucose 282 mg/dL (70-110)
--- NOTE | 2017-12-12 06:58 | PCM.PN.INT ---
Subjective: Patient did okay overnight. Patient did have venous sheath and [place] removed yesterday. IJ was placed for venous access. Patient has remained on balloon pump at 1-1 augmentation pending heparin becoming therapeutic. This morning, patient will transition 1-2 augmentation. Patient remains on Levophed at 10 mcg. Patient did have significant fever overnight, but remains saturating well. Patient was transitioned to Precedex therapy yesterday and appears to be tolerating this better than propofol. Objective: Morning chest x-ray was personally reviewed. No pneumothorax is appreciated. Intra-aortic balloon pump appears to be in appropriate position, but wait for formal report. General: - - RASS -2. Morbidly obese. Appears stated age. Good vent synchrony noted. HEENT: Atraumatic, PERRLA, EOMI, Normocephalic, - - Slight scleral injection without icterus Oral: Moist Mucosa, No Gingival or Mucosal Lesions/ Ulcerations Neck: Supple, No JVD, No Nodes, Trachea Midline, - - IJ is clean, dry and intact. Lungs: No rhonchi, No wheeze, No rales, Diminished, - - Symmetric expansion. No dullness to percussion. Cardiovascular: Regular rate, Regular Rhythm, Normal S1, Normal S2, No murmurs, No rub noted, No Gallop Abdomen: Bowel Sounds Present, Soft, Non Tender, Non-Distended, Obese Extremities: No clubbing, No cyanosis, Diminished Peripheral Pulses, Edema Skin: - - No significant change compared to previous Musculoskeletal: No Tenderness to Palpation of Joints or Extremities Lymphatic: No Cervical, Supraclavicular, or Inguinal Adenopathy Neurological: Cranial nerves II-XII grossly intact, Neuro grossly intact Psych/Mental Status: Normal Affect, Appropriate Vital Signs Temp Pulse Resp BP Pulse Ox 38.1 C H 87 29 H 94/45 L 98 12/12/17 06:00 12/12/17 06:46 12/12/17 06:46 12/12/17 06:00 12/12/17 06:46 Oxygen Delivery Method Mechanical Ventilator Weight: 139.1 kg Body Mass Index (BMI) 40.6 Intake and Output for Last 24 Hours 12/10/17 12/11/17 12/12/17 23:59 23:59 23:59 Intake Total 6921.4 / 6921.4 3785 / 3785 896.5 / 896.5 Output Total 1231 / 1231 2248 / 2248 755 / 755 Balance 5690.4 / 5690.4 1537 / 1537 141.5 / 141.5 Labs (Last 48 Hours) 12/10/17 12/10/17 12/10/17 07:28 09:30 11:41 WBC RBC Hgb Hct MCV MCH MCHC RDW RDW Differential Plt Count MPV Immature Gran % (Auto) Neut % (Auto) Lymph % (Auto) [place] % (Auto) Eos % (Auto) Baso % (Auto) Absolute Neuts (auto) Absolute Lymphs (auto) Total Counted Differential Comment Diff Path Review APTT 76.1 H Sodium Potassium Chloride Carbon Dioxide Anion Gap BUN Creatinine Estim Creat Clear Calc Est GFR (MDRD) Af Amer Est GFR (MDRD) Non-Af BUN/Creatinine Ratio Glucose Calcium Total Bilirubin AST ALT Alkaline Phosphatase Total Protein Albumin Globulin Albumin/Globulin Ratio Vancomycin Trough POC Glucose 261 H 257 H 12/10/17 12/10/17 12/10/17 16:45 17:06 21:00 WBC RBC Hgb Hct MCV MCH MCHC RDW RDW Differential Plt Count MPV Immature Gran % (Auto) Neut % (Auto) Lymph % (Auto) [place] % (Auto) Eos % (Auto) Baso % (Auto) Absolute Neuts (auto) Absolute Lymphs (auto) Total Counted Differential Comment Diff Path Review APTT 56.0 H Sodium Potassium Chloride Carbon Dioxide Anion Gap BUN Creatinine Estim Creat Clear Calc Est GFR (MDRD) Af Amer Est GFR (MDRD) Non-Af BUN/Creatinine Ratio Glucose Calcium Total Bilirubin AST ALT Alkaline Phosphatase Total Protein Albumin Globulin Albumin/Globulin Ratio Vancomycin Trough 20.6 H POC Glucose 304 H 12/10/17 12/10/17 12/11/17 23:00 23:39 04:05 WBC 17.2 H RBC 3.65 L Hgb 10.9 L Hct 34.1 L MCV 93.4 MCH 29.9 MCHC 32.0 RDW 16.4 H RDW Differential 56.8 H Plt Count 187 MPV 10.3 Immature Gran % (Auto) 0.500 Neut % (Auto) 77.3 H Lymph % (Auto) 8.6 L [place] % (Auto) 11.0 H Eos % (Auto) 2.4 Baso % (Auto) 0.2 Absolute Neuts (auto) 13.3 H Absolute Lymphs (auto) 1.49 Total Counted Not Reportable Differential Comment SCANNED Diff Path Review Reviewed APTT 55.1 H Sodium Potassium Chloride Carbon Dioxide Anion Gap BUN Creatinine Estim Creat Clear Calc Est GFR (MDRD) Af Amer Est GFR (MDRD) Non-Af BUN/Creatinine Ratio Glucose Calcium Total Bilirubin AST ALT Alkaline Phosphatase Total Protein Albumin Globulin Albumin/Globulin Ratio Vancomycin Trough POC Glucose 287 H 12/11/17 12/11/17 12/11/17 04:05 04:05 05:23 WBC RBC Hgb Hct MCV MCH MCHC RDW RDW Differential Plt Count MPV Immature Gran % (Auto) Neut % (Auto) Lymph % (Auto) [place] % (Auto) Eos % (Auto) Baso % (Auto) Absolute Neuts (auto) Absolute Lymphs (auto) Total Counted Differential Comment Diff Path Review APTT 62.1 H Sodium 133 L Potassium 4.1 Chloride 97 L Carbon Dioxide 22.0 Anion Gap 14 BUN 50 H Creatinine 2.63 H Estim Creat Clear Calc 27.84 Est GFR (MDRD) Af Amer 31 L Est GFR (MDRD) Non-Af 26 L BUN/Creatinine Ratio 19.0 Glucose 281 H Calcium 7.5 L Total Bilirubin 0.80 AST 84 H ALT 29 Alkaline Phosphatase 93 Total Protein 6.3 L Albumin 2.2 L Globulin 4.1 Albumin/Globulin Ratio 0.5 L Vancomycin Trough POC Glucose 277 H 12/11/17 12/11/17 12/11/17 12:18 17:52 18:45 WBC RBC Hgb Hct MCV MCH MCHC RDW RDW Differential Plt Count MPV Immature Gran % (Auto) Neut % (Auto) Lymph % (Auto) [place] % (Auto) Eos % (Auto) Baso % (Auto) Absolute Neuts (auto) Absolute Lymphs (auto) Total Counted Differential Comment Diff Path Review APTT 55.3 H Sodium Potassium Chloride Carbon Dioxide Anion Gap BUN Creatinine Estim Creat Clear Calc Est GFR (MDRD) Af Amer Est GFR (MDRD) Non-Af BUN/Creatinine Ratio Glucose Calcium Total Bilirubin AST ALT Alkaline Phosphatase Total Protein Albumin Globulin Albumin/Globulin Ratio Vancomycin Trough POC Glucose 303 H 303 H 12/12/17 12/12/17 12/12/17 00:16 01:05 04:10 WBC 12.8 H RBC 3.35 L Hgb 10.2 L Hct 30.9 L MCV 91.4 MCH 29.9 MCHC 33.1 RDW 16.5 H RDW Differential 53.9 H Plt Count 174 MPV 10.4 Immature Gran % (Auto) 0.800 Neut % (Auto) 77.1 H Lymph % (Auto) 7.6 L [place] % (Auto) 10.0 Eos % (Auto) 3.9 Baso % (Auto) 0.2 Absolute Neuts (auto) 10.1 H Absolute Lymphs (auto) 0.97 Total Counted Not Reportable Differential Comment Diff Path Review APTT 78.4 H Sodium Potassium Chloride Carbon Dioxide Anion Gap BUN Creatinine Estim Creat Clear Calc Est GFR (MDRD) Af Amer Est GFR (MDRD) Non-Af BUN/Creatinine Ratio Glucose Calcium Total Bilirubin AST ALT Alkaline Phosphatase Total Protein Albumin Globulin Albumin/Globulin Ratio Vancomycin Trough POC Glucose 293 H 12/12/17 12/12/17 04:10 05:38 WBC RBC Hgb Hct MCV MCH MCHC RDW RDW Differential Plt Count MPV Immature Gran % (Auto) Neut % (Auto) Lymph % (Auto) [place] % (Auto) Eos % (Auto) Baso % (Auto) Absolute Neuts (auto) Absolute Lymphs (auto) Total Counted Differential Comment Diff Path Review APTT Sodium 136 Potassium 4.0 Chloride 101 Carbon Dioxide 24.0 Anion Gap 11 BUN 50 H Creatinine 2.71 H Estim Creat Clear Calc 27.01 Est GFR (MDRD) Af Amer 30 L Est GFR (MDRD) Non-Af 25 L BUN/Creatinine Ratio 18.5 Glucose 272 H Calcium 7.8 L Total Bilirubin 0.70 AST 79 H ALT 29 Alkaline Phosphatase 105 Total Protein 6.1 L Albumin 2.0 L Globulin 4.1 Albumin/Globulin Ratio 0.5 L Vancomycin Trough POC Glucose 282 H Microbiology 12/11/17 11:40 Other - Introducer Cath Tip Gram Stain - Final 12/09/17 10:00 Blood Culture (Wb) - Venous Blood Culture - Preliminary No growth in 48 hours. 12/09/17 09:45 Blood Culture (Wb) - Line Draw Blood Culture - Preliminary No growth in 48 hours. 12/09/17 22:25 Transtracheal Aspirate Gram Stain - Final 12/09/17 22:25 Transtracheal Aspirate Respiratory Culture - Preliminary 12/09/17 13:05 Urine Catheter - Mckeon Urine Culture - Final Culture exhibits no growth. Clinical Impression(s) from Imaging Studies Chest X-Ray 12/11/17 04:18 IMPRESSION: Intra-aortic balloon pump tip is at the T6 level. At the time of this reading, tube has already been repositioned. Other tubes are in adequate position. No evidence for acute cardiopulmonary pathology. Electronically Signed: Lencho Coleman MD at 7:33 EDT , Service support , Chest X-Ray 12/11/17 13:00 IMPRESSION: The tip of the right internal jugular venous catheter is in the midportion of the superior vena cava. The remainder of the examination is unchanged. Electronically Signed: Cliff Pyle MD at 13:49 EDT Tel [phone], Service support , Medical Necessity - Tobacco Use Smoking Status: Unknown if ever smoked Assessment/Plan All Active Problems Abdominal pain (Acute) RECOMMENDATIONS: 1. Continue current supportive measures with mechanical ventilatory support and intra-aortic balloon pump. 2. Continue broad-spectrum antibiotics, pending infectious workup. 3. Continue fentanyl and propofol for sedation. Wean sedatives to maintain a RASS of -1 to 1. 4. Wean Levophed to maintain a mean arterial pressure at or above 65 mmHg. 5. Continue Pepcid for GI prophylaxis, aerosols, tube feeds and sliding scale insulin 6. Transition balloon pump to 1-2 augmentation 7. Transduce arterial sheath to help weaning Levophed therapy IMPRESSIONS: 1. ST elevation myocardial infarction/history of ischemic cardiomyopathy status post previous PCI/cardiogenic shock The patient underwent urgent cardiac catheterization on the morning of December 07 without intervention performed. Continue intra-aortic balloon pump augmentation per cardiology recommendations. Wean Levophed to maintain a mean arterial pressure at or above 65 mmHg. Will transduce arterial sheath to help with weaning of pressor agents. 2. Acute hypoxemic respiratory failure The patient became encephalopathic while in the emergency department in the setting of #1. We will continue current supportive measures with full mechanical ventilatory support. Wean FiO2 and PEEP as tolerated. Continue propofol and fentanyl for sedation. Perform daily paired spontaneous awakening and breathing trials, once the patient's FiO2 requirement has been able to be weaned. Continue as needed aerosol treatments. Continue tube feeds and continue sliding scale insulin coverage. 3. Septic shock Continue broad-spectrum antibiotics, pending infectious workup. Patient was noted to have yeast by cardiology during acute cardiac intervention. Patient did have antifungal added yesterday. Some fever overnight, but condition appears to be stabilizing. We will transduce arterial sheath to help with pressor weaning. 4. Acute kidney injury Grossly unchanged compared to previous. Likely secondary to hemodynamic instability in the setting of #1. Continue current supportive measures and vasopressor support. Continue to monitor urine output. No indication for renal replacement therapy at the current time. 5. Metabolic encephalopathy No significant metabolic derangements noted on chemistry profile. Suspect that the patient may have become hypercarbic leading to his encephalopathy. Continue the aforementioned sedatives to maintain a RASS of -1 to 1. 6. Morbid obesity/hyperlipidemia/hyperglycemia Complicates care, management, recovery and prognosis. Continue statin and start sliding scale insulin coverage. TIME: 38 minutes of critical care time, independent of procedures, was spent addressing the patient's STEMI, acute respiratory failure, metabolic encephalopathy, morbid obesity, fevers, acute kidney injury review of all data and collaboration with the care team. (5:30 AM-6:30 AM) Code Visit 9xxxx: [id number] Critical care first hour
--- NOTE | 2017-12-12 08:03 | PCM.PN.HOSP ---
Subjective: Patient still had fever, temperature in 100s Fahrenheit; T-max 100.7. Patient had right IJ placed for venous access. Still on levo fed, intra-aortic balloon pump. Sedative was changed to Precedex drip yesterday. [place]-Alexx catheter and right femoral venous sheath was removed yesterday. Objective: General: -Awake. HEENT: Atraumatic, PERRLA, EOMI, Normocephalic Oral: - - ET and OG tube Neck: Supple, No JVD, Negative Carotid Bruits. Right IJ central venous catheter Lungs: No rhonchi, No wheeze, - On vent support; volume control/CMV on 35% FiO2. Cardiovascular: Regular rate, Normal S1, Normal S2, No murmurs, - Abdomen: Bowel Sounds Present, Soft, Non Tender, Hypoactive Bowel Sounds Extremities: Edema, - - Right femoral central line with [place]-Alexx catheter and intra-aortic balloon pump Skin: No rashes, No breakdown Musculoskeletal: Arthritic Changes Vitals/I&O's: Vital Signs Temp Pulse Resp BP Pulse Ox 100.7 F H 83 26 H 106/48 L 99 12/12/17 07:00 12/12/17 07:10 12/12/17 07:10 12/12/17 07:10 12/12/17 07:00 Oxygen Delivery Method Mechanical Ventilator Weight: 306 lb 10.608 oz Body Mass Index (BMI) 40.6 Intake and Output for Last 24 Hours 12/10/17 12/11/17 12/12/17 23:59 23:59 23:59 Intake Total 6921.4 / 6921.4 3785 / 3785 896.5 / 896.5 Output Total 1231 / 1231 2248 / 2248 930 / 930 Balance 5690.4 / 5690.4 1537 / 1537 -33.5 / -33.5 General: Lethargic Microbiology Past 72 Hours 12/09/17 22:25 Transtracheal Aspirate Gram Stain - Final 12/09/17 22:25 Transtracheal Aspirate Respiratory Culture - Final 12/11/17 11:40 Other - Introducer Cath Tip Gram Stain - Final 12/09/17 10:00 Blood Culture (Wb) - Venous Blood Culture - Preliminary No growth in 48 hours. 09/02/18 09:45 Blood Culture (Wb) - Line Draw Blood Culture - Preliminary No growth in 48 hours. 12/09/17 13:05 Urine Catheter - Mckeon Urine Culture - Final Culture exhibits no growth. Laboratory Results 12/11/17 04:05: Diff Path Review Reviewed 12/11/17 12:18: POC Glucose 303 H 12/11/17 17:52: POC Glucose 303 H 12/11/17 18:45: APTT 55.3 H 12/12/17 00:16: POC Glucose 293 H 12/12/17 01:05: APTT 78.4 H 12/12/17 04:10: WBC 12.8 H, RBC 3.35 L, Hgb 10.2 L, Hct 30.9 L, MCV 91.4, MCH 29.9, MCHC 33.1, RDW 16.5 H, RDW Differential 53.9 H, Plt Count 174, MPV 10.4, Immature Gran % (Auto) 0.800, Neut % (Auto) 77.1 H, Lymph % (Auto) 7.6 L, [place] % (Auto) 10.0, Eos % (Auto) 3.9, Baso % (Auto) 0.2, Absolute Neuts (auto) 10.1 H, Absolute Lymphs (auto) 0.97, Total Counted Not Reportable 12/12/17 04:10: Sodium 136, Potassium 4.0, Chloride 101, Carbon Dioxide 24.0, Anion Gap 11, BUN 50 H, Creatinine 2.71 H, Estim Creat Clear Calc 27.01, Est GFR (MDRD) Af Amer 30 L, Est GFR (MDRD) Non-Af 25 L, BUN/Creatinine Ratio 18.5, Glucose 272 H, Calcium 7.8 L, Total Bilirubin 0.70, AST 79 H, ALT 29, Alkaline Phosphatase 105, Total Protein 6.1 L, Albumin 2.0 L, Globulin 4.1, Albumin/Globulin Ratio 0.5 L 12/12/17 05:38: POC Glucose 282 H Current Medications Acetaminophen (Tylenol Liquid) 650 mg GT Q4H PRN PRN PRN Reason: pain/fever Last Admin: 12/11/17 15:47 Dose: 650 mg Albuterol Sulfate (Ventolin Aerosols) 2.5 mg INHALATION Q2H PRN PRN PRN Reason: SOB/WHEEZING Last Admin: 12/12/17 01:02 Dose: 2.5 mg Aspirin (Aspirin, Baby) 81 mg GT DAILYCM [facility] Last Admin: 12/11/17 10:46 Dose: 81 mg Atorvastatin Calcium (Lipitor) 80 mg GT QHS [facility] Last Admin: 12/11/17 21:12 Dose: 80 mg Atropine Sulfate () 0.5 mg IV UD PRN PRN Reason: HR <50 bpm Chlorhexidine Gluconate () 15 ml PO BID [facility] Last Admin: 12/11/17 21:11 Dose: 15 ml Chlorhexidine Gluconate () 1 each TOPICAL DAILY [facility] Last Admin: 12/12/17 00:19 Dose: 1 each Famotidine (Pepcid) 20 mg GT DAILY [facility] Last Admin: 12/11/17 10:48 Dose: 20 mg Heparin Sodium (Beef Lung) (Heparin 500 Unit/5 Ml (100/Ml)) 500 unit IV UD PRN PRN Reason: HEPARIN FLUSH Last Admin: 12/07/17 21:35 Dose: 500 unit Heparin Sodium (Porcine) (Heparin Na) 0 unit IV UD PRN PRN Reason: Protocol Last Admin: 12/11/17 14:00 Dose: 1,000 unit Heparin Sodium/Sodium Chloride () 2,000 units IV UD [facility] Last Admin: 12/11/17 12:33 Dose: Not Given Sodium Chloride () 1,000 mls @ 1 mls/hr IV .Q48H PRN PRN Reason: SALINE FLUSH Fentanyl () 100 mls @ 5 mls/hr IV .Q20H [facility] Last Admin: 12/12/17 01:00 Dose: 5 mls/hr Norepinephrine Bitartrate 8 mg (/ Dextrose) 258 mls @ 9.67 mls/hr IV .[id number] [facility] PRN Reason: 5 MCG/MIN Last Admin: 12/12/17 05:49 Dose: 9.67 mls/hr Heparin Sodium/Dextrose () 25,000 units in 250 mls @ 10 mls/hr IV .Q25H [facility]; As Directed PRN Reason: Protocol Last Admin: 12/12/17 05:49 Dose: 10 mls/hr Piperacillin Sod/Tazobactam Sod (Zosyn) 3.375 gm in 50 mls @ 12.5 mls/hr IV Q8 [facility] Last Admin: 12/12/17 05:36 Dose: 12.5 mls/hr Enteral Nutritional Formula (Jevity 1.5) 1,000 mls @ 60 mls/hr GT .[id number] [facility] Last Admin: 12/11/17 17:57 Dose: 60 mls/hr Fluconazole (Diflucan) 200 mg in 100 mls @ 100 mls/hr IV Q24 NASIM Dexmedetomidine HCl 400 mcg/ (Sodium Chloride) 100 mls @ 17.12 mls/hr IV .[id number] NASIM PRN Reason: 0.5 MCG/KG/HR Last Admin: 12/12/17 06:52 Dose: Not Given Insulin Glargine (Lantus (Bk)) 15 units SC [facility] Last Admin: 12/12/17 05:41 Dose: 15 u Insulin Human Lispro (Humalog Kwikpen ([facility])) 0 unit SC Q6 NASIM PRN Reason: Protocol Last Admin: 12/12/17 05:40 Dose: 9 u Labetalol HCl (Trandate) 5 mg IV X1 PRN PRN Reason: SBP > 160 when pulling sheath Nystatin/Triamcinolone Acetonide (Mycolog) 1 applic TOPICAL BID NASIM PRN Reason: Protocol Last Admin: 12/11/17 21:12 Dose: 1 applicatio Sodium Chloride () 5 - 30 ml IV UD PRN PRN Reason: SALINE FLUSH Last Admin: 12/12/17 05:40 Dose: 30 ml Sodium Chloride () 500 ml IV BOLUS PRN PRN Reason: VASO-VAGAL PROTOCOL Medical Necessity - Tobacco Use Smoking Status: Unknown if ever smoked Assessment/Plan All Active Problems Abdominal pain (Acute) 71-year-old gentleman was admitted with hypertensive crisis with subsequent respiratory failure which required emergent intubation and cardiac catheterization. Patient found to have previously placed RCA stent occluded with same chronic with minimal collaterals. Severe LV dysfunction with EF 20-25%. On intra-aortic balloon pump 1:1. On IV heparin drip. On Levophed drip. 1. Acute hypoxic respiratory failure. Likely related to pulmonary edema from CHF and perhaps bronchospasm from exacerbation of CHF or from cardiac asthma based on initial presentation of wheezing and reduced breath sounds. 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 Patient on IV Precedex drip, fentanyl and Levophed drip. Right IJ central venous catheter placed on 12/11/2017. On ICU protocol daily for RAAS monitoring and spontaneous awakening trial 2. Cardiogenic shock secondary to STEMI resulting into acute on chronic systolic heart failure possible septic shock. Patient on IABP at this time. Management per cardiology. Patient still on pressor/inotropic support. Patient on broad-spectrum IV antibiotic Zosyn pending infectious workup. Prelim tracheal aspirate shows normal respiratory edu. Urine culture shows no growth. Blood cultures are pending. Vancomycin discontinued. 3. STEMI. Completely occluded RCA on left heart catheterization, not amenable to any percutaneous coronary intervention and will require medical management going forward. 4. Morbid obesity. 5. Hyperglycemia. Uncertain if has h/o DM. Blood glucose levels lower today. May have been related to stress of acute SC. On SSI insulin but blood glucose control less than optimal. Gone ahead to add basal insulin (Lantus) and will continue to monitor 6. Hypertensive emergency. Present on admission. SBP was > 200. Improved now. Likely sympathetic response to SC. 7. Acute encephalopathy. Present on admission with stupor and was secondary most likely to hypoxia. Expect to improve. 8. KIMBERLY. Secondary to cardiogenic shock. Hemodynamics improved and so expect to slowly recover as well. Microbiology Past 72 Hours 12/09/17 22:25 Transtracheal Aspirate Gram Stain - Final 12/09/17 22:25 Transtracheal Aspirate Respiratory Culture - Final 12/11/17 11:40 Other - Introducer Cath Tip Gram Stain - Final 12/09/17 10:00 Blood Culture (Wb) - Venous Blood Culture - Preliminary No growth in 48 hours. 12/09/17 09:45 Blood Culture (Wb) - Line Draw Blood Culture - Preliminary No growth in 48 hours. 12/09/17 13:05 Urine Catheter - Mckeon Urine Culture - Final Culture exhibits no growth. Laboratory Results 12/12/17 04:10: WBC 12.8 H, RBC 3.35 L, Hgb 10.2 L, Hct 30.9 L, MCV 91.4, MCH 29.9, MCHC 33.1, RDW 16.5 H, RDW Differential 53.9 H, Plt Count 174, MPV 10.4, Immature Gran % (Auto) 0.800, Neut % (Auto) 77.1 H, Lymph % (Auto) 7.6 L, [place] % (Auto) 10.0, Eos % (Auto) 3.9, Baso % (Auto) 0.2, Absolute Neuts (auto) 10.1 H, Absolute Lymphs (auto) 0.97, Total Counted Not Reportable 12/12/17 04:10: Sodium 136, Potassium 4.0, Chloride 101, Carbon Dioxide 24.0, Anion Gap 11, BUN 50 H, Creatinine 2.71 H, Estim Creat Clear Calc 27.01, Est GFR (MDRD) Af Amer 30 L, Est GFR (MDRD) Non-Af 25 L, BUN/Creatinine Ratio 18.5, Glucose 272 H, Calcium 7.8 L, Total Bilirubin 0.70, AST 79 H, ALT 29, Alkaline Phosphatase 105, Total Protein 6.1 L, Albumin 2.0 L, Globulin 4.1, Albumin/Globulin Ratio 0.5 L 12/12/17 05:38: POC Glucose 282 H Code Visit Inpatient E&M: 34078 Subs Hosp L3
[2017-12-12 09:56] LABS: Partial Thromboplast Time 76.9 Seconds (24.1-36.2)
--- NOTE | 2017-12-12 10:02 | PCM.PN.CARD ---
Subjectve: Patient appears to be hemodynamically stabilizing. His white blood cell count is coming down, his Levophed requirements are around 10, his sedation requirements are coming down as well. [place]-Alexx catheter removed yesterday as well as right femoral venous sheath. Intruding balloon pump at 1:2 at this time. The patient's augmented pressures are in the 1 teens at 1: 2. Patient still in markedly positive fluid balance at this time. Chest x-ray shows pulmonary vascular redistribution but no pleural effusions. Positive fluid in the right midline fissure. Objective: Vital Signs Temp Pulse Resp BP Pulse Ox 100.7 F H 72 24 H 100/43 L 96 12/12/17 07:00 12/12/17 08:55 12/12/17 08:55 12/12/17 08:00 12/12/17 08:55 Oxygen Delivery Method Mechanical Ventilator Weight: 306 lb 10.608 oz Body Mass Index (BMI) 40.6 Intake and Output for Last 24 Hours 12/10/17 12/11/17 12/12/17 23:59 23:59 23:59 Intake Total 6921.4 / 6921.4 3785 / 3785 896.5 / 896.5 Output Total 1231 / 1231 2248 / 2248 1040 / 1040 Balance 5690.4 / 5690.4 1537 / 1537 -143.5 / -143.5 General: Awake, Alert, Oriented x 3 HEENT: PERRL, EOMI, Sclera Non Icteric Neck: Supple, Good ROM, No Lymph Node Enlargement Lungs: Clear to auscultation Cardiovascular: Regular Rhythm, Normal S1, Normal S2, No Murmurs, No Rubs, No Gallops Vascular: No Carotid Bruits, Normal Femoral Pulses, Normal Radial Pulses, Normal Dorsalis Pedal Pulse, Normal Posterior Tibial Pulses Abdomen: Bowel Sounds Present, Soft, Non Tender, No HSM, No Organomegaly Extremities: No Cyanosis, No Clubbing, No edema Neurological: No Focal Motor or Sensory Deficit 12/11/17 18:45: APTT 55.3 H 12/12/17 01:05: APTT 78.4 H 12/12/17 04:10: WBC 12.8 H, RBC 3.35 L, Hgb 10.2 L, Hct 30.9 L, MCV 91.4, MCH 29.9, MCHC 33.1, RDW 16.5 H, RDW Differential 53.9 H, Plt Count 174, MPV 10.4, Immature Gran % (Auto) 0.800, Neut % (Auto) 77.1 H, Lymph % (Auto) 7.6 L, [place] % (Auto) 10.0, Eos % (Auto) 3.9, Baso % (Auto) 0.2, Absolute Neuts (auto) 10.1 H, Total Counted Not Reportable 12/12/17 04:10: Sodium 136, Potassium 4.0, Chloride 101, Carbon Dioxide 24.0, Anion Gap 11, BUN 50 H, Creatinine 2.71 H, Est GFR (MDRD) Af Amer 30 L, Est GFR (MDRD) Non-Af 25 L, BUN/Creatinine Ratio 18.5, Glucose 272 H, Calcium 7.8 L, Total Bilirubin 0.70 12/12/17 09:30: APTT 76.9 H Rhythm: EKG: ECHO: Stress Test: Cardiac Cath: PCI: CT Surgery: Holter monitor: EPS: PPM: CXR: Chest CT Scan: Medical Necessity - Tobacco Use Smoking Status: Unknown if ever smoked Assessment/Plan 1. Ischemic cardiomyopathy: The patient presented with hypertensive crisis, with subsequent respiratory failure requiring emergent intubation and emergent catheterization. 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 He has a previous LAD stent as well which was widely patent with nonobstructive coronary disease of his LAD and left circumflex system. He has severe LV dysfunction with an EF around 20-25%. His [place]-Alexx catheter appeared to be in the right atrium based upon chest x-rays and arterial waveform. [place]-Alexx catheter removed this morning and attempt to begin the lining the patient. He is only on 10 mcg/kg of levo fed, and is responded well to IV fluids. His blood pressure appears to deteriorate with diuresis. At this point I would recommend continuing the intra-aortic balloon pump at 1: 2, and an attempt to wean the patient off his balloon pump prior to extubation. My preference would be to extubate the patient first with the balloon pump in place in case he has an acute respiratory deterioration however due to his septic picture this may not be an option. On the face of it appears that his hemodynamics are stabilizing with a combination of IV antibiotics, IV fluid, and pressor agents. I believe we can start weaning the pump to 1: 3 once we have successfully gotten the patient off of levo fed at least for 12 hours. I am pleased to see that his blood pressure and mean arterial pressure are improving as his Levophed requirements go down. Recommend continuing IV heparin, keeping his PTT between 50 and 70, holding his antihypertensive medications of Coreg and Cozaar. My hope is that we can wean him off of levo fed as the infection resolves, followed by extubation once he has reached his dry weight. Diuresis until would also hold off on he is off of levo fed. He may require levo fed assistance as we diurese him in order to facilitate extubation. Once the patient is off his Levophed, would consider gentle diuresis with Lasix IV 40 mg a day. It appears that he is preload dependent given his pulmonary hypertension, severe LV dysfunction, and occluded right coronary artery. We made several attempts to gain access into the occluded right coronary artery stent, but this appears to be a chronic total occlusion, and would not recommend aggressive measures of reopening this vessel at this time. Another option would be to consider starting him on milrinone, and attempt to assist his LV dysfunction and facilitate extubation. 2. [place]-Alexx catheter: [place]-Alexx catheter and RFA sheath removed 12/11/17. 3. Thank you very much for the opportunity to participate in the cardiac care of your patient. Code Visit Inpatient E&M: [id number] [place] [id number]
[2017-12-12] MEDS: Aspirin 81 MG TAB.CHEW GT (10:15)
[2017-12-12] MEDS: Chlorhexidine 15 ML PO ×2 (10:15→21:02)
[2017-12-12] MEDS: Famotidine 20 MG Tablet GT (10:17)
[2017-12-12] MEDS: Nystatin/Triamcin Oint 1 APPLIC TOPICAL ×2 (10:17→21:03)
[2017-12-12 12:45] LABS: Bedside Glucose 281 mg/dL (70-110)
[2017-12-12] MEDS: Jevity 1.5 1,000 ML 60 ML GT (13:43)
[2017-12-12 17:18] LABS: Partial Thromboplast Time 74.2 Seconds (24.1-36.2)
[2017-12-12] MEDS: Acetaminophen 650 MG/20 ML UDC GT (18:17)
[2017-12-12 18:26] LABS: Bedside Glucose 268 mg/dL (70-110)
[2017-12-12] MEDS: Atorvastatin Calcium 80 MG Tablet GT (21:03)
[2017-12-12] MEDS: fentaNYL 100 MCG/2 ML Ampul 50 MCG IV (21:04)
[2017-12-12 21:35] LABS: Bedside Glucose 258 mg/dL (70-110)
[2017-12-13] VITALS (37 sets, daily range): BP systolic 83–152; BP diastolic 34–92; PULSE 55–98; RESP 14–33; TEMP 37.9–38.3; O2SAT 3–98
[2017-12-13 00:11] LABS: Bedside Glucose 201 mg/dL (70-110)
[2017-12-13 00:12] LABS: Partial Thromboplast Time 69.2 Seconds (24.1-36.2)
[2017-12-13] MEDS: HEPARIN/D5w 25,000 UNITS 25,000 UNITS/250 ML IV.SOLN. 10 UNITS IV (01:55)
[2017-12-13 04:38] LABS: Absolute Lymphocyte Count 1.07 X10^3/ul (0.83-4.51); Absolute Neutrophil Count 8.1 X10^3/uL (2.0-7.7); Basophil# 0.04 X10^3/uL; Basophil% 0.4 % (0-1); Eosinophil# 0.49 X10^3/uL; Eosinophils% 4.3 % (0-5); Hematocrit 30.8 % (40-54); Lymphocyte # 1.07 X10^3/ul (4.0); Lymphocyte % 9.5 % (19-41); Mean Corp Hgb Conc 32.5 g/gl (32-36); Mean Corpuscular Hgb 29.7 pg (27.0-32.0); Mean Corpuscular Volume 91.4 fL (80-94); Mean Platelet Vol. 10.4 fl (6.2-12.0); Monocyte# 1.43 X10^3/uL; Monocyte% 12.7 % (0-10); Neutrophil # 8.14 X10^3/uL (2.7-7.7); Platelet Count 174 K/mm3 (150-450); RBC Distribution Width CV 16.5 % (11.6-14.6); RBC Distribution Width SD 54.4 fl (35.1-43.9); Red Blood Count 3.37 M/mm3 (4.6-6.2); White Blood Count 11.3 K/mm3 (4.4-11.0)
[2017-12-13 04:39] LABS: POSITIVE COUNT NO; POSITIVE DIFFERENTIAL NO; POSITIVE MORPHOLOGY NO
[2017-12-13 04:45] LABS: ALB/GLOB Ratio 0.5 RATIO (0.9-2.4); AST(SGOT) 78 U/L (15-37); Alanine Aminotransfer ALT/SGPT 37 U/L (16-61); Alkaline Phosphatase 129 U/L (45-117); Anion Gap 10 (5-15); BUN 51 mg/dL (7-18); BUN/Creat Ratio 21.3 RATIO (10-20); Calcium,Total 8.3 mg/dL (8.5-10.1); Chloride 103 mmol/L (98-107); Creatinine, Serum 2.39 mg/dL (0.70-1.30); EST Glomerular Filtration Rate 29 mL/min (>60); Est Glom Filt Rate - Afr Amer 35 mL/min (>60); Estimated Creatinine Clearance 30.63 ml/min; Globulin 4.2 g/dL (2.2-4.2); Glucose 254 mg/dL (74-106); Potassium 4.1 mmol/L (3.5-5.1); Protein, Total 6.2 g/dL (6.4-8.2); Sodium Level 139 mmol/L (136-145)
[2017-12-13] MEDS: Insulin Lispro 100 UNIT/ML INSULN.PEN SC (05:22)
[2017-12-13] MEDS: Piperacil/Tazobactam 3.375 GM/50 ML ML IV ×3 (05:24→21:29)
[2017-12-13] MEDS: 0.9% NaCl Peripheral Flush Adult/Peds IV (05:24)
[2017-12-13] MEDS: CHLORHEXIDINE GLUC 2% CLOTH 1 EACH TOWELETTE TOPICAL (05:24)
[2017-12-13 05:46] LABS: Bedside Glucose 232 mg/dL (70-110)
[2017-12-13 07:11] LABS: Partial Thromboplast Time 52.2 Seconds (24.1-36.2)
[2017-12-13 08:45] LABS: Base Excess 0 mmol/L (-2 to +2); Bicarbonate 23.7 mmol/L (22-26); Blood Gas Specimen Type ALINE; FI02 30; Mode CPAP PS; O2 Delivery Device Vent; PEEP 5; PO2 80 mmHG (75-100); PS 5; SITE OTHER; SO2 97 % (95-99); Time Given 839; Total Carbon Dioxide 25 mmol/L; pH 7.48 (7.35-7.45)
[2017-12-13] MEDS: fentaNYL 100 MCG/2 ML Ampul 50 MCG IV (08:48)
[2017-12-13] MEDS: Nystatin/Triamcin Oint 1 APPLIC TOPICAL ×2 (09:49→21:29)
[2017-12-13] MEDS: Chlorhexidine 15 ML PO (09:49)
[2017-12-13] MEDS: Famotidine 20 MG Tablet GT (09:49)
[2017-12-13] MEDS: Aspirin 81 MG TAB.CHEW GT (09:49)
--- NOTE | 2017-12-13 09:53 | PCM.PN.CARD ---
Subjectve: Patient continues to improve hemodynamically on a day-to-day basis. His Levophed is now at 2 mcg, his blood pressure has remained stable and in fact has improved, extubation weaning is in planning for today. Intrinsic balloon pump was reduced to 1: 4 this morning with no appreciable drop in his blood pressure. Urine output continues to be adequate. Right groin is clean/dry/intact without evidence of thrills, bruits or hematoma or infection. Patient continues to be in positive fluid balance over the last several days. Chest x-ray shows no significant pulmonary edema or pleural effusions. Creatinine continues to trend downwards. Patient most likely had some mild post procedure ATN combined with cardiogenic shock. Objective: Vital Signs Temp Pulse Resp BP Pulse Ox 100.8 F H 66 24 H 108/62 96 12/13/17 08:00 12/13/17 09:00 12/13/17 09:00 12/13/17 09:00 12/13/17 09:00 Oxygen Delivery Method Mechanical Ventilator Weight: 303 lb 9.224 oz Body Mass Index (BMI) 40.6 Intake and Output for Last 24 Hours 12/11/17 12/12/17 12/13/17 23:59 23:59 23:59 Intake Total 3785 / 3785 2522.1 / 2522.1 1325.2 / 1325.2 Output Total 2248 / 2248 2330 / 2330 920 / 920 Balance 1537 / 1537 192.1 / 192.1 405.2 / 405.2 General: Awake, Alert, Oriented x 3 HEENT: PERRL, EOMI, Sclera Non Icteric Neck: Supple, Good ROM, No Lymph Node Enlargement Lungs: Clear to auscultation Cardiovascular: Regular Rhythm, Normal S1, Normal S2, No Murmurs, No Rubs, No Gallops Vascular: No Carotid Bruits, Normal Femoral Pulses, Normal Radial Pulses, Normal Dorsalis Pedal Pulse, Normal Posterior Tibial Pulses Abdomen: Bowel Sounds Present, Soft, Non Tender, No HSM, No Organomegaly Extremities: No Cyanosis, No Clubbing, No edema Neurological: No Focal Motor or Sensory Deficit 12/12/17 09:30: APTT 76.9 H 12/12/17 16:40: APTT 74.2 H 12/12/17 23:50: APTT 69.2 H 12/13/17 04:20: WBC 11.3 H, RBC 3.37 L, Hgb 10.0 L, Hct 30.8 L, MCV 91.4, MCH 29.7, MCHC 32.5, RDW 16.5 H, RDW Differential 54.4 H, Plt Count 174, MPV 10.4, Immature Gran % (Auto) 1.100 H, Neut % (Auto) 72.0 H, Lymph % (Auto) 9.5 L, [place] % (Auto) 12.7 H, Eos % (Auto) 4.3, Baso % (Auto) 0.4, Absolute Neuts (auto) 8.1 H, Total Counted Not Reportable 12/13/17 04:20: Sodium 139, Potassium 4.1, Chloride 103, Carbon Dioxide 26.0, Anion Gap 10, BUN 51 H, Creatinine 2.39 H, Est GFR (MDRD) Af Amer 35 L, Est GFR (MDRD) Non-Af 29 L, BUN/Creatinine Ratio 21.3 H, Glucose 254 H, Calcium 8.3 L, Total Bilirubin 0.70 12/13/17 06:55: APTT 52.2 H 12/13/17 08:40: pH 7.48 H, Bicarbonate Actual 23.7, POC Total CO2 25, Base Excess 0, O2 Saturation 97, ABG pCO2 32.0 L, ABG pO2 80 Rhythm: EKG: ECHO: Stress Test: Cardiac Cath: PCI: CT Surgery: Holter monitor: EPS: PPM: CXR: Chest CT Scan: Medical Necessity - Tobacco Use Smoking Status: Unknown if ever smoked Assessment/Plan 1. Ischemic cardiomyopathy: The patient presented with hypertensive crisis, with subsequent respiratory failure requiring emergent intubation and emergent catheterization. 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 He has a previous LAD stent as well which was widely patent with nonobstructive coronary disease of his LAD and left circumflex system. He has severe LV dysfunction with an EF around 20-25%. His [place]-Alexx catheter appeared to be in the right atrium based upon chest x-rays and arterial waveform. He is only on 2 mcg/kg of levo fed, and is responded well to IV fluids. Will discontinue Levophed this morning with the intrinsic balloon pump at 1: 1, to determine if he is stable enough for extubation. His blood pressure appears to deteriorate with diuresis suggesting preload dependency as well as sepsis as part of his overall picture his white count has slowly gone down, his hemodynamic have improved, suggesting good response to antibiotic therapy. Blood cultures have been negative thus far.. At this point I would recommend continuing the intra-aortic balloon pump at 1: 1,in an attempt to wean the patient off his balloon pump prior to extubation sometime later this morning. My preference would be to extubate the patient first with the balloon pump in place in case he has an acute respiratory deterioration however due to his septic picture this may not be an option. On the face of it appears that his hemodynamics are stabilizing with a combination of IV antibiotics, IV fluid, and pressor agents. Recommend continuing IV heparin, keeping his PTT between 50 and 70, holding his antihypertensive medications of Coreg and Cozaar. My hope is that we can wean him off of levo fed as the infection resolves, followed by extubation and then removal of intrinsic balloon pump assuming he is able to remain off the ventilator. Once the patient is off his Levophed and the intra-aortic balloon pump has been removed, would consider gentle diuresis with Lasix IV 40 mg a day. It appears that he is preload dependent given his pulmonary hypertension, severe LV dysfunction, and occluded right coronary artery. Patient does have 2+ anasarca and is several liters positive over the last several days. We made several attempts to gain access into the occluded right coronary artery stent, but this appears to be a chronic total occlusion, and would not recommend aggressive measures of reopening this vessel at this time. Another option would be to consider starting him on milrinone, and attempt to assist his LV dysfunction and facilitate extubation. 2. [place]-Alexx catheter: [place]-Alexx catheter and RFA sheath removed 12/11/17. 3. Thank you very much for the opportunity to participate in the cardiac care of your patient. Discussed with Dr. Joshi and ICU team staff. Discussed with patient's [id number] as well.
--- NOTE | 2017-12-13 09:59 | PN.CARD_ITS ---
Subjectve: Patient continues to improve hemodynamically on a day-to-day basis. His Levophed is now at 2 mcg, his blood pressure has remained stable and in fact has improved, extubation weaning is in planning for today. Intrinsic balloon pump was reduced to 1: 4 this morning with no appreciable drop in his blood pressure. Urine output continues to be adequate. Right groin is clean/dry/ intact without evidence of thrills, bruits or hematoma or infection. Patient continues to be in positive fluid balance over the last several days. Chest x- ray shows no significant pulmonary edema or pleural effusions. Creatinine continues to trend downwards. Patient most likely had some mild post procedure ATN combined with cardiogenic shock. Objective: Vital Signs Temp Pulse Resp BP Pulse Ox 100.8 F H 66 24 H 108/62 96 12/13/17 08:00 12/13/17 09:00 12/13/17 09:00 12/13/17 09:00 12/13/17 09:00 Oxygen Delivery Method Mechanical Ventilator Weight: 303 lb 9.224 oz Body Mass Index (BMI) 40.6 Intake and Output for Last 24 Hours 12/11/17 12/12/17 12/13/17 23:59 23:59 23:59 Intake Total 3785 / 3785 2522.1 / 2522.1 1325.2 / 1325.2 Output Total 2248 / 2248 2330 / 2330 920 / 920 Balance 1537 / 1537 192.1 / 192.1 405.2 / 405.2 General: Awake, Alert, Oriented x 3 HEENT: PERRL, EOMI, Sclera Non Icteric Neck: Supple, Good ROM, No Lymph Node Enlargement Lungs: Clear to auscultation Cardiovascular: Regular Rhythm, Normal S1, Normal S2, No Murmurs, No Rubs, No Gallops Vascular: No Carotid Bruits, Normal Femoral Pulses, Normal Radial Pulses, Normal Dorsalis Pedal Pulse, Normal Posterior Tibial Pulses Abdomen: Bowel Sounds Present, Soft, Non Tender, No HSM, No Organomegaly Extremities: No Cyanosis, No Clubbing, No edema Neurological: No Focal Motor or Sensory Deficit 12/12/17 09:30: APTT 76.9 H 12/12/17 16:40: APTT 74.2 H 12/12/17 23:50: APTT 69.2 H 12/13/17 04:20: WBC 11.3 H, RBC 3.37 L, Hgb 10.0 L, Hct 30.8 L, MCV 91.4, MCH 29.7, MCHC 32.5, RDW 16.5 H, RDW Differential 54.4 H, Plt Count 174, MPV 10.4, Immature Gran % (Auto) 1.100 H, Neut % (Auto) 72.0 H, Lymph % (Auto) 9.5 L, [place] % (Auto) 12.7 H, Eos % (Auto) 4.3, Baso % (Auto) 0.4, Absolute Neuts (auto ) 8.1 H, Total Counted Not Reportable 12/13/17 04:20: Sodium 139, Potassium 4.1, Chloride 103, Carbon Dioxide 26.0, Anion Gap 10, BUN 51 H, Creatinine 2.39 H, Est GFR (MDRD) Af Amer 35 L, Est GFR (MDRD) Non-Af 29 L, BUN/Creatinine Ratio 21.3 H, Glucose 254 H, Calcium 8.3 L, Total Bilirubin 0.70 12/13/17 06:55: APTT 52.2 H 12/13/17 08:40: pH 7.48 H, Bicarbonate Actual 23.7, POC Total CO2 25, Base Excess 0, O2 Saturation 97, ABG pCO2 32.0 L, ABG pO2 80 Rhythm: EKG: ECHO: Stress Test: Cardiac Cath: PCI: CT Surgery: Holter monitor: EPS: PPM: CXR: Chest CT Scan: Medical Necessity - Tobacco Use Smoking Status: Unknown if ever smoked Assessment/Plan 1. Ischemic cardiomyopathy: The patient presented with hypertensive crisis, with subsequent respiratory failure requiring emergent intubation and emergent catheterization. 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 He has a previous LAD stent as well which was widely patent with nonobstructive coronary disease of his LAD and left circumflex system. He has severe LV dysfunction with an EF around 20-25%. His [place]-Alexx catheter appeared to be in the right atrium based upon chest x-rays and arterial waveform. He is only on 2 mcg/kg of levo fed, and is responded well to IV fluids. Will discontinue Levophed this morning with the intrinsic balloon pump at 1: 1, to determine if he is stable enough for extubation. His blood pressure appears to deteriorate with diuresis suggesting preload dependency as well as sepsis as part of his overall picture his white count has slowly gone down, his hemodynamic have improved, suggesting good response to antibiotic therapy. Blood cultures have been negative thus far.. At this point I would recommend continuing the intra-aortic balloon pump at 1: 1 ,in an attempt to wean the patient off his balloon pump prior to extubation sometime later this morning. My preference would be to extubate the patient first with the balloon pump in place in case he has an acute respiratory deterioration however due to his septic picture this may not be an option. On the face of it appears that his hemodynamics are stabilizing with a combination of IV antibiotics, IV fluid, and pressor agents. Recommend continuing IV heparin, keeping his PTT between 50 and 70, holding his antihypertensive medications of Coreg and Cozaar. My hope is that we can wean him off of levo fed as the infection resolves, followed by extubation and then removal of intrinsic balloon pump assuming he is able to remain off the ventilator. Once the patient is off his Levophed and the intra-aortic balloon pump has been removed, would consider gentle diuresis with Lasix IV 40 mg a day. It appears that he is preload dependent given his pulmonary hypertension, severe LV dysfunction, and occluded right coronary artery. Patient does have 2+ anasarca and is several liters positive over the last several days. We made several attempts to gain access into the occluded right coronary artery stent, but this appears to be a chronic total occlusion, and would not recommend aggressive measures of reopening this vessel at this time. Another option would be to consider starting him on milrinone, and attempt to assist his LV dysfunction and facilitate extubation. 2. [place]-Alexx catheter: [place]-Alexx catheter and RFA sheath removed 12/11/17. 3. Thank you very much for the opportunity to participate in the cardiac care of your patient. Discussed with Dr. Joshi and ICU team staff. Discussed with patient's [id number] as well.
--- NOTE | 2017-12-13 10:01 | CASEMGMT ---
Interdisciplinary rounds. Pt's sister in law present for rounds. RN CM intro role of CM re: dc planning. After rounds sister in law stated pt lives alone and she and her (brother) have concerns re: pt living in dirty house. she stated her goes to see him, but will not go inside, stays on porch. Also stated pt has temper. Requesting SW see pt. Consult placed and update to SOMMER Rich. Pt's brother and will be here this am. Noe ALONSON RN ACM
--- NOTE | 2017-12-13 10:01 | PCM.PN.HOSP ---
Subjective: The patient is just extubated. Blood pressure still on levophed support. On intra-aortic balloon. Patient continues to have fever T-max 101 at 1 AM. Objective: General: -Awake. HEENT: Atraumatic, PERRLA, EOMI, Normocephalic Oral: - - ET and OG tube Neck: Supple, No JVD, Negative Carotid Bruits. Right IJ central venous catheter Lungs: Air entry diminished. Expiratory wheezing and rhonchi present bilaterally. Extubated. Pulse ox 97% on 2 L of oxygen through nasal cannula. Respiratory rate 25-30/min. Cardiovascular: Regular rate, Normal S1, Normal S2, No murmurs, - Abdomen: Bowel Sounds Present, Soft, Non Tender, Hypoactive Bowel Sounds Extremities: Edema, - - Right femoral central line with [place]-Alexx catheter and intra-aortic balloon pump Skin: No rashes, No breakdown Musculoskeletal: Arthritic Changes Vitals/I&O's: Vital Signs Temp Pulse Resp BP Pulse Ox 100.8 F H 66 24 H 108/62 96 12/13/17 08:00 12/13/17 09:00 12/13/17 09:00 12/13/17 09:00 12/13/17 09:00 Oxygen Delivery Method Mechanical Ventilator Weight: 303 lb 9.224 oz Body Mass Index (BMI) 40.6 Intake and Output for Last 24 Hours 12/11/17 12/12/17 12/13/17 23:59 23:59 23:59 Intake Total 3785 / 3785 2522.1 / 2522.1 1325.2 / 1325.2 Output Total 2248 / 2248 2330 / 2330 920 / 920 Balance 1537 / 1537 192.1 / 192.1 405.2 / 405.2 Microbiology Past 72 Hours 12/11/17 11:40 Other - Introducer Cath Tip Miscellaneous Culture - Preliminary No growth-Final to follow 12/11/17 11:40 Other - Introducer Cath Tip Gram Stain - Final 12/09/17 22:25 Transtracheal Aspirate Gram Stain - Final 12/09/17 22:25 Transtracheal Aspirate Respiratory Culture - Final 12/09/17 10:00 Blood Culture (Wb) - Venous Blood Culture - Preliminary No growth in 48 hours. 12/09/17 09:45 Blood Culture (Wb) - Line Draw Blood Culture - Preliminary No growth in 48 hours. 12/09/17 13:05 Urine Catheter - Mckeon Urine Culture - Final Culture exhibits no growth. Laboratory Results 12/12/17 12:32: POC Glucose 281 H 12/12/17 16:40: APTT 74.2 H 12/12/17 18:15: POC Glucose 268 H 12/12/17 20:57: POC Glucose 258 H 12/12/17 23:49: POC Glucose 201 H 12/12/17 23:50: APTT 69.2 H 12/13/17 04:20: WBC 11.3 H, RBC 3.37 L, Hgb 10.0 L, Hct 30.8 L, MCV 91.4, MCH 29.7, MCHC 32.5, RDW 16.5 H, RDW Differential 54.4 H, Plt Count 174, MPV 10.4, Immature Gran % (Auto) 1.100 H, Neut % (Auto) 72.0 H, Lymph % (Auto) 9.5 L, [place] % (Auto) 12.7 H, Eos % (Auto) 4.3, Baso % (Auto) 0.4, Absolute Neuts (auto) 8.1 H, Absolute Lymphs (auto) 1.07, Total Counted Not Reportable 12/13/17 04:20: Sodium 139, Potassium 4.1, Chloride 103, Carbon Dioxide 26.0, Anion Gap 10, BUN 51 H, Creatinine 2.39 H, Estim Creat Clear Calc 30.63, Est GFR (MDRD) Af Amer 35 L, Est GFR (MDRD) Non-Af 29 L, BUN/Creatinine Ratio 21.3 H, Glucose 254 H, Calcium 8.3 L, Total Bilirubin 0.70, AST 78 H, ALT 37, Alkaline Phosphatase 129 H, Total Protein 6.2 L, Albumin 2.0 L, Globulin 4.2, Albumin/Globulin Ratio 0.5 L 12/13/17 05:17: POC Glucose 232 H 12/13/17 06:55: APTT 52.2 H 12/13/17 08:40: Specimen Type ROCIO, Sample Site OTHER, pH 7.48 H, Bicarbonate Actual 23.7, POC Total CO2 25, Base Excess 0, O2 Saturation 97, O2 % 30, ABG pCO2 32.0 L, ABG pO2 80, O2 Delivery Device Vent, Vent Mode CPAP PS, POC PEEP 5, POC Pressure Suppt 5, Blood Gas Notified Whom ICU MD, Blood Gas Notified Time 839 Current Medications Acetaminophen (Tylenol Liquid) 650 mg GT Q4H PRN PRN PRN Reason: pain/fever Last Admin: 12/12/17 18:17 Dose: 650 mg Albuterol Sulfate (Ventolin Aerosols) 2.5 mg INHALATION Q2H PRN PRN PRN Reason: SOB/WHEEZING Last Admin: 12/12/17 01:02 Dose: 2.5 mg Aspirin (Aspirin, Baby) 81 mg GT DAILYCM [facility] Last Admin: 12/13/17 09:49 Dose: 81 mg Atorvastatin Calcium (Lipitor) 80 mg GT QHS [facility] Last Admin: 12/12/17 21:03 Dose: 80 mg Atropine Sulfate () 0.5 mg IV UD PRN PRN Reason: HR <50 bpm Chlorhexidine Gluconate () 15 ml PO BID [facility] Last Admin: 12/13/17 09:49 Dose: 15 ml Chlorhexidine Gluconate () 1 each TOPICAL DAILY [facility] Last Admin: 12/13/17 05:24 Dose: 1 each Famotidine (Pepcid) 20 mg GT DAILY [facility] Last Admin: 12/13/17 09:49 Dose: 20 mg Fentanyl Citrate (Sublimaze (100mcg Ampule)) 50 mcg IV Q2H PRN PRN PRN Reason: PAIN Last Admin: 12/13/17 08:48 Dose: 50 mcg Heparin Sodium (Beef Lung) (Heparin 500 Unit/5 Ml (100/Ml)) 500 unit IV UD PRN PRN Reason: HEPARIN FLUSH Last Admin: 12/07/17 21:35 Dose: 500 unit Heparin Sodium (Porcine) (Heparin Na) 0 unit IV UD PRN PRN Reason: Protocol Last Admin: 12/11/17 14:00 Dose: 1,000 unit Heparin Sodium/Sodium Chloride () 2,000 units IV UD [facility] Last Admin: 12/13/17 09:59 Dose: Not Given Sodium Chloride () 1,000 mls @ 1 mls/hr IV .Q48H PRN PRN Reason: SALINE FLUSH Norepinephrine Bitartrate 8 mg (/ Dextrose) 258 mls @ 9.67 mls/hr IV .[id number] NASIM PRN Reason: 5 MCG/MIN Last Admin: 12/12/17 23:54 Dose: 9.67 mls/hr Heparin Sodium/Dextrose () 25,000 units in 250 mls @ 10 mls/hr IV .Q25H NASIM; As Directed PRN Reason: Protocol Last Admin: 12/13/17 01:55 Dose: 10 mls/hr Piperacillin Sod/Tazobactam Sod (Zosyn) 3.375 gm in 50 mls @ 12.5 mls/hr IV Q8 [facility] Last Admin: 12/13/17 05:24 Dose: 12.5 mls/hr Enteral Nutritional Formula (Jevity 1.5) 1,000 mls @ 60 mls/hr GT .[id number] [facility] Last Admin: 12/13/17 05:21 Dose: Not Given Fluconazole (Diflucan) 200 mg in 100 mls @ 100 mls/hr IV Q24 [facility] Last Admin: 12/13/17 09:50 Dose: 100 mls/hr Dexmedetomidine HCl 400 mcg/ (Sodium Chloride) 100 mls @ 17.12 mls/hr IV .[id number] NASIM PRN Reason: 0.5 MCG/KG/HR Last Admin: 12/13/17 05:21 Dose: Not Given Insulin Glargine (Lantus (Bkc)) 30 units SC [facility] Last Admin: 12/13/17 05:23 Dose: 30 u Insulin Human Lispro (Humalog Kwikpen (Bkc)) 0 unit SC Q6 NASIM PRN Reason: Protocol Last Admin: 12/13/17 05:22 Dose: 6 u Labetalol HCl (Trandate) 5 mg IV X1 PRN PRN Reason: SBP > 160 when pulling sheath Nystatin/Triamcinolone Acetonide (Mycolog) 1 applic TOPICAL BID NASIM PRN Reason: Protocol Last Admin: 12/13/17 09:49 Dose: 1 applicatio Sodium Chloride () 5 - 30 ml IV UD PRN PRN Reason: SALINE FLUSH Last Admin: 12/13/17 05:24 Dose: 30 ml Sodium Chloride () 500 ml IV BOLUS PRN PRN Reason: VASO-VAGAL PROTOCOL Medical Necessity - Tobacco Use Smoking Status: Unknown if ever smoked Assessment/Plan All Active Problems Abdominal pain (Acute) 71-year-old gentleman was admitted with hypertensive crisis with subsequent respiratory failure which required emergent intubation and cardiac catheterization. Patient found to have previously placed RCA stent occluded with same chronic with minimal collaterals. Severe LV dysfunction with EF 20-25%. On intra-aortic balloon pump 1:1. On IV heparin drip. On Levophed drip. 1. Acute hypoxic respiratory failure. Likely related to pulmonary edema from CHF and perhaps bronchospasm from exacerbation of CHF or from cardiac asthma based on initial presentation of wheezing and reduced breath sounds. Patient is extubated on 12/13/2017 Continued management per biscuit packer/critical care. Patient on IV Levophed drip. Right IJ central venous catheter placed on 12/11/2017. 2. Cardiogenic shock secondary to STEMI resulting into acute on chronic systolic heart failure possible septic shock. Patient on IABP at this time. Management per cardiology. Patient still on pressor/inotropic support. Patient on broad-spectrum IV antibiotic Zosyn pending infectious workup. Prelim tracheal aspirate shows normal respiratory edu. Urine culture shows no growth. Blood cultures are pending. Vancomycin discontinued. 3. STEMI. Completely occluded RCA on left heart catheterization, not amenable to any percutaneous coronary intervention and will require medical management going forward. 4. Morbid obesity. 5. Hyperglycemia. Uncertain if has h/o DM. Blood glucose levels lower today. May have been related to stress of acute [place]. On SSI insulin but blood glucose control less than optimal. Gone ahead to add basal insulin (Lantus) and will continue to monitor 6. Hypertensive emergency. Present on admission. SBP was > 200. Improved now. Likely sympathetic response to [place]. 7. Acute encephalopathy. Present on admission with stupor and was secondary most likely to hypoxia. Expect to improve. 8. KIMBERLY. Secondary to cardiogenic shock. Hemodynamics improved and so expect to slowly recover as well. Microbiology Past 72 Hours 12/11/17 11:40 Other - Introducer Cath Tip Miscellaneous Culture - Preliminary No growth-Final to follow 12/11/17 11:40 Other - Introducer Cath Tip Gram Stain - Final 12/09/17 22:25 Transtracheal Aspirate Gram Stain - Final 12/09/17 22:25 Transtracheal Aspirate Respiratory Culture - Final 12/09/17 10:00 Blood Culture (Wb) - Venous Blood Culture - Preliminary No growth in 48 hours. 12/09/17 09:45 Blood Culture (Wb) - Line Draw Blood Culture - Preliminary No growth in 48 hours. 12/09/17 13:05 Urine Catheter - Mckeon Urine Culture - Final Culture exhibits no growth. Laboratory Results 12/12/17 16:40: APTT 74.2 H 12/12/17 18:15: POC Glucose 268 H 12/12/17 20:57: POC Glucose 258 H 12/12/17 23:49: POC Glucose 201 H 12/12/17 23:50: APTT 69.2 H 12/13/17 04:20: WBC 11.3 H, RBC 3.37 L, Hgb 10.0 L, Hct 30.8 L, MCV 91.4, MCH 29.7, MCHC 32.5, RDW 16.5 H, RDW Differential 54.4 H, Plt Count 174, MPV 10.4, Immature Gran % (Auto) 1.100 H, Neut % (Auto) 72.0 H, Lymph % (Auto) 9.5 L, Taylor % (Auto) 12.7 H, Eos % (Auto) 4.3, Baso % (Auto) 0.4, Absolute Neuts (auto) 8.1 H, Absolute Lymphs (auto) 1.07, Total Counted Not Reportable 12/13/17 04:20: Sodium 139, Potassium 4.1, Chloride 103, Carbon Dioxide 26.0, Anion Gap 10, BUN 51 H, Creatinine 2.39 H, Estim Creat Clear Calc 30.63, Est GFR (MDRD) Af Amer 35 L, Est GFR (MDRD) Non-Af 29 L, BUN/Creatinine Ratio 21.3 H, Glucose 254 H, Calcium 8.3 L, Total Bilirubin 0.70, AST 78 H, ALT 37, Alkaline Phosphatase 129 H, Total Protein 6.2 L, Albumin 2.0 L, Globulin 4.2, Albumin/Globulin Ratio 0.5 L 12/13/17 05:17: POC Glucose 232 H 12/13/17 06:55: APTT 52.2 H 12/13/17 08:40: Specimen Type ROCIO, Sample Site OTHER, pH 7.48 H, Bicarbonate Actual 23.7, POC Total CO2 25, Base Excess 0, O2 Saturation 97, O2 % 30, ABG pCO2 32.0 L, ABG pO2 80, O2 Delivery Device Vent, Vent Mode CPAP PS, POC PEEP 5, POC Pressure Suppt 5, Blood Gas Notified Whom ICU , Blood Gas Notified Time 839 12/13/17 11:35: POC Glucose 148 H 12/13/17 12:15: APTT 59.1 H Code Visit Inpatient E&M: 58747 Subs Hosp L3
--- NOTE | 2017-12-13 10:42 | PN_ITS ---
Subjective: Patient did okay overnight. Patient continues to have episodes of fever, but urine output has improved. Patient remains on Levophed therapy this morning and nursing reported slightly increased residuals overnight, but tube feeds did not need to be held. Blood sugars have trended in the 200s. Oxygenation has remained stable. Patient was placed on spontaneous breathing trial this morning and was able to tolerate 1 hour. ABG showed adequate oxygenation and ventilation, so patient was liberated from the ventilator. Patient's intra- aortic balloon pump was increased to one-to-one augmentation around the extubation. General: - - RASS -1. Good vent synchrony previously. Morbidly obese. Follows commands intermittently. HEENT: Atraumatic, PERRLA, EOMI, Normocephalic, - - Scleral injection noted without icterus Oral: Moist Mucosa, No Gingival or Mucosal Lesions/ Ulcerations, - - Fair dentition Neck: Supple, No JVD, No Nodes, Trachea Midline, - - IJ is clean, dry and intact. Lungs: No rhonchi, No wheeze, No rales, Diminished, - - Symmetric expansion. No dullness to percussion. Cardiovascular: Regular rate, Regular Rhythm, Normal S1, Normal S2, No murmurs, No rub noted, No Gallop Abdomen: Bowel Sounds Present, Soft, Non Tender, Non-Distended, Obese Extremities: No clubbing, No cyanosis, Edema, - - Right leg still immobilized Skin: - - No significant change compared to previous Musculoskeletal: No Tenderness to Palpation of Joints or Extremities, No Muscle Wasting Lymphatic: No Cervical, Supraclavicular, or Inguinal Adenopathy Neurological: Cranial nerves II-XII grossly intact, Neuro grossly intact, Motor Exam 5/5 strength throughout Psych/Mental Status: Normal Affect, Appropriate Vital Signs Temp Pulse Resp BP Pulse Ox 38.3 C H 76 33 H 99/61 98 12/13/17 10:00 12/13/17 10:00 12/13/17 10:12/13/17 10:12/13/17 10:00 Oxygen Flow Rate (L/min) 3 Oxygen Delivery Method Nasal Cannula Weight: 137.7 kg Body Mass Index (BMI) 40.6 Intake and Output for Last 24 Hours 12/11/17 12/12/17 12/13/17 23:59 23:59 23:59 Intake Total 3785 / 3785 2522.1 / 2522.1 1405.2 / 1405.2 Output Total 2248 / 2248 2330 / 2330 1020 / 1020 Balance 1537 / 1537 192.1 / 192.1 385.2 / 385.2 Labs (Last 48 Hours) 12/11/17 12/11/17 12/11/17 04:05 12:18 17:52 WBC RBC Hgb Hct MCV MCH MCHC RDW RDW Differential Plt Count MPV Immature Gran % (Auto) Neut % (Auto) Lymph % (Auto) [place] % (Auto) Eos % (Auto) Baso % (Auto) Absolute Neuts (auto) Absolute Lymphs (auto) Total Counted Diff Path Review Reviewed APTT Specimen Type Sample Site pH Bicarbonate Actual POC Total CO2 Base Excess O2 Saturation O2 % ABG pCO2 ABG pO2 O2 Delivery Device Vent Mode POC PEEP POC Pressure Suppt Blood Gas Notified Whom Blood Gas Notified Time Sodium Potassium Chloride Carbon Dioxide Anion Gap BUN Creatinine Estim Creat Clear Calc Est GFR (MDRD) Af Amer Est GFR (MDRD) Non-Af BUN/Creatinine Ratio Glucose Calcium Total Bilirubin AST ALT Alkaline Phosphatase Total Protein Albumin Globulin Albumin/Globulin Ratio POC Glucose 303 H 303 H 12/11/17 12/12/17 12/12/17 18:45 00:16 01:05 WBC RBC Hgb Hct MCV MCH MCHC RDW RDW Differential Plt Count MPV Immature Gran % (Auto) Neut % (Auto) Lymph % (Auto) [place] % (Auto) Eos % (Auto) Baso % (Auto) Absolute Neuts (auto) Absolute Lymphs (auto) Total Counted Diff Path Review APTT 55.3 H 78.4 H Specimen Type Sample Site pH Bicarbonate Actual POC Total CO2 Base Excess O2 Saturation O2 % ABG pCO2 ABG pO2 O2 Delivery Device Vent Mode POC PEEP POC Pressure Suppt Blood Gas Notified Whom Blood Gas Notified Time Sodium Potassium Chloride Carbon Dioxide Anion Gap BUN Creatinine Estim Creat Clear Calc Est GFR (MDRD) Af Amer Est GFR (MDRD) Non-Af BUN/Creatinine Ratio Glucose Calcium Total Bilirubin AST ALT Alkaline Phosphatase Total Protein Albumin Globulin Albumin/Globulin Ratio POC Glucose 293 H 12/12/17 12/12/17 12/12/17 04:10 04:10 05:38 WBC 12.8 H RBC 3.35 L Hgb 10.2 L Hct 30.9 L MCV 91.4 MCH 29.9 MCHC 33.1 RDW 16.5 H RDW Differential 53.9 H Plt Count 174 MPV 10.4 Immature Gran % (Auto) 0.800 Neut % (Auto) 77.1 H Lymph % (Auto) 7.6 L [place] % (Auto) 10.0 Eos % (Auto) 3.9 Baso % (Auto) 0.2 Absolute Neuts (auto) 10.1 H Absolute Lymphs (auto) 0.97 Total Counted Not Reportable Diff Path Review APTT Specimen Type Sample Site pH Bicarbonate Actual POC Total CO2 Base Excess O2 Saturation O2 % ABG pCO2 ABG pO2 O2 Delivery Device Vent Mode POC PEEP POC Pressure Suppt Blood Gas Notified Whom Blood Gas Notified Time Sodium 136 Potassium 4.0 Chloride 101 Carbon Dioxide 24.0 Anion Gap 11 BUN 50 H Creatinine 2.71 H Estim Creat Clear Calc 27.01 Est GFR (MDRD) Af Amer 30 L Est GFR (MDRD) Non-Af 25 L BUN/Creatinine Ratio 18.5 Glucose 272 H Calcium 7.8 L Total Bilirubin 0.70 AST 79 H ALT 29 Alkaline Phosphatase 105 Total Protein 6.1 L Albumin 2.0 L Globulin 4.1 Albumin/Globulin Ratio 0.5 L POC Glucose 282 H 12/12/17 12/12/17 12/12/17 09:30 12:32 16:40 WBC RBC Hgb Hct MCV MCH MCHC RDW RDW Differential Plt Count MPV Immature Gran % (Auto) Neut % (Auto) Lymph % (Auto) [place] % (Auto) Eos % (Auto) Baso % (Auto) Absolute Neuts (auto) Absolute Lymphs (auto) Total Counted Diff Path Review APTT 76.9 H 74.2 H Specimen Type Sample Site pH Bicarbonate Actual POC Total CO2 Base Excess O2 Saturation O2 % ABG pCO2 ABG pO2 O2 Delivery Device Vent Mode POC PEEP POC Pressure Suppt Blood Gas Notified Whom Blood Gas Notified Time Sodium Potassium Chloride Carbon Dioxide Anion Gap BUN Creatinine Estim Creat Clear Calc Est GFR (MDRD) Af Amer Est GFR (MDRD) Non-Af BUN/Creatinine Ratio Glucose Calcium Total Bilirubin AST ALT Alkaline Phosphatase Total Protein Albumin Globulin Albumin/Globulin Ratio POC Glucose 281 H 12/12/17 12/12/17 12/12/17 18:15 20:57 23:49 WBC RBC Hgb Hct MCV MCH MCHC RDW RDW Differential Plt Count MPV Immature Gran % (Auto) Neut % (Auto) Lymph % (Auto) [place] % (Auto) Eos % (Auto) Baso % (Auto) Absolute Neuts (auto) Absolute Lymphs (auto) Total Counted Diff Path Review APTT Specimen Type Sample Site pH Bicarbonate Actual POC Total CO2 Base Excess O2 Saturation O2 % ABG pCO2 ABG pO2 O2 Delivery Device Vent Mode POC PEEP POC Pressure Suppt Blood Gas Notified Whom Blood Gas Notified Time Sodium Potassium Chloride Carbon Dioxide Anion Gap BUN Creatinine Estim Creat Clear Calc Est GFR (MDRD) Af Amer Est GFR (MDRD) Non-Af BUN/Creatinine Ratio Glucose Calcium Total Bilirubin AST ALT Alkaline Phosphatase Total Protein Albumin Globulin Albumin/Globulin Ratio POC Glucose 268 H 258 H 201 H 12/12/17 12/13/17 12/13/17 23:50 04:20 04:20 WBC 11.3 H RBC 3.37 L Hgb 10.0 L Hct 30.8 L MCV 91.4 MCH 29.7 MCHC 32.5 RDW 16.5 H RDW Differential 54.4 H Plt Count 174 MPV 10.4 Immature Gran % (Auto) 1.100 H Neut % (Auto) 72.0 H Lymph % (Auto) 9.5 L [place] % (Auto) 12.7 H Eos % (Auto) 4.3 Baso % (Auto) 0.4 Absolute Neuts (auto) 8.1 H Absolute Lymphs (auto) 1.07 Total Counted Not Reportable Diff Path Review APTT 69.2 H Specimen Type Sample Site pH Bicarbonate Actual POC Total CO2 Base Excess O2 Saturation O2 % ABG pCO2 ABG pO2 O2 Delivery Device Vent Mode POC PEEP POC Pressure Suppt Blood Gas Notified Whom Blood Gas Notified Time Sodium 139 Potassium 4.1 Chloride 103 Carbon Dioxide 26.0 Anion Gap 10 BUN 51 H Creatinine 2.39 H Estim Creat Clear Calc 30.63 Est GFR (MDRD) Af Amer 35 L Est GFR (MDRD) Non-Af 29 L BUN/Creatinine Ratio 21.3 H Glucose 254 H Calcium 8.3 L Total Bilirubin 0.70 AST 78 H ALT 37 Alkaline Phosphatase 129 H Total Protein 6.2 L Albumin 2.0 L Globulin 4.2 Albumin/Globulin Ratio 0.5 L POC Glucose 09/06/18 09/06/18 09/06/18 05:17 06:55 08:40 WBC RBC Hgb Hct MCV MCH MCHC RDW RDW Differential Plt Count MPV Immature Gran % (Auto) Neut % (Auto) Lymph % (Auto) [place] % (Auto) Eos % (Auto) Baso % (Auto) Absolute Neuts (auto) Absolute Lymphs (auto) Total Counted Diff Path Review APTT 52.2 H Specimen Type ROCIO Sample Site OTHER pH 7.48 H Bicarbonate Actual 23.7 POC Total CO2 25 Base Excess 0 O2 Saturation 97 O2 % 30 ABG pCO2 32.0 L ABG pO2 80 O2 Delivery Device Vent Vent Mode CPAP PS POC PEEP 5 POC Pressure Suppt 5 Blood Gas Notified Whom ICU MD Blood Gas Notified Time 839 Sodium Potassium Chloride Carbon Dioxide Anion Gap BUN Creatinine Estim Creat Clear Calc Est GFR (MDRD) Af Amer Est GFR (MDRD) Non-Af BUN/Creatinine Ratio Glucose Calcium Total Bilirubin AST ALT Alkaline Phosphatase Total Protein Albumin Globulin Albumin/Globulin Ratio POC Glucose 232 H Microbiology 12/11/17 11:40 Other - Introducer Cath Tip Miscellaneous Culture - Preliminary No growth-Final to follow 12/11/17 11:40 Other - Introducer Cath Tip Gram Stain - Final 12/09/17 22:25 Transtracheal Aspirate Gram Stain - Final 12/09/17 22:25 Transtracheal Aspirate Respiratory Culture - Final 12/09/17 10:00 Blood Culture (Wb) - Venous Blood Culture - Preliminary No growth in 48 hours. 12/09/17 09:45 Blood Culture (Wb) - Line Draw Blood Culture - Preliminary No growth in 48 hours. 12/09/17 13:05 Urine Catheter - Mckeon Urine Culture - Final Culture exhibits no growth. Clinical Impression(s) from Imaging Studies Chest X-Ray 12/13/17 04:15 IMPRESSION: Life support tubes and catheters, as detailed above. Left lower lobe atelectasis. Overall, the lungs are better aerated than on yesterday's examination. Electronically Signed: Jerzy Guerra DO at 8:34 EDT Tel , Service support , Medical Necessity - Tobacco Use Smoking Status: Unknown if ever smoked Assessment/Plan All Active Problems Abdominal pain (Acute) RECOMMENDATIONS: 1. Continue current supportive measures with intra-aortic balloon pump. 2. Continue broad-spectrum antibiotics, pending infectious workup. 3. Discontinue fentanyl and Precedex for sedation. 4. Wean Levophed to maintain a mean arterial pressure at or above 65 mmHg. 5. Continue Pepcid for GI prophylaxis, aerosols, tube feeds and sliding scale insulin 6. Transition balloon pump to 1-2 augmentation 1 hour after extubation 7. Defer to cardiology on removal of intra-aortic balloon pump IMPRESSIONS: 1. ST elevation myocardial infarction/history of ischemic cardiomyopathy status post previous PCI/cardiogenic shock The patient underwent urgent cardiac catheterization on the morning of December 07 without intervention performed. Continue intra-aortic balloon pump augmentation per cardiology recommendations. Wean Levophed to maintain a mean arterial pressure at or above 65 mmHg. Patient appears to be improving, but remains persistently febrile. 2. Acute hypoxemic respiratory failure Patient successfully liberated from the ventilator this morning. Will discontinue sedation. Aggressive pulmonary toileting and incentive spirometer. Wean oxygen as tolerated. 3. Septic shock Continue broad-spectrum antibiotics, pending infectious workup. Patient was noted to have yeast by cardiology during acute cardiac intervention. Patient did have antifungal added previously and this appears to have some improvement in hemodynamics. Some fever overnight, but condition appears to be stabilizing. 4. Acute kidney injury Slightly improved compared to previous. Likely secondary to hemodynamic instability in the setting of #1. Continue current supportive measures and vasopressor support. Continue to monitor urine output. No indication for renal replacement therapy at the current time. 5. Metabolic encephalopathy No significant metabolic derangements noted on chemistry profile. Suspect that the patient may have become hypercarbic leading to his encephalopathy. ABG did show adequate oxygenation and ventilation at the end of the spontaneous breathing trial. 6. Morbid obesity/hyperlipidemia/hyperglycemia Complicates care, management, recovery and prognosis. Continue statin. Patient currently n.p.o. following extubation. Possibly initiate diet with q. before meals and at bedtime blood sugars. TIME: 39 minutes of critical care time, independent of procedures, was spent addressing the patient's STEMI, acute respiratory failure, metabolic encephalopathy, morbid obesity, fevers, acute kidney injury review of all data and collaboration with the care team. (8 AM to 9:30 AM) Code Visit [id number]: [id number] Critical care first hour
--- NOTE | 2017-12-13 10:52 | CASEMGMT ---
Addendum entered by Guerda Turner 12/13/17 12:55: Please note, pt's brother and sister in law did not want pt to know about their concerns regarding his home. They explain that this would upset the pt. XOCHITL Marinelli, PROJECT CONTROLS SCHEDULER Original Note: SW spoke w/pt's brother Tony and sister in law Roque in the waiting area by the elevator, in regard to pt. They explain that pt's home is very messy, describe that pt leaves food containers and old food out. Roque explains that after pt had a heart attack 4 years ago, they cleaned the home out and this angered the pt. They explain that they rented two dumpsters, the garbage was stacked up to knee height. They explain that since then, the pt has cluttered the house again. They explain that pt will not let anyone in the home. They explain pt has little family, them and a nephew named Willie. They had one other brother who . Tony is 10 years older than pt. Pt is independent, will not let anyone in the home to help him. Ian then came out to the waiting area and said bye to pt's family. They explain Bill is the gas manager at [employer] and came to check on pt, pt eats at [employer] regularly. They explain that the entry level software engineer of [employer] sits with pt twice per week and speaks with him, and they often give him leftover food. They explain that Bill went to pt's home to check on him and discovered how dirty the pt's home is. Roque and Tony do not want pt to know that they told this SW about his home, as he will be angry with them. Roque states however that pt's secret is out now, now that Bill has seen the home. Tony and Roque explain pt is smart, but is lazy. They recognize pt has some mental illness, he never received any treatment for this. 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 Their mother looked after pt after this. Tony and Roque asked about Medicaid, SW explained it does not appear pt has applied. SW explained the Medicare benefit for SNF, and explained we will assist w/applying for Medicaid if needed. SW explained also pt needs to be agreeable to go to SNF, family understands this. SW explained if pt insists on going home, SW will call [facility]. Tony and Roque let this SW know they are available. SW explained will speak w/pt when appropriate about discharge plans. SW will continue to follow, pt just extubated this morning. XOCHITL Marinelli, PROJECT CONTROLS SCHEDULER
[2017-12-13 12:26] LABS: Bedside Glucose 148 mg/dL (70-110)
[2017-12-13 12:33] LABS: Partial Thromboplast Time 59.1 Seconds (24.1-36.2)
[2017-12-13 18:15] LABS: Bedside Glucose 75 mg/dL (70-110)
[2017-12-13] MEDS: Atorvastatin Calcium 80 MG Tablet PO (21:29)
[2017-12-14] VITALS (29 sets, daily range): BP systolic 108–162; BP diastolic 50–90; PULSE 79–107; RESP 18–93; TEMP 37.8–38.4; O2SAT 91–97
[2017-12-14 00:06] LABS: Bedside Glucose 86 mg/dL (70-110)
[2017-12-14 05:01] LABS: Absolute Lymphocyte Count 1.71 X10^3/ul (0.83-4.51); Absolute Neutrophil Count 9.9 X10^3/uL (2.0-7.7); Basophil# 0.13 X10^3/uL; Basophil% 0.9 % (0-1); Differential Indicated SCAN CRITERIA MET; Eosinophil# 0.43 X10^3/uL; Eosinophils% 3.1 % (0-5); Hematocrit 30.3 % (40-54); Hemoglobin 9.9 g/dl (13.0-16.5); Lymphocyte # 1.71 X10^3/ul (4.0); Lymphocyte % 12.3 % (19-41); Mean Corp Hgb Conc 32.7 g/gl (32-36); Mean Corpuscular Hgb 29.9 pg (27.0-32.0); Mean Corpuscular Volume 91.5 fL (80-94); Mean Platelet Vol. 9.9 fl (6.2-12.0); Monocyte# 1.57 X10^3/uL; Monocyte% 11.3 % (0-10); Neutrophil # 9.93 X10^3/uL (2.7-7.7); Neutrophil % 71.3 % (47-70); POSITIVE COUNT NO; POSITIVE DIFFERENTIAL YES; POSITIVE MORPHOLOGY YES; Platelet Count 162 K/mm3 (150-450); RBC Distribution Width CV 16.7 % (11.6-14.6); RBC Distribution Width SD 55.5 fl (35.1-43.9); Red Blood Count 3.31 M/mm3 (4.6-6.2); White Blood Count 13.9 K/mm3 (4.4-11.0)
[2017-12-14 05:02] LABS: Partial Thromboplast Time 66.2 Seconds (24.1-36.2)
[2017-12-14 05:06] LABS: ALB/GLOB Ratio 0.5 RATIO (0.9-2.4); AST(SGOT) 185 U/L (15-37); Alanine Aminotransfer ALT/SGPT 85 U/L (16-61); Alkaline Phosphatase 162 U/L (45-117); Anion Gap 10 (5-15); BUN 49 mg/dL (7-18); BUN/Creat Ratio 21.2 RATIO (10-20); Calcium,Total 8.4 mg/dL (8.5-10.1); Chloride 106 mmol/L (98-107); Creatinine, Serum 2.31 mg/dL (0.70-1.30); EST Glomerular Filtration Rate 30 mL/min (>60); Est Glom Filt Rate - Afr Amer 36 mL/min (>60); Estimated Creatinine Clearance 31.69 ml/min; Globulin 4.2 g/dL (2.2-4.2); Glucose 93 mg/dL (74-106); Potassium 3.9 mmol/L (3.5-5.1); Protein, Total 6.2 g/dL (6.4-8.2); Sodium Level 142 mmol/L (136-145)
[2017-12-14 05:25] LABS: Atypical Lymphocyte RARE %; Differential Comment SCANNED
[2017-12-14] MEDS: Piperacil/Tazobactam 3.375 GM/50 ML ML IV ×3 (05:53→22:20)
[2017-12-14] MEDS: 0.9% NaCl Peripheral Flush Adult/Peds IV ×3 (05:53→11:14)
[2017-12-14 06:06] LABS: Bedside Glucose 93 mg/dL (70-110)
--- NOTE | 2017-12-14 08:00 | NURSING ---
hold mobility d/t IABP/sheath removal. bedrest till 1700
--- NOTE | 2017-12-14 08:11 | PCM.PN.HOSP ---
Subjective: The patient is still spiking temperature, T-max 100.4 Fahrenheit about 10 PM yesterday. Patient was on nasal cannula 3 L yesterday night. Complaint of right lower quadrant and groin discomfort secondary to intra-aortic balloon pump arterial sheath. Patient is still on intra-aortic balloon pump. Objective: General: - Extubated. Alert awake and oriented ?3 HEENT: Atraumatic, PERRLA, EOMI, Normocephalic Oral: -Oral mucosa moist Neck: Supple, No JVD, Negative Carotid Bruits. Right IJ central venous catheter Lungs: Air entry diminished. Mild expiratory rhonchi present. On oxygen through nasal cannula Cardiovascular: Regular rate, Normal S1, Normal S2, No murmurs, - Abdomen: Bowel Sounds Present, Soft, Non Tender, Hypoactive Bowel Sounds Extremities: Edema, -Right femoral central line intra-aortic balloon pump Skin: No rashes, No breakdown Musculoskeletal: Arthritic Changes Vitals/I&O's: Vital Signs Temp Pulse Resp BP Pulse Ox 100.7 F H 96 24 H 133/90 H 95 12/14/17 08:00 12/14/17 08:00 12/14/17 08:00 12/14/17 08:00 12/14/17 08:00 Oxygen Flow Rate (L/min) 3 Oxygen Delivery Method Nasal Cannula Weight: 302 lb 11.115 oz Body Mass Index (BMI) 40.6 Intake and Output for Last 24 Hours 12/12/17 12/13/17 12/14/17 23:59 23:59 23:59 Intake Total 2522.1 / 2522.1 1617.2 / 1617.2 778.4 / 778.4 Output Total 2330 / 2330 2014 / 2014 710 / 710 Balance 192.1 / 192.1 -397.8 / -397.8 68.4 / 68.4 Microbiology Past 72 Hours 12/11/17 11:40 Other - Introducer Cath Tip Miscellaneous Culture - Final No growth aerobically. 12/11/17 11:40 Other - Introducer Cath Tip Gram Stain - Final 12/09/17 22:25 Transtracheal Aspirate Gram Stain - Final 12/09/17 22:25 Transtracheal Aspirate Respiratory Culture - Final 12/09/17 10:00 Blood Culture (Wb) - Venous Blood Culture - Preliminary No growth in 48 hours. 12/09/17 09:45 Blood Culture (Wb) - Line Draw Blood Culture - Preliminary No growth in 48 hours. 12/09/17 13:05 Urine Catheter - Mckeon Urine Culture - Final Culture exhibits no growth. Laboratory Results 12/13/17 08:40: Specimen Type ROCIO, Sample Site OTHER, pH 7.48 H, Bicarbonate Actual 23.7, POC Total CO2 25, Base Excess 0, O2 Saturation 97, O2 % 30, ABG pCO2 32.0 L, ABG pO2 80, O2 Delivery Device Vent, Vent Mode CPAP PS, POC PEEP 5, POC Pressure Suppt 5, Blood Gas Notified Whom ICU , Blood Gas Notified Time 839 12/13/17 11:35: POC Glucose 148 H 12/13/17 12:15: APTT 59.1 H 12/13/17 18:00: APTT 62.0 H 12/13/17 18:12: POC Glucose 75 12/13/17 23:58: POC Glucose 86 12/14/17 04:40: APTT 66.2 H 12/14/17 04:40: WBC 13.9 H, RBC 3.31 L, Hgb 9.9 L, Hct 30.3 L, MCV 91.5, MCH 29.9, MCHC 32.7, RDW 16.7 H, RDW Differential 55.5 H, Plt Count 162, MPV 9.9, Immature Gran % (Auto) 1.100 H, Neut % (Auto) 71.3 H, Lymph % (Auto) 12.3 L, [place] % (Auto) 11.3 H, Eos % (Auto) 3.1, Baso % (Auto) 0.9, Absolute Neuts (auto) 9.9 H, Absolute Lymphs (auto) 1.71, Total Counted Not Reportable, Differential Comment SCANNED, Atypical Lymphocytes RARE 12/14/17 04:40: Sodium 142, Potassium 3.9, Chloride 106, Carbon Dioxide 26.0, Anion Gap 10, BUN 49 H, Creatinine 2.31 H, Estim Creat Clear Calc 31.69, Est GFR (MDRD) Af Amer 36 L, Est GFR (MDRD) Non-Af 30 L, BUN/Creatinine Ratio 21.2 H, Glucose 93, Calcium 8.4 L, Total Bilirubin 0.80, AST 185 H, ALT 85 H, Alkaline Phosphatase 162 H, Total Protein 6.2 L, Albumin 2.0 L, Globulin 4.2, Albumin/Globulin Ratio 0.5 L 12/14/17 05:50: POC Glucose 93 Current Medications Acetaminophen (Tylenol Liquid) 650 mg GT Q4H PRN PRN PRN Reason: pain/fever Last Admin: 12/12/17 18:17 Dose: 650 mg Albuterol Sulfate (Ventolin Aerosols) 2.5 mg INHALATION Q2H PRN PRN PRN Reason: SOB/WHEEZING Last Admin: 12/12/17 01:02 Dose: 2.5 mg Aspirin (Aspirin, Baby) 81 mg GT DAILYCM [facility] Last Admin: 12/13/17 09:49 Dose: 81 mg Atorvastatin Calcium (Lipitor) 80 mg PO QHS [facility] Last Admin: 12/13/17 21:29 Dose: 80 mg Atropine Sulfate () 0.5 mg IV UD PRN PRN Reason: HR <50 bpm Chlorhexidine Gluconate () 1 each TOPICAL DAILY [facility] Last Admin: 12/13/17 05:24 Dose: 1 each Famotidine (Pepcid) 20 mg GT DAILY [facility] Last Admin: 12/13/17 09:49 Dose: 20 mg Fentanyl Citrate (Sublimaze (100mcg Ampule)) 50 mcg IV Q2H PRN PRN PRN Reason: PAIN Last Admin: 12/13/17 08:48 Dose: 50 mcg Heparin Sodium (Beef Lung) (Heparin 500 Unit/5 Ml (100/Ml)) 500 unit IV UD PRN PRN Reason: HEPARIN FLUSH Last Admin: 12/07/17 21:35 Dose: 500 unit Heparin Sodium (Porcine) (Heparin Na) 0 unit IV UD PRN PRN Reason: Protocol Last Admin: 12/11/17 14:00 Dose: 1,000 unit Heparin Sodium/Sodium Chloride () 2,000 units IV UD [facility] Last Admin: 12/13/17 09:59 Dose: Not Given Sodium Chloride () 1,000 mls @ 1 mls/hr IV .Q48H PRN PRN Reason: SALINE FLUSH Heparin Sodium/Dextrose () 25,000 units in 250 mls @ 10 mls/hr IV .Q25H [facility]IM; As Directed PRN Reason: Protocol Last Admin: 12/13/17 10:18 Dose: Not Given Piperacillin Sod/Tazobactam Sod (Zosyn) 3.375 gm in 50 mls @ 12.5 mls/hr IV Q8 [facility] Last Admin: 12/14/17 05:53 Dose: 12.5 mls/hr Fluconazole (Diflucan) 200 mg in 100 mls @ 100 mls/hr IV Q24 [facility] Last Admin: 12/13/17 09:50 Dose: 100 mls/hr Insulin Human Lispro (Humalog Kwikpen (Bkc)) 0 unit SC Q6 [facility] PRN Reason: Protocol Last Admin: 12/14/17 05:54 Dose: Not Given Labetalol HCl (Trandate) 5 mg IV X1 PRN PRN Reason: SBP > 160 when pulling sheath Nystatin/Triamcinolone Acetonide (Mycolog) 1 applic TOPICAL BID [facility] PRN Reason: Protocol Last Admin: 12/13/17 21:29 Dose: 1 applicatio Sodium Chloride () 5 - 30 ml IV UD PRN PRN Reason: SALINE FLUSH Last Admin: 12/14/17 05:53 Dose: 20 ml Sodium Chloride () 500 ml IV BOLUS PRN PRN Reason: VASO-VAGAL PROTOCOL Medical Necessity - Tobacco Use Smoking Status: Unknown if ever smoked Assessment/Plan All Active Problems Abdominal pain (Acute) 71-year-old gentleman was admitted with hypertensive crisis with subsequent respiratory failure which required emergent intubation and cardiac catheterization. Patient found to have previously placed RCA stent occluded with same chronic with minimal collaterals. Severe LV dysfunction with EF 20-25%. On intra-aortic balloon pump 1:1. On IV heparin drip. On Levophed drip. 1. Acute hypoxic respiratory failure. Likely related to pulmonary edema from CHF and perhaps bronchospasm from exacerbation of CHF or from cardiac asthma based on initial presentation of wheezing and reduced breath sounds. Patient is extubated on 12/13/2017 Continued management per basketball scout/critical care. Right IJ central venous catheter placed on 12/11/2017. 2. Cardiogenic shock secondary to STEMI resulting into acute on chronic systolic heart failure possible septic shock. Patient on IABP at this time. Management per cardiology. Patient still on pressor/inotropic support. Patient on broad-spectrum IV antibiotic Zosyn pending infectious workup. Prelim tracheal aspirate shows normal respiratory edu. Urine culture shows no growth. Blood cultures are pending. Vancomycin discontinued. 3. STEMI. Completely occluded RCA on left heart catheterization, not amenable to any percutaneous coronary intervention and will require medical management going forward. 4. Morbid obesity. 5. Hyperglycemia. Uncertain if has h/o DM. Blood glucose levels lower today. May have been related to stress of acute UT. On SSI insulin but blood glucose control less than optimal. Gone ahead to add basal insulin (Lantus) and will continue to monitor 6. Hypertensive emergency. Present on admission. SBP was > 200. Improved now. Likely sympathetic response to UT. 7. Acute encephalopathy. Present on admission with stupor and was secondary most likely to hypoxia. Expect to improve. 8. KIMBERLY. Secondary to cardiogenic shock. Hemodynamics improved and so expect to slowly recover as well. Microbiology Past 72 Hours 12/09/17 10:00 Blood Culture (Wb) - Venous Blood Culture - Final No growth in 5 days. 12/09/17 09:45 Blood Culture (Wb) - Line Draw Blood Culture - Final No growth in 5 days. 12/11/17 11:40 Other - Introducer Cath Tip Miscellaneous Culture - Final No growth aerobically. 12/11/17 11:40 Other - Introducer Cath Tip Gram Stain - Final 12/09/17 22:25 Transtracheal Aspirate Gram Stain - Final 12/09/17 22:25 Transtracheal Aspirate Respiratory Culture - Final Laboratory Results 12/13/17 18:00: APTT 62.0 H 12/13/17 18:12: POC Glucose 75 12/13/17 23:58: POC Glucose 86 12/14/17 04:40: APTT 66.2 H 12/14/17 04:40: WBC 13.9 H, RBC 3.31 L, Hgb 9.9 L, Hct 30.3 L, MCV 91.5, MCH 29.9, MCHC 32.7, RDW 16.7 H, RDW Differential 55.5 H, Plt Count 162, MPV 9.9, Immature Gran % (Auto) 1.100 H, Neut % (Auto) 71.3 H, Lymph % (Auto) 12.3 L, [place] % (Auto) 11.3 H, Eos % (Auto) 3.1, Baso % (Auto) 0.9, Absolute Neuts (auto) 9.9 H, Absolute Lymphs (auto) 1.71, Total Counted Not Reportable, Differential Comment SCANNED, Atypical Lymphocytes RARE 12/14/17 04:40: Sodium 142, Potassium 3.9, Chloride 106, Carbon Dioxide 26.0, Anion Gap 10, BUN 49 H, Creatinine 2.31 H, Estim Creat Clear Calc 31.69, Est GFR (MDRD) Af Amer 36 L, Est GFR (MDRD) Non-Af 30 L, BUN/Creatinine Ratio 21.2 H, Glucose 93, Calcium 8.4 L, Total Bilirubin 0.80, AST 185 H, ALT 85 H, Alkaline Phosphatase 162 H, Total Protein 6.2 L, Albumin 2.0 L, Globulin 4.2, Albumin/Globulin Ratio 0.5 L 12/14/17 05:50: POC Glucose 93 12/14/17 07:11: Activated Clotting Time 136 12/14/17 12:37: POC Glucose 115 H Active Medications Acetaminophen (Tylenol) 650 mg PO Q6H PRN PRN PRN Reason: HEADACHE/FEVER (T>102.5) Albuterol Sulfate (Ventolin Aerosols) 2.5 mg INHALATION Q2H PRN PRN PRN Reason: SOB/WHEEZING Last Admin: 12/12/17 01:02 Dose: 2.5 mg Aspirin (Aspirin, Baby) 81 mg PO DAILY [facility] Last Admin: 12/14/17 12:26 Dose: 81 mg Atorvastatin Calcium (Lipitor) 80 mg PO QHS [facility] Last Admin: 12/13/17 21:29 Dose: 80 mg Atropine Sulfate () 0.5 mg IV UD PRN PRN Reason: HR <50 bpm Carvedilol (Coreg) 3.125 mg PO DAILY [facility] Last Admin: 12/14/17 12:31 Dose: 3.125 mg Chlorhexidine Gluconate () 1 each TOPICAL DAILY [facility] Last Admin: 12/14/17 12:26 Dose: 1 each Enoxaparin Sodium (Lovenox) 40 mg SC DAILY@0600 [facility] Last Admin: 12/14/17 12:31 Dose: 40 mg Famotidine (Pepcid) 20 mg PO DAILY [facility] Last Admin: 12/14/17 12:27 Dose: 20 mg Fentanyl Citrate (Sublimaze (100mcg Ampule)) 50 mcg IV Q2H PRN PRN PRN Reason: PAIN Last Admin: 12/14/17 11:17 Dose: 50 mcg Piperacillin Sod/Tazobactam Sod (Zosyn) 3.375 gm in 50 mls @ 12.5 mls/hr IV Q8 [facility] Last Admin: 12/14/17 13:57 Dose: 12.5 mls/hr Fluconazole (Diflucan) 200 mg in 100 mls @ 100 mls/hr IV Q24 [facility] Last Admin: 12/14/17 11:10 Dose: 100 mls/hr Insulin Human Lispro (Humalog Kwikpen (Bkc)) 0 unit SC ACHS [facility] PRN Reason: Protocol Last Admin: 12/14/17 12:38 Dose: Not Given Labetalol HCl (Trandate) 5 mg IV X1 PRN PRN Reason: SBP > 160 when pulling sheath Nutritional Formula ([place] - [place] Flavor) 1 packet PO BIDCM [facility] Nystatin/Triamcinolone Acetonide (Mycolog) 1 applic TOPICAL BID [facility] PRN Reason: Protocol Last Admin: 12/14/17 12:27 Dose: 1 applicatio Sodium Chloride () 5 - 30 ml IV UD PRN PRN Reason: SALINE FLUSH Last Admin: 12/14/17 11:14 Dose: 10 ml Sodium Chloride () 500 ml IV BOLUS PRN PRN Reason: VASO-VAGAL PROTOCOL Code Visit Inpatient E&M: 47799 Subs Hosp L3
[2017-12-14] MEDS: fentaNYL 100 MCG/2 ML Ampul 50 MCG IV ×2 (08:20→11:17)
--- NOTE | 2017-12-14 08:22 | NURSING ---
0820 Dr. Varela present in pt room. pull IABP, pressure held, 50mcq fentanyl IV given HR 100, R 15, SpO2 94, BP 155/70 0825 HR 102, R 21, SpO2 94, BP 150/65 0830 HR 101 R 20, SpO2 92, BP 152/66 0835 HR 102, R 21, SpO2 92, BP 142/61 0840 HR 104, r 24, SpO2 92, BP 150/66, 0845 HR 102, R 24, SpO2 93, BP 142/64 0850 HR 101, R 25, SpO2 93, BP 150/61, hemostasis, drsg/sandbag applied,
--- NOTE | 2017-12-14 08:39 | PN_ITS ---
Subjective: Patient was successfully liberated from the ventilator yesterday. Patient has tolerated nasal cannula oxygen overnight. Patient has not had any substantial p.o. intake secondary to an inability to sit up. Patient did have some fevers overnight, but overall feels improved compared to previous. General: Alert, Oriented x3, Cooperative, No apparent distress, Well developed, Well nourished, - - Morbidly obese. Speaking in full sentences. HEENT: Atraumatic, PERRLA, EOMI, Normocephalic, - - No scleral icterus or injection noted. Oral: Moist Mucosa, No Gingival or Mucosal Lesions/ Ulcerations, - - Fair dentition Neck: Supple, No JVD, No Nodes, Trachea Midline Lungs: No rhonchi, No wheeze, No rales, Diminished, - - Increased AP diameter. Symmetric expansion. Cardiovascular: Normal S1, Normal S2, No murmurs, No rub noted, No Gallop, Tachycardic Abdomen: Bowel Sounds Present, Soft, Non Tender, Non-Distended, Obese Extremities: No cyanosis, Capillary Refill Less than 3 Seconds, Edema Skin: - - No significant change compared to previous Musculoskeletal: No Tenderness to Palpation of Joints or Extremities, No Muscle Wasting Lymphatic: No Cervical, Supraclavicular, or Inguinal Adenopathy Neurological: Cranial nerves II-XII grossly intact, Neuro grossly intact, Motor Exam 5/5 strength throughout Psych/Mental Status: Normal Affect, Appropriate Vital Signs Temp Pulse Resp BP Pulse Ox 38.2 C H 96 24 H 151/63 H 95 12/14/17 08:00 12/14/17 08:00 12/14/17 08:00 12/14/17 08:00 12/14/17 08:00 Oxygen Flow Rate (L/min) 3 Oxygen Delivery Method Nasal Cannula Weight: 137.3 kg Body Mass Index (BMI) 40.6 Intake and Output for Last 24 Hours 12/12/17 12/13/17 12/14/17 23:59 23:59 23:59 Intake Total 2522.1 / 2522.1 1617.2 / 1617.2 778.4 / 778.4 Output Total 2330 / 2330 2014 710 / 710 Balance 192.1 / 192.1 -397.8 / -397.8 68.4 / 68.4 Labs (Last 48 Hours) 12/12/17 12/12/17 12/12/17 09:30 12:32 16:40 WBC RBC Hgb Hct MCV MCH MCHC RDW RDW Differential Plt Count MPV Immature Gran % (Auto) Neut % (Auto) Lymph % (Auto) Williamson % (Auto) Eos % (Auto) Baso % (Auto) Absolute Neuts (auto) Absolute Lymphs (auto) Total Counted Differential Comment Atypical Lymphocytes APTT 76.9 H 74.2 H Specimen Type Sample Site pH Bicarbonate Actual POC Total CO2 Base Excess O2 Saturation O2 % ABG pCO2 ABG pO2 O2 Delivery Device Vent Mode POC PEEP POC Pressure Suppt Blood Gas Notified Whom Blood Gas Notified Time Sodium Potassium Chloride Carbon Dioxide Anion Gap BUN Creatinine Estim Creat Clear Calc Est GFR (MDRD) Af Amer Est GFR (MDRD) Non-Af BUN/Creatinine Ratio Glucose Calcium Total Bilirubin AST ALT Alkaline Phosphatase Total Protein Albumin Globulin Albumin/Globulin Ratio POC Glucose 281 H 12/12/17 12/12/17 12/12/17 18:15 20:57 23:49 WBC RBC Hgb Hct MCV MCH MCHC RDW RDW Differential Plt Count MPV Immature Gran % (Auto) Neut % (Auto) Lymph % (Auto) Williamson % (Auto) Eos % (Auto) Baso % (Auto) Absolute Neuts (auto) Absolute Lymphs (auto) Total Counted Differential Comment Atypical Lymphocytes APTT Specimen Type Sample Site pH Bicarbonate Actual POC Total CO2 Base Excess O2 Saturation O2 % ABG pCO2 ABG pO2 O2 Delivery Device Vent Mode POC PEEP POC Pressure Suppt Blood Gas Notified Whom Blood Gas Notified Time Sodium Potassium Chloride Carbon Dioxide Anion Gap BUN Creatinine Estim Creat Clear Calc Est GFR (MDRD) Af Amer Est GFR (MDRD) Non-Af BUN/Creatinine Ratio Glucose Calcium Total Bilirubin AST ALT Alkaline Phosphatase Total Protein Albumin Globulin Albumin/Globulin Ratio POC Glucose 268 H 258 H 201 H 12/12/17 12/13/17 12/13/17 23:50 04:20 04:20 WBC 11.3 H RBC 3.37 L Hgb 10.0 L Hct 30.8 L MCV 91.4 MCH 29.7 MCHC 32.5 RDW 16.5 H RDW Differential 54.4 H Plt Count 174 MPV 10.4 Immature Gran % (Auto) 1.100 H Neut % (Auto) 72.0 H Lymph % (Auto) 9.5 L Williamson % (Auto) 12.7 H Eos % (Auto) 4.3 Baso % (Auto) 0.4 Absolute Neuts (auto) 8.1 H Absolute Lymphs (auto) 1.07 Total Counted Not Reportable Differential Comment Atypical Lymphocytes APTT 69.2 H Specimen Type Sample Site pH Bicarbonate Actual POC Total CO2 Base Excess O2 Saturation O2 % ABG pCO2 ABG pO2 O2 Delivery Device Vent Mode POC PEEP POC Pressure Suppt Blood Gas Notified Whom Blood Gas Notified Time Sodium 139 Potassium 4.1 Chloride 103 Carbon Dioxide 26.0 Anion Gap 10 BUN 51 H Creatinine 2.39 H Estim Creat Clear Calc 30.63 Est GFR (MDRD) Af Amer 35 L Est GFR (MDRD) Non-Af 29 L BUN/Creatinine Ratio 21.3 H Glucose 254 H Calcium 8.3 L Total Bilirubin 0.70 AST 78 H ALT 37 Alkaline Phosphatase 129 H Total Protein 6.2 L Albumin 2.0 L Globulin 4.2 Albumin/Globulin Ratio 0.5 L POC Glucose 12/13/17 12/13/17 12/13/17 05:17 06:55 08:40 WBC RBC Hgb Hct MCV MCH MCHC RDW RDW Differential Plt Count MPV Immature Gran % (Auto) Neut % (Auto) Lymph % (Auto) Williamson % (Auto) Eos % (Auto) Baso % (Auto) Absolute Neuts (auto) Absolute Lymphs (auto) Total Counted Differential Comment Atypical Lymphocytes APTT 52.2 H Specimen Type ROCIO Sample Site OTHER pH 7.48 H Bicarbonate Actual 23.7 POC Total CO2 25 Base Excess 0 O2 Saturation 97 O2 % 30 ABG pCO2 32.0 L ABG pO2 80 O2 Delivery Device Vent Vent Mode CPAP PS POC PEEP 5 POC Pressure Suppt 5 Blood Gas Notified Whom ICU MD Blood Gas Notified Time 839 Sodium Potassium Chloride Carbon Dioxide Anion Gap BUN Creatinine Estim Creat Clear Calc Est GFR (MDRD) Af Amer Est GFR (MDRD) Non-Af BUN/Creatinine Ratio Glucose Calcium Total Bilirubin AST ALT Alkaline Phosphatase Total Protein Albumin Globulin Albumin/Globulin Ratio POC Glucose 232 H 12/13/17 12/13/17 12/13/17 11:35 12:15 18:00 WBC RBC Hgb Hct MCV MCH MCHC RDW RDW Differential Plt Count MPV Immature Gran % (Auto) Neut % (Auto) Lymph % (Auto) Williamson % (Auto) Eos % (Auto) Baso % (Auto) Absolute Neuts (auto) Absolute Lymphs (auto) Total Counted Differential Comment Atypical Lymphocytes APTT 59.1 H 62.0 H Specimen Type Sample Site pH Bicarbonate Actual POC Total CO2 Base Excess O2 Saturation O2 % ABG pCO2 ABG pO2 O2 Delivery Device Vent Mode POC PEEP POC Pressure Suppt Blood Gas Notified Whom Blood Gas Notified Time Sodium Potassium Chloride Carbon Dioxide Anion Gap BUN Creatinine Estim Creat Clear Calc Est GFR (MDRD) Af Amer Est GFR (MDRD) Non-Af BUN/Creatinine Ratio Glucose Calcium Total Bilirubin AST ALT Alkaline Phosphatase Total Protein Albumin Globulin Albumin/Globulin Ratio POC Glucose 148 H 12/13/17 12/13/17 12/14/17 18:12 23:58 04:40 WBC RBC Hgb Hct MCV MCH MCHC RDW RDW Differential Plt Count MPV Immature Gran % (Auto) Neut % (Auto) Lymph % (Auto) Williamson % (Auto) Eos % (Auto) Baso % (Auto) Absolute Neuts (auto) Absolute Lymphs (auto) Total Counted Differential Comment Atypical Lymphocytes APTT 66.2 H Specimen Type Sample Site pH Bicarbonate Actual POC Total CO2 Base Excess O2 Saturation O2 % ABG pCO2 ABG pO2 O2 Delivery Device Vent Mode POC PEEP POC Pressure Suppt Blood Gas Notified Whom Blood Gas Notified Time Sodium Potassium Chloride Carbon Dioxide Anion Gap BUN Creatinine Estim Creat Clear Calc Est GFR (MDRD) Af Amer Est GFR (MDRD) Non-Af BUN/Creatinine Ratio Glucose Calcium Total Bilirubin AST ALT Alkaline Phosphatase Total Protein Albumin Globulin Albumin/Globulin Ratio POC Glucose 75 86 12/14/17 12/14/17 12/14/17 04:40 04:40 05:50 WBC 13.9 H RBC 3.31 L Hgb 9.9 L Hct 30.3 L MCV 91.5 MCH 29.9 MCHC 32.7 RDW 16.7 H RDW Differential 55.5 H Plt Count 162 MPV 9.9 Immature Gran % (Auto) 1.100 H Neut % (Auto) 71.3 H Lymph % (Auto) 12.3 L Williamson % (Auto) 11.3 H Eos % (Auto) 3.1 Baso % (Auto) 0.9 Absolute Neuts (auto) 9.9 H Absolute Lymphs (auto) 1.71 Total Counted Not Reportable Differential Comment SCANNED Atypical Lymphocytes RARE APTT Specimen Type Sample Site pH Bicarbonate Actual POC Total CO2 Base Excess O2 Saturation O2 % ABG pCO2 ABG pO2 O2 Delivery Device Vent Mode POC PEEP POC Pressure Suppt Blood Gas Notified Whom Blood Gas Notified Time Sodium 142 Potassium 3.9 Chloride 106 Carbon Dioxide 26.0 Anion Gap 10 BUN 49 H Creatinine 2.31 H Estim Creat Clear Calc 31.69 Est GFR (MDRD) Af Amer 36 L Est GFR (MDRD) Non-Af 30 L BUN/Creatinine Ratio 21.2 H Glucose 93 Calcium 8.4 L Total Bilirubin 0.80 AST 185 H ALT 85 H Alkaline Phosphatase 162 H Total Protein 6.2 L Albumin 2.0 L Globulin 4.2 Albumin/Globulin Ratio 0.5 L POC Glucose 93 Microbiology 12/11/17 11:40 Other - Introducer Cath Tip Miscellaneous Culture - Final No growth aerobically. 12/11/17 11:40 Other - Introducer Cath Tip Gram Stain - Final 12/09/17 22:25 Transtracheal Aspirate Gram Stain - Final 12/09/17 22:25 Transtracheal Aspirate Respiratory Culture - Final Clinical Impression(s) from Imaging Studies Chest X-Ray 12/13/17 04:15 IMPRESSION: Life support tubes and catheters, as detailed above. Left lower lobe atelectasis. Overall, the lungs are better aerated than on yesterday's examination. Electronically Signed: Jerzy Guerra DO at 8:34 EDT Tel , Service support , Medical Necessity - Tobacco Use Smoking Status: Unknown if ever smoked Assessment/Plan All Active Problems Abdominal pain (Acute) RECOMMENDATIONS: 1. Continue current supportive measures with intra-aortic balloon pump. 2. Continue broad-spectrum antibiotics, pending infectious workup. 3. Discontinue fentanyl and Precedex for sedation. 4. Wean Levophed to maintain a mean arterial pressure at or above 65 mmHg. 5. Continue Pepcid for GI prophylaxis, aerosols, tube feeds and sliding scale insulin 6. Transition balloon pump to 1-2 augmentation 1 hour after extubation 7. Defer to cardiology on removal of intra-aortic balloon pump IMPRESSIONS: 1. ST elevation myocardial infarction/history of ischemic cardiomyopathy status post previous PCI/cardiogenic shock The patient underwent urgent cardiac catheterization on the morning of December 07 without intervention performed. Continue intra-aortic balloon pump augmentation per cardiology recommendations. Wean Levophed to maintain a mean arterial pressure at or above 65 mmHg. Patient appears to be improving, but remains persistently febrile. 2. Acute hypoxemic respiratory failure Patient successfully liberated from the ventilator this morning. Will discontinue sedation. Aggressive pulmonary toileting and incentive spirometer. Wean oxygen as tolerated. 3. Septic shock Continue broad-spectrum antibiotics, pending infectious workup. Patient was noted to have yeast by cardiology during acute cardiac intervention. Patient did have antifungal added previously and this appears to have some improvement in hemodynamics. Some fever overnight, but condition appears to be stabilizing. 4. Acute kidney injury Slightly improved compared to previous. Likely secondary to hemodynamic instability in the setting of #1. Continue current supportive measures and vasopressor support. Continue to monitor urine output. No indication for renal replacement therapy at the current time. 5. Metabolic encephalopathy No significant metabolic derangements noted on chemistry profile. Suspect that the patient may have become hypercarbic leading to his encephalopathy. ABG did show adequate oxygenation and ventilation at the end of the spontaneous breathing trial. 6. Morbid obesity/hyperlipidemia/hyperglycemia Complicates care, management, recovery and prognosis. Continue statin. Patient currently n.p.o. following extubation. Possibly initiate diet with q. before meals and at bedtime blood sugars. TIME: 39 minutes of critical care time, independent of procedures, was spent addressing the patient's STEMI, acute respiratory failure, metabolic encephalopathy, morbid obesity, fevers, acute kidney injury review of all data and collaboration with the care team. (8 AM to 9:30 AM)
--- NOTE | 2017-12-14 10:53 | CASEMGMT ---
Addendum entered by Guerda Turner 12/14/17 14:22: SW let pt know that [facility] can take pt. Pt asked SW to check w/pt's brother, SW explained would do so. SW called, spoke w/pt's sister in law, let her know pt agreeable to SNF and [facility] can take pt. Sister in law thanked SW for assist. She asked about the copay and Medicaid, SW explained did let [facility] know pt may need assist in applying for Medicaid to cover copay. SW will continue to follow. XOCHITL Marinelli, MISSILE MECHANIC Original Note: Addendum entered by Guerda Turner 12/14/17 11:59: SW spoke w/Kasia at [facility], she states they will review the referral and let this SW know if they can take pt. XOCHITL Marinelli, MISSILE MECHANIC Original Note: See assessment. SW spoke w/pt in room in regard to prior level of function at home and discharge plan. Pt states is independent, but has not been doing much cooking and cleaning the last few months. Pt goes to [employer] frequently for meals. Pt has never been to SNF. Pt is agreeable to go to SNF after hospitalization. Pt did ask if he can go somewhere during the day and home at night. SW explained that at this time, it seems pt would have much difficulty at night by himself at home. Pt acknowledges that he would have a difficult time on his own at home. SW spoke w/pt about options, pt is agreeable to a referral being sent to [facility], does not want [facility](pt's brother there). SW explained will make referral and let pt know. SW also reviewed the Medicare benefit for SNF and applying for Medicaid should pt need to be there longer than 20 days. Pt does not want to apply for Medicaid, states he does have [employer] and they assist to pay for medications, but has been told his income is too high ($1291.43/month). SW explained the guideline for Medicaid is higher if pt were to go to a half-way and need to stay longer than 20 days. SW explained if pt needs longer, Medicaid would cover the copay that starts on day 21. Pt states understanding. At this point, pt does not want to apply for Medicaid but would be okay w/speaking to a half-way regarding this should he need longer than 20 days. SOMMER called [facility], message left for Sherry. Oshea in the [facility] office will send the initial referral. SOMMER will continue to follow. XOCHITL Marinelli, MISSILE MECHANIC
--- NOTE | 2017-12-14 10:56 | CASEMGMT ---
Per SOMMER Croft, referral needs sent to [facility] [place]. SOMMER Croft will call [facility] re: referral. Referral (facesheet, med list, cardiology progress note 12/13, consultation 12/07 Dr De Souza, 12/[address] Joshi, 12/[address] [place]) faxed to [phone], fax confirmation rec'd. Bere Palacios LPN Clinical Support
[2017-12-14] MEDS: Furosemide 20 MG/2 ML VIAL IV (11:14)
[2017-12-14 11:15] LABS: ACT Activated Clotting Time 136 sec (74-137)
[2017-12-14] MEDS: Aspirin 81 MG TAB.CHEW PO (12:26)
[2017-12-14] MEDS: CHLORHEXIDINE GLUC 2% CLOTH 1 EACH TOWELETTE TOPICAL (12:26)
[2017-12-14] MEDS: Nystatin/Triamcin Oint 1 APPLIC TOPICAL ×2 (12:27→22:21)
[2017-12-14] MEDS: Famotidine 20 MG Tablet PO (12:27)
[2017-12-14] MEDS: Carvedilol 3.125 MG TABLET PO (12:31)
[2017-12-14] MEDS: Enoxaparin 40 MG/0.4 ML Syringe SC (12:31)
[2017-12-14 12:46] LABS: Bedside Glucose 115 mg/dL (70-110)
[2017-12-14 17:25] LABS: Bedside Glucose 145 mg/dL (70-110)
[2017-12-14] MEDS: Atorvastatin Calcium 80 MG Tablet PO (22:21)
[2017-12-14 22:31] LABS: Bedside Glucose 158 mg/dL (70-110)
[2017-12-15] VITALS (22 sets, daily range): BP systolic 112–172; BP diastolic 59–90; PULSE 72–115; RESP 17–28; TEMP 37.5–38.1; O2SAT 89–97
[2017-12-15] MEDS: Piperacil/Tazobactam 3.375 GM/50 ML ML IV ×3 (06:03→22:16)
[2017-12-15] MEDS: Enoxaparin 40 MG/0.4 ML Syringe SC (06:03)
--- NOTE | 2017-12-15 06:16 | PCM.PN.INT ---
Subjective: Patient had intra-aortic balloon pump removed yesterday and was on bedrest for most of the day. Patient is profoundly weak. Patient reports subjective improvement in overall condition. Patient did have a fever overnight, but as tolerated nasal cannula oxygen. Patient with no complaints this morning outside of weakness. General: Alert, Oriented x3, Cooperative, No apparent distress, - - Speaking in full sentences. Appears older than stated age. Morbidly obese. HEENT: Atraumatic, PERRLA, EOMI, Normocephalic, - - No scleral icterus or injection noted. Oral: Moist Mucosa, No Gingival or Mucosal Lesions/ Ulcerations Neck: Supple, No JVD, No Nodes, Trachea Midline Lungs: No rhonchi, No wheeze, No rales, Diminished, - - Symmetric expansion. No dullness to percussion. Cardiovascular: Regular rate, Regular Rhythm, Normal S1, Normal S2, No murmurs, No rub noted, No Gallop Abdomen: Bowel Sounds Present, Soft, Non Tender, Non-Distended, Obese Extremities: No clubbing, No cyanosis, Capillary Refill Less than 3 Seconds, Edema Skin: - - No significant change compared to previous. No hematoma noted in right groin Musculoskeletal: No Tenderness to Palpation of Joints or Extremities Lymphatic: No Cervical, Supraclavicular, or Inguinal Adenopathy Neurological: Cranial nerves II-XII grossly intact, Neuro grossly intact, Motor Exam 5/5 strength throughout Psych/Mental Status: Alert and oriented to time, place, person, mood and affect Vital Signs Temp Pulse Resp BP Pulse Ox 37.7 C H 86 26 H 141/63 H 91 12/15/17 05:00 12/15/17 05:00 12/15/17 05:00 12/15/17 05:00 12/15/17 05:00 Oxygen Flow Rate (L/min) 3 Oxygen Delivery Method Nasal Cannula Weight: 132.7 kg Body Mass Index (BMI) 40.6 Intake and Output for Last 24 Hours 12/13/17 12/14/17 12/15/17 23:59 23:59 23:59 Intake Total 1617.2 / 1617.2 1643.4 / 1643.4 77 / 77 Output Total 2014 2760 / 2760 450 / 450 Balance -397.8 / -397.8 -1116.6 / -1116.6 -373 / -373 Labs (Last 48 Hours) 12/13/17 12/13/17 12/13/17 06:55 08:40 11:35 WBC RBC Hgb Hct MCV MCH MCHC RDW RDW Differential Plt Count MPV Immature Gran % (Auto) Neut % (Auto) Lymph % (Auto) [place] % (Auto) Eos % (Auto) Baso % (Auto) Absolute Neuts (auto) Absolute Lymphs (auto) Total Counted Differential Comment Atypical Lymphocytes APTT 52.2 H Activated Clotting Time Specimen Type ROCIO Sample Site OTHER pH 7.48 H Bicarbonate Actual 23.7 POC Total CO2 25 Base Excess 0 O2 Saturation 97 O2 % 30 ABG pCO2 32.0 L ABG pO2 80 O2 Delivery Device Vent Vent Mode CPAP PS POC PEEP 5 POC Pressure Suppt 5 Blood Gas Notified Whom ICU MD Blood Gas Notified Time 839 Sodium Potassium Chloride Carbon Dioxide Anion Gap BUN Creatinine Estim Creat Clear Calc Est GFR (MDRD) Af Amer Est GFR (MDRD) Non-Af BUN/Creatinine Ratio Glucose Calcium Total Bilirubin AST ALT Alkaline Phosphatase Total Protein Albumin Globulin Albumin/Globulin Ratio POC Glucose 148 H 12/13/17 12/13/17 12/13/17 12:15 18:00 18:12 WBC RBC Hgb Hct MCV MCH MCHC RDW RDW Differential Plt Count MPV Immature Gran % (Auto) Neut % (Auto) Lymph % (Auto) [place] % (Auto) Eos % (Auto) Baso % (Auto) Absolute Neuts (auto) Absolute Lymphs (auto) Total Counted Differential Comment Atypical Lymphocytes APTT 59.1 H 62.0 H Activated Clotting Time Specimen Type Sample Site pH Bicarbonate Actual POC Total CO2 Base Excess O2 Saturation O2 % ABG pCO2 ABG pO2 O2 Delivery Device Vent Mode POC PEEP POC Pressure Suppt Blood Gas Notified Whom Blood Gas Notified Time Sodium Potassium Chloride Carbon Dioxide Anion Gap BUN Creatinine Estim Creat Clear Calc Est GFR (MDRD) Af Amer Est GFR (MDRD) Non-Af BUN/Creatinine Ratio Glucose Calcium Total Bilirubin AST ALT Alkaline Phosphatase Total Protein Albumin Globulin Albumin/Globulin Ratio POC Glucose 75 12/13/17 12/14/17 12/14/17 23:58 04:40 04:40 WBC 13.9 H RBC 3.31 L Hgb 9.9 L Hct 30.3 L MCV 91.5 MCH 29.9 MCHC 32.7 RDW 16.7 H RDW Differential 55.5 H Plt Count 162 MPV 9.9 Immature Gran % (Auto) 1.100 H Neut % (Auto) 71.3 H Lymph % (Auto) 12.3 L [place] % (Auto) 11.3 H Eos % (Auto) 3.1 Baso % (Auto) 0.9 Absolute Neuts (auto) 9.9 H Absolute Lymphs (auto) 1.71 Total Counted Not Reportable Differential Comment SCANNED Atypical Lymphocytes RARE APTT 66.2 H Activated Clotting Time Specimen Type Sample Site pH Bicarbonate Actual POC Total CO2 Base Excess O2 Saturation O2 % ABG pCO2 ABG pO2 O2 Delivery Device Vent Mode POC PEEP POC Pressure Suppt Blood Gas Notified Whom Blood Gas Notified Time Sodium Potassium Chloride Carbon Dioxide Anion Gap BUN Creatinine Estim Creat Clear Calc Est GFR (MDRD) Af Amer Est GFR (MDRD) Non-Af BUN/Creatinine Ratio Glucose Calcium Total Bilirubin AST ALT Alkaline Phosphatase Total Protein Albumin Globulin Albumin/Globulin Ratio POC Glucose 86 12/14/17 12/14/17 12/14/17 04:40 05:50 07:11 WBC RBC Hgb Hct MCV MCH MCHC RDW RDW Differential Plt Count MPV Immature Gran % (Auto) Neut % (Auto) Lymph % (Auto) [place] % (Auto) Eos % (Auto) Baso % (Auto) Absolute Neuts (auto) Absolute Lymphs (auto) Total Counted Differential Comment Atypical Lymphocytes APTT Activated Clotting Time 136 Specimen Type Sample Site pH Bicarbonate Actual POC Total CO2 Base Excess O2 Saturation O2 % ABG pCO2 ABG pO2 O2 Delivery Device Vent Mode POC PEEP POC Pressure Suppt Blood Gas Notified Whom Blood Gas Notified Time Sodium 142 Potassium 3.9 Chloride 106 Carbon Dioxide 26.0 Anion Gap 10 BUN 49 H Creatinine 2.31 H Estim Creat Clear Calc 31.69 Est GFR (MDRD) Af Amer 36 L Est GFR (MDRD) Non-Af 30 L BUN/Creatinine Ratio 21.2 H Glucose 93 Calcium 8.4 L Total Bilirubin 0.80 AST 185 H ALT 85 H Alkaline Phosphatase 162 H Total Protein 6.2 L Albumin 2.0 L Globulin 4.2 Albumin/Globulin Ratio 0.5 L POC Glucose 93 12/14/17 12/14/17 12/14/17 12:37 17:20 22:15 WBC RBC Hgb Hct MCV MCH MCHC RDW RDW Differential Plt Count MPV Immature Gran % (Auto) Neut % (Auto) Lymph % (Auto) [place] % (Auto) Eos % (Auto) Baso % (Auto) Absolute Neuts (auto) Absolute Lymphs (auto) Total Counted Differential Comment Atypical Lymphocytes APTT Activated Clotting Time Specimen Type Sample Site pH Bicarbonate Actual POC Total CO2 Base Excess O2 Saturation O2 % ABG pCO2 ABG pO2 O2 Delivery Device Vent Mode POC PEEP POC Pressure Suppt Blood Gas Notified Whom Blood Gas Notified Time Sodium Potassium Chloride Carbon Dioxide Anion Gap BUN Creatinine Estim Creat Clear Calc Est GFR (MDRD) Af Amer Est GFR (MDRD) Non-Af BUN/Creatinine Ratio Glucose Calcium Total Bilirubin AST ALT Alkaline Phosphatase Total Protein Albumin Globulin Albumin/Globulin Ratio POC Glucose 115 H 145 H 158 H Microbiology 12/09/17 10:00 Blood Culture (Wb) - Venous Blood Culture - Final No growth in 5 days. 12/09/17 09:45 Blood Culture (Wb) - Line Draw Blood Culture - Final No growth in 5 days. 12/11/17 11:40 Other - Introducer Cath Tip Miscellaneous Culture - Final No growth aerobically. 12/11/17 11:40 Other - Introducer Cath Tip Gram Stain - Final Clinical Impression(s) from Imaging Studies Chest X-Ray 12/14/17 05:55 IMPRESSION: The endotracheal tube as well as the oral gastric tube have been removed. The tip of the aortic balloon catheter is at the T8-T9 level. Stable pleural parenchymal changes at the left lung base with thickening of the right minor fissure. Electronically Signed: Cliff Pyle MD at 9:04 EDT Tel [phone], Service support , Medical Necessity - Tobacco Use Smoking Status: Unknown if ever smoked Assessment/Plan All Active Problems Abdominal pain (Acute) RECOMMENDATIONS: 1. Aggressive PT/OT. 2. Continue broad-spectrum antibiotics, pending infectious workup. 3. Continue Pepcid for GI prophylaxis, aerosols, tube feeds and sliding scale insulin 4. Continue antibiotics and antifungals until culture results are available 5. Obtain BMP, mag, phosphorus and CBC 6. Okay to leave the intensive care unit from my perspective IMPRESSIONS: 1. ST elevation myocardial infarction/history of ischemic cardiomyopathy status post previous PCI/cardiogenic shock The patient underwent urgent cardiac catheterization on the morning of December 07 without intervention performed. IABP was removed yesterday without complication. Okay to discontinue daily chest x-rays. Patient's blood pressure has been appropriate throughout the evening. Patient appears to be improving and fever curve appears to be trending down. 2. Acute hypoxemic respiratory failure Patient successfully liberated from the ventilator. Will discontinue sedation. Aggressive pulmonary toileting and incentive spirometer. Wean oxygen as tolerated. 3. Septic shock Continue broad-spectrum antibiotics, pending infectious workup. Patient was noted to have yeast by cardiology during acute cardiac intervention. Patient did have antifungal added previously and this appears to have significant improvement in hemodynamics. Some fever overnight, but condition appears to be stabilizing. All lines have been cultured upon removal. Anticipate continuation of antifungal and antibiotics for 7 days after removal of lines unless cultures come back with different data. 4. Acute kidney injury Slightly improved compared to previous. Likely secondary to hemodynamic instability in the setting of #1. Continue current supportive measures. Continue to monitor urine output. No indication for renal replacement therapy at the current time. 5. Metabolic encephalopathy RESOLVED > no significant metabolic derangements noted on chemistry profile previously. Will recheck labs today. Suspect that the patient may have become hypercarbic leading to his encephalopathy. ABG did show adequate oxygenation and ventilation at the end of the spontaneous breathing trial. 6. Morbid obesity/hyperlipidemia/hyperglycemia Complicates care, management, recovery and prognosis. Continue statin. Okay to initiate diet with q. before meals and at bedtime blood sugars. Code Visit Inpatient E&M: [id number] [facility] L3
--- NOTE | 2017-12-15 07:46 | PCM.PN.HOSP ---
Subjective: Seen and examined. Patient continued to spike temperature, T-max 100.6 Fahrenheit Blood pressure is controlled. Objective: General: Alert, Oriented x3, Cooperative HEENT: Atraumatic, PERRLA, EOMI, Normocephalic Neck: Supple, No JVD, Negative Carotid Bruits Lungs: No rhonchi, No wheeze, Diminished Cardiovascular: Regular rate, Normal S1, Normal S2, No murmurs Abdomen: Bowel Sounds Present, Soft, Non Tender Extremities: Capillary Refill Less than 3 Seconds, Edema Skin: No rashes, No breakdown Musculoskeletal: No Tenderness to Palpation of Joints or Extremities Neurological: Cranial nerves II-XII grossly intact Psych/Mental Status: Normal Affect, Appropriate Vitals/I&O's: Vital Signs Temp Pulse Resp BP Pulse Ox 99.9 F H 91 17 159/77 H 90 12/15/17 05:00 12/15/17 06:59 12/15/17 06:59 12/15/17 06:59 12/15/17 07:06 Oxygen Flow Rate (L/min) 3 Oxygen Delivery Method Nasal Cannula Weight: 292 lb 8.854 oz Body Mass Index (BMI) 40.6 Intake and Output for Last 24 Hours 12/13/17 12/14/17 12/15/17 23:59 23:59 23:59 Intake Total 1617.2 / 1617.2 1643.4 / 1643.4 77 / 77 Output Total 2014 2760 / 2760 450 / 450 Balance -397.8 / -397.8 -1116.6 / -1116.6 -373 / -373 Microbiology Past 72 Hours 12/09/17 10:00 Blood Culture (Wb) - Venous Blood Culture - Final No growth in 5 days. 12/09/17 09:45 Blood Culture (Wb) - Line Draw Blood Culture - Final No growth in 5 days. 12/11/17 11:40 Other - Introducer Cath Tip Miscellaneous Culture - Final No growth aerobically. 12/11/17 11:40 Other - Introducer Cath Tip Gram Stain - Final 12/09/17 22:25 Transtracheal Aspirate Gram Stain - Final 12/09/17 22:25 Transtracheal Aspirate Respiratory Culture - Final Laboratory Results 12/14/17 07:11: Activated Clotting Time 136 12/14/17 12:37: POC Glucose 115 H 12/14/17 17:20: POC Glucose 145 H 12/14/17 22:15: POC Glucose 158 H Current Medications Acetaminophen (Tylenol) 650 mg PO Q6H PRN PRN PRN Reason: HEADACHE/FEVER (T>102.5) Albuterol Sulfate (Ventolin Aerosols) 2.5 mg INHALATION Q2H PRN PRN PRN Reason: SOB/WHEEZING Last Admin: 12/12/17 01:02 Dose: 2.5 mg Aspirin (Aspirin, Baby) 81 mg PO DAILY [facility] Last Admin: 12/14/17 12:26 Dose: 81 mg Atorvastatin Calcium (Lipitor) 80 mg PO QHS [facility] Last Admin: 12/14/17 22:21 Dose: 80 mg Atropine Sulfate () 0.5 mg IV UD PRN PRN Reason: HR <50 bpm Carvedilol (Coreg) 3.125 mg PO DAILY [facility] Last Admin: 12/14/17 12:31 Dose: 3.125 mg Chlorhexidine Gluconate () 1 each TOPICAL DAILY [facility] Last Admin: 12/14/17 12:26 Dose: 1 each Enoxaparin Sodium (Lovenox) 40 mg SC DAILY@0600 [facility] Last Admin: 12/15/17 06:03 Dose: 40 mg Famotidine (Pepcid) 20 mg PO DAILY [facility] Last Admin: 12/14/17 12:27 Dose: 20 mg Fentanyl Citrate (Sublimaze (100mcg Ampule)) 50 mcg IV Q2H PRN PRN PRN Reason: PAIN Last Admin: 12/14/17 11:17 Dose: 50 mcg Piperacillin Sod/Tazobactam Sod (Zosyn) 3.375 gm in 50 mls @ 12.5 mls/hr IV Q8 [facility] Last Admin: 12/15/17 06:03 Dose: 12.5 mls/hr Fluconazole (Diflucan) 200 mg in 100 mls @ 100 mls/hr IV Q24 [facility] Last Admin: 12/14/17 11:10 Dose: 100 mls/hr Insulin Human Lispro (Humalog Kwikpen (Bkc)) 0 unit SC ACHS NASIM PRN Reason: Protocol Last Admin: 12/14/17 22:21 Dose: Not Given Labetalol HCl (Trandate) 5 mg IV X1 PRN PRN Reason: SBP > 160 when pulling sheath Nutritional Formula ([place] Flavor) 1 packet PO BIDCM NASIM Last Admin: 12/14/17 22:21 Dose: 1 packet Nystatin/Triamcinolone Acetonide (Mycolog) 1 applic TOPICAL BID NASIM PRN Reason: Protocol Last Admin: 12/14/17 22:21 Dose: 1 applicatio Sodium Chloride () 5 - 30 ml IV UD PRN PRN Reason: SALINE FLUSH Last Admin: 12/14/17 11:14 Dose: 10 ml Sodium Chloride () 500 ml IV BOLUS PRN PRN Reason: VASO-VAGAL PROTOCOL Medical Necessity - Tobacco Use Smoking Status: Unknown if ever smoked Assessment/Plan All Active Problems Abdominal pain (Acute) 71-year-old gentleman was admitted with hypertensive crisis with subsequent respiratory failure which required emergent intubation and cardiac catheterization. Patient found to have previously placed RCA stent occluded with same chronic with minimal collaterals. Severe LV dysfunction with EF 20-25%. Initially, patient was on intra-aortic balloon pump 1:1. On IV heparin drip. On Levophed drip. 1. Acute hypoxic respiratory failure. Likely related to pulmonary edema from CHF and perhaps bronchospasm from exacerbation of CHF or from cardiac asthma based on initial presentation of wheezing and reduced breath sounds. Patient is extubated on 12/13/2017 Continued management per laboratory courier/critical care. Right IJ central venous catheter placed on 12/11/2017. Intra-aortic balloon pump removed on 12/14. 2. Cardiogenic shock secondary to STEMI resulting into acute on chronic systolic heart failure possible septic shock. Patient on IABP at this time. Management per cardiology. Patient still on pressor/inotropic support. Patient on broad-spectrum IV antibiotic Zosyn pending infectious workup. Prelim tracheal aspirate shows normal respiratory edu. Urine culture shows no growth. Blood cultures are pending. Vancomycin discontinued. Septic shock exact etiology unclear but possible secondary to right femoral line sepsis: Patient preliminary right femoral arterial sheath which has been removed is growing Staphylococcus. Right femoral lines have been removed. On IV Zosyn. Patient is also on Diflucan. 3. STEMI. Completely occluded RCA on left heart catheterization, not amenable to any percutaneous coronary intervention and will require medical management going forward. 4. Morbid obesity. 5. Hyperglycemia. Uncertain if has h/o DM. Blood glucose levels lower today. May have been related to stress of acute MD. On SSI insulin but blood glucose control less than optimal. Gone ahead to add basal insulin (Lantus) and will continue to monitor 6. Hypertensive emergency. Present on admission. SBP was > 200. Improved now. Likely sympathetic response to MD. 7. Acute encephalopathy. Present on admission with stupor and was secondary most likely to hypoxia. Expect to improve. 8. KIMBERLY. Secondary to cardiogenic shock. Hemodynamics improved and so expect to slowly recover as well. Microbiology Past 72 Hours 12/09/17 10:00 Blood Culture (Wb) - Venous Blood Culture - Final No growth in 5 days. 12/09/17 09:45 Blood Culture (Wb) - Line Draw Blood Culture - Final No growth in 5 days. 12/11/17 11:40 Other - Introducer Cath Tip Miscellaneous Culture - Final No growth aerobically. 12/11/17 11:40 Other - Introducer Cath Tip Gram Stain - Final 12/09/17 22:25 Transtracheal Aspirate Gram Stain - Final 12/09/17 22:25 Transtracheal Aspirate Respiratory Culture - Final Laboratory Results 12/14/17 07:11: Activated Clotting Time 136 12/14/17 12:37: POC Glucose 115 H 12/14/17 17:20: POC Glucose 145 H 12/14/17 22:15: POC Glucose 158 H Active Medications Acetaminophen (Tylenol) 650 mg PO Q6H PRN PRN PRN Reason: HEADACHE/FEVER (T>102.5) Albuterol Sulfate (Ventolin Aerosols) 2.5 mg INHALATION Q2H PRN PRN PRN Reason: SOB/WHEEZING Last Admin: 12/12/17 01:02 Dose: 2.5 mg Aspirin (Aspirin, Baby) 81 mg PO DAILY [facility] Last Admin: 12/14/17 12:26 Dose: 81 mg Atorvastatin Calcium (Lipitor) 80 mg PO QHS [facility] Last Admin: 12/14/17 22:21 Dose: 80 mg Atropine Sulfate () 0.5 mg IV UD PRN PRN Reason: HR <50 bpm Carvedilol (Coreg) 3.125 mg PO DAILY [facility] Last Admin: 12/14/17 12:31 Dose: 3.125 mg Chlorhexidine Gluconate () 1 each TOPICAL DAILY [facility] Last Admin: 12/14/17 12:26 Dose: 1 each Enoxaparin Sodium (Lovenox) 40 mg SC DAILY@0600 [facility] Last Admin: 12/15/17 06:03 Dose: 40 mg Famotidine (Pepcid) 20 mg PO DAILY [facility] Last Admin: 12/14/17 12:27 Dose: 20 mg Fentanyl Citrate (Sublimaze (100mcg Ampule)) 50 mcg IV Q2H PRN PRN PRN Reason: PAIN Last Admin: 12/14/17 11:17 Dose: 50 mcg Piperacillin Sod/Tazobactam Sod (Zosyn) 3.375 gm in 50 mls @ 12.5 mls/hr IV Q8 [facility] Last Admin: 12/15/17 06:03 Dose: 12.5 mls/hr Fluconazole (Diflucan) 200 mg in 100 mls @ 100 mls/hr IV Q24 [facility] Last Admin: 12/14/17 11:10 Dose: 100 mls/hr Insulin Human Lispro (Humalog Kwikpen (Bkc)) 0 unit SC ACHS NASIM PRN Reason: Protocol Last Admin: 12/14/17 22:21 Dose: Not Given Labetalol HCl (Trandate) 5 mg IV X1 PRN PRN Reason: SBP > 160 when pulling sheath Nutritional Formula ([place] Flavor) 1 packet PO BIDCM [facility] Last Admin: 12/14/17 22:21 Dose: 1 packet Nystatin/Triamcinolone Acetonide (Mycolog) 1 applic TOPICAL BID [facility]IM PRN Reason: Protocol Last Admin: 12/14/17 22:21 Dose: 1 applicatio Sodium Chloride () 5 - 30 ml IV UD PRN PRN Reason: SALINE FLUSH Last Admin: 12/14/17 11:14 Dose: 10 ml Sodium Chloride () 500 ml IV BOLUS PRN PRN Reason: VASO-VAGAL PROTOCOL Code Visit Inpatient E&M: 23337 Subs Hosp L3
[2017-12-15] MEDS: Insulin Lispro 100 UNIT/ML INSULN.PEN SC ×3 (08:30→22:13)
--- NOTE | 2017-12-15 08:55 | PCM.PN.CARD ---
Subjectve: Patient continues to improve. Sitting up in a bed today. Telemetry showed normal sinus rhythm, rare PVCs. Left bundle branch block pattern. No chest pain. Right groin is clean/dry/intact without evidence of thrills, bruits or hematoma. He has 1+ PT pulses bilaterally. Objective: Vital Signs Temp Pulse Resp BP Pulse Ox 99.9 F H 91 17 159/77 H 90 12/15/17 05:00 12/15/17 06:59 12/15/17 06:59 12/15/17 06:59 12/15/17 07:06 Oxygen Flow Rate (L/min) 3 Oxygen Delivery Method Nasal Cannula Weight: 292 lb 8.854 oz Body Mass Index (BMI) 40.6 Intake and Output for Last 24 Hours 12/13/17 12/14/17 12/15/17 23:59 23:59 23:59 Intake Total 1617.2 / 1617.2 1643.4 / 1643.4 77 / 77 Output Total 2014 2760 / 2760 450 / 450 Balance -397.8 / -397.8 -1116.6 / -1116.6 -373 / -373 General: Awake, Alert, Oriented x 3 HEENT: PERRL, EOMI, Sclera Non Icteric Neck: Supple, Good ROM, No Lymph Node Enlargement Lungs: Clear to auscultation Cardiovascular: Regular Rhythm, Normal S1, Normal S2, No Murmurs, No Rubs, No Gallops Vascular: No Carotid Bruits, Normal Femoral Pulses, Normal Radial Pulses, Normal Dorsalis Pedal Pulse, Normal Posterior Tibial Pulses Abdomen: Bowel Sounds Present, Soft, Non Tender, No HSM, No Organomegaly Extremities: No Cyanosis, No Clubbing, No edema Neurological: No Focal Motor or Sensory Deficit Rhythm: EKG: ECHO: Stress Test: Cardiac Cath: PCI: CT Surgery: Holter monitor: EPS: PPM: CXR: Chest CT Scan: Medical Necessity - Tobacco Use Smoking Status: Unknown if ever smoked Assessment/Plan 1. Ischemic cardiomyopathy: The patient presented with hypertensive crisis, with subsequent respiratory failure requiring emergent intubation and emergent catheterization. 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 He has a previous LAD stent as well which was widely patent with nonobstructive coronary disease of his LAD and left circumflex system. He has severe LV dysfunction with an EF around 20-25%. We made several attempts to gain access into the occluded right coronary artery stent, but this appears to be a chronic total occlusion, and would not recommend aggressive measures of reopening this vessel at this time. Patient's intra-aortic balloon pump was removed yesterday and he is doing quite well. He appears to be somewhat tachycardic and hypertensive this morning. Also he has several liters positive from his septic and cardiogenic shock picture. Given the patient's chronic renal insufficiency, I would not recommend DILAN inhibitor or ARB's at this time. I would however recommend initiating M Dur 30 mg p.o. daily and hydralazine 10 mg 3 times daily, titrating up from there. Would also recommend continuing Coreg 3.125 mg p.o. twice daily and titrating this up once the patient is reached his dry weight. Given his chronic renal insufficiency, severe LV dysfunction recommend starting him on Lasix 40 mg p.o. daily. Would recommend discontinuation of metformin as this is relatively contraindicated in a patient with an EF around 25%. Physical therapy pending. The patient most likely require rehab as an inpatient prior to discharge home. 2. Riner-Alexx catheter: Riner-Alexx catheter and RFA sheath removed 12/11/17. 3. Thank you very much for the opportunity to participate in the cardiac care of your patient. Discussed with Dr. [place]. Patient may be transferred to PCU status. Code Visit Inpatient E&M: [id number] Subs Hosp L2
[2017-12-15 10:11] LABS: Bedside Glucose 179 mg/dL (70-110)
[2017-12-15] MEDS: Carvedilol 3.125 MG TABLET PO ×2 (10:17→20:16)
[2017-12-15] MEDS: Aspirin 81 MG TAB.CHEW PO (10:17)
[2017-12-15] MEDS: Nystatin/Triamcin Oint 1 APPLIC TOPICAL ×2 (10:18→22:14)
[2017-12-15] MEDS: Famotidine 20 MG Tablet PO (10:18)
[2017-12-15] MEDS: Furosemide 40 MG Tablet PO (10:25)
[2017-12-15 16:45] LABS: Bedside Glucose 171 mg/dL (70-110)
[2017-12-15 16:46] LABS: Absolute Lymphocyte Count 2.14 X10^3/ul (0.83-4.51); Absolute Neutrophil Count 14.1 X10^3/uL (2.0-7.7); Basophil# 0.28 X10^3/uL; Basophil% 1.5 % (0-1); Eosinophil# 0.62 X10^3/uL; Eosinophils% 3.2 % (0-5); Hematocrit 30.7 % (40-54); Lymphocyte # 2.14 X10^3/ul (4.0); Lymphocyte % 11.1 % (19-41); Mean Corp Hgb Conc 32.6 g/gl (32-36); Mean Corpuscular Hgb 29.9 pg (27.0-32.0); Mean Corpuscular Volume 91.6 fL (80-94); Mean Platelet Vol. 10.2 fl (6.2-12.0); Monocyte# 1.73 X10^3/uL; Neutrophil # 14.13 X10^3/uL (2.7-7.7); Neutrophil % 73.6 % (47-70); Platelet Count 263 K/mm3 (150-450); RBC Distribution Width CV 16.6 % (11.6-14.6); RBC Distribution Width SD 55.5 fl (35.1-43.9); Red Blood Count 3.35 M/mm3 (4.6-6.2); White Blood Count 19.2 K/mm3 (4.4-11.0)
[2017-12-15] MEDS: hydrALAZINE 10 MG Tablet PO ×2 (16:47→22:14)
[2017-12-15 16:48] LABS: Differential Indicated SCAN CRITERIA MET; POSITIVE COUNT NO; POSITIVE DIFFERENTIAL YES; POSITIVE MORPHOLOGY YES
[2017-12-15] MEDS: Isosorbide Mononitrate 30 MG Tablet PO (16:48)
[2017-12-15 17:16] LABS: Anion Gap 10 (5-15); BUN 60 mg/dL (7-18); BUN/Creat Ratio 25.8 RATIO (10-20); Calcium,Total 8.9 mg/dL (8.5-10.1); Chloride 106 mmol/L (98-107); Creatinine, Serum 2.33 mg/dL (0.70-1.30); EST Glomerular Filtration Rate 30 mL/min (>60); Est Glom Filt Rate - Afr Amer 36 mL/min (>60); Estimated Creatinine Clearance 31.42 ml/min; Glucose 174 mg/dL (74-106); Magnesium 2.3 mg/dL (1.6-2.6); Potassium 3.3 mmol/L (3.5-5.1); Sodium Level 143 mmol/L (136-145)
[2017-12-15 17:20] LABS: Differential Comment SCANNED
[2017-12-15] MEDS: Metoprolol Tartrate 5 MG/5 ML Vial IV (20:15)
[2017-12-15] MEDS: Atorvastatin Calcium 80 MG Tablet PO (22:14)
[2017-12-15 22:30] LABS: Bedside Glucose 159 mg/dL (70-110)
[2017-12-16] VITALS (17 sets, daily range): BP systolic 117–178; BP diastolic 46–82; PULSE 72–92; RESP 18–28; TEMP 36.8–37.7; O2SAT 92–97
[2017-12-16] MEDS: 0.9% NaCl Peripheral Flush Adult/Peds IV ×3 (05:18→16:28)
[2017-12-16] MEDS: Enoxaparin 40 MG/0.4 ML Syringe SC (05:19)
[2017-12-16] MEDS: hydrALAZINE 10 MG Tablet PO ×3 (05:22→21:49)
[2017-12-16] MEDS: Piperacil/Tazobactam 3.375 GM/50 ML ML IV ×3 (05:22→21:49)
[2017-12-16 06:54] LABS: Absolute Lymphocyte Count 2.88 X10^3/ul (0.83-4.51); Absolute Neutrophil Count 14.6 X10^3/uL (2.0-7.7); Eosinophil# 1.08 X10^3/uL; Eosinophils% 5.2 % (0-5); Hematocrit 28.9 % (40-54); Hemoglobin 9.3 g/dl (13.0-16.5); Lymphocyte # 2.88 X10^3/ul (4.0); Mean Corp Hgb Conc 32.2 g/gl (32-36); Mean Corpuscular Hgb 29.9 pg (27.0-32.0); Mean Corpuscular Volume 92.9 fL (80-94); Mean Platelet Vol. 10.4 fl (6.2-12.0); Monocyte# 1.45 X10^3/uL; Neutrophil # 14.61 X10^3/uL (2.7-7.7); Neutrophil % 70.9 % (47-70); Platelet Count 313 K/mm3 (150-450); RBC Distribution Width CV 16.8 % (11.6-14.6); RBC Distribution Width SD 56.3 fl (35.1-43.9); Red Blood Count 3.11 M/mm3 (4.6-6.2); White Blood Count 20.6 K/mm3 (4.4-11.0)
[2017-12-16 06:57] LABS: Differential Indicated SCAN CRITERIA MET; POSITIVE COUNT NO; POSITIVE DIFFERENTIAL NO; POSITIVE MORPHOLOGY YES
[2017-12-16 07:01] LABS: Bedside Glucose 153 mg/dL (70-110)
[2017-12-16 07:08] LABS: Anion Gap 9 (5-15); BUN 60 mg/dL (7-18); BUN/Creat Ratio 27.3 RATIO (10-20); Calcium,Total 8.7 mg/dL (8.5-10.1); Chloride 107 mmol/L (98-107); EST Glomerular Filtration Rate 32 mL/min (>60); Est Glom Filt Rate - Afr Amer 38 mL/min (>60); Estimated Creatinine Clearance 33.28 ml/min; Glucose 154 mg/dL (74-106); Potassium 3.1 mmol/L (3.5-5.1); Sodium Level 145 mmol/L (136-145)
--- NOTE | 2017-12-16 07:11 | PCM.PN.INT ---
Subjective: Patient did well overnight. No acute issues were reported. Patient feels subjectively stronger compared to previous. Patient continues to spike fevers, but no hemodynamic instability was noted. Patient's oxygenation has been maintained with 3 L nasal cannula. Patient did not use any noninvasive respiration overnight. General: Alert, Oriented x3, Cooperative, No apparent distress, - - Obese. Speaking in full sentences. Appears older than stated age. HEENT: Atraumatic, PERRLA, EOMI, Normocephalic, - - No scleral icterus or injection noted. Oral: Moist Mucosa, No Gingival or Mucosal Lesions/ Ulcerations Neck: Supple, No JVD, No Nodes, Trachea Midline Lungs: No rhonchi, No wheeze, No rales, Diminished, - - Symmetric expansion. No dullness to percussion. Fair effort. Cardiovascular: Regular rate, Regular Rhythm, Normal S1, Normal S2, No murmurs, No rub noted, No Gallop Abdomen: Bowel Sounds Present, Soft, Non Tender, Non-Distended, Obese Extremities: No clubbing, No cyanosis, Capillary Refill Less than 3 Seconds, Edema Skin: - - Subjectively unchanged compared to previous Musculoskeletal: No Tenderness to Palpation of Joints or Extremities Lymphatic: No Cervical, Supraclavicular, or Inguinal Adenopathy Neurological: Cranial nerves II-XII grossly intact, Neuro grossly intact, - - Muscle strength appears to be improving Psych/Mental Status: Alert and oriented to time, place, person, mood and affect Vital Signs Temp Pulse Resp BP Pulse Ox 37.0 C 79 20 H 140/46 H 95 12/16/17 06:00 12/16/17 06:00 12/16/17 06:00 12/16/17 06:00 12/16/17 06:00 Oxygen Flow Rate (L/min) 3 Oxygen Delivery Method Nasal Cannula Weight: 103.1 kg Body Mass Index (BMI) 40.6 Intake and Output for Last 24 Hours 12/14/17 12/15/17 12/16/17 23:59 23:59 23:59 Intake Total 1643.4 / 1643.4 1047 / 1047 656.5 / 656.5 Output Total 2760 / 2760 1900 / 1900 1125 / 1125 Balance -1116.6 / -1116.6 -853 / -853 -468.5 / -468.5 Labs (Last 48 Hours) 12/14/17 12/14/17 12/14/17 07:11 12:37 17:20 WBC RBC Hgb Hct MCV MCH MCHC RDW RDW Differential Plt Count MPV Immature Gran % (Auto) Neut % (Auto) Lymph % (Auto) Roberts % (Auto) Eos % (Auto) Baso % (Auto) Absolute Neuts (auto) Absolute Lymphs (auto) Total Counted Differential Comment Diff Path Review Activated Clotting Time 136 Sodium Potassium Chloride Carbon Dioxide Anion Gap BUN Creatinine Estim Creat Clear Calc Est GFR (MDRD) Af Amer Est GFR (MDRD) Non-Af BUN/Creatinine Ratio Glucose Calcium Phosphorus Magnesium POC Glucose 115 H 145 H 12/14/17 12/15/17 12/15/17 22:15 08:22 16:30 WBC 19.2 H RBC 3.35 L Hgb 10.0 L Hct 30.7 L MCV 91.6 MCH 29.9 MCHC 32.6 RDW 16.6 H RDW Differential 55.5 H Plt Count 263 MPV 10.2 Immature Gran % (Auto) 1.600 H Neut % (Auto) 73.6 H Lymph % (Auto) 11.1 L Roberts % (Auto) 9.0 Eos % (Auto) 3.2 Baso % (Auto) 1.5 H Absolute Neuts (auto) 14.1 H Absolute Lymphs (auto) 2.14 Total Counted Not Reportable Differential Comment SCANNED Diff Path Review May foll Activated Clotting Time Sodium Potassium Chloride Carbon Dioxide Anion Gap BUN Creatinine Estim Creat Clear Calc Est GFR (MDRD) Af Amer Est GFR (MDRD) Non-Af BUN/Creatinine Ratio Glucose Calcium Phosphorus Magnesium POC Glucose 158 H 179 H 12/15/17 12/15/17 12/15/17 16:30 16:37 22:10 WBC RBC Hgb Hct MCV MCH MCHC RDW RDW Differential Plt Count MPV Immature Gran % (Auto) Neut % (Auto) Lymph % (Auto) Roberts % (Auto) Eos % (Auto) Baso % (Auto) Absolute Neuts (auto) Absolute Lymphs (auto) Total Counted Differential Comment Diff Path Review Activated Clotting Time Sodium 143 Potassium 3.3 L Chloride 106 Carbon Dioxide 27.0 Anion Gap 10 BUN 60 H Creatinine 2.33 H Estim Creat Clear Calc 31.42 Est GFR (MDRD) Af Amer 36 L Est GFR (MDRD) Non-Af 30 L BUN/Creatinine Ratio 25.8 H Glucose 174 H Calcium 8.9 Phosphorus 4.0 Magnesium 2.3 POC Glucose 171 H 159 H 12/16/17 12/16/17 12/16/17 06:15 06:15 06:57 WBC 20.6 H RBC 3.11 L Hgb 9.3 L Hct 28.9 L MCV 92.9 MCH 29.9 MCHC 32.2 RDW 16.8 H RDW Differential 56.3 H Plt Count 313 MPV 10.4 Immature Gran % (Auto) 1.900 H Neut % (Auto) 70.9 H Lymph % (Auto) 14.0 L Roberts % (Auto) 7.0 Eos % (Auto) 5.2 H Baso % (Auto) 1.0 Absolute Neuts (auto) 14.6 H Absolute Lymphs (auto) 2.88 Total Counted Pending Differential Comment Diff Path Review Activated Clotting Time Sodium 145 Potassium 3.1 L Chloride 107 Carbon Dioxide 29.0 Anion Gap 9 BUN 60 H Creatinine 2.20 H Estim Creat Clear Calc 33.28 Est GFR (MDRD) Af Amer 38 L Est GFR (MDRD) Non-Af 32 L BUN/Creatinine Ratio 27.3 H Glucose 154 H Calcium 8.7 Phosphorus Magnesium POC Glucose 153 H Microbiology 12/14/17 08:25 Other - Other Gram Stain - Final 12/09/17 10:00 Blood Culture (Wb) - Venous Blood Culture - Final No growth in 5 days. 12/09/17 09:45 Blood Culture (Wb) - Line Draw Blood Culture - Final No growth in 5 days. 12/11/17 11:40 Other - Introducer Cath Tip Miscellaneous Culture - Final No growth aerobically. 12/11/17 11:40 Other - Introducer Cath Tip Gram Stain - Final Medical Necessity - Tobacco Use Smoking Status: Unknown if ever smoked Assessment/Plan All Active Problems Abdominal pain (Acute) RECOMMENDATIONS: 1. Aggressive PT/OT. 2. Complete 7 days of current antibiotics and antifungal 3. Continue Pepcid for GI prophylaxis, aerosols and sliding scale insulin 4. Potassium repletion as ordered 5. Obtain BMP, mag, phosphorus and CBC tomorrow 6. Okay to leave the intensive care unit from my perspective IMPRESSIONS: 1. ST elevation myocardial infarction/history of ischemic cardiomyopathy status post previous PCI/cardiogenic shock The patient underwent urgent cardiac catheterization on the morning of December 07 without intervention performed. IABP was removed yesterday without complication. Okay to discontinue daily chest x-rays. Patient's blood pressure has been appropriate throughout the evening. Patient appears to be improving and fever curve appears to be trending down. 2. Acute hypoxemic respiratory failure Patient successfully liberated from the ventilator. Will discontinue sedation. Aggressive pulmonary toileting and incentive spirometer. Wean oxygen as tolerated. Patient will need a walking oximetry prior to discharge. 3. Septic shock Patient appears to be responding to therapy. Patient does have a central line in place, but groin lines have been removed. Patient is currently on antibiotics and antifungal. Anticipate treating for 7 days after removal of groin lines. Blood cultures have remained negative. Significant improvement after addition of antifungal. 4. Acute kidney injury Unchanged compared to previous. Likely secondary to hemodynamic instability in the setting of #1. Continue current supportive measures. Continue to monitor urine output. No indication for renal replacement therapy at the current time. Patient does appear to be entering a polyuric phase leading to need for potassium repletion. 5. Metabolic encephalopathy RESOLVED > no significant metabolic derangements noted on chemistry profile previously. Will recheck labs today. Suspect that the patient may have become hypercarbic leading to his encephalopathy. ABG did show adequate oxygenation and ventilation at the end of the spontaneous breathing trial. 6. Morbid obesity/hyperlipidemia/hyperglycemia Complicates care, management, recovery and prognosis. Continue statin. Okay to initiate diet with q. before meals and at bedtime blood sugars. Code Visit Inpatient E&M: [id number] [facility] L3
[2017-12-16] MEDS: Insulin Lispro 100 UNIT/ML INSULN.PEN SC ×2 (08:36→13:17)
[2017-12-16] MEDS: Aspirin 81 MG TAB.CHEW PO (08:43)
[2017-12-16] MEDS: Carvedilol 3.125 MG TABLET PO (08:43)
[2017-12-16] MEDS: Furosemide 40 MG Tablet PO (08:44)
[2017-12-16] MEDS: Isosorbide Mononitrate 30 MG Tablet PO (08:44)
[2017-12-16] MEDS: Nystatin/Triamcin Oint 1 APPLIC TOPICAL ×2 (08:45→21:51)
[2017-12-16] MEDS: Famotidine 20 MG Tablet PO (08:45)
--- NOTE | 2017-12-16 10:37 | PCM.PN.CARD ---
Subjectve: Patient continues to do better every day. Patient had an episode of paroxysmal atrial fibrillation last evening corrected with replacement of potassium therapy. Magnesium is therapeutic this morning. Currently normal sinus rhythm/sinus tachycardia and episodes of hypertension. He denies any chest pain or angina. Objective: Vital Signs Temp Pulse Resp BP Pulse Ox 98.7 F 81 18 131/56 H 95 12/16/17 08:00 12/16/17 08:00 12/16/17 08:00 12/16/17 08:00 12/16/17 08:00 Oxygen Flow Rate (L/min) 3 Oxygen Delivery Method Nasal Cannula Weight: 227 lb 4.745 oz Body Mass Index (BMI) 40.6 Intake and Output for Last 24 Hours 12/14/17 12/15/17 12/16/17 23:59 23:59 23:59 Intake Total 1643.4 / 1643.4 1047 / 1047 656.5 / 656.5 Output Total 2760 / 2760 1900 / 1900 1125 / 1125 Balance -1116.6 / -1116.6 -853 / -853 -468.5 / -468.5 General: Awake, Alert, Oriented x 3 HEENT: PERRL, EOMI, Sclera Non Icteric Neck: Supple, Good ROM, No Lymph Node Enlargement Lungs: Clear to auscultation Cardiovascular: Regular Rhythm, Normal S1, Normal S2, No Murmurs, No Rubs, No Gallops Vascular: No Carotid Bruits, Normal Femoral Pulses, Normal Radial Pulses, Normal Dorsalis Pedal Pulse, Normal Posterior Tibial Pulses Abdomen: Bowel Sounds Present, Soft, Non Tender, No HSM, No Organomegaly Extremities: No Cyanosis, No Clubbing, No edema Neurological: No Focal Motor or Sensory Deficit 12/15/17 16:30: WBC 19.2 H, RBC 3.35 L, Hgb 10.0 L, Hct 30.7 L, MCV 91.6, MCH 29.9, MCHC 32.6, RDW 16.6 H, RDW Differential 55.5 H, Plt Count 263, MPV 10.2, Immature Gran % (Auto) 1.600 H, Neut % (Auto) 73.6 H, Lymph % (Auto) 11.1 L, Power % (Auto) 9.0, Eos % (Auto) 3.2, Baso % (Auto) 1.5 H, Absolute Neuts (auto) 14.1 H, Total Counted Not Reportable 12/15/17 16:30: Sodium 143, Potassium 3.3 L, Chloride 106, Carbon Dioxide 27.0, Anion Gap 10, BUN 60 H, Creatinine 2.33 H, Est GFR (MDRD) Af Amer 36 L, Est GFR (MDRD) Non-Af 30 L, BUN/Creatinine Ratio 25.8 H, Glucose 174 H, Calcium 8.9, Phosphorus 4.0, Magnesium 2.3 12/16/17 06:15: WBC 20.6 H, RBC 3.11 L, Hgb 9.3 L, Hct 28.9 L, MCV 92.9, MCH 29.9, MCHC 32.2, RDW 16.8 H, RDW Differential 56.3 H, Plt Count 313, MPV 10.4, Immature Gran % (Auto) 1.900 H, Neut % (Auto) 70.9 H, Lymph % (Auto) 14.0 L, Power % (Auto) 7.0, Eos % (Auto) 5.2 H, Baso % (Auto) 1.0, Absolute Neuts (auto) 14.6 H, Total Counted Not Reportable 12/16/17 06:15: Sodium 145, Potassium 3.1 L, Chloride 107, Carbon Dioxide 29.0, Anion Gap 9, BUN 60 H, Creatinine 2.20 H, Est GFR (MDRD) Af Amer 38 L, Est GFR (MDRD) Non-Af 32 L, BUN/Creatinine Ratio 27.3 H, Glucose 154 H, Calcium 8.7 Rhythm: EKG: ECHO: Stress Test: Cardiac Cath: PCI: CT Surgery: Holter monitor: EPS: PPM: CXR: Chest CT Scan: Medical Necessity - Tobacco Use Smoking Status: Unknown if ever smoked Assessment/Plan 1. Ischemic cardiomyopathy: The patient presented with hypertensive crisis, with subsequent respiratory failure requiring emergent intubation and emergent catheterization. 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 He has a previous LAD stent as well which was widely patent with nonobstructive coronary disease of his LAD and left circumflex system. He has severe LV dysfunction with an EF around 20-25%. We made several attempts to gain access into the occluded right coronary artery stent, but this appears to be a chronic total occlusion, and would not recommend aggressive measures of reopening this vessel at this time. Patient's intra-aortic balloon pump was removed on 12/14/17 without complications, and he is doing quite well. He appears to be somewhat tachycardic and hypertensive this morning. Would recommend increasing Coreg to 6.25 mg p.o. twice daily, continuing Lasix 40 mg p.o. daily, and adding potassium 20 mEq p.o. twice daily for potassium replacement. In addition he is undergoing a second potassium 40 mEq IV at this time. Her his rhythm has normalized back to normal sinus rhythm and would recommend keeping his potassium above 4.0 and magnesium of 2.0. Given the patient's chronic renal insufficiency, I would not recommend DILAN inhibitor or ARB's at this time. I would however recommend initiating Imdur 30 mg p.o. daily and hydralazine 10 mg 3 times daily, titrating up from there. Given his chronic renal insufficiency, severe LV dysfunction recommend starting him on Lasix 40 mg p.o. daily. Would recommend discontinuation of metformin as this is relatively contraindicated in a patient with an EF around 25%. Physical therapy pending. The patient most likely require rehab as an inpatient prior to discharge home. Physical therapy to begin in earnest tomorrow morning. 2. [place]-Alexx catheter: [place]-Alexx catheter and RFA sheath removed 12/11/17. 3. Thank you very much for the opportunity to participate in the cardiac care of your patient. Patient may be transferred to PCU status. Code Visit Inpatient E&M: [id number] [facility] L2
--- NOTE | 2017-12-16 11:59 | PCM.PN.HOSP ---
Subjective: Patient is changed to PCU status yesterday. Still patient is spiking fever. T-max 100.2 Fahrenheit about 8 PM yesterday; even on IV antibiotics. On oxygen through nasal cannula, patient maintaining oxygen saturation well Vitals/I&O's: Vital Signs Temp Pulse Resp BP Pulse Ox 98.7 F 81 18 131/56 H 95 12/16/17 08:00 12/16/17 08:00 12/16/17 08:00 12/16/17 08:00 12/16/17 08:00 Oxygen Flow Rate (L/min) 3 Oxygen Delivery Method Nasal Cannula Weight: 227 lb 4.745 oz Body Mass Index (BMI) 40.6 Intake and Output for Last 24 Hours 12/14/17 12/15/17 12/16/17 23:59 23:59 23:59 Intake Total 1643.4 / 1643.4 1047 / 1047 656.5 / 656.5 Output Total 2760 / 2760 1900 / 1900 1125 / 1125 Balance -1116.6 / -1116.6 -853 / -853 -468.5 / -468.5 General: Alert, Oriented x3, Cooperative HEENT: Atraumatic, PERRLA, EOMI, Normocephalic Neck: Supple, No JVD, Negative Carotid Bruits Lungs: No rhonchi, No wheeze, Diminished Cardiovascular: Regular rate, Normal S1, Normal S2, No murmurs Abdomen: Bowel Sounds Present, Soft, Non Tender Extremities: Capillary Refill Less than 3 Seconds, Edema Skin: No rashes, No breakdown Musculoskeletal: No Tenderness to Palpation of Joints or Extremities Neurological: Cranial nerves II-XII grossly intact Psych/Mental Status: Normal Affect, Appropriate Microbiology Past 72 Hours 12/10/17 18:20 Blood Culture (Wb) - Right Hand Blood Culture - Final No growth in 5 days. 12/10/17 18:15 Blood Culture (Wb) - Left Forearm Blood Culture - Final No growth in 5 days. 12/14/17 08:25 Other - Other Miscellaneous Culture - Preliminary Staphylococcus species 12/14/17 08:25 Other - Other Gram Stain - Final 12/09/17 10:00 Blood Culture (Wb) - Venous Blood Culture - Final No growth in 5 days. 12/09/17 09:45 Blood Culture (Wb) - Line Draw Blood Culture - Final No growth in 5 days. 12/11/17 11:40 Other - Introducer Cath Tip Miscellaneous Culture - Final No growth aerobically. 12/11/17 11:40 Other - Introducer Cath Tip Gram Stain - Final Laboratory Results 12/15/17 16:30: WBC 19.2 H, RBC 3.35 L, Hgb 10.0 L, Hct 30.7 L, MCV 91.6, MCH 29.9, MCHC 32.6, RDW 16.6 H, RDW Differential 55.5 H, Plt Count 263, MPV 10.2, Immature Gran % (Auto) 1.600 H, Neut % (Auto) 73.6 H, Lymph % (Auto) 11.1 L, [place] % (Auto) 9.0, Eos % (Auto) 3.2, Baso % (Auto) 1.5 H, Absolute Neuts (auto) 14.1 H, Absolute Lymphs (auto) 2.14, Total Counted Not Reportable, Differential Comment SCANNED, Diff Path Review August12/15/17 16:30: Sodium 143, Potassium 3.3 L, Chloride 106, Carbon Dioxide 27.0, Anion Gap 10, BUN 60 H, Creatinine 2.33 H, Estim Creat Clear Calc 31.42, Est GFR (MDRD) Af Amer 36 L, Est GFR (MDRD) Non-Af 30 L, BUN/Creatinine Ratio 25.8 H, Glucose 174 H, Calcium 8.9, Phosphorus 4.0, Magnesium 2.3 12/15/17 16:37: POC Glucose 171 H 12/15/17 22:10: POC Glucose 159 H 12/16/17 06:15: WBC 20.6 H, RBC 3.11 L, Hgb 9.3 L, Hct 28.9 L, MCV 92.9, MCH 29.9, MCHC 32.2, RDW 16.8 H, RDW Differential 56.3 H, Plt Count 313, MPV 10.4, Immature Gran % (Auto) 1.900 H, Neut % (Auto) 70.9 H, Lymph % (Auto) 14.0 L, [place] % (Auto) 7.0, Eos % (Auto) 5.2 H, Baso % (Auto) 1.0, Absolute Neuts (auto) 14.6 H, Absolute Lymphs (auto) 2.88, Total Counted Not Reportable, Differential Comment 12/16/17 06:15: Sodium 145, Potassium 3.1 L, Chloride 107, Carbon Dioxide 29.0, Anion Gap 9, BUN 60 H, Creatinine 2.20 H, Estim Creat Clear Calc 33.28, Est GFR (MDRD) Af Amer 38 L, Est GFR (MDRD) Non-Af 32 L, BUN/Creatinine Ratio 27.3 H, Glucose 154 H, Calcium 8.7 12/16/17 06:57: POC Glucose 153 H Current Medications Acetaminophen (Tylenol) 650 mg PO Q6H PRN PRN PRN Reason: HEADACHE/FEVER (T>102.5) Albuterol Sulfate (Ventolin Aerosols) 2.5 mg INHALATION Q2H PRN PRN PRN Reason: SOB/WHEEZING Last Admin: 12/12/17 01:02 Dose: 2.5 mg Aspirin (Aspirin, Baby) 81 mg PO DAILY [facility] Last Admin: 12/16/17 08:43 Dose: 81 mg Atorvastatin Calcium (Lipitor) 80 mg PO QHS [facility] Last Admin: 12/15/17 22:14 Dose: 80 mg Atropine Sulfate () 0.5 mg IV UD PRN PRN Reason: HR <50 bpm Carvedilol (Coreg) 6.25 mg PO BID [facility] Chlorhexidine Gluconate () 1 each TOPICAL DAILY [facility] Last Admin: 12/15/17 10:17 Dose: Not Given Enoxaparin Sodium (Lovenox) 40 mg SC DAILY@0600 [facility] Last Admin: 12/16/17 05:19 Dose: 40 mg Famotidine (Pepcid) 20 mg PO DAILY [facility] Last Admin: 12/16/17 08:45 Dose: 20 mg Furosemide (Lasix) 40 mg PO DAILY [facility] Last Admin: 12/16/17 08:44 Dose: 40 mg Hydralazine HCl (Apresoline) 10 mg PO TID [facility] Last Admin: 12/16/17 05:22 Dose: 10 mg Piperacillin Sod/Tazobactam Sod (Zosyn) 3.375 gm in 50 mls @ 12.5 mls/hr IV Q8 [facility] Last Admin: 12/16/17 05:22 Dose: 12.5 mls/hr Fluconazole (Diflucan) 200 mg in 100 mls @ 100 mls/hr IV Q24 [facility] Last Admin: 12/15/17 10:25 Dose: 100 mls/hr Insulin Human Lispro (Humalog Kwikpen (Bkc)) 0 unit SC ACHS [facility] PRN Reason: Protocol Last Admin: 12/16/17 08:36 Dose: 1 units Isosorbide Mononitrate (Imdur) 30 mg PO DAILY [facility] Last Admin: 12/16/17 08:44 Dose: 30 mg Labetalol HCl (Trandate) 5 mg IV X1 PRN PRN Reason: SBP > 160 when pulling sheath Metoprolol Tartrate (Lopressor (Beta King)) 5 mg IV Q4H PRN PRN PRN Reason: HR >100 Last Admin: 12/15/17 20:15 Dose: 5 mg Nutritional Formula ([place] - [place] Flavor) [facility] Last Admin: 12/16/17 08:36 Dose: 1 packet Nystatin/Triamcinolone Acetonide (Mycolog) 1 applic TOPICAL BID [facility] PRN Reason: Protocol Last Admin: 12/16/17 08:45 Dose: 1 applicatio Potassium Chloride (K-Dur) [facility] Stop: 12/16/17 17:01 Last Admin: 12/16/17 08:41 Dose: 20 meq Sodium Chloride () 5 - 30 ml IV UD PRN PRN Reason: SALINE FLUSH Last Admin: 12/16/17 06:11 Dose: 20 ml Sodium Chloride () 500 ml IV BOLUS PRN PRN Reason: VASO-VAGAL PROTOCOL Medical Necessity - Tobacco Use Smoking Status: Unknown if ever smoked Assessment/Plan All Active Problems Abdominal pain (Acute) 71-year-old gentleman was admitted with hypertensive crisis with subsequent respiratory failure which required emergent intubation and cardiac catheterization. Patient found to have previously placed RCA stent occluded with same chronic with minimal collaterals. Severe LV dysfunction with EF 20-25%. On intra-aortic balloon pump 1:1. On IV heparin drip. On Levophed drip. 1. Acute hypoxic respiratory failure. Likely related to pulmonary edema from CHF and perhaps bronchospasm from exacerbation of CHF or from cardiac asthma based on initial presentation of wheezing and reduced breath sounds. Patient is extubated on 12/13/2017 Continued management per retreader/critical care. Right IJ central venous catheter placed on 12/11/2017. 2. Cardiogenic shock secondary to STEMI resulting into acute on chronic systolic heart failure possible septic shock. Patient was on IABP which was discontinued on 12/14/2017. Management per cardiology. Patient on broad-spectrum IV antibiotic patient is still spiking fever even on IV Zosyn. Culture from right femoral arterial sheath shows Staphylococcus species. tracheal aspirate shows normal respiratory edu. Urine culture shows no growth. Blood cultures are pending. Vancomycin discontinued. Septic shock exact etiology unclear but possible secondary to right femoral line sepsis: Patient previous right femoral arterial sheath is growing Staphylococcus. Right femoral lines have been removed. On IV Zosyn. Patient is also on Diflucan. 3. STEMI. Completely occluded RCA on left heart catheterization, not amenable to any percutaneous coronary intervention and will require medical management going forward. 4. Morbid obesity. 5. Hyperglycemia. Uncertain if has h/o DM. Blood glucose levels lower today. May have been related to stress of acute ND. On SSI insulin but blood glucose control less than optimal. Gone ahead to add basal insulin (Lantus) and will continue to monitor 6. Hypertensive emergency. Present on admission. SBP was > 200. Improved now. Likely sympathetic response to ND. 7. Acute encephalopathy. Present on admission with stupor and was secondary most likely to hypoxia. Expect to improve. 8. KIMBERLY. Secondary to cardiogenic shock. Hemodynamics improved and so expect to slowly recover as well. Microbiology Past 72 Hours 12/10/17 18:20 Blood Culture (Wb) - Right Hand Blood Culture - Final No growth in 5 days. 12/10/17 18:15 Blood Culture (Wb) - Left Forearm Blood Culture - Final No growth in 5 days. 12/14/17 08:25 Other - Other Miscellaneous Culture - Preliminary Staphylococcus species 12/14/17 08:25 Other - Other Gram Stain - Final 12/09/17 10:00 Blood Culture (Wb) - Venous Blood Culture - Final No growth in 5 days. 12/09/17 09:45 Blood Culture (Wb) - Line Draw Blood Culture - Final No growth in 5 days. 12/11/17 11:40 Other - Introducer Cath Tip Miscellaneous Culture - Final No growth aerobically. 12/11/17 11:40 Other - Introducer Cath Tip Gram Stain - Final Laboratory Results 12/16/17 06:15: WBC 20.6 H, RBC 3.11 L, Hgb 9.3 L, Hct 28.9 L, MCV 92.9, MCH 29.9, MCHC 32.2, RDW 16.8 H, RDW Differential 56.3 H, Plt Count 313, MPV 10.4, Immature Gran % (Auto) 1.900 H, Neut % (Auto) 70.9 H, Lymph % (Auto) 14.0 L, Hood % (Auto) 7.0, Eos % (Auto) 5.2 H, Baso % (Auto) 1.0, Absolute Neuts (auto) 14.6 H, Absolute Lymphs (auto) 2.88, Total Counted Not Reportable, Differential Comment 12/16/17 06:15: Sodium 145, Potassium 3.1 L, Chloride 107, Carbon Dioxide 29.0, Anion Gap 9, BUN 60 H, Creatinine 2.20 H, Estim Creat Clear Calc 33.28, Est GFR (MDRD) Af Amer 38 L, Est GFR (MDRD) Non-Af 32 L, BUN/Creatinine Ratio 27.3 H, Glucose 154 H, Calcium 8.7 12/16/17 06:57: POC Glucose 153 H Active Medications Acetaminophen (Tylenol) 650 mg PO Q6H PRN PRN PRN Reason: HEADACHE/FEVER (T>102.5) Albuterol Sulfate (Ventolin Aerosols) 2.5 mg INHALATION Q2H PRN PRN PRN Reason: SOB/WHEEZING Last Admin: 12/12/17 01:02 Dose: 2.5 mg Aspirin (Aspirin, Baby) 81 mg PO DAILY [facility] Last Admin: 12/16/17 08:43 Dose: 81 mg Atorvastatin Calcium (Lipitor) 80 mg PO QHS [facility] Last Admin: 12/15/17 22:14 Dose: 80 mg Atropine Sulfate () 0.5 mg IV UD PRN PRN Reason: HR <50 bpm Carvedilol (Coreg) 6.25 mg PO BID [facility] Chlorhexidine Gluconate () 1 each TOPICAL DAILY [facility] Last Admin: 12/15/17 10:17 Dose: Not Given Enoxaparin Sodium (Lovenox) 40 mg SC DAILY@0600 [facility] Last Admin: 12/16/17 05:19 Dose: 40 mg Famotidine (Pepcid) 20 mg PO DAILY [facility] Last Admin: 12/16/17 08:45 Dose: 20 mg Furosemide (Lasix) 40 mg PO DAILY [facility] Last Admin: 12/16/17 08:44 Dose: 40 mg Hydralazine HCl (Apresoline) 10 mg PO TID [facility] Last Admin: 12/16/17 05:22 Dose: 10 mg Piperacillin Sod/Tazobactam Sod (Zosyn) 3.375 gm in 50 mls @ 12.5 mls/hr IV Q8 [facility] Last Admin: 12/16/17 05:22 Dose: 12.5 mls/hr Fluconazole (Diflucan) 200 mg in 100 mls @ 100 mls/hr IV Q24 [facility] Last Admin: 12/15/17 10:25 Dose: 100 mls/hr Insulin Human Lispro (Humalog Kwikpen (Bkc)) 0 unit SC ACHS [facility] PRN Reason: Protocol Last Admin: 12/16/17 08:36 Dose: 1 units Isosorbide Mononitrate (Imdur) 30 mg PO DAILY [facility] Last Admin: 12/16/17 08:44 Dose: 30 mg Labetalol HCl (Trandate) 5 mg IV X1 PRN PRN Reason: SBP > 160 when pulling sheath Metoprolol Tartrate (Lopressor (Beta King)) 5 mg IV Q4H PRN PRN PRN Reason: HR >100 Last Admin: 12/15/17 20:15 Dose: 5 mg Nutritional Formula ([place] - [place] Flavor) 1 packet PO BIDCM [facility] Last Admin: 12/16/17 08:36 Dose: 1 packet Nystatin/Triamcinolone Acetonide (Mycolog) 1 applic TOPICAL BID [facility] PRN Reason: Protocol Last Admin: 12/16/17 08:45 Dose: 1 applicatio Potassium Chloride (K-Dur) 20 meq PO BIDCM [facility] Stop: 12/16/17 17:01 Last Admin: 12/16/17 08:41 Dose: 20 meq Sodium Chloride () 5 - 30 ml IV UD PRN PRN Reason: SALINE FLUSH Last Admin: 12/16/17 06:11 Dose: 20 ml Sodium Chloride () 500 ml IV BOLUS PRN PRN Reason: VASO-VAGAL PROTOCOL Code Visit Inpatient E&M: 64775 [facility] Hosp L3
[2017-12-16 13:26] LABS: Bedside Glucose 181 mg/dL (70-110)
[2017-12-16] MEDS: glyBURIDE 2.5 MG Tablet PO (16:26)
[2017-12-16 16:30] LABS: Bedside Glucose 167 mg/dL (70-110)
[2017-12-16 21:50] LABS: Bedside Glucose 81 mg/dL (70-110)
[2017-12-16] MEDS: Atorvastatin Calcium 80 MG Tablet PO (21:50)
[2017-12-16] MEDS: Carvedilol 6.25 MG Tablet PO (21:53)
[2017-12-17] VITALS (17 sets, daily range): BP systolic 118–166; BP diastolic 59–92; PULSE 60–87; RESP 16–32; TEMP 36.3–37; O2SAT 92–100
[2017-12-17] MEDS: 0.9% NaCl Peripheral Flush Adult/Peds IV (04:04)
[2017-12-17 04:37] LABS: Anion Gap 10 (5-15); BUN 51 mg/dL (7-18); BUN/Creat Ratio 25.9 RATIO (10-20); Calcium,Total 8.6 mg/dL (8.5-10.1); Chloride 109 mmol/L (98-107); Creatinine, Serum 1.97 mg/dL (0.70-1.30); EST Glomerular Filtration Rate 36 mL/min (>60); Est Glom Filt Rate - Afr Amer 43 mL/min (>60); Estimated Creatinine Clearance 37.16 ml/min; Glucose 57 mg/dL (74-106); Magnesium 2.1 mg/dL (1.6-2.6); Phosphorus 3.5 mg/dL (2.5-4.9); Potassium 3.2 mmol/L (3.5-5.1); Sodium Level 148 mmol/L (136-145)
[2017-12-17] MEDS: Enoxaparin 40 MG/0.4 ML Syringe SC (05:42)
[2017-12-17] MEDS: Piperacil/Tazobactam 3.375 GM/50 ML ML IV ×3 (05:42→21:32)
[2017-12-17] MEDS: hydrALAZINE 10 MG Tablet PO ×3 (05:42→21:31)
[2017-12-17 05:51] LABS: Bedside Glucose 69 mg/dL (70-110)
--- NOTE | 2017-12-17 06:10 | NURSING ---
Pt labs reflected blood glucose of 57. Provided pt [place] juice and recheck blood sugar was 69. Provided ice cream. Pt remained A&O throughout, with no visible s&s of hypoglycemia, and pt denies feeling symptomatic.
[2017-12-17 06:45] LABS: Bedside Glucose 117 mg/dL (70-110)
--- NOTE | 2017-12-17 07:26 | PN_ITS ---
Subjective: The patient was seen and examined at the bedside this morning. Events from the last 24 hours have been reviewed. The patient is currently afebrile, hemodynamically stable and maintaining appropriate oxygen saturations on 2 L/ min via nasal cannula. No overnight issues were identified by the nursing staff. Objective: The patient's most recent lab work, culture data and imaging studies have all been personally reviewed. Infectious workup has been negative to date. General: Alert, Cooperative, No apparent distress, - - Sitting in bedside recliner. HEENT: Atraumatic, PERRLA, Normocephalic Oral: No Gingival or Mucosal Lesions/ Ulcerations Neck: Supple, No Nodes, Trachea Midline Lungs: No rhonchi, No wheeze, No rales, Diminished Cardiovascular: Regular rate, Regular Rhythm, Normal S1, Normal S2, No murmurs Abdomen: Bowel Sounds Present, Soft, Non Tender, Obese Extremities: No clubbing, No cyanosis, Edema Skin: - - No significant change from previous. Musculoskeletal: No Tenderness to Palpation of Joints or Extremities Lymphatic: No Cervical, Supraclavicular, or Inguinal Adenopathy Neurological: Neuro grossly intact Psych/Mental Status: Normal Affect, Appropriate Vital Signs Temp Pulse Resp BP Pulse Ox 98.6 F 84 19 H 166/75 H 100 12/17/17 05:35 12/17/17 05:42 12/17/17 05:35 12/17/17 05:42 12/17/17 07:00 Oxygen Flow Rate (L/min) 2 Oxygen Delivery Method Nasal Cannula Weight: 284 lb 9.868 oz Body Mass Index (BMI) 40.6 Intake and Output for Last 24 Hours 12/15/17 12/16/17 12/17/17 23:59 23:59 23:59 Intake Total 1047 / 1047 2246.4 / 2246.4 204 / 204 Output Total 1900 / 1900 3575 / 3575 500 / 500 Balance -853 / -853 -1328.6 / -1328.6 -296 / -296 Labs (Last 48 Hours) 12/15/17 12/15/17 12/15/17 08:22 16:30 16:30 WBC 19.2 H RBC 3.35 L Hgb 10.0 L Hct 30.7 L MCV 91.6 MCH 29.9 MCHC 32.6 RDW 16.6 H RDW Differential 55.5 H Plt Count 263 MPV 10.2 Immature Gran % (Auto) 1.600 H Neut % (Auto) 73.6 H Lymph % (Auto) 11.1 L [place] % (Auto) 9.0 Eos % (Auto) 3.2 Baso % (Auto) 1.5 H Absolute Neuts (auto) 14.1 H Absolute Lymphs (auto) 2.14 Total Counted Not Reportable Differential Comment SCANNED Diff Path Review May foll Sodium 143 Potassium 3.3 L Chloride 106 Carbon Dioxide 27.0 Anion Gap 10 BUN 60 H Creatinine 2.33 H Estim Creat Clear Calc 31.42 Est GFR (MDRD) Af Amer 36 L Est GFR (MDRD) Non-Af 30 L BUN/Creatinine Ratio 25.8 H Glucose 174 H Calcium 8.9 Phosphorus 4.0 Magnesium 2.3 POC Glucose 179 H 12/15/17 12/15/17 12/16/17 16:37 22:10 06:15 WBC 20.6 H RBC 3.11 L Hgb 9.3 L Hct 28.9 L MCV 92.9 MCH 29.9 MCHC 32.2 RDW 16.8 H RDW Differential 56.3 H Plt Count 313 MPV 10.4 Immature Gran % (Auto) 1.900 H Neut % (Auto) 70.9 H Lymph % (Auto) 14.0 L [place] % (Auto) 7.0 Eos % (Auto) 5.2 H Baso % (Auto) 1.0 Absolute Neuts (auto) 14.6 H Absolute Lymphs (auto) 2.88 Total Counted Not Reportable Differential Comment Diff Path Review Sodium Potassium Chloride Carbon Dioxide Anion Gap BUN Creatinine Estim Creat Clear Calc Est GFR (MDRD) Af Amer Est GFR (MDRD) Non-Af BUN/Creatinine Ratio Glucose Calcium Phosphorus Magnesium POC Glucose 171 H 159 H 12/16/17 12/16/17 12/16/17 06:15 06:57 13:16 WBC RBC Hgb Hct MCV MCH MCHC RDW RDW Differential Plt Count MPV Immature Gran % (Auto) Neut % (Auto) Lymph % (Auto) [place] % (Auto) Eos % (Auto) Baso % (Auto) Absolute Neuts (auto) Absolute Lymphs (auto) Total Counted Differential Comment Diff Path Review Sodium 145 Potassium 3.1 L Chloride 107 Carbon Dioxide 29.0 Anion Gap 9 BUN 60 H Creatinine 2.20 H Estim Creat Clear Calc 33.28 Est GFR (MDRD) Af Amer 38 L Est GFR (MDRD) Non-Af 32 L BUN/Creatinine Ratio 27.3 H Glucose 154 H Calcium 8.7 Phosphorus Magnesium POC Glucose 153 H 181 H 12/16/17 12/16/17 12/17/17 16:25 21:38 04:10 WBC RBC Hgb Hct MCV MCH MCHC RDW RDW Differential Plt Count MPV Immature Gran % (Auto) Neut % (Auto) Lymph % (Auto) [place] % (Auto) Eos % (Auto) Baso % (Auto) Absolute Neuts (auto) Absolute Lymphs (auto) Total Counted Differential Comment Diff Path Review Sodium 148 H Potassium 3.2 L Chloride 109 H Carbon Dioxide 29.0 Anion Gap 10 BUN 51 H Creatinine 1.97 H Estim Creat Clear Calc 37.16 Est GFR (MDRD) Af Amer 43 L Est GFR (MDRD) Non-Af 36 L BUN/Creatinine Ratio 25.9 H Glucose 57 L Calcium 8.6 Phosphorus 3.5 Magnesium 2.1 POC Glucose 167 H 81 12/17/17 12/17/17 05:48 06:39 WBC RBC Hgb Hct MCV MCH MCHC RDW RDW Differential Plt Count MPV Immature Gran % (Auto) Neut % (Auto) Lymph % (Auto) [place] % (Auto) Eos % (Auto) Baso % (Auto) Absolute Neuts (auto) Absolute Lymphs (auto) Total Counted Differential Comment Diff Path Review Sodium Potassium Chloride Carbon Dioxide Anion Gap BUN Creatinine Estim Creat Clear Calc Est GFR (MDRD) Af Amer Est GFR (MDRD) Non-Af BUN/Creatinine Ratio Glucose Calcium Phosphorus Magnesium POC Glucose 69 L 117 H Microbiology 12/10/17 18:20 Blood Culture (Wb) - Right Hand Blood Culture - Final No growth in 5 days. 12/10/17 18:15 Blood Culture (Wb) - Left Forearm Blood Culture - Final No growth in 5 days. 12/14/17 08:25 Other - Other Miscellaneous Culture - Preliminary Staphylococcus species 12/14/17 08:25 Other - Other Gram Stain - Final Clinical Impression(s) from Imaging Studies KUB X-Ray 12/07/17 12:13 IMPRESSION: The tip of the orogastric tube is in the body of the stomach just distal to the gastroesophageal junction. Electronically Signed: Cliff Pyle MD at 13:25 EDT Tel [phone], Service support , Chest X-Ray 12/08/17 05:55 IMPRESSION: 1. Endotracheal tube, orogastric tube and likely mediastinal tube present in place. 2. Borderline/mild cardiomegaly. Patchy bilateral parenchymal densities suggestive of edema versus multifocal pneumonia. Electronically Signed: Anthony Moore MD at 7:04 EDT Tel , Service support , Chest X-Ray 12/09/17 06:00 IMPRESSION: Cardiomegaly and Central pulmonary vascular prominence. Mild left pleural effusion. Electronically Signed: Mihai Holcomb DO at 10:39 EDT Tel [phone], Service support , Chest X-Ray 12/10/17 04:10 IMPRESSION: Tubes are in adequate position. Tip of intra-aortic balloon pump is at the T4-5 level. Small left pleural effusion mild CHF, with interval improvement from previous study. Old granulomatous disease. Electronically Signed: Lencho Coleman MD at 7:05 EDT , Service support , Chest X-Ray 12/11/17 04:18 IMPRESSION: Intra-aortic balloon pump tip is at the T6 level. At the time of this reading, tube has already been repositioned. Other tubes are in adequate position. No evidence for acute cardiopulmonary pathology. Electronically Signed: Lencho Coleman MD at 7:33 EDT , Service support , Chest X-Ray 12/11/17 06:20 IMPRESSION: Tubes are in adequate position. No evidence for acute cardiopulmonary pathology. Electronically Signed: Lencho Coleman MD at 6:47 EDT , Service support , Chest X-Ray 12/11/17 13:00 IMPRESSION: The tip of the right internal jugular venous catheter is in the midportion of the superior vena cava. The remainder of the examination is unchanged. Electronically Signed: Cliff Pyle MD at 13:49 EDT Tel [phone], Service support , Chest X-Ray 12/12/17 05:55 IMPRESSION: Since prior study, there has been a progression of the pleural parenchymal changes at the left lung base. The tip of the aortic balloon is in the proximal descending thoracic aorta at approximately 3.3 cm distal to the aortic arch. Electronically Signed: Cliff Pyle MD at 9:28 EDT Tel [phone], Service support , Chest X-Ray 12/13/17 04:15 IMPRESSION: Life support tubes and catheters, as detailed above. Left lower lobe atelectasis. Overall, the lungs are better aerated than on yesterday's examination. Electronically Signed: Jerzy Guerra DO at 8:34 EDT Tel , Service support , Chest X-Ray 12/14/17 05:55 IMPRESSION: The endotracheal tube as well as the oral gastric tube have been removed. The tip of the aortic balloon catheter is at the T8-T9 level. Stable pleural parenchymal changes at the left lung base with thickening of the right minor fissure. Electronically Signed: Cliff Pyle MD at 9:04 EDT Tel [phone], Service support , Medical Necessity - Tobacco Use Smoking Status: Unknown if ever smoked Assessment/Plan All Active Problems Abdominal pain (Acute) RECOMMENDATIONS: 1. Continue antibiotics and antifungal coverage. 2. Wean supplemental oxygen as tolerated. 3. Continue aggressive pulmonary toileting and encourage incentive spirometer use. 4. Mobilize patient as tolerated. 5. Perform walking oximetry study prior to consideration for discharge from the hospital. IMPRESSIONS: 1. ST elevation myocardial infarction/history of ischemic cardiomyopathy status post previous PCI/cardiogenic shock The patient underwent urgent cardiac catheterization on the morning of December 07 without intervention performed. IABP was subsequently removed without complication. Hemodynamics and fever curve have improved. Cardiology is following. Continue current medical management. 2. Acute hypoxemic respiratory failure Patient successfully liberated from the ventilator. Continue aggressive pulmonary toileting and incentive spirometer. Wean oxygen as tolerated. Patient will need a walking oximetry prior to discharge. 3. Septic shock Patient appears to be responding to therapy. Patient does have a central line in place, but groin lines have been removed. Patient is currently on antibiotics and antifungal. Anticipate treating for 7 days after removal of groin lines. Blood cultures have remained negative. Significant improvement after addition of antifungal. 4. Acute kidney injury Slowly improving. Likely secondary to hemodynamic instability in the setting of #1. Continue current supportive measures. Continue to monitor urine output. No indication for renal replacement therapy at the current time. 5. Metabolic encephalopathy RESOLVED > no significant metabolic derangements noted on chemistry profile previously. Suspect that the patient may have become hypercarbic leading to his encephalopathy. 6. Morbid obesity/hyperlipidemia/hyperglycemia Complicates care, management, recovery and prognosis. Continue statin. This note was generated with [employer] dictation software. It may contain incorrect words, spelling, and punctuation that were not noted in checking the note before signing. DISPOSITION: Given the lack of ongoing ICU needs, will sign off. Please call with any additional questions. Code Visit Inpatient E&M: 16755 [facility] Hosp L2
[2017-12-17] MEDS: Aspirin 81 MG TAB.CHEW PO (09:19)
[2017-12-17] MEDS: glyBURIDE 2.5 MG Tablet PO (09:19)
[2017-12-17] MEDS: Isosorbide Mononitrate 30 MG Tablet PO (09:20)
[2017-12-17] MEDS: Furosemide 40 MG Tablet PO (09:20)
[2017-12-17] MEDS: Carvedilol 6.25 MG Tablet PO ×2 (09:20→21:31)
[2017-12-17] MEDS: Nystatin/Triamcin Oint 1 APPLIC TOPICAL ×2 (09:21→21:32)
[2017-12-17] MEDS: Famotidine 20 MG Tablet PO (09:22)
--- NOTE | 2017-12-17 10:02 | NURSING ---
Pt asked STILL OPERATOR GIN to throw away the dirty pair of brown slippers he had.
[2017-12-17 11:56] LABS: Bedside Glucose 101 mg/dL (70-110)
--- NOTE | 2017-12-17 12:21 | PCM.PN.HOSP ---
Subjective: Patient seen and examined. He had no complaints. He denied any fever or chills, any chest pain, any palpitations, any shortness of breath, any abdominal pain, any diarrhea vomiting. 12 point review of systems otherwise negative. He was on 2 L and saturating well. Vitals/I&O's: Vital Signs Temp Pulse Resp BP Pulse Ox 98.2 F 79 18 118/66 92 12/17/17 10:47 12/17/17 10:59 12/17/17 10:47 12/17/17 10:47 12/17/17 10:47 Oxygen Flow Rate (L/min) 2 Oxygen Delivery Method Nasal Cannula Weight: 284 lb 9.868 oz Body Mass Index (BMI) 40.6 Intake and Output for Last 24 Hours 12/15/17 12/16/17 12/17/17 23:59 23:59 23:59 Intake Total 1047 / 1047 2246.4 / 2246.4 204 / 204 Output Total 1900 / 1900 3575 / 3575 500 / 500 Balance -853 / -853 -1328.6 / -1328.6 -296 / -296 General: Alert, Oriented x3, Cooperative, No apparent distress HEENT: Atraumatic, PERRLA, EOMI, Normocephalic Oral: Moist Mucosa Neck: Supple, No JVD, Negative Carotid Bruits Lungs: Clear to auscultation, Normal air movement, No rhonchi, No wheeze, No rales Cardiovascular: Regular rate, Regular Rhythm, Normal S1, Normal S2, No murmurs Abdomen: Bowel Sounds Present, Soft, Non Tender, Non-Distended, No Hepato-splenomegaly Extremities: No clubbing, No cyanosis, No edema, Capillary Refill Less than 3 Seconds Skin: No rashes, No breakdown Musculoskeletal: No Tenderness to Palpation of Joints or Extremities Lymphatic: No Cervical, Supraclavicular, or Inguinal Adenopathy Neurological: Cranial nerves II-XII grossly intact, Neuro grossly intact, Motor Exam 5/5 strength throughout Psych/Mental Status: Normal Affect, Appropriate, Alert and oriented to time, place, person, mood and affect Microbiology Past 72 Hours 12/14/17 08:25 Other - Other Miscellaneous Culture - Final Staphylococcus epidermidis 12/14/17 08:25 Other - Other Gram Stain - Final 12/10/17 18:20 Blood Culture (Wb) - Right Hand Blood Culture - Final No growth in 5 days. 12/10/17 18:15 Blood Culture (Wb) - Left Forearm Blood Culture - Final No growth in 5 days. 12/09/17 10:00 Blood Culture (Wb) - Venous Blood Culture - Final No growth in 5 days. 12/09/17 09:45 Blood Culture (Wb) - Line Draw Blood Culture - Final No growth in 5 days. Laboratory Results 12/16/17 13:16: POC Glucose 181 H 12/16/17 16:25: POC Glucose 167 H 12/16/17 21:38: POC Glucose 81 12/17/17 04:10: Sodium 148 H, Potassium 3.2 L, Chloride 109 H, Carbon Dioxide 29.0, Anion Gap 10, BUN 51 H, Creatinine 1.97 H, Estim Creat Clear Calc 37.16, Est GFR (MDRD) Af Amer 43 L, Est GFR (MDRD) Non-Af 36 L, BUN/Creatinine Ratio 25.9 H, Glucose 57 L, Calcium 8.6, Phosphorus 3.5, Magnesium 2.1 12/17/17 05:48: POC Glucose 69 L 12/17/17 06:39: POC Glucose 117 H 12/17/17 11:47: POC Glucose 101 Diagnostic Data KUB X-Ray 12/07/17 12:13 IMPRESSION: The tip of the orogastric tube is in the body of the stomach just distal to the gastroesophageal junction. Electronically Signed: Cliff Pyle MD at 13:25 EDT Tel [phone], Service support , Chest X-Ray 12/14/17 05:55 IMPRESSION: The endotracheal tube as well as the oral gastric tube have been removed. The tip of the aortic balloon catheter is at the T8-T9 level. Stable pleural parenchymal changes at the left lung base with thickening of the right minor fissure. Electronically Signed: Cliff Pyle MD at 9:04 EDT Tel [phone], Service support , Current Medications Acetaminophen (Tylenol) 650 mg PO Q6H PRN PRN PRN Reason: HEADACHE/FEVER (T>102.5) Albuterol Sulfate (Ventolin Aerosols) 2.5 mg INHALATION Q2H PRN PRN PRN Reason: SOB/WHEEZING Last Admin: 12/12/17 01:02 Dose: 2.5 mg Aspirin (Aspirin, Baby) 81 mg PO DAILY [facility] Last Admin: 12/17/17 09:19 Dose: 81 mg Atorvastatin Calcium (Lipitor) 80 mg PO QHS [facility] Last Admin: 12/16/17 21:50 Dose: 80 mg Atropine Sulfate () 0.5 mg IV UD PRN PRN Reason: HR <50 bpm Carvedilol (Coreg) 6.25 mg PO BID [facility] Last Admin: 12/17/17 09:20 Dose: 6.25 mg Enoxaparin Sodium (Lovenox) 40 mg SC DAILY@0600 [facility] Last Admin: 12/17/17 05:42 Dose: 40 mg Famotidine (Pepcid) 20 mg PO DAILY [facility] Last Admin: 12/17/17 09:22 Dose: 20 mg Furosemide (Lasix) 40 mg PO DAILY [facility] Last Admin: 12/17/17 09:20 Dose: 40 mg Glyburide (Micronase) 2.5 mg PO DAILY@0800 [facility] Last Admin: 12/17/17 09:19 Dose: 2.5 mg Hydralazine HCl (Apresoline) 10 mg PO TID [facility] Last Admin: 12/17/17 05:42 Dose: 10 mg Piperacillin Sod/Tazobactam Sod (Zosyn) 3.375 gm in 50 mls @ 12.5 mls/hr IV Q8 [facility] Last Admin: 12/17/17 05:42 Dose: 12.5 mls/hr Fluconazole (Diflucan) 200 mg in 100 mls @ 100 mls/hr IV Q24 [facility] Last Admin: 12/17/17 10:38 Dose: 100 mls/hr Insulin Human Lispro (Humalog Kwikpen (Bkc)) 0 unit SC ACHS [facility] PRN Reason: Protocol Last Admin: 12/17/17 11:53 Dose: Not Given Isosorbide Mononitrate (Imdur) 30 mg PO DAILY [facility] Last Admin: 12/17/17 09:20 Dose: 30 mg Labetalol HCl (Trandate) 5 mg IV X1 PRN PRN Reason: SBP > 160 when pulling sheath Metoprolol Tartrate (Lopressor (Beta King)) 5 mg IV Q4H PRN PRN PRN Reason: HR >100 Last Admin: 12/15/17 20:15 Dose: 5 mg Nutritional Formula ([place] - Hydes Flavor) 1 packet PO BIDCM [facility] Last Admin: 12/17/17 09:18 Dose: Not Given Nystatin/Triamcinolone Acetonide (Mycolog) 1 applic TOPICAL BID [facility] PRN Reason: Protocol Last Admin: 12/17/17 09:21 Dose: 1 applicatio Sodium Chloride () 500 ml IV BOLUS PRN PRN Reason: VASO-VAGAL PROTOCOL Sodium Chloride () 5 - 30 ml IV UD PRN PRN Reason: SALINE FLUSH Medical Necessity - Tobacco Use Smoking Status: Unknown if ever smoked Assessment/Plan All Active Problems Abdominal pain (Acute) 1. Acute hypoxic respiratory failure due to CHF exacerbation down to 2L of oxygen and saturating well. was intubated on admission and subsequently extubated on 12/13/17 to titrate oxygen to maintain saturation at >92%. 2. Cardiogenic shock due to STEMI resolved. Had intra-aortic balloon pump in place for ~ 9 days; it was discontinued on 12/14/17 cardiology on board; now off pressors 2D echo: as documented in 4. ' 3. Septic shock due to right femoral line infection resolved. right femoral lines grew Staph and so were removed. remains on IV zosyn and IV diflucan; blood cultures and urine cultures showed no growth after 5 days vancomycin was discontinued 4. STEMI: admitted with chest pain, and found to have completely occluded RCA on left heart cath. It was not amenable to PCI and he is on medical management. currently on metoprolol, imdur, carvedilol, atorvastatin, aspirin cardiology on board 2D echo: EF of 25-30%, with LVF and severe LV systolic dysfunction. Severe global hypokinesis of LV. LV not well visualised. not on plavix; will confirm with cardiology about whether to start plavix or otherwise 5. Hypertension admitted with hypertensive emergency, which has now resolved. BP now well controlled. continue current BP meds-carvedilol, hydralazine; not on DILAN-I/ARB due to renal insufficiency 6. Diabetes mellitus was hyperglycemic during this admission. A1C from 03/24- 7.8 will check A1C on ISS and glyburide. WIll continue. 7. Hypokalemia K is 3.2 today. had an episode of paroxysmal atrial fibrillation which resolved with correction of hypo-kalemia. Will replace potassium to keep it above for analysis keep magnesium above 2. 8. HFrEF likely due to ischemic cardiomyopathy admitted with severe chest pain, and found to have STEMI echo as documented under 4. on furosemide 40mg daily 9. KIMBERLY: Cr down to 1.97. Baseline Cr is 1.21. WIll continue trending and monitor DVT prophylaxis: lovenox This note was generated with [employer] dictation software. It may contain incorrect words, spelling, and punctuation that were not noted in checking the note before signing. Code Visit Inpatient E&M: [id number] Subs Hosp L3
[2017-12-17 13:45] LABS: Hemoglobin A1c 7.4 % (4.2-6.3)
[2017-12-17 13:45] LABS: Pathologist Review Reviewed
[2017-12-17 17:30] LABS: Bedside Glucose 124 mg/dL (70-110)
[2017-12-17] MEDS: Atorvastatin Calcium 80 MG Tablet PO (21:31)
[2017-12-17 22:06] LABS: Bedside Glucose 68 mg/dL (70-110)
[2017-12-18] VITALS (8 sets, daily range): BP systolic 105–116; BP diastolic 54–58; PULSE 71–85; RESP 16; TEMP 36.6–36.8; O2SAT 84–96
[2017-12-18] MEDS: Enoxaparin 40 MG/0.4 ML Syringe SC (06:41)
[2017-12-18] MEDS: hydrALAZINE 10 MG Tablet PO (06:42)
[2017-12-18] MEDS: Piperacil/Tazobactam 3.375 GM/50 ML ML IV (06:48)
[2017-12-18 06:52] LABS: Anion Gap 13 (5-15); BUN 44 mg/dL (7-18); BUN/Creat Ratio 23.5 RATIO (10-20); Calcium,Total 8.6 mg/dL (8.5-10.1); Chloride 108 mmol/L (98-107); Creatinine, Serum 1.87 mg/dL (0.70-1.30); EST Glomerular Filtration Rate 38 mL/min (>60); Est Glom Filt Rate - Afr Amer 46 mL/min (>60); Estimated Creatinine Clearance 39.15 ml/min; Glucose 58 mg/dL (74-106); Potassium 3.7 mmol/L (3.5-5.1); Sodium Level 143 mmol/L (136-145)
[2017-12-18 07:05] LABS: Absolute Lymphocyte Count 1.82 X10^3/ul (0.83-4.51); Absolute Neutrophil Count 15.4 X10^3/uL (2.0-7.7); Basophil# 0.09 X10^3/uL; Basophil% 0.5 % (0-1); Eosinophil# 1.12 X10^3/uL; Eosinophils% 5.7 % (0-5); Hematocrit 34.6 % (40-54); Hemoglobin 10.7 g/dl (13.0-16.5); Lymphocyte # 1.82 X10^3/ul (4.0); Lymphocyte % 9.3 % (19-41); Mean Corp Hgb Conc 30.9 g/gl (32-36); Mean Corpuscular Hgb 29.6 pg (27.0-32.0); Mean Corpuscular Volume 95.6 fL (80-94); Monocyte# 0.89 X10^3/uL; Monocyte% 4.6 % (0-10); Neutrophil # 15.38 X10^3/uL (2.7-7.7); Neutrophil % 78.7 % (47-70); Platelet Count 470 K/mm3 (150-450); RBC Distribution Width CV 17.2 % (11.6-14.6); RBC Distribution Width SD 59.2 fl (35.1-43.9); Red Blood Count 3.62 M/mm3 (4.6-6.2); White Blood Count 19.5 K/mm3 (4.4-11.0)
[2017-12-18 07:07] LABS: Differential Indicated SCAN CRITERIA MET; POSITIVE COUNT NO; POSITIVE DIFFERENTIAL NO; POSITIVE MORPHOLOGY YES
[2017-12-18 07:35] LABS: Bedside Glucose 60 mg/dL (70-110)
[2017-12-18 07:35] LABS: Bedside Glucose 105 mg/dL (70-110)
[2017-12-18 07:48] LABS: Differential Comment SCANNED
[2017-12-18] MEDS: glyBURIDE 2.5 MG Tablet PO (09:25)
[2017-12-18] MEDS: Aspirin 81 MG TAB.CHEW PO (09:25)
[2017-12-18] MEDS: Carvedilol 6.25 MG Tablet PO (09:25)
[2017-12-18] MEDS: Isosorbide Mononitrate 30 MG Tablet PO (09:26)
[2017-12-18] MEDS: Furosemide 40 MG Tablet PO (09:26)
[2017-12-18] MEDS: Nystatin/Triamcin Oint 1 APPLIC TOPICAL (09:26)
[2017-12-18] MEDS: Famotidine 20 MG Tablet PO (09:27)
--- NOTE | 2017-12-18 09:40 | PCM.PN.CARD ---
Subjectve: Patient continues to improve clinically. He is doing very well. Sitting in a chair, ambulating without difficulty. No chest pain or shortness of breath. Right groin is clean/dry/intact. Blood pressure and heart rate have stabilized. Edema has completely resolved in his legs and arms. Objective: Vital Signs Temp Pulse Resp BP Pulse Ox 98.3 F 85 16 116/54 L 96 12/18/17 09:12 12/18/17 09:12 12/18/17 09:12 12/18/17 09:12 12/18/17 09:12 Oxygen Flow Rate (L/min) 2 Oxygen Delivery Method Nasal Cannula Weight: 283 lb 11.759 oz Body Mass Index (BMI) 40.6 Intake and Output for Last 24 Hours 12/16/17 12/17/17 12/18/17 23:59 23:59 23:59 Intake Total 2246.4 / 2246.4 204 / 204 1134 / 1134 Output Total 3575 / 3575 500 / 500 Balance -1328.6 / -1328.6 -296 / -296 1134 / 1134 General: Awake, Alert, Oriented x 3 HEENT: PERRL, EOMI, Sclera Non Icteric Neck: Supple, Good ROM, No Lymph Node Enlargement Lungs: Clear to auscultation Cardiovascular: Regular Rhythm, Normal S1, Normal S2, No Murmurs, No Rubs, No Gallops Vascular: No Carotid Bruits, Normal Femoral Pulses, Normal Radial Pulses, Normal Dorsalis Pedal Pulse, Normal Posterior Tibial Pulses Abdomen: Bowel Sounds Present, Soft, Non Tender, No HSM, No Organomegaly Extremities: No Cyanosis, No Clubbing, No edema Neurological: No Focal Motor or Sensory Deficit 12/17/17 04:10: Hemoglobin A1c 7.4 H 12/18/17 05:25: WBC 19.5 H, RBC 3.62 L, Hgb 10.7 L, Hct 34.6 L, MCV 95.6 H, MCH 29.6, MCHC 30.9 L, RDW 17.2 H, RDW Differential 59.2 H, Plt Count 470 H, MPV 10.0, Immature Gran % (Auto) 1.200 H, Neut % (Auto) 78.7 H, Lymph % (Auto) 9.3 L, [place] % (Auto) 4.6, Eos % (Auto) 5.7 H, Baso % (Auto) 0.5, Absolute Neuts (auto) 15.4 H, Total Counted Not Reportable 12/18/17 05:25: Sodium 143, Potassium 3.7, Chloride 108 H, Carbon Dioxide 22.0, Anion Gap 13, BUN 44 H, Creatinine 1.87 H, Est GFR (MDRD) Af Amer 46 L, Est GFR (MDRD) Non-Af 38 L, BUN/Creatinine Ratio 23.5 H, Glucose 58 L, Calcium 8.6 Rhythm: EKG: ECHO: Stress Test: Cardiac Cath: PCI: CT Surgery: Holter monitor: EPS: PPM: CXR: Chest CT Scan: Medical Necessity - Tobacco Use Smoking Status: Unknown if ever smoked Assessment/Plan 1. Ischemic cardiomyopathy: The patient presented with hypertensive crisis, with subsequent respiratory failure requiring emergent intubation and emergent catheterization. 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 He has a previous LAD stent as well which was widely patent with nonobstructive coronary disease of his LAD and left circumflex system. He has severe LV dysfunction with an EF around 20-25%. We made several attempts to gain access into the occluded right coronary artery stent, but this appears to be a chronic total occlusion, and would not recommend aggressive measures of reopening this vessel at this time. Patient's intra-aortic balloon pump was removed on 12/14/17 without complications, and he is doing quite well. Would recommend continuing Coreg to 6.25 mg p.o. twice daily, continuing Lasix 40 mg p.o. daily, and adding potassium 20 mEq p.o. twice daily for potassium replacement. Her his rhythm has normalized back to normal sinus rhythm and would recommend keeping his potassium above 4.0 and magnesium of 2.0. Given the patient's chronic renal insufficiency, I would not recommend DILAN inhibitor or ARB's at this time. I would however recommend initiating Imdur 30 mg p.o. daily and hydralazine 10 mg 3 times daily, titrating up from there. Given his chronic renal insufficiency, severe LV dysfunction recommend starting him on Lasix 40 mg p.o. daily. Would recommend discontinuation of metformin as this is relatively contraindicated in a patient with an EF around 25%. Physical therapy is ongoing, and the patient will most likely be transferred to a rehab center today. Once he has completed his inpatient rehab, we will make arrangements for him to undergo cardiopulmonary rehab as an outpatient. Once this is completed we will repeat his echocardiogram to determine if a combination of medications, afterload reduction, diuretic therapy, and exercise have improved his LV function. No plans for repeat catheterization at this time. 2. Thank you very much for the opportunity to participate in the cardiac care of your patient. Patient may be transferred to inpatient rehab once clinically stabilized. He has requested follow-up with Dr. Varela going forward. Code Visit Inpatient E&M: [id number] Subs Hosp L2
--- NOTE | 2017-12-18 09:44 | PN.CARD_ITS ---
Subjectve: Patient continues to improve clinically. He is doing very well. Sitting in a chair, ambulating without difficulty. No chest pain or shortness of breath. Right groin is clean/dry/intact. Blood pressure and heart rate have stabilized. Edema has completely resolved in his legs and arms. Objective: Vital Signs Temp Pulse Resp BP Pulse Ox 98.3 F 85 16 116/54 L 96 12/18/17 09:12 12/18/17 09:12 12/18/17 09:12 12/18/17 09:12 12/18/17 09:12 Oxygen Flow Rate (L/min) 2 Oxygen Delivery Method Nasal Cannula Weight: 283 lb 11.759 oz Body Mass Index (BMI) 40.6 Intake and Output for Last 24 Hours 12/16/17 12/17/17 12/18/17 23:59 23:59 23:59 Intake Total 2246.4 / 2246.4 204 / 204 1134 / 1134 Output Total 3575 / 3575 500 / 500 Balance -1328.6 / -1328.6 -296 / -296 1134 / 1134 General: Awake, Alert, Oriented x 3 HEENT: PERRL, EOMI, Sclera Non Icteric Neck: Supple, Good ROM, No Lymph Node Enlargement Lungs: Clear to auscultation Cardiovascular: Regular Rhythm, Normal S1, Normal S2, No Murmurs, No Rubs, No Gallops Vascular: No Carotid Bruits, Normal Femoral Pulses, Normal Radial Pulses, Normal Dorsalis Pedal Pulse, Normal Posterior Tibial Pulses Abdomen: Bowel Sounds Present, Soft, Non Tender, No HSM, No Organomegaly Extremities: No Cyanosis, No Clubbing, No edema Neurological: No Focal Motor or Sensory Deficit 12/17/17 04:10: Hemoglobin A1c 7.4 H 12/18/17 05:25: WBC 19.5 H, RBC 3.62 L, Hgb 10.7 L, Hct 34.6 L, MCV 95.6 H, MCH 29.6, MCHC 30.9 L, RDW 17.2 H, RDW Differential 59.2 H, Plt Count 470 H, MPV 10.0, Immature Gran % (Auto) 1.200 H, Neut % (Auto) 78.7 H, Lymph % (Auto) 9.3 L , [place] % (Auto) 4.6, Eos % (Auto) 5.7 H, Baso % (Auto) 0.5, Absolute Neuts (auto ) 15.4 H, Total Counted Not Reportable 12/18/17 05:25: Sodium 143, Potassium 3.7, Chloride 108 H, Carbon Dioxide 22.0, Anion Gap 13, BUN 44 H, Creatinine 1.87 H, Est GFR (MDRD) Af Amer 46 L, Est GFR (MDRD) Non-Af 38 L, BUN/Creatinine Ratio 23.5 H, Glucose 58 L, Calcium 8.6 Rhythm: EKG: ECHO: Stress Test: Cardiac Cath: PCI: CT Surgery: Holter monitor: EPS: PPM: CXR: Chest CT Scan: Medical Necessity - Tobacco Use Smoking Status: Unknown if ever smoked Assessment/Plan 1. Ischemic cardiomyopathy: The patient presented with hypertensive crisis, with subsequent respiratory failure requiring emergent intubation and emergent catheterization. 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 He has a previous LAD stent as well which was widely patent with nonobstructive coronary disease of his LAD and left circumflex system. He has severe LV dysfunction with an EF around 20-25%. We made several attempts to gain access into the occluded right coronary artery stent, but this appears to be a chronic total occlusion, and would not recommend aggressive measures of reopening this vessel at this time. Patient's intra-aortic balloon pump was removed on 12/14/17 without complications , and he is doing quite well. Would recommend continuing Coreg to 6.25 mg p.o. twice daily, continuing Lasix 40 mg p.o. daily, and adding potassium 20 mEq p.o. twice daily for potassium replacement. Her his rhythm has normalized back to normal sinus rhythm and would recommend keeping his potassium above 4.0 and magnesium of 2.0. Given the patient's chronic renal insufficiency, I would not recommend DILAN inhibitor or ARB's at this time. I would however recommend initiating Imdur 30 mg p.o. daily and hydralazine 10 mg 3 times daily, titrating up from there. Given his chronic renal insufficiency, severe LV dysfunction recommend starting him on Lasix 40 mg p.o. daily. Would recommend discontinuation of metformin as this is relatively contraindicated in a patient with an EF around 25%. Physical therapy is ongoing, and the patient will most likely be transferred to a rehab center today. Once he has completed his inpatient rehab, we will make arrangements for him to undergo cardiopulmonary rehab as an outpatient. Once this is completed we will repeat his echocardiogram to determine if a combination of medications, afterload reduction, diuretic therapy, and exercise have improved his LV function. No plans for repeat catheterization at this time. 2. Thank you very much for the opportunity to participate in the cardiac care of your patient. Patient may be transferred to inpatient rehab once clinically stabilized. He has requested follow-up with Dr. Varela going forward. Code Visit Inpatient E&M: [id number] Subs Hosp L2
[2017-12-18 11:10] LABS: Bedside Glucose 213 mg/dL (70-110)
[2017-12-18] MEDS: Insulin Lispro 100 UNIT/ML INSULN.PEN SC (12:53)
--- NOTE | 2017-12-18 13:03 | PCM.TXEXTCAR ---
- Diet 12/14/17 11:46 Diet: Cardiac: Calorie-Controlled Food consistency:: Regular Liquid Consistency:: Regular/Thin Dietary Modifications:: Fluid Restricted Diet Is pt able to select menu?: Yes Diet Comments: 1500cc restriction, low sodium How many daily calories?: 2000 calorie - Routine Orders/Code Status Enema Type: Fleetz Enema Frequency: Daily PRN Suppository Type: Dulcolax 10mg Suppository Frequency: Daily PRN O2 Frequency: PRN Keep PO Greater than or Equal to (%): 92 Code Status: Full Code - Wound(s) Right Groin Wound Type: Puncture Coccyx Wound Type: Pressure Injury L upper lip Wound Type: Abrasion Rt inner calf just below knee Wound Type: Pressure Injury - Therapies Weight Bearing: Weight bearing as tolerated Physical Therapy: Eval and Treat Occupational Therapy: Eval and Treat - Allergies/Procedures Done in Hospital Allergies/Adverse Reactions: Allergies No Known Allergies Allergy (Verified 12/07/17 07:31) Procedures: 2-D Echocardiogram, Angiogram - Type of Care/Length of Stay Estimated LOS: Convalescent Care Less Than 30 days Type of Care Needed: Skilled Rehab Potential: Good Prognosis: Good - Additional Orders/Day of Discharge H&P will serve as current which was dated: 12/07/17 Day of Discharge: 12/18/17 - Dietary and Speech Recommendations Dietitian Recommendations/Changes: Continue 2000 calorie, cardiac/low sodium with 1500 ml FR as needed. Rec d/c [place] bid - does not seem indicated at this time. - Follow Up Care Primary Care Physician: Care Physician,No Primary [Primary Care Provider] - Please follow up with your Primary Care Physician in: one week Please Follow Up With: Lei Varela MD When: 1-2 weeks
--- NOTE | 2017-12-18 13:15 | DS.PCM_ITS ---
Discharge Date and Diagnosis Date of Admission: 03/15/15 Date of Discharge: 12/18/17 - Primary Discharge Diagnosis STEMI - Secondary Discharge Diagnosis Chronic Problems HLD (hyperlipidemia) (Chronic) Cardiomyopathy, ischemic (Chronic) S/P PTCA (percutaneous transluminal coronary angioplasty) (Chronic) CAD (coronary artery disease) (Chronic) CAD S/P percutaneous coronary angioplasty (Chronic) Hospital Course and Treatment Imaging Results: Diagnostic Data KUB X-Ray 12/07/17 12:13 IMPRESSION: The tip of the orogastric tube is in the body of the stomach just distal to the gastroesophageal junction. Electronically Signed: Cliff Pyle MD at 13:25 EDT Tel [phone], Service support , Chest X-Ray 12/14/17 05:55 IMPRESSION: The endotracheal tube as well as the oral gastric tube have been removed. The tip of the aortic balloon catheter is at the T8-T9 level. Stable pleural parenchymal changes at the left lung base with thickening of the right minor fissure. Electronically Signed: Cliff Pyle MD at 9:04 EDT Tel [phone], Service support , Laboratory Tests 12/07/17 12/07/17 12/07/17 08:07 08:10 08:10 WBC 9.6 RBC 4.16 L Hgb 12.9 L Hct 39.8 L MCV 95.7 H MCH 31.0 MCHC 32.4 RDW 15.6 H RDW Differential 53.5 H Plt Count 373 MPV 9.6 Immature Gran % (Auto) 0.700 Neut % (Auto) 63.3 Lymph % (Auto) 28.3 [place] % (Auto) 3.7 Eos % (Auto) 3.5 Baso % (Auto) 0.5 Absolute Neuts (auto) 6.1 Absolute Lymphs (auto) 2.72 Total Counted Not Reportable Differential Comment Diff Path Review Atypical Lymphocytes PT 15.7 H INR 1.3 APTT 74.0 H Activated Clotting Time Specimen Type ART Sample Site pH 7.11 L* Bicarbonate Actual 21.4 L POC Total CO2 23 Base Excess -8 L O2 Saturation 97 O2 % ABG pCO2 66.9 H ABG pO2 126 H VBG pH VBG pO2 VBG O2 Sat (Calc) VBG O2 Content VBG Base Excess POC Mix VBG pCO2 Pt Tmp Respiration Rate O2 Delivery Device Minute Volume Vent Mode Tidal Volume POC PEEP POC Pressure Suppt Blood Gas Notified Whom Blood Gas Notified Time Sodium Potassium Chloride Carbon Dioxide Anion Gap BUN Creatinine Estim Creat Clear Calc Est GFR (MDRD) Af Amer Est GFR (MDRD) Non-Af BUN/Creatinine Ratio Glucose Hemoglobin A1c Calcium Phosphorus Magnesium Total Bilirubin AST ALT Alkaline Phosphatase Troponin I Total Protein Albumin Globulin Albumin/Globulin Ratio Vancomycin Trough MRSA (PCR) POC Glucose 12/07/17 12/07/17 12/07/17 08:10 08:33 08:41 WBC RBC Hgb Hct MCV MCH MCHC RDW RDW Differential Plt Count MPV Immature Gran % (Auto) Neut % (Auto) Lymph % (Auto) [place] % (Auto) Eos % (Auto) Baso % (Auto) Absolute Neuts (auto) Absolute Lymphs (auto) Total Counted Differential Comment Diff Path Review Atypical Lymphocytes PT INR APTT Activated Clotting Time 125 Specimen Type ART Sample Site pH 7.17 L* Bicarbonate Actual 23.5 POC Total CO2 25 Base Excess -5 L O2 Saturation 60 L O2 % ABG pCO2 64.6 H ABG pO2 40 L VBG pH VBG pO2 VBG O2 Sat (Calc) VBG O2 Content VBG Base Excess POC Mix VBG pCO2 Pt Tmp Respiration Rate O2 Delivery Device Minute Volume Vent Mode Tidal Volume POC PEEP POC Pressure Suppt Blood Gas Notified Whom Blood Gas Notified Time Sodium 141 Potassium 3.5 Chloride 105 Carbon Dioxide 22.0 Anion Gap 14 BUN 13 Creatinine 1.10 Estim Creat Clear Calc 66.55 Est GFR (MDRD) Af Amer 85 Est GFR (MDRD) Non-Af 70 BUN/Creatinine Ratio 11.8 Glucose 336 H Hemoglobin A1c Calcium 7.9 L Phosphorus Magnesium Total Bilirubin AST ALT Alkaline Phosphatase Troponin I 0.061 H Total Protein Albumin Globulin Albumin/Globulin Ratio Vancomycin Trough MRSA (PCR) POC Glucose 12/07/17 12/07/17 12/07/17 08:45 10:00 11:30 WBC RBC Hgb Hct MCV MCH MCHC RDW RDW Differential Plt Count MPV Immature Gran % (Auto) Neut % (Auto) Lymph % (Auto) [place] % (Auto) Eos % (Auto) Baso % (Auto) Absolute Neuts (auto) Absolute Lymphs (auto) Total Counted Differential Comment Diff Path Review Atypical Lymphocytes PT INR APTT Activated Clotting Time Specimen Type DALILA Sample Site pH Bicarbonate Actual POC Total CO2 Base Excess O2 Saturation O2 % ABG pCO2 ABG pO2 VBG pH 7.18 L* VBG pO2 43 H VBG O2 Sat (Calc) 65 VBG O2 Content 26 VBG Base Excess -4 L POC Mix VBG pCO2 Pt Tmp 63.9 H Respiration Rate O2 Delivery Device Minute Volume Vent Mode Tidal Volume POC PEEP POC Pressure Suppt Blood Gas Notified Whom Blood Gas Notified Time Sodium Potassium Chloride Carbon Dioxide Anion Gap BUN Creatinine Estim Creat Clear Calc Est GFR (MDRD) Af Amer Est GFR (MDRD) Non-Af BUN/Creatinine Ratio Glucose Hemoglobin A1c Calcium Phosphorus Magnesium Total Bilirubin AST ALT Alkaline Phosphatase Troponin I 1.240 H* Total Protein Albumin Globulin Albumin/Globulin Ratio Vancomycin Trough MRSA (PCR) Negative POC Glucose 12/07/17 12/07/17 12/07/17 11:52 14:00 14:00 WBC RBC Hgb Hct MCV MCH MCHC RDW RDW Differential Plt Count MPV Immature Gran % (Auto) Neut % (Auto) Lymph % (Auto) [place] % (Auto) Eos % (Auto) Baso % (Auto) Absolute Neuts (auto) Absolute Lymphs (auto) Total Counted Differential Comment Diff Path Review Atypical Lymphocytes PT INR APTT 169.0 H* Activated Clotting Time Specimen Type ROCIO Sample Site R Femoral pH 7.38 Bicarbonate Actual 24.7 POC Total CO2 26 Base Excess 0 O2 Saturation 67 L O2 % 100 ABG pCO2 42.1 ABG pO2 35 L* VBG pH VBG pO2 VBG O2 Sat (Calc) VBG O2 Content VBG Base Excess POC Mix VBG pCO2 Pt Tmp Respiration Rate 14 O2 Delivery Device Vent Minute Volume 11.00 Vent Mode A-C Tidal Volume 500 POC PEEP 5 POC Pressure Suppt Blood Gas Notified Whom ICU MD Blood Gas Notified Time 1150 Sodium Potassium Chloride Carbon Dioxide Anion Gap BUN Creatinine Estim Creat Clear Calc Est GFR (MDRD) Af Amer Est GFR (MDRD) Non-Af BUN/Creatinine Ratio Glucose Hemoglobin A1c Calcium Phosphorus Magnesium Total Bilirubin AST ALT Alkaline Phosphatase Troponin I 3.220 H* Total Protein Albumin Globulin Albumin/Globulin Ratio Vancomycin Trough MRSA (PCR) POC Glucose 12/07/17 12/07/17 12/07/17 20:03 20:03 20:59 WBC RBC Hgb Hct MCV MCH MCHC RDW RDW Differential Plt Count MPV Immature Gran % (Auto) Neut % (Auto) Lymph % (Auto) [place] % (Auto) Eos % (Auto) Baso % (Auto) Absolute Neuts (auto) Absolute Lymphs (auto) Total Counted Differential Comment Diff Path Review Atypical Lymphocytes PT INR APTT 24.9 Cancelled Activated Clotting Time Specimen Type Sample Site pH Bicarbonate Actual POC Total CO2 Base Excess O2 Saturation O2 % ABG pCO2 ABG pO2 VBG pH VBG pO2 VBG O2 Sat (Calc) VBG O2 Content VBG Base Excess POC Mix VBG pCO2 Pt Tmp Respiration Rate O2 Delivery Device Minute Volume Vent Mode Tidal Volume POC PEEP POC Pressure Suppt Blood Gas Notified Whom Blood Gas Notified Time Sodium Potassium Chloride Carbon Dioxide Anion Gap BUN Creatinine Estim Creat Clear Calc Est GFR (MDRD) Af Amer Est GFR (MDRD) Non-Af BUN/Creatinine Ratio Glucose Hemoglobin A1c Calcium Phosphorus Magnesium Total Bilirubin AST ALT Alkaline Phosphatase Troponin I 3.990 H* Total Protein Albumin Globulin Albumin/Globulin Ratio Vancomycin Trough MRSA (PCR) POC Glucose 12/07/17 12/07/17 12/08/17 21:27 23:54 04:10 WBC RBC Hgb Hct MCV MCH MCHC RDW RDW Differential Plt Count MPV Immature Gran % (Auto) Neut % (Auto) Lymph % (Auto) [place] % (Auto) Eos % (Auto) Baso % (Auto) Absolute Neuts (auto) Absolute Lymphs (auto) Total Counted Differential Comment Diff Path Review Atypical Lymphocytes PT INR APTT > 250.0 H* Activated Clotting Time Specimen Type Sample Site pH Bicarbonate Actual POC Total CO2 Base Excess O2 Saturation O2 % ABG pCO2 ABG pO2 VBG pH VBG pO2 VBG O2 Sat (Calc) VBG O2 Content VBG Base Excess POC Mix VBG pCO2 Pt Tmp Respiration Rate O2 Delivery Device Minute Volume Vent Mode Tidal Volume POC PEEP POC Pressure Suppt Blood Gas Notified Whom Blood Gas Notified Time Sodium 140 Potassium 5.0 Chloride 105 Carbon Dioxide 24.0 Anion Gap 11 BUN 24 H Creatinine 1.21 Estim Creat Clear Calc 60.50 Est GFR (MDRD) Af Amer 76 Est GFR (MDRD) Non-Af 63 BUN/Creatinine Ratio 19.8 Glucose 159 H Hemoglobin A1c Calcium 8.1 L Phosphorus Magnesium Total Bilirubin AST ALT Alkaline Phosphatase Troponin I Total Protein Albumin Globulin Albumin/Globulin Ratio Vancomycin Trough MRSA (PCR) POC Glucose 144 H 12/08/17 12/08/17 12/08/17 04:10 04:10 05:36 WBC 15.2 H RBC 3.99 L Hgb 12.5 L Hct 38.0 L MCV 95.2 H MCH 31.3 MCHC 32.9 RDW 16.1 H RDW Differential 53.8 H Plt Count 260 MPV 9.7 Immature Gran % (Auto) Neut % (Auto) Lymph % (Auto) [place] % (Auto) Eos % (Auto) Baso % (Auto) Absolute Neuts (auto) Absolute Lymphs (auto) Total Counted Differential Comment Diff Path Review Atypical Lymphocytes PT INR APTT 23.1 L Activated Clotting Time Specimen Type Sample Site pH Bicarbonate Actual POC Total CO2 Base Excess O2 Saturation O2 % ABG pCO2 ABG pO2 VBG pH VBG pO2 VBG O2 Sat (Calc) VBG O2 Content VBG Base Excess POC Mix VBG pCO2 Pt Tmp Respiration Rate O2 Delivery Device Minute Volume Vent Mode Tidal Volume POC PEEP POC Pressure Suppt Blood Gas Notified Whom Blood Gas Notified Time Sodium Potassium Chloride Carbon Dioxide Anion Gap BUN Creatinine Estim Creat Clear Calc Est GFR (MDRD) Af Amer Est GFR (MDRD) Non-Af BUN/Creatinine Ratio Glucose Hemoglobin A1c Calcium Phosphorus Magnesium Total Bilirubin AST ALT Alkaline Phosphatase Troponin I Total Protein Albumin Globulin Albumin/Globulin Ratio Vancomycin Trough MRSA (PCR) POC Glucose 171 H 12/08/17 12/08/17 12/08/17 11:40 12:10 17:17 WBC RBC Hgb Hct MCV MCH MCHC RDW RDW Differential Plt Count MPV Immature Gran % (Auto) Neut % (Auto) Lymph % (Auto) [place] % (Auto) Eos % (Auto) Baso % (Auto) Absolute Neuts (auto) Absolute Lymphs (auto) Total Counted Differential Comment Diff Path Review Atypical Lymphocytes PT INR APTT 25.1 Activated Clotting Time Specimen Type Sample Site pH Bicarbonate Actual POC Total CO2 Base Excess O2 Saturation O2 % ABG pCO2 ABG pO2 VBG pH VBG pO2 VBG O2 Sat (Calc) VBG O2 Content VBG Base Excess POC Mix VBG pCO2 Pt Tmp Respiration Rate O2 Delivery Device Minute Volume Vent Mode Tidal Volume POC PEEP POC Pressure Suppt Blood Gas Notified Whom Blood Gas Notified Time Sodium Potassium Chloride Carbon Dioxide Anion Gap BUN Creatinine Estim Creat Clear Calc Est GFR (MDRD) Af Amer Est GFR (MDRD) Non-Af BUN/Creatinine Ratio Glucose Hemoglobin A1c Calcium Phosphorus Magnesium Total Bilirubin AST ALT Alkaline Phosphatase Troponin I Total Protein Albumin Globulin Albumin/Globulin Ratio Vancomycin Trough MRSA (PCR) POC Glucose 139 H 142 H 12/08/17 12/08/17 12/09/17 18:00 18:00 00:02 WBC RBC Hgb Hct MCV MCH MCHC RDW RDW Differential Plt Count MPV Immature Gran % (Auto) Neut % (Auto) Lymph % (Auto) [place] % (Auto) Eos % (Auto) Baso % (Auto) Absolute Neuts (auto) Absolute Lymphs (auto) Total Counted Differential Comment Diff Path Review Atypical Lymphocytes PT INR APTT 27.3 Activated Clotting Time Specimen Type Sample Site pH Bicarbonate Actual POC Total CO2 Base Excess O2 Saturation O2 % ABG pCO2 ABG pO2 VBG pH VBG pO2 VBG O2 Sat (Calc) VBG O2 Content VBG Base Excess POC Mix VBG pCO2 Pt Tmp Respiration Rate O2 Delivery Device Minute Volume Vent Mode Tidal Volume POC PEEP POC Pressure Suppt Blood Gas Notified Whom Blood Gas Notified Time Sodium 141 Potassium 4.5 Chloride 105 Carbon Dioxide 25.0 Anion Gap 11 BUN 31 H Creatinine 1.60 H Estim Creat Clear Calc 45.76 Est GFR (MDRD) Af Amer 55 L Est GFR (MDRD) Non-Af 46 L BUN/Creatinine Ratio 19.4 Glucose 155 H Hemoglobin A1c Calcium 7.9 L Phosphorus Magnesium 1.7 Total Bilirubin AST ALT Alkaline Phosphatase Troponin I Total Protein Albumin Globulin Albumin/Globulin Ratio Vancomycin Trough MRSA (PCR) POC Glucose 172 H 12/09/17 12/09/17 12/09/17 01:15 04:35 04:35 WBC 12.6 H RBC 3.91 L Hgb 12.0 L Hct 37.1 L MCV 94.9 H MCH 30.7 MCHC 32.3 RDW 16.3 H RDW Differential 54.9 H Plt Count 234 MPV 9.8 Immature Gran % (Auto) Neut % (Auto) Lymph % (Auto) [place] % (Auto) Eos % (Auto) Baso % (Auto) Absolute Neuts (auto) Absolute Lymphs (auto) Total Counted Differential Comment Diff Path Review Atypical Lymphocytes PT INR APTT 22.7 L Activated Clotting Time Specimen Type Sample Site pH Bicarbonate Actual POC Total CO2 Base Excess O2 Saturation O2 % ABG pCO2 ABG pO2 VBG pH VBG pO2 VBG O2 Sat (Calc) VBG O2 Content VBG Base Excess POC Mix VBG pCO2 Pt Tmp Respiration Rate O2 Delivery Device Minute Volume Vent Mode Tidal Volume POC PEEP POC Pressure Suppt Blood Gas Notified Whom Blood Gas Notified Time Sodium 138 Potassium 4.1 Chloride 102 Carbon Dioxide 23.0 Anion Gap 13 BUN 34 H Creatinine 1.54 H Estim Creat Clear Calc 47.54 Est GFR (MDRD) Af Amer 58 L Est GFR (MDRD) Non-Af 48 L BUN/Creatinine Ratio 22.1 H Glucose 235 H Hemoglobin A1c Calcium 7.9 L Phosphorus 3.1 Magnesium 1.5 L Total Bilirubin AST ALT Alkaline Phosphatase Troponin I Total Protein Albumin Globulin Albumin/Globulin Ratio Vancomycin Trough MRSA (PCR) POC Glucose 12/09/17 12/09/17 12/09/17 05:50 08:30 08:55 WBC RBC Hgb Hct MCV MCH MCHC RDW RDW Differential Plt Count MPV Immature Gran % (Auto) Neut % (Auto) Lymph % (Auto) [place] % (Auto) Eos % (Auto) Baso % (Auto) Absolute Neuts (auto) Absolute Lymphs (auto) Total Counted Differential Comment Diff Path Review Atypical Lymphocytes PT INR APTT Cancelled Cancelled Activated Clotting Time Specimen Type Sample Site pH Bicarbonate Actual POC Total CO2 Base Excess O2 Saturation O2 % ABG pCO2 ABG pO2 VBG pH VBG pO2 VBG O2 Sat (Calc) VBG O2 Content VBG Base Excess POC Mix VBG pCO2 Pt Tmp Respiration Rate O2 Delivery Device Minute Volume Vent Mode Tidal Volume POC PEEP POC Pressure Suppt Blood Gas Notified Whom Blood Gas Notified Time Sodium Potassium Chloride Carbon Dioxide Anion Gap BUN Creatinine Estim Creat Clear Calc Est GFR (MDRD) Af Amer Est GFR (MDRD) Non-Af BUN/Creatinine Ratio Glucose Hemoglobin A1c Calcium Phosphorus Magnesium Total Bilirubin AST ALT Alkaline Phosphatase Troponin I Total Protein Albumin Globulin Albumin/Globulin Ratio Vancomycin Trough MRSA (PCR) POC Glucose 187 H 12/09/17 12/09/17 12/09/17 09:50 10:46 12:22 WBC RBC Hgb Hct MCV MCH MCHC RDW RDW Differential Plt Count MPV Immature Gran % (Auto) Neut % (Auto) Lymph % (Auto) [place] % (Auto) Eos % (Auto) Baso % (Auto) Absolute Neuts (auto) Absolute Lymphs (auto) Total Counted Differential Comment Diff Path Review Atypical Lymphocytes PT INR APTT 48.3 H Activated Clotting Time Specimen Type Sample Site pH Bicarbonate Actual POC Total CO2 Base Excess O2 Saturation O2 % ABG pCO2 ABG pO2 VBG pH VBG pO2 VBG O2 Sat (Calc) VBG O2 Content VBG Base Excess POC Mix VBG pCO2 Pt Tmp Respiration Rate O2 Delivery Device Minute Volume Vent Mode Tidal Volume POC PEEP POC Pressure Suppt Blood Gas Notified Whom Blood Gas Notified Time Sodium Potassium Chloride Carbon Dioxide Anion Gap BUN Creatinine Estim Creat Clear Calc Est GFR (MDRD) Af Amer Est GFR (MDRD) Non-Af BUN/Creatinine Ratio Glucose Hemoglobin A1c Calcium Phosphorus Magnesium Total Bilirubin AST ALT Alkaline Phosphatase Troponin I Total Protein Albumin Globulin Albumin/Globulin Ratio Vancomycin Trough MRSA (PCR) POC Glucose 257 H 241 H 12/09/17 12/09/17 12/09/17 17:25 17:27 23:44 WBC RBC Hgb Hct MCV MCH MCHC RDW RDW Differential Plt Count MPV Immature Gran % (Auto) Neut % (Auto) Lymph % (Auto) [place] % (Auto) Eos % (Auto) Baso % (Auto) Absolute Neuts (auto) Absolute Lymphs (auto) Total Counted Differential Comment Diff Path Review Atypical Lymphocytes PT INR APTT 44.1 H Activated Clotting Time Specimen Type Sample Site pH Bicarbonate Actual POC Total CO2 Base Excess O2 Saturation O2 % ABG pCO2 ABG pO2 VBG pH VBG pO2 VBG O2 Sat (Calc) VBG O2 Content VBG Base Excess POC Mix VBG pCO2 Pt Tmp Respiration Rate O2 Delivery Device Minute Volume Vent Mode Tidal Volume POC PEEP POC Pressure Suppt Blood Gas Notified Whom Blood Gas Notified Time Sodium Potassium Chloride Carbon Dioxide Anion Gap BUN Creatinine Estim Creat Clear Calc Est GFR (MDRD) Af Amer Est GFR (MDRD) Non-Af BUN/Creatinine Ratio Glucose Hemoglobin A1c Calcium Phosphorus Magnesium Total Bilirubin AST ALT Alkaline Phosphatase Troponin I Total Protein Albumin Globulin Albumin/Globulin Ratio Vancomycin Trough MRSA (PCR) POC Glucose 256 H 272 H 12/10/17 12/10/17 12/10/17 01:15 04:30 04:30 WBC 18.5 H RBC 3.86 L Hgb 11.6 L Hct 36.4 L MCV 94.3 H MCH 30.1 MCHC 31.9 L RDW 16.3 H RDW Differential 56.5 H Plt Count 216 MPV 10.5 Immature Gran % (Auto) 0.400 Neut % (Auto) 79.6 H Lymph % (Auto) 9.0 L [place] % (Auto) 9.4 Eos % (Auto) 1.4 Baso % (Auto) 0.2 Absolute Neuts (auto) 14.7 H Absolute Lymphs (auto) 1.67 Total Counted Not Reportable Differential Comment SCANNED Diff Path Review Atypical Lymphocytes PT INR APTT 52.5 H Activated Clotting Time Specimen Type Sample Site pH Bicarbonate Actual POC Total CO2 Base Excess O2 Saturation O2 % ABG pCO2 ABG pO2 VBG pH VBG pO2 VBG O2 Sat (Calc) VBG O2 Content VBG Base Excess POC Mix VBG pCO2 Pt Tmp Respiration Rate O2 Delivery Device Minute Volume Vent Mode Tidal Volume POC PEEP POC Pressure Suppt Blood Gas Notified Whom Blood Gas Notified Time Sodium 135 L Potassium 3.9 Chloride 98 Carbon Dioxide 24.0 Anion Gap 13 BUN 41 H Creatinine 1.73 H Estim Creat Clear Calc 42.32 Est GFR (MDRD) Af Amer 50 L Est GFR (MDRD) Non-Af 42 L BUN/Creatinine Ratio 23.7 H Glucose 277 H Hemoglobin A1c Calcium 7.5 L Phosphorus Magnesium Total Bilirubin AST ALT Alkaline Phosphatase Troponin I Total Protein Albumin Globulin Albumin/Globulin Ratio Vancomycin Trough MRSA (PCR) POC Glucose 12/10/17 12/10/17 12/10/17 04:30 07:28 09:30 WBC RBC Hgb Hct MCV MCH MCHC RDW RDW Differential Plt Count MPV Immature Gran % (Auto) Neut % (Auto) Lymph % (Auto) [place] % (Auto) Eos % (Auto) Baso % (Auto) Absolute Neuts (auto) Absolute Lymphs (auto) Total Counted Differential Comment Diff Path Review Atypical Lymphocytes PT INR APTT 76.1 H Activated Clotting Time Specimen Type Sample Site pH Bicarbonate Actual POC Total CO2 Base Excess O2 Saturation O2 % ABG pCO2 ABG pO2 VBG pH VBG pO2 VBG O2 Sat (Calc) VBG O2 Content VBG Base Excess POC Mix VBG pCO2 Pt Tmp Respiration Rate O2 Delivery Device Minute Volume Vent Mode Tidal Volume POC PEEP POC Pressure Suppt Blood Gas Notified Whom Blood Gas Notified Time Sodium Potassium Chloride Carbon Dioxide Anion Gap BUN Creatinine Estim Creat Clear Calc Est GFR (MDRD) Af Amer Est GFR (MDRD) Non-Af BUN/Creatinine Ratio Glucose Hemoglobin A1c Calcium Phosphorus 3.3 Magnesium 1.7 Total Bilirubin AST ALT Alkaline Phosphatase Troponin I Total Protein Albumin Globulin Albumin/Globulin Ratio Vancomycin Trough MRSA (PCR) POC Glucose 261 H 12/10/17 12/10/17 12/10/17 11:41 16:45 17:06 WBC RBC Hgb Hct MCV MCH MCHC RDW RDW Differential Plt Count MPV Immature Gran % (Auto) Neut % (Auto) Lymph % (Auto) [place] % (Auto) Eos % (Auto) Baso % (Auto) Absolute Neuts (auto) Absolute Lymphs (auto) Total Counted Differential Comment Diff Path Review Atypical Lymphocytes PT INR APTT 56.0 H Activated Clotting Time Specimen Type Sample Site pH Bicarbonate Actual POC Total CO2 Base Excess O2 Saturation O2 % ABG pCO2 ABG pO2 VBG pH VBG pO2 VBG O2 Sat (Calc) VBG O2 Content VBG Base Excess POC Mix VBG pCO2 Pt Tmp Respiration Rate O2 Delivery Device Minute Volume Vent Mode Tidal Volume POC PEEP POC Pressure Suppt Blood Gas Notified Whom Blood Gas Notified Time Sodium Potassium Chloride Carbon Dioxide Anion Gap BUN Creatinine Estim Creat Clear Calc Est GFR (MDRD) Af Amer Est GFR (MDRD) Non-Af BUN/Creatinine Ratio Glucose Hemoglobin A1c Calcium Phosphorus Magnesium Total Bilirubin AST ALT Alkaline Phosphatase Troponin I Total Protein Albumin Globulin Albumin/Globulin Ratio Vancomycin Trough MRSA (PCR) POC Glucose 257 H 304 H 12/10/17 12/10/17 12/10/17 21:00 23:00 23:39 WBC RBC Hgb Hct MCV MCH MCHC RDW RDW Differential Plt Count MPV Immature Gran % (Auto) Neut % (Auto) Lymph % (Auto) [place] % (Auto) Eos % (Auto) Baso % (Auto) Absolute Neuts (auto) Absolute Lymphs (auto) Total Counted Differential Comment Diff Path Review Atypical Lymphocytes PT INR APTT 55.1 H Activated Clotting Time Specimen Type Sample Site pH Bicarbonate Actual POC Total CO2 Base Excess O2 Saturation O2 % ABG pCO2 ABG pO2 VBG pH VBG pO2 VBG O2 Sat (Calc) VBG O2 Content VBG Base Excess POC Mix VBG pCO2 Pt Tmp Respiration Rate O2 Delivery Device Minute Volume Vent Mode Tidal Volume POC PEEP POC Pressure Suppt Blood Gas Notified Whom Blood Gas Notified Time Sodium Potassium Chloride Carbon Dioxide Anion Gap BUN Creatinine Estim Creat Clear Calc Est GFR (MDRD) Af Amer Est GFR (MDRD) Non-Af BUN/Creatinine Ratio Glucose Hemoglobin A1c Calcium Phosphorus Magnesium Total Bilirubin AST ALT Alkaline Phosphatase Troponin I Total Protein Albumin Globulin Albumin/Globulin Ratio Vancomycin Trough 20.6 H MRSA (PCR) POC Glucose 287 H 12/11/17 12/11/17 12/11/17 04:05 04:05 04:05 WBC 17.2 H RBC 3.65 L Hgb 10.9 L Hct 34.1 L MCV 93.4 MCH 29.9 MCHC 32.0 RDW 16.4 H RDW Differential 56.8 H Plt Count 187 MPV 10.3 Immature Gran % (Auto) 0.500 Neut % (Auto) 77.3 H Lymph % (Auto) 8.6 L [place] % (Auto) 11.0 H Eos % (Auto) 2.4 Baso % (Auto) 0.2 Absolute Neuts (auto) 13.3 H Absolute Lymphs (auto) 1.49 Total Counted Not Reportable Differential Comment SCANNED Diff Path Review Reviewed Atypical Lymphocytes PT INR APTT 62.1 H Activated Clotting Time Specimen Type Sample Site pH Bicarbonate Actual POC Total CO2 Base Excess O2 Saturation O2 % ABG pCO2 ABG pO2 VBG pH VBG pO2 VBG O2 Sat (Calc) VBG O2 Content VBG Base Excess POC Mix VBG pCO2 Pt Tmp Respiration Rate O2 Delivery Device Minute Volume Vent Mode Tidal Volume POC PEEP POC Pressure Suppt Blood Gas Notified Whom Blood Gas Notified Time Sodium 133 L Potassium 4.1 Chloride 97 L Carbon Dioxide 22.0 Anion Gap 14 BUN 50 H Creatinine 2.63 H Estim Creat Clear Calc 27.84 Est GFR (MDRD) Af Amer 31 L Est GFR (MDRD) Non-Af 26 L BUN/Creatinine Ratio 19.0 Glucose 281 H Hemoglobin A1c Calcium 7.5 L Phosphorus Magnesium Total Bilirubin 0.80 AST 84 H ALT 29 Alkaline Phosphatase 93 Troponin I Total Protein 6.3 L Albumin 2.2 L Globulin 4.1 Albumin/Globulin Ratio 0.5 L Vancomycin Trough MRSA (PCR) POC Glucose 12/11/17 12/11/17 12/11/17 05:23 12:18 17:52 WBC RBC Hgb Hct MCV MCH MCHC RDW RDW Differential Plt Count MPV Immature Gran % (Auto) Neut % (Auto) Lymph % (Auto) [place] % (Auto) Eos % (Auto) Baso % (Auto) Absolute Neuts (auto) Absolute Lymphs (auto) Total Counted Differential Comment Diff Path Review Atypical Lymphocytes PT INR APTT Activated Clotting Time Specimen Type Sample Site pH Bicarbonate Actual POC Total CO2 Base Excess O2 Saturation O2 % ABG pCO2 ABG pO2 VBG pH VBG pO2 VBG O2 Sat (Calc) VBG O2 Content VBG Base Excess POC Mix VBG pCO2 Pt Tmp Respiration Rate O2 Delivery Device Minute Volume Vent Mode Tidal Volume POC PEEP POC Pressure Suppt Blood Gas Notified Whom Blood Gas Notified Time Sodium Potassium Chloride Carbon Dioxide Anion Gap BUN Creatinine Estim Creat Clear Calc Est GFR (MDRD) Af Amer Est GFR (MDRD) Non-Af BUN/Creatinine Ratio Glucose Hemoglobin A1c Calcium Phosphorus Magnesium Total Bilirubin AST ALT Alkaline Phosphatase Troponin I Total Protein Albumin Globulin Albumin/Globulin Ratio Vancomycin Trough MRSA (PCR) POC Glucose 277 H 303 H 303 H 12/11/17 12/12/17 12/12/17 18:45 00:16 01:05 WBC RBC Hgb Hct MCV MCH MCHC RDW RDW Differential Plt Count MPV Immature Gran % (Auto) Neut % (Auto) Lymph % (Auto) [place] % (Auto) Eos % (Auto) Baso % (Auto) Absolute Neuts (auto) Absolute Lymphs (auto) Total Counted Differential Comment Diff Path Review Atypical Lymphocytes PT INR APTT 55.3 H 78.4 H Activated Clotting Time Specimen Type Sample Site pH Bicarbonate Actual POC Total CO2 Base Excess O2 Saturation O2 % ABG pCO2 ABG pO2 VBG pH VBG pO2 VBG O2 Sat (Calc) VBG O2 Content VBG Base Excess POC Mix VBG pCO2 Pt Tmp Respiration Rate O2 Delivery Device Minute Volume Vent Mode Tidal Volume POC PEEP POC Pressure Suppt Blood Gas Notified Whom Blood Gas Notified Time Sodium Potassium Chloride Carbon Dioxide Anion Gap BUN Creatinine Estim Creat Clear Calc Est GFR (MDRD) Af Amer Est GFR (MDRD) Non-Af BUN/Creatinine Ratio Glucose Hemoglobin A1c Calcium Phosphorus Magnesium Total Bilirubin AST ALT Alkaline Phosphatase Troponin I Total Protein Albumin Globulin Albumin/Globulin Ratio Vancomycin Trough MRSA (PCR) POC Glucose 293 H 12/12/17 12/12/17 12/12/17 04:10 04:10 05:38 WBC 12.8 H RBC 3.35 L Hgb 10.2 L Hct 30.9 L MCV 91.4 MCH 29.9 MCHC 33.1 RDW 16.5 H RDW Differential 53.9 H Plt Count 174 MPV 10.4 Immature Gran % (Auto) 0.800 Neut % (Auto) 77.1 H Lymph % (Auto) 7.6 L [place] % (Auto) 10.0 Eos % (Auto) 3.9 Baso % (Auto) 0.2 Absolute Neuts (auto) 10.1 H Absolute Lymphs (auto) 0.97 Total Counted Not Reportable Differential Comment Diff Path Review Atypical Lymphocytes PT INR APTT Activated Clotting Time Specimen Type Sample Site pH Bicarbonate Actual POC Total CO2 Base Excess O2 Saturation O2 % ABG pCO2 ABG pO2 VBG pH VBG pO2 VBG O2 Sat (Calc) VBG O2 Content VBG Base Excess POC Mix VBG pCO2 Pt Tmp Respiration Rate O2 Delivery Device Minute Volume Vent Mode Tidal Volume POC PEEP POC Pressure Suppt Blood Gas Notified Whom Blood Gas Notified Time Sodium 136 Potassium 4.0 Chloride 101 Carbon Dioxide 24.0 Anion Gap 11 BUN 50 H Creatinine 2.71 H Estim Creat Clear Calc 27.01 Est GFR (MDRD) Af Amer 30 L Est GFR (MDRD) Non-Af 25 L BUN/Creatinine Ratio 18.5 Glucose 272 H Hemoglobin A1c Calcium 7.8 L Phosphorus Magnesium Total Bilirubin 0.70 AST 79 H ALT 29 Alkaline Phosphatase 105 Troponin I Total Protein 6.1 L Albumin 2.0 L Globulin 4.1 Albumin/Globulin Ratio 0.5 L Vancomycin Trough MRSA (PCR) POC Glucose 282 H 12/12/17 12/12/17 12/12/17 09:30 12:32 16:40 WBC RBC Hgb Hct MCV MCH MCHC RDW RDW Differential Plt Count MPV Immature Gran % (Auto) Neut % (Auto) Lymph % (Auto) [place] % (Auto) Eos % (Auto) Baso % (Auto) Absolute Neuts (auto) Absolute Lymphs (auto) Total Counted Differential Comment Diff Path Review Atypical Lymphocytes PT INR APTT 76.9 H 74.2 H Activated Clotting Time Specimen Type Sample Site pH Bicarbonate Actual POC Total CO2 Base Excess O2 Saturation O2 % ABG pCO2 ABG pO2 VBG pH VBG pO2 VBG O2 Sat (Calc) VBG O2 Content VBG Base Excess POC Mix VBG pCO2 Pt Tmp Respiration Rate O2 Delivery Device Minute Volume Vent Mode Tidal Volume POC PEEP POC Pressure Suppt Blood Gas Notified Whom Blood Gas Notified Time Sodium Potassium Chloride Carbon Dioxide Anion Gap BUN Creatinine Estim Creat Clear Calc Est GFR (MDRD) Af Amer Est GFR (MDRD) Non-Af BUN/Creatinine Ratio Glucose Hemoglobin A1c Calcium Phosphorus Magnesium Total Bilirubin AST ALT Alkaline Phosphatase Troponin I Total Protein Albumin Globulin Albumin/Globulin Ratio Vancomycin Trough MRSA (PCR) POC Glucose 281 H 12/12/17 12/12/17 12/12/17 18:15 20:57 23:49 WBC RBC Hgb Hct MCV MCH MCHC RDW RDW Differential Plt Count MPV Immature Gran % (Auto) Neut % (Auto) Lymph % (Auto) [place] % (Auto) Eos % (Auto) Baso % (Auto) Absolute Neuts (auto) Absolute Lymphs (auto) Total Counted Differential Comment Diff Path Review Atypical Lymphocytes PT INR APTT Activated Clotting Time Specimen Type Sample Site pH Bicarbonate Actual POC Total CO2 Base Excess O2 Saturation O2 % ABG pCO2 ABG pO2 VBG pH VBG pO2 VBG O2 Sat (Calc) VBG O2 Content VBG Base Excess POC Mix VBG pCO2 Pt Tmp Respiration Rate O2 Delivery Device Minute Volume Vent Mode Tidal Volume POC PEEP POC Pressure Suppt Blood Gas Notified Whom Blood Gas Notified Time Sodium Potassium Chloride Carbon Dioxide Anion Gap BUN Creatinine Estim Creat Clear Calc Est GFR (MDRD) Af Amer Est GFR (MDRD) Non-Af BUN/Creatinine Ratio Glucose Hemoglobin A1c Calcium Phosphorus Magnesium Total Bilirubin AST ALT Alkaline Phosphatase Troponin I Total Protein Albumin Globulin Albumin/Globulin Ratio Vancomycin Trough MRSA (PCR) POC Glucose 268 H 258 H 201 H 12/12/17 12/13/17 12/13/17 23:50 04:20 04:20 WBC 11.3 H RBC 3.37 L Hgb 10.0 L Hct 30.8 L MCV 91.4 MCH 29.7 MCHC 32.5 RDW 16.5 H RDW Differential 54.4 H Plt Count 174 MPV 10.4 Immature Gran % (Auto) 1.100 H Neut % (Auto) 72.0 H Lymph % (Auto) 9.5 L [place] % (Auto) 12.7 H Eos % (Auto) 4.3 Baso % (Auto) 0.4 Absolute Neuts (auto) 8.1 H Absolute Lymphs (auto) 1.07 Total Counted Not Reportable Differential Comment Diff Path Review Atypical Lymphocytes PT INR APTT 69.2 H Activated Clotting Time Specimen Type Sample Site pH Bicarbonate Actual POC Total CO2 Base Excess O2 Saturation O2 % ABG pCO2 ABG pO2 VBG pH VBG pO2 VBG O2 Sat (Calc) VBG O2 Content VBG Base Excess POC Mix VBG pCO2 Pt Tmp Respiration Rate O2 Delivery Device Minute Volume Vent Mode Tidal Volume POC PEEP POC Pressure Suppt Blood Gas Notified Whom Blood Gas Notified Time Sodium 139 Potassium 4.1 Chloride 103 Carbon Dioxide 26.0 Anion Gap 10 BUN 51 H Creatinine 2.39 H Estim Creat Clear Calc 30.63 Est GFR (MDRD) Af Amer 35 L Est GFR (MDRD) Non-Af 29 L BUN/Creatinine Ratio 21.3 H Glucose 254 H Hemoglobin A1c Calcium 8.3 L Phosphorus Magnesium Total Bilirubin 0.70 AST 78 H ALT 37 Alkaline Phosphatase 129 H Troponin I Total Protein 6.2 L Albumin 2.0 L Globulin 4.2 Albumin/Globulin Ratio 0.5 L Vancomycin Trough MRSA (PCR) POC Glucose 12/13/17 12/13/17 12/13/17 05:17 06:55 08:40 WBC RBC Hgb Hct MCV MCH MCHC RDW RDW Differential Plt Count MPV Immature Gran % (Auto) Neut % (Auto) Lymph % (Auto) [place] % (Auto) Eos % (Auto) Baso % (Auto) Absolute Neuts (auto) Absolute Lymphs (auto) Total Counted Differential Comment Diff Path Review Atypical Lymphocytes PT INR APTT 52.2 H Activated Clotting Time Specimen Type ROCIO Sample Site OTHER pH 7.48 H Bicarbonate Actual 23.7 POC Total CO2 25 Base Excess 0 O2 Saturation 97 O2 % 30 ABG pCO2 32.0 L ABG pO2 80 VBG pH VBG pO2 VBG O2 Sat (Calc) VBG O2 Content VBG Base Excess POC Mix VBG pCO2 Pt Tmp Respiration Rate O2 Delivery Device Vent Minute Volume Vent Mode CPAP PS Tidal Volume POC PEEP 5 POC Pressure Suppt 5 Blood Gas Notified Whom ICU Blood Gas Notified Time 839 Sodium Potassium Chloride Carbon Dioxide Anion Gap BUN Creatinine Estim Creat Clear Calc Est GFR (MDRD) Af Amer Est GFR (MDRD) Non-Af BUN/Creatinine Ratio Glucose Hemoglobin A1c Calcium Phosphorus Magnesium Total Bilirubin AST ALT Alkaline Phosphatase Troponin I Total Protein Albumin Globulin Albumin/Globulin Ratio Vancomycin Trough MRSA (PCR) POC Glucose 232 H 12/13/17 12/13/17 12/13/17 11:35 12:15 18:00 WBC RBC Hgb Hct MCV MCH MCHC RDW RDW Differential Plt Count MPV Immature Gran % (Auto) Neut % (Auto) Lymph % (Auto) [place] % (Auto) Eos % (Auto) Baso % (Auto) Absolute Neuts (auto) Absolute Lymphs (auto) Total Counted Differential Comment Diff Path Review Atypical Lymphocytes PT INR APTT 59.1 H 62.0 H Activated Clotting Time Specimen Type Sample Site pH Bicarbonate Actual POC Total CO2 Base Excess O2 Saturation O2 % ABG pCO2 ABG pO2 VBG pH VBG pO2 VBG O2 Sat (Calc) VBG O2 Content VBG Base Excess POC Mix VBG pCO2 Pt Tmp Respiration Rate O2 Delivery Device Minute Volume Vent Mode Tidal Volume POC PEEP POC Pressure Suppt Blood Gas Notified Whom Blood Gas Notified Time Sodium Potassium Chloride Carbon Dioxide Anion Gap BUN Creatinine Estim Creat Clear Calc Est GFR (MDRD) Af Amer Est GFR (MDRD) Non-Af BUN/Creatinine Ratio Glucose Hemoglobin A1c Calcium Phosphorus Magnesium Total Bilirubin AST ALT Alkaline Phosphatase Troponin I Total Protein Albumin Globulin Albumin/Globulin Ratio Vancomycin Trough MRSA (PCR) POC Glucose 148 H 12/13/17 12/13/17 12/14/17 18:12 23:58 04:40 WBC RBC Hgb Hct MCV MCH MCHC RDW RDW Differential Plt Count MPV Immature Gran % (Auto) Neut % (Auto) Lymph % (Auto) [place] % (Auto) Eos % (Auto) Baso % (Auto) Absolute Neuts (auto) Absolute Lymphs (auto) Total Counted Differential Comment Diff Path Review Atypical Lymphocytes PT INR APTT 66.2 H Activated Clotting Time Specimen Type Sample Site pH Bicarbonate Actual POC Total CO2 Base Excess O2 Saturation O2 % ABG pCO2 ABG pO2 VBG pH VBG pO2 VBG O2 Sat (Calc) VBG O2 Content VBG Base Excess POC Mix VBG pCO2 Pt Tmp Respiration Rate O2 Delivery Device Minute Volume Vent Mode Tidal Volume POC PEEP POC Pressure Suppt Blood Gas Notified Whom Blood Gas Notified Time Sodium Potassium Chloride Carbon Dioxide Anion Gap BUN Creatinine Estim Creat Clear Calc Est GFR (MDRD) Af Amer Est GFR (MDRD) Non-Af BUN/Creatinine Ratio Glucose Hemoglobin A1c Calcium Phosphorus Magnesium Total Bilirubin AST ALT Alkaline Phosphatase Troponin I Total Protein Albumin Globulin Albumin/Globulin Ratio Vancomycin Trough MRSA (PCR) POC Glucose 75 86 12/14/17 12/14/17 12/14/17 04:40 04:40 05:50 WBC 13.9 H RBC 3.31 L Hgb 9.9 L Hct 30.3 L MCV 91.5 MCH 29.9 MCHC 32.7 RDW 16.7 H RDW Differential 55.5 H Plt Count 162 MPV 9.9 Immature Gran % (Auto) 1.100 H Neut % (Auto) 71.3 H Lymph % (Auto) 12.3 L [place] % (Auto) 11.3 H Eos % (Auto) 3.1 Baso % (Auto) 0.9 Absolute Neuts (auto) 9.9 H Absolute Lymphs (auto) 1.71 Total Counted Not Reportable Differential Comment SCANNED Diff Path Review Atypical Lymphocytes RARE PT INR APTT Activated Clotting Time Specimen Type Sample Site pH Bicarbonate Actual POC Total CO2 Base Excess O2 Saturation O2 % ABG pCO2 ABG pO2 VBG pH VBG pO2 VBG O2 Sat (Calc) VBG O2 Content VBG Base Excess POC Mix VBG pCO2 Pt Tmp Respiration Rate O2 Delivery Device Minute Volume Vent Mode Tidal Volume POC PEEP POC Pressure Suppt Blood Gas Notified Whom Blood Gas Notified Time Sodium 142 Potassium 3.9 Chloride 106 Carbon Dioxide 26.0 Anion Gap 10 BUN 49 H Creatinine 2.31 H Estim Creat Clear Calc 31.69 Est GFR (MDRD) Af Amer 36 L Est GFR (MDRD) Non-Af 30 L BUN/Creatinine Ratio 21.2 H Glucose 93 Hemoglobin A1c Calcium 8.4 L Phosphorus Magnesium Total Bilirubin 0.80 AST 185 H ALT 85 H Alkaline Phosphatase 162 H Troponin I Total Protein 6.2 L Albumin 2.0 L Globulin 4.2 Albumin/Globulin Ratio 0.5 L Vancomycin Trough MRSA (PCR) POC Glucose 93 12/14/17 12/14/17 12/14/17 07:11 12:37 17:20 WBC RBC Hgb Hct MCV MCH MCHC RDW RDW Differential Plt Count MPV Immature Gran % (Auto) Neut % (Auto) Lymph % (Auto) [place] % (Auto) Eos % (Auto) Baso % (Auto) Absolute Neuts (auto) Absolute Lymphs (auto) Total Counted Differential Comment Diff Path Review Atypical Lymphocytes PT INR APTT Activated Clotting Time 136 Specimen Type Sample Site pH Bicarbonate Actual POC Total CO2 Base Excess O2 Saturation O2 % ABG pCO2 ABG pO2 VBG pH VBG pO2 VBG O2 Sat (Calc) VBG O2 Content VBG Base Excess POC Mix VBG pCO2 Pt Tmp Respiration Rate O2 Delivery Device Minute Volume Vent Mode Tidal Volume POC PEEP POC Pressure Suppt Blood Gas Notified Whom Blood Gas Notified Time Sodium Potassium Chloride Carbon Dioxide Anion Gap BUN Creatinine Estim Creat Clear Calc Est GFR (MDRD) Af Amer Est GFR (MDRD) Non-Af BUN/Creatinine Ratio Glucose Hemoglobin A1c Calcium Phosphorus Magnesium Total Bilirubin AST ALT Alkaline Phosphatase Troponin I Total Protein Albumin Globulin Albumin/Globulin Ratio Vancomycin Trough MRSA (PCR) POC Glucose 115 H 145 H 12/14/17 12/15/17 12/15/17 22:15 08:22 16:30 WBC 19.2 H RBC 3.35 L Hgb 10.0 L Hct 30.7 L MCV 91.6 MCH 29.9 MCHC 32.6 RDW 16.6 H RDW Differential 55.5 H Plt Count 263 MPV 10.2 Immature Gran % (Auto) 1.600 H Neut % (Auto) 73.6 H Lymph % (Auto) 11.1 L [place] % (Auto) 9.0 Eos % (Auto) 3.2 Baso % (Auto) 1.5 H Absolute Neuts (auto) 14.1 H Absolute Lymphs (auto) 2.14 Total Counted Not Reportable Differential Comment SCANNED Diff Path Review Reviewed Atypical Lymphocytes PT INR APTT Activated Clotting Time Specimen Type Sample Site pH Bicarbonate Actual POC Total CO2 Base Excess O2 Saturation O2 % ABG pCO2 ABG pO2 VBG pH VBG pO2 VBG O2 Sat (Calc) VBG O2 Content VBG Base Excess POC Mix VBG pCO2 Pt Tmp Respiration Rate O2 Delivery Device Minute Volume Vent Mode Tidal Volume POC PEEP POC Pressure Suppt Blood Gas Notified Whom Blood Gas Notified Time Sodium Potassium Chloride Carbon Dioxide Anion Gap BUN Creatinine Estim Creat Clear Calc Est GFR (MDRD) Af Amer Est GFR (MDRD) Non-Af BUN/Creatinine Ratio Glucose Hemoglobin A1c Calcium Phosphorus Magnesium Total Bilirubin AST ALT Alkaline Phosphatase Troponin I Total Protein Albumin Globulin Albumin/Globulin Ratio Vancomycin Trough MRSA (PCR) POC Glucose 158 H 179 H 12/15/17 12/15/17 12/15/17 16:30 16:37 22:10 WBC RBC Hgb Hct MCV MCH MCHC RDW RDW Differential Plt Count MPV Immature Gran % (Auto) Neut % (Auto) Lymph % (Auto) [place] % (Auto) Eos % (Auto) Baso % (Auto) Absolute Neuts (auto) Absolute Lymphs (auto) Total Counted Differential Comment Diff Path Review Atypical Lymphocytes PT INR APTT Activated Clotting Time Specimen Type Sample Site pH Bicarbonate Actual POC Total CO2 Base Excess O2 Saturation O2 % ABG pCO2 ABG pO2 VBG pH VBG pO2 VBG O2 Sat (Calc) VBG O2 Content VBG Base Excess POC Mix VBG pCO2 Pt Tmp Respiration Rate O2 Delivery Device Minute Volume Vent Mode Tidal Volume POC PEEP POC Pressure Suppt Blood Gas Notified Whom Blood Gas Notified Time Sodium 143 Potassium 3.3 L Chloride 106 Carbon Dioxide 27.0 Anion Gap 10 BUN 60 H Creatinine 2.33 H Estim Creat Clear Calc 31.42 Est GFR (MDRD) Af Amer 36 L Est GFR (MDRD) Non-Af 30 L BUN/Creatinine Ratio 25.8 H Glucose 174 H Hemoglobin A1c Calcium 8.9 Phosphorus 4.0 Magnesium 2.3 Total Bilirubin AST ALT Alkaline Phosphatase Troponin I Total Protein Albumin Globulin Albumin/Globulin Ratio Vancomycin Trough MRSA (PCR) POC Glucose 171 H 159 H 12/16/17 12/16/17 12/16/17 06:15 06:15 06:57 WBC 20.6 H RBC 3.11 L Hgb 9.3 L Hct 28.9 L MCV 92.9 MCH 29.9 MCHC 32.2 RDW 16.8 H RDW Differential 56.3 H Plt Count 313 MPV 10.4 Immature Gran % (Auto) 1.900 H Neut % (Auto) 70.9 H Lymph % (Auto) 14.0 L [place] % (Auto) 7.0 Eos % (Auto) 5.2 H Baso % (Auto) 1.0 Absolute Neuts (auto) 14.6 H Absolute Lymphs (auto) 2.88 Total Counted Not Reportable Differential Comment Diff Path Review Atypical Lymphocytes PT INR APTT Activated Clotting Time Specimen Type Sample Site pH Bicarbonate Actual POC Total CO2 Base Excess O2 Saturation O2 % ABG pCO2 ABG pO2 VBG pH VBG pO2 VBG O2 Sat (Calc) VBG O2 Content VBG Base Excess POC Mix VBG pCO2 Pt Tmp Respiration Rate O2 Delivery Device Minute Volume Vent Mode Tidal Volume POC PEEP POC Pressure Suppt Blood Gas Notified Whom Blood Gas Notified Time Sodium 145 Potassium 3.1 L Chloride 107 Carbon Dioxide 29.0 Anion Gap 9 BUN 60 H Creatinine 2.20 H Estim Creat Clear Calc 33.28 Est GFR (MDRD) Af Amer 38 L Est GFR (MDRD) Non-Af 32 L BUN/Creatinine Ratio 27.3 H Glucose 154 H Hemoglobin A1c Calcium 8.7 Phosphorus Magnesium Total Bilirubin AST ALT Alkaline Phosphatase Troponin I Total Protein Albumin Globulin Albumin/Globulin Ratio Vancomycin Trough MRSA (PCR) POC Glucose 153 H 12/16/17 12/16/17 12/16/17 13:16 16:25 21:38 WBC RBC Hgb Hct MCV MCH MCHC RDW RDW Differential Plt Count MPV Immature Gran % (Auto) Neut % (Auto) Lymph % (Auto) [place] % (Auto) Eos % (Auto) Baso % (Auto) Absolute Neuts (auto) Absolute Lymphs (auto) Total Counted Differential Comment Diff Path Review Atypical Lymphocytes PT INR APTT Activated Clotting Time Specimen Type Sample Site pH Bicarbonate Actual POC Total CO2 Base Excess O2 Saturation O2 % ABG pCO2 ABG pO2 VBG pH VBG pO2 VBG O2 Sat (Calc) VBG O2 Content VBG Base Excess POC Mix VBG pCO2 Pt Tmp Respiration Rate O2 Delivery Device Minute Volume Vent Mode Tidal Volume POC PEEP POC Pressure Suppt Blood Gas Notified Whom Blood Gas Notified Time Sodium Potassium Chloride Carbon Dioxide Anion Gap BUN Creatinine Estim Creat Clear Calc Est GFR (MDRD) Af Amer Est GFR (MDRD) Non-Af BUN/Creatinine Ratio Glucose Hemoglobin A1c Calcium Phosphorus Magnesium Total Bilirubin AST ALT Alkaline Phosphatase Troponin I Total Protein Albumin Globulin Albumin/Globulin Ratio Vancomycin Trough MRSA (PCR) POC Glucose 181 H 167 H 81 12/17/17 12/17/17 12/17/17 04:10 04:10 05:48 WBC RBC Hgb Hct MCV MCH MCHC RDW RDW Differential Plt Count MPV Immature Gran % (Auto) Neut % (Auto) Lymph % (Auto) [place] % (Auto) Eos % (Auto) Baso % (Auto) Absolute Neuts (auto) Absolute Lymphs (auto) Total Counted Differential Comment Diff Path Review Atypical Lymphocytes PT INR APTT Activated Clotting Time Specimen Type Sample Site pH Bicarbonate Actual POC Total CO2 Base Excess O2 Saturation O2 % ABG pCO2 ABG pO2 VBG pH VBG pO2 VBG O2 Sat (Calc) VBG O2 Content VBG Base Excess POC Mix VBG pCO2 Pt Tmp Respiration Rate O2 Delivery Device Minute Volume Vent Mode Tidal Volume POC PEEP POC Pressure Suppt Blood Gas Notified Whom Blood Gas Notified Time Sodium 148 H Potassium 3.2 L Chloride 109 H Carbon Dioxide 29.0 Anion Gap 10 BUN 51 H Creatinine 1.97 H Estim Creat Clear Calc 37.16 Est GFR (MDRD) Af Amer 43 L Est GFR (MDRD) Non-Af 36 L BUN/Creatinine Ratio 25.9 H Glucose 57 L Hemoglobin A1c 7.4 H Calcium 8.6 Phosphorus 3.5 Magnesium 2.1 Total Bilirubin AST ALT Alkaline Phosphatase Troponin I Total Protein Albumin Globulin Albumin/Globulin Ratio Vancomycin Trough MRSA (PCR) POC Glucose 69 L 12/17/17 12/17/17 12/17/17 06:39 11:47 17:21 WBC RBC Hgb Hct MCV MCH MCHC RDW RDW Differential Plt Count MPV Immature Gran % (Auto) Neut % (Auto) Lymph % (Auto) [place] % (Auto) Eos % (Auto) Baso % (Auto) Absolute Neuts (auto) Absolute Lymphs (auto) Total Counted Differential Comment Diff Path Review Atypical Lymphocytes PT INR APTT Activated Clotting Time Specimen Type Sample Site pH Bicarbonate Actual POC Total CO2 Base Excess O2 Saturation O2 % ABG pCO2 ABG pO2 VBG pH VBG pO2 VBG O2 Sat (Calc) VBG O2 Content VBG Base Excess POC Mix VBG pCO2 Pt Tmp Respiration Rate O2 Delivery Device Minute Volume Vent Mode Tidal Volume POC PEEP POC Pressure Suppt Blood Gas Notified Whom Blood Gas Notified Time Sodium Potassium Chloride Carbon Dioxide Anion Gap BUN Creatinine Estim Creat Clear Calc Est GFR (MDRD) Af Amer Est GFR (MDRD) Non-Af BUN/Creatinine Ratio Glucose Hemoglobin A1c Calcium Phosphorus Magnesium Total Bilirubin AST ALT Alkaline Phosphatase Troponin I Total Protein Albumin Globulin Albumin/Globulin Ratio Vancomycin Trough MRSA (PCR) POC Glucose 117 H 101 124 H 12/17/17 12/18/17 12/18/17 21:27 05:25 05:25 WBC 19.5 H RBC 3.62 L Hgb 10.7 L Hct 34.6 L MCV 95.6 H MCH 29.6 MCHC 30.9 L RDW 17.2 H RDW Differential 59.2 H Plt Count 470 H MPV 10.0 Immature Gran % (Auto) 1.200 H Neut % (Auto) 78.7 H Lymph % (Auto) 9.3 L [place] % (Auto) 4.6 Eos % (Auto) 5.7 H Baso % (Auto) 0.5 Absolute Neuts (auto) 15.4 H Absolute Lymphs (auto) 1.82 Total Counted Not Reportable Differential Comment SCANNED Diff Path Review Atypical Lymphocytes PT INR APTT Activated Clotting Time Specimen Type Sample Site pH Bicarbonate Actual POC Total CO2 Base Excess O2 Saturation O2 % ABG pCO2 ABG pO2 VBG pH VBG pO2 VBG O2 Sat (Calc) VBG O2 Content VBG Base Excess POC Mix VBG pCO2 Pt Tmp Respiration Rate O2 Delivery Device Minute Volume Vent Mode Tidal Volume POC PEEP POC Pressure Suppt Blood Gas Notified Whom Blood Gas Notified Time Sodium 143 Potassium 3.7 Chloride 108 H Carbon Dioxide 22.0 Anion Gap 13 BUN 44 H Creatinine 1.87 H Estim Creat Clear Calc 39.15 Est GFR (MDRD) Af Amer 46 L Est GFR (MDRD) Non-Af 38 L BUN/Creatinine Ratio 23.5 H Glucose 58 L Hemoglobin A1c Calcium 8.6 Phosphorus Magnesium Total Bilirubin AST ALT Alkaline Phosphatase Troponin I Total Protein Albumin Globulin Albumin/Globulin Ratio Vancomycin Trough MRSA (PCR) POC Glucose 68 L 12/18/17 12/18/17 12/18/17 06:46 07:30 11:01 WBC RBC Hgb Hct MCV MCH MCHC RDW RDW Differential Plt Count MPV Immature Gran % (Auto) Neut % (Auto) Lymph % (Auto) [place] % (Auto) Eos % (Auto) Baso % (Auto) Absolute Neuts (auto) Absolute Lymphs (auto) Total Counted Differential Comment Diff Path Review Atypical Lymphocytes PT INR APTT Activated Clotting Time Specimen Type Sample Site pH Bicarbonate Actual POC Total CO2 Base Excess O2 Saturation O2 % ABG pCO2 ABG pO2 VBG pH VBG pO2 VBG O2 Sat (Calc) VBG O2 Content VBG Base Excess POC Mix VBG pCO2 Pt Tmp Respiration Rate O2 Delivery Device Minute Volume Vent Mode Tidal Volume POC PEEP POC Pressure Suppt Blood Gas Notified Whom Blood Gas Notified Time Sodium Potassium Chloride Carbon Dioxide Anion Gap BUN Creatinine Estim Creat Clear Calc Est GFR (MDRD) Af Amer Est GFR (MDRD) Non-Af BUN/Creatinine Ratio Glucose Hemoglobin A1c Calcium Phosphorus Magnesium Total Bilirubin AST ALT Alkaline Phosphatase Troponin I Total Protein Albumin Globulin Albumin/Globulin Ratio Vancomycin Trough MRSA (PCR) POC Glucose 60 L 105 213 H cardiology Operations: None Procedures: 2-D Echocardiogram, Angiogram Summary of Care Provided: The patient is a 71 year old M with a history of CAD status post stent, hypertension hyperlipidemia was admitted by the ED on 12/07/2017 with a complaint of chest pain for several days. The ED, EKG showed new onset left bundle branch block and anterior ST segment elevation. He was also hypoxic and required intubation. He was admitted and managed for acute hypoxic respiratory failure due to [facility], acute metabolic encephalopathy, due to acute hypoxic respiratory failure and [facility]. He was immediately taken to the [facility] and found to have a totally occluded RCA and a patent LAD stent. EF was 25% per echo done; echo also showed normal LV size and severe global LV systolic dysfunctin, with EF of 25-30%, and trivial eccentric itral valve insufficiency; LV was not well visualised. The balloon pump was inserted and was started on heparin drip and transferred to the ICU. He subsequently developed cardiogenic shock due to the acute SC and had to be the intra-aortic balloon pump for about 9 days, also required vasopressors.. He was also managed for KIMBERLY due to cardiogenic shock. He subsequently spiked a fever and right femoral catheter and [place]-Alexx catheter were removed. Blood cultures staph epidermidis. He was started on IV vancomycin and Zosyn. Vancomycin was subsequently discontinued. He was also started on Diflucan. Patient remained stable, fever resolved and intra-aortic balloon pump was taken out. He was transferred to the PCU where he remained stable. He was discharged to residential facility for rehab on 12/18/2017. He is follow-up with his abe teacher and primary care doctor. Patient was started on aspirin and Plavix and also started on carvedilol during this admission. Atorvastatin was increased to 80 mg nightly. Patient's saturation dropped to 84% with ambulation and came up to 95% on 2L of oxygen. He was discharged to the SNF with oxygen to maintain saturation >92%. Patient seen and examined prior to discharge. He had no complaints and felt well. He denied any fever or chills, cough or chest pain, shortness of breath, any abdominal pain, any diarrhea vomiting. 12 point review of systems otherwise negative. Labs and vitals reviewed. o/e: Vital Signs Height 5 ft 11 in Weight: 283 lb 11.759 oz Weight in Pounds 283.7 lbs BMI 40.4 Pulse Ox 96 Temperature 98.3 F Pulse Rate 83 Respiratory Rate 16 Blood Pressure [2nd BP] 140/47 Blood Pressure [BP] 165/76 Blood Pressure [IAB Assisted] 151/63 Blood Pressure [Unassisted] 143/55 Blood Pressure 116/54 Blood Pressure Position [2nd Supine BP] Blood Pressure Position [BP] Semi-Fowlers Blood Pressure Position Sitting [] General: Alert, Oriented x3, Cooperative, No apparent distress HEENT: Atraumatic, PERRLA, EOMI, Normocephalic Oral: Moist Mucosa Neck: Supple, No JVD, Negative Carotid Bruits Lungs: Clear to auscultation, Normal air movement, No rhonchi, No wheeze, No rales Cardiovascular: Regular rate, Regular Rhythm, Normal S1, Normal S2, No murmurs Abdomen: Bowel Sounds Present, Soft, Non Tender, Non-Distended, No Hepato- splenomegaly Extremities: No clubbing, No cyanosis, No edema, Capillary Refill Less than 3 Seconds Skin: No rashes, No breakdown Musculoskeletal: No Tenderness to Palpation of Joints or Extremities Lymphatic: No Cervical, Supraclavicular, or Inguinal Adenopathy Neurological: Cranial nerves II-XII grossly intact, Neuro grossly intact, Motor Exam 5/5 strength throughout Psych/Mental Status: Normal Affect, Appropriate, Alert and oriented to time, place, person, mood and affect Plan as stated above. He will also be referred to cardiac rehab on discharge. He is to follow up with PCP and abe teacher. Discharge Diet: 2000 mg Sodium Diet Weight Bearing Status: Weight bearing as tolerated Call your doctor if you observe: Fever of 101 or Higher, Shortness of breath, Chest pain Home Medications: Medications to take at Discharge Nitroglycerin [Nitrostat] 0.4 mg SUBLINGUAL Q5M PRN #25 tablet 03/15/15 isosorbide mononitrate ER 30 mg tablet,extended release 24 hr 30 mg PO QAM 05/08 Aspirin [Aspirin, Baby] 81 mg PO DAILY@0800 12/07/17 Lisinopril [Zestril] 2.5 mg PO QDAY 12/07/17 Metoprolol Tartrate 50 mg PO BID 12/07/17 Atorvastatin Calcium [Lipitor] 80 mg PO QHS #30 tab 12/18/17 Carvedilol [Coreg (Beta King)] 6.25 mg PO BID #60 tab 12/18/17 Clopidogrel Bisulfate [Plavix] 75 mg PO DAILY #30 tab 12/18/17 glyBURIDE [Micronase] 2.5 mg PO DAILY@0800 tablet 12/18/17 hydrALAZINE [Apresoline] 10 mg PO TID #90 tab 12/18/17 Following Prescrptions Were Given to Patient: Atorvastatin Calcium [Lipitor] 80 mg PO QHS #30 tab Clopidogrel Bisulfate [Plavix] 75 mg PO DAILY #30 tab Carvedilol [Coreg (Beta King)] 6.25 mg PO BID #60 tab hydrALAZINE [Apresoline] 10 mg PO TID #90 tab Primary Care Physician: Care Physician,No Primary [Primary Care Provider] - Please follow up with your Primary Care Physician in: one week Please Follow Up With: Lei Varela MD When: 1-2 weeks Disposition: Alf facility Minutes spent on discharge:: 50 Patient Condition:: Stable Medical Necessity - Tobacco Use Smoking Status: Unknown if ever smoked Meaningful Use Info Meaningful Use Diagnoses (Choose all that apply): AMI - AMI Aspirin given w/in 24hrs of arrival?: Yes ASA at discharge?: Yes Statins at discharge?: Yes Kip/ARB at discharge?: No Reason Kip/ARB not ordered:: Worsening renal dysfunctn Beta King at discharge?: Yes Done w/ Acute SC measure.: Yes Code Visit Inpatient E&M: 53007 Disch Hosp
--- NOTE | 2017-12-18 13:50 | CASEMGMT ---
Patient is ready for d/c to [facility]. S[facility]MER faxed orders to [facility]. Completed convalescent on [facility]ENS. Called [facility] and arranged for patient to get picked up at via [facility] van. SW notified RN who notified patient. SW also notified Kasia at [facility]. Plan: d/c to [facility] under skilled level of care on a convalescent stay. [facility] transported via [employer]. Laurel HUDSON PARI MUTUEL TICKET SELLER
== END 2017-12-18 14:54 | disposition skilled nursing facility (03) | DRG 270 ==
LOC: ED 07:40 → ICU 07:56 → PCU 12-17 10:17
PROVIDERS: Internal Medicine; Internal Medicine Critical Care Medicine; Admitting Provider Internal Medicine Cardiovascular Disease; Emergency Provider Emergency Medicine; Visit Provider Student in an Organized Health Care Education/Training Program
DX: I21.09 ST elevation (STEMI) myocardial infarction involving other coronary artery of anterior wall (principal); G93.41 Metabolic encephalopathy; J96.01 Acute respiratory failure with hypoxia; R57.0 Cardiogenic shock; R65.21 Severe sepsis with septic shock; A41.2 Sepsis due to unspecified staphylococcus; N17.9 Acute kidney failure, unspecified; Z68.41 Body mass index [BMI] 40.0-44.9, adult; T82.7XXA Infection and inflammatory reaction due to other cardiac and vascular devices, implants and grafts, initial encounter; I16.1 Hypertensive emergency; I25.10 Atherosclerotic heart disease of native coronary artery without angina pectoris; E78.5 Hyperlipidemia, unspecified; I25.5 Ischemic cardiomyopathy; I44.7 Left bundle-branch block, unspecified; E66.01 Morbid (severe) obesity due to excess calories; Z95.5 Presence of coronary angioplasty implant and graft; Z79.84 Long term (current) use of oral hypoglycemic drugs; E11.65 Type 2 diabetes mellitus with hyperglycemia; I10 Essential (primary) hypertension
CPT/HCPCS: 31500; 31720; 33967; 36415; 71045; 74018; 80048; 80053; 80202; 82803; 82962; 83036; 83735; 84100; 84484; 85025; 85027; 85347; 85610; 85730; 87040; 87070; 87086; 87102; 87186; 87205; 87206; 87641; 93005; 93306; 93460; 93503; 94002; 94003; 94640; 94660; 97110; 97163; 97167; 97530; 97802; 97803; 99152; 99153; 99251; 99282; J7030; J7040; J7120; Q9957; Q9967; A4216; C1725; C1751; C1757; C1769; C1887; C1894; C8929; G0463; J0330; J1327; J1940

== ENCOUNTER 2018-01-19 23:24 | Emergency (ER) | payer MEDICARE, SELFPAY ==
[2017-12-07 11:23] VITALS: BMI 40.4
[2018-01-19 23:26] VITALS: BP 146/83; PULSE 95; RESP 19; TEMP 36.7; O2SAT 94; BMI 36.6
--- NOTE | 2018-01-19 23:27 | ED.RN ---
RN CALLED FOR EKG, PULLED OLD EKGS FOR
--- NOTE | 2018-01-19 23:39 | ED.RN ---
CALLED PATIENTS BROTHER YOUNG AND NOTIFIED HIM THAT HE WAS IN THE ED IN STABLE MEDICAL CONDITION PER PATIENTS REQUEST
--- NOTE | 2018-01-19 23:44 | EKG12_ITS ---
Test Reason : CP Blood Pressure : / mmHG Vent. Rate : 094 BPM Atrial Rate : 094 BPM P-R Int : 144 ms QRS Dur : 164 ms QT Int : 408 ms P-R-T Axes : 072 029 241 degrees QTc Int : 510 ms Sinus rhythm with Premature ventricular complexes or Fusion complexes Left bundle branch block Abnormal ECG Confirmed by JENNY SOTO, MINH ([id number]), supervising film or videotape editor BRODIE VU ([id number]) on 01/21/2018 3:25:58 PM Referred By: CHRISTOPHER Confirmed By:MINH ALVARADO MD
--- NOTE | 2018-01-19 23:44 | ED.VISSUMM ---
- ER Visit Summary Date of Service: 01/19/18 Chief Complaint: [] Lightheadedness dizziness History of Present Illness: The patient is a 72 M stated this evening 2 hours ago he felt lightheaded. He did not feel like he was going to pass out but had this mild sensation of lightheadedness. No vertigo. He stated it goes away if he sits still. He put some oxygen on and stated it went away. It came back again and lasted for a very short period of time and then went away again. Currently he has no symptoms. He was admitted for ST elevation myocardial infarction approximately a month ago. He was intubated and had cardiogenic shock. He had angioplasty done at that time. He followed up with cardiology last Sunday and they increased his lisinopril from 2.5-10. He stated he has had lightheadedness from lisinopril in the past. He is unsure if that is the cause. He denies any chest pain or shortness of breath or other symptoms Physical Examination: [] Vital signs reviewed General: Well-nourished well-developed Head: Normocephalic atraumatic Eyes: Pupils equal round and reactive to light extraocular movements intact ENT: TMs clear no hemotympanum no trauma Neck: Nontender full range of motion Cardiovascular: Regular rate rhythm no murmurs normal S1-S2 Respiratory: No distress clear to auscultation bilaterally chest nontender Abdomen: Soft nontender nondistended normal bowel sounds no masses Back: Nontender no CVA tenderness Extremities: Nontender active range of motion ?4 extremities no trauma Skin: Normal color no trauma Neuro alert oriented cranial nerves II through XII intact normal strength sensation reflexes Test Results: [] Emergency Department Course and Treatment: [] EKG shows sinus rhythm at a rate of 94. Positive left bundle branch block PVC x1. Unchanged from prior. Patient is resting comfortably. Lab work obtained. White count is 11.1. Hemoglobin 11.4. Platelets 567. These are not acutely changed from previous. Creatinine is 1.68 up from 1.1. He has been higher this in the past. Troponin negative. Patient is resting comfortably. He has episodic lightheadedness that has resolved. Could be related to his lisinopril. Could be from overdiuresis. However he is not hypotensive or tachycardic. Patient will follow-up as an outpatient. He is going to go back to his previous dose of lisinopril at 2.5 as he thinks this is the cause. 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 I do not think he needs to be admitted. Treatment Plan: [] Disposition: [] Impression: [] Episodic lightheadedness Chronic renal insufficiency This note was generated with Fitze[employer] dictation software. It may contain incorrect words, spelling, and punctuation that were not noted in review of the chart prior to signing ED Disposition - Plan for ED Patient: Chief Complaint: Dizziness Referrals: Baudilio Mason MD [Primary Care Provider] -
[2018-01-20 00:03] LABS: Anion Gap 9 (5-15); BUN 34 mg/dL (7-18); BUN/Creat Ratio 20.2 RATIO (10-20); Chloride 102 mmol/L (98-107); Creatinine, Serum 1.68 mg/dL (0.70-1.30); EST Glomerular Filtration Rate 43 mL/min (>60); Est Glom Filt Rate - Afr Amer 52 mL/min (>60); Estimated Creatinine Clearance 45.58 ml/min; Glucose 123 mg/dL (74-106); Potassium 3.8 mmol/L (3.5-5.1); Sodium Level 137 mmol/L (136-145)
[2018-01-20 00:25] VITALS: BP 155/79; PULSE 86; RESP 17; O2SAT 93
[2018-01-20 00:31] LABS: Absolute Lymphocyte Count 3.22 X10^3/ul (0.83-4.51); Absolute Neutrophil Count 6.1 X10^3/uL (2.0-7.7); Basophil% 0.6 % (0-1); Eosinophils% 7.6 % (0-5); Hematocrit 36.2 % (40-54); Hemoglobin 11.4 g/dl (13.0-16.5); Lymphocyte # 3.22 X10^3/ul (4.0); Mean Corp Hgb Conc 31.5 g/gl (32-36); Mean Corpuscular Hgb 30.6 pg (27.0-32.0); Mean Corpuscular Volume 97.1 fL (80-94); Mean Platelet Vol. 9.1 fl (6.2-12.0); Monocyte# 0.91 X10^3/uL; Monocyte% 8.2 % (0-10); Neutrophil # 6.05 X10^3/uL (2.7-7.7); Neutrophil % 54.4 % (47-70); POSITIVE COUNT NO; POSITIVE DIFFERENTIAL NO; POSITIVE MORPHOLOGY NO; Platelet Count 567 K/mm3 (150-450); RBC Distribution Width CV 17.6 % (11.6-14.6); RBC Distribution Width SD 59.8 fl (35.1-43.9); Red Blood Count 3.73 M/mm3 (4.6-6.2); White Blood Count 11.1 K/mm3 (4.4-11.0)
[2018-01-20 00:32] LABS: Basophil# 0.07 X10^3/uL; Eosinophil# 0.84 X10^3/uL
[2018-01-20 00:41] VITALS: BP 155/69
--- NOTE | 2018-01-20 00:41 | ED.DEP ---
ED Disposition - Plan for ED Patient: Disposition: Home or Assisted Living Chief Complaint: Dizziness Instructions: ED Dizziness [facility] Referrals: Baudilio Mason MD [Primary Care Provider] - Lei Varela MD [STAFF PHYSICIAN] -
== END 2018-01-20 00:51 | disposition home or self-care (01) ==
PROVIDERS: Emergency Provider Emergency Medicine; Family Provider Family Medicine; PCP Family Medicine
DX: R42 Dizziness and giddiness (principal); N18.9 Chronic kidney disease, unspecified; I25.10 Atherosclerotic heart disease of native coronary artery without angina pectoris; I25.2 Old myocardial infarction; Z87.891 Personal history of nicotine dependence; E66.9 Obesity, unspecified; Z79.82 Long term (current) use of aspirin; Z79.02 Long term (current) use of antithrombotics/antiplatelets; Z79.899 Other long term (current) drug therapy
CPT/HCPCS: 80048; 84484; 85025; 93005; 99285; A4216

== ENCOUNTER → 2018-01-23 10:25 | Outpatient (CLI) | payer MEDICARE, SELFPAY ==
[2017-12-07 11:23] VITALS: BMI 40.4
[2018-01-23 13:02] LABS: Anion Gap 12 (5-15); BUN 35 mg/dL (7-18); BUN/Creat Ratio 23.3 RATIO (10-20); Calcium,Total 8.4 mg/dL (8.5-10.1); Chloride 105 mmol/L (98-107); EST Glomerular Filtration Rate 49 mL/min (>60); Est Glom Filt Rate - Afr Amer 59 mL/min (>60); Glucose 142 mg/dL (74-106); Potassium 3.9 mmol/L (3.5-5.1); Sodium Level 141 mmol/L (136-145)
== END ==
PROVIDERS: Family Provider Family Medicine; PCP Family Medicine; Referring Provider Internal Medicine Cardiovascular Disease; Visit Provider Internal Medicine Cardiovascular Disease
DX: I25.5 Ischemic cardiomyopathy (principal)
CPT/HCPCS: 36415; 80048

== ENCOUNTER → 2018-05-15 08:26 | Outpatient (CLI) | payer MEDICARE, MEDICAID, SELFPAY ==
[2017-12-07 11:23] VITALS: BMI 40.4
[2018-04-25 15:24] VITALS: BMI 35.7
--- NOTE | 2018-05-15 08:28 | ECHOCS_ITS ---
Version 2 Reason For Study: CAD Procedure This was a 2D Doppler, Color Flow transthoracic echocardiogram. Contrast injection was performed. Exam performed in department. Left Ventricle Normal LV size. The estimated ejection fraction is 25 %. Severe segmental systolic dysfunction (see wall motion). Stage 1 diastolic dysfunction. Mid-Posterior: Akinetic. Mid-Inferior: Akinetic. Right Ventricle Normal RV size. Normal systolic function. Atria The left atrium is mildly enlarged. Normal right atrium. Mitral Valve Normal mitral valve. Mild (1+) eccentric mitral valve insufficiency. Tricuspid Valve Normal tricuspid valve. Mild to moderate (1-2+) tricuspid valve insufficiency. Pulmonary artery systolic pressure is 50 mmHg. Aortic Valve The aortic valve is not well visualized. Pulmonic Valve The pulmonic valve is not well visualized. Great Vessels Normal aortic root. The pulmonary artery is normal size. Normal inferior vena cava. Pericardium/Pleural No pericardial effusion. Medication 22 gauge I.V. with prn adaptor inserted into right arm. Diluted definity 6ml given slow IV push to enhance endocardial definition. MMode/2D Measurements & Calculations LVIDd: 5.2 cm IVSd: 1.1 cm Ao root diam: 2.9 cm LVIDs: 4.5 cm LVPWd: 1.3 cm RVDd: 4.3 cm FS: 13.1 % LAV(MOD-bp): 75.5 ml LVAd ap4: 57.3 cm2 SV(MOD-sp4): 77.9 ml LAV(MOD-bp) Indexed: 30.8 ml/m2 EDV(MOD-sp4): 284.1 ml LAV(MOD-sp2): 80.0 ml EDV(sp4-el): 286.1 ml LAV(MOD-sp4): 72.2 ml LVAs ap4: 47.1 cm2 ESV(MOD-sp4): 206.2 ml ESV(sp4-el): 211.9 ml EF(MOD-sp4): 27.4 % EF(sp4-el): 25.9 % SV(sp4-el): 74.1 ml LA A4 area: 22.6 cm2 LA dimension(2D): 4.7 cm RA A4 area: 19.1 cm2 Time Measurements MV dec time: 0.16 sec Doppler Measurements & Calculations MV E max param: 91.0 cm/sec Lat Peak E' Param: 8.8 cm/sec Med Peak E' Param: 3.0 cm/sec MV A max param: 108.0 cm/sec E/E' lat: 10.4 E/E' med: 30.0 MV E/A: 0.84 Ao V2 max: 139.2 cm/sec LV V1 max: 95.9 cm/sec PA V2 max: 116.3 cm/sec Ao max P.8 mmHg LV V1 max P.7 mmHg TR max param: 345.1 cm/sec TR max P.7 mmHg Interpretation Summary Normal LV size. The estimated ejection fraction is 25 %. Severe segmental systolic dysfunction (see wall motion). Stage 1 diastolic dysfunction. Mild to moderate (1-2+) tricuspid valve insufficiency. Pulmonary artery systolic pressure is 50 mmHg. Mild (1+) eccentric mitral valve insufficiency. Contrast injection was performed. Compared to prior study, there is no significant change. Ordering Physician: Mykel Sweet Referring Physician: RAHEEM SOTO Performed By: Richelle Henry, RDCS, RVT
== END ==
PROVIDERS: Family Provider Family Medicine; PCP Family Medicine; Referring Provider Internal Medicine Cardiovascular Disease; Visit Provider Internal Medicine Cardiovascular Disease
DX: R57.0 Cardiogenic shock (principal)
CPT/HCPCS: 93306; Q9957; A4216; C8929

== ENCOUNTER → 2018-07-24 | Outpatient (CLI) | payer MEDICARE, SELFPAY ==
[2017-12-07 11:23] VITALS: BMI 40.4
[2018-07-24 08:44] VITALS: BMI 37.0
[2018-07-24 11:40] LABS: AST(SGOT) 23 U/L (15-37); Alanine Aminotransfer ALT/SGPT 22 U/L (16-61); Albumin, Serum 3.8 g/dL (3.2-5.0); Alkaline Phosphatase 102 U/L (45-117); Bilirubin, Direct 0.18 mg/dL (0.00-0.30); Cholesterol 165 mg/dL (200); High Density Lipoprotein 39 mg/dL; Protein, Total 7.8 g/dL (6.4-8.2); Triglycerides 147 mg/dL; Very Low Density Lipoprotein 29 mg/dL (5-40)
== END | disposition home or self-care (01) ==
LOC: LAB 09:48
PROVIDERS: Family Provider Family Medicine; PCP Family Medicine; Referring Provider Nurse Practitioner Family; Visit Provider Nurse Practitioner Family
DX: I25.10 Atherosclerotic heart disease of native coronary artery without angina pectoris (principal); I25.2 Old myocardial infarction; E78.2 Mixed hyperlipidemia
CPT/HCPCS: 36415; 80061; 80076

== ENCOUNTER → 2018-10-11 | Outpatient (CLI) | payer MEDICARE, SELFPAY ==
[2017-12-07 11:23] VITALS: BMI 40.4
[2018-10-11 09:33] VITALS: BMI 36.6
--- NOTE | 2018-10-11 11:47 | VDUE_ITS ---
Reason For Study: Swelling Left Proximal Left jugular vein is spontaneous, widely patent, phasic, with no intraluminal echogenicity noted. Left subclavian vein is spontaneous, widely patent, phasic, with no intraluminal echogenicity noted. Left Arm Left axillary vein is spontaneous, patent, phasic, competent, compressible and demonstrates augmentation. Left brachial vein is compressible. Left cephalic vein is compressible. Left basilic vein is compressible. Left Lower Arm Left radial vein is compressible. Left ulnar vein is compressible. Patient Safety Prelim G Nurse. Interpretation Summary No evidence for acute deep venous thrombosis[left] upper extremity with patent and compressible cephalic and basilic veins. Ordering Physician: Mykel Sweet Referring Physician: Baudilio Mason Performed By: Trudy Crain RVT ?
== END | disposition home or self-care (01) ==
PROVIDERS: Family Provider Family Medicine; PCP Family Medicine; Referring Provider Internal Medicine Cardiovascular Disease; Visit Provider Internal Medicine Cardiovascular Disease
DX: M79.89 Other specified soft tissue disorders (principal); Z95.810 Presence of automatic (implantable) cardiac defibrillator
CPT/HCPCS: 93971

== ENCOUNTER → 2019-02-28 12:45 | Outpatient (CLI) | payer MEDICARE, SELFPAY ==
[2017-12-07 11:23] VITALS: BMI 40.4
[2018-10-11 09:33] VITALS: BMI 36.6
[2019-02-28 14:42] LABS: Anion Gap 8 (5-15); BUN 61 mg/dL (7-18); BUN/Creat Ratio 36.1 RATIO (10-20); Calcium,Total 9.5 mg/dL (8.5-10.1); Chloride 104 mmol/L (98-107); Cholesterol 167 mg/dL (200); Creatinine, Serum 1.69 mg/dL (0.70-1.30); EST Glomerular Filtration Rate 43 mL/min (>60); Est Glom Filt Rate - Afr Amer 52 mL/min (>60); Glucose 154 mg/dL (74-106); High Density Lipoprotein 40 mg/dL; Potassium 4.5 mmol/L (3.5-5.1); Sodium Level 137 mmol/L (136-145); Triglycerides 169 mg/dL; Very Low Density Lipoprotein 34 mg/dL (5-40)
[2019-02-28 14:48] LABS: Microalbumin,Random Urine < 5.0 mg/L (NO RANGE EST.)
== END ==
PROVIDERS: Family Provider Family Medicine; PCP Family Medicine; Referring Provider Family Medicine; Visit Provider Family Medicine
DX: E11.9 Type 2 diabetes mellitus without complications (principal)
CPT/HCPCS: 36415; 80048; 80061; 82043; 82570

== ENCOUNTER → 2019-03-25 12:47 | Outpatient (CLI) | payer MEDICARE, SELFPAY ==
[2017-12-07 11:23] VITALS: BMI 40.4
[2018-10-11 09:33] VITALS: BMI 36.6
== END ==
PROVIDERS: Family Provider Family Medicine; PCP Family Medicine; Referring Provider Internal Medicine Cardiovascular Disease; Visit Provider Internal Medicine Cardiovascular Disease
DX: Z95.810 Presence of automatic (implantable) cardiac defibrillator (principal); I44.7 Left bundle-branch block, unspecified; I25.2 Old myocardial infarction; I25.5 Ischemic cardiomyopathy; I25.10 Atherosclerotic heart disease of native coronary artery without angina pectoris; R57.0 Cardiogenic shock; Z95.5 Presence of coronary angioplasty implant and graft
CPT/HCPCS: 93308; Q9957; A4216; C8924

== ENCOUNTER → 2019-06-06 | Outpatient (CLI) | payer MEDICARE, SELFPAY ==
[2017-12-07 11:23] VITALS: BMI 40.4
[2019-05-15 10:14] VITALS: BMI 38.7
[2019-06-06 12:57] LABS: Anion Gap 9 (5-15); BUN 35 mg/dL (7-18); BUN/Creat Ratio 22.6 RATIO (10-20); Calcium,Total 8.8 mg/dL (8.5-10.1); Chloride 105 mmol/L (98-107); Creatinine, Serum 1.55 mg/dL (0.70-1.30); EST Glomerular Filtration Rate 47 mL/min (>60); Est Glom Filt Rate - Afr Amer 57 mL/min (>60); Glucose 130 mg/dL (74-106); Potassium 4.6 mmol/L (3.5-5.1); Sodium Level 137 mmol/L (136-145)
== END | disposition home or self-care (01) ==
LOC: MTLAB 10:16
PROVIDERS: PCP Family Medicine; Referring Provider Physician Assistant Medical; Visit Provider Physician Assistant Medical
DX: I25.5 Ischemic cardiomyopathy (principal)
CPT/HCPCS: 36415; 80048

== ENCOUNTER → 2019-12-01 | Outpatient (CLI) | payer MEDICARE, SELFPAY ==
[2017-12-07 11:23] VITALS: BMI 40.4
[2019-08-25 09:08] VITALS: BMI 38.0
[2019-12-01 10:16] LABS: Anion Gap 6 (5-15); BUN 35 mg/dL (7-18); BUN/Creat Ratio 24.8 RATIO (10-20); Calcium,Total 8.8 mg/dL (8.5-10.1); Chloride 110 mmol/L (98-107); Creatinine, Serum 1.41 mg/dL (0.70-1.30); EST Glomerular Filtration Rate 52 mL/min (>60); Est Glom Filt Rate - Afr Amer 63 mL/min (>60); Glucose 171 mg/dL (74-106); Potassium 3.9 mmol/L (3.5-5.1); Sodium Level 140 mmol/L (136-145)
== END | disposition home or self-care (01) ==
PROVIDERS: PCP Family Medicine; Referring Provider Family Medicine; Visit Provider Family Medicine
DX: E11.9 Type 2 diabetes mellitus without complications (principal)
CPT/HCPCS: 36415; 80048

== ENCOUNTER → 2020-05-31 09:45 | Outpatient (CLI) | payer MEDICARE, SELFPAY ==
[2017-12-07 11:23] VITALS: BMI 40.4
[2020-04-29 13:12] VITALS: BMI 40.5
[2020-05-31 13:22] LABS: ALB/GLOB Ratio 0.8 RATIO (0.9-2.4); AST(SGOT) 18 U/L (15-37); Alanine Aminotransfer ALT/SGPT 31 U/L (16-61); Albumin, Serum 3.4 g/dL (3.2-5.0); Alkaline Phosphatase 119 U/L (45-117); Anion Gap 8 (5-15); BUN 62 mg/dL (7-18); BUN/Creat Ratio 37.3 RATIO (10-20); Calcium,Total 9.1 mg/dL (8.5-10.1); Chloride 106 mmol/L (98-107); Creatinine, Serum 1.66 mg/dL (0.70-1.30); EST Glomerular Filtration Rate 43 mL/min (>60); Est Glom Filt Rate - Afr Amer 52 mL/min (>60); Globulin 4.2 g/dL (2.2-4.2); Glucose 176 mg/dL (74-106); Potassium 4.3 mmol/L (3.5-5.1); Protein, Total 7.6 g/dL (6.4-8.2); Sodium Level 139 mmol/L (136-145)
== END ==
PROVIDERS: PCP Family Medicine; Referring Provider Family Medicine; Visit Provider Family Medicine
DX: E78.5 Hyperlipidemia, unspecified (principal)
CPT/HCPCS: 36415; 80053

== ENCOUNTER → 2020-10-27 09:25 | Outpatient (CLI) | payer MEDICARE, SELFPAY ==
[2017-12-07 11:23] VITALS: BMI 40.4
[2020-10-27 08:31] VITALS: BMI 41.3
[2020-10-27 10:57] LABS: ALB/GLOB Ratio 0.8 RATIO (0.9-2.4); AST(SGOT) 18 U/L (15-37); Alanine Aminotransfer ALT/SGPT 28 U/L (16-61); Albumin, Serum 3.4 g/dL (3.2-5.0); Alkaline Phosphatase 137 U/L (45-117); Anion Gap 8 (5-15); BUN 40 mg/dL (7-18); BUN/Creat Ratio 28.4 RATIO (10-20); Bilirubin, Direct 0.11 mg/dL (0.00-0.30); Calcium,Total 8.5 mg/dL (8.5-10.1); Chloride 105 mmol/L (98-107); Cholesterol 158 mg/dL (200); Creatinine, Serum 1.41 mg/dL (0.70-1.30); EST Glomerular Filtration Rate 52 mL/min (>60); Est Glom Filt Rate - Afr Amer 63 mL/min (>60); Globulin 4.2 g/dL (2.2-4.2); Glucose 171 mg/dL (74-106); High Density Lipoprotein 43 mg/dL; Protein, Total 7.6 g/dL (6.4-8.2); Sodium Level 137 mmol/L (136-145); Triglycerides 122 mg/dL; Very Low Density Lipoprotein 24 mg/dL (5-40)
== END ==
PROVIDERS: PCP Family Medicine; Referring Provider Physician Assistant Medical; Visit Provider Physician Assistant Medical
DX: I25.5 Ischemic cardiomyopathy (principal); I25.10 Atherosclerotic heart disease of native coronary artery without angina pectoris; E78.5 Hyperlipidemia, unspecified
CPT/HCPCS: 36415; 80053; 80061; 82248

== ENCOUNTER → 2020-11-01 12:40 | Outpatient (CLI) | payer MEDICARE, MEDICAID, SELFPAY ==
[2017-12-07 11:23] VITALS: BMI 40.4
[2020-04-29 13:12] VITALS: BMI 40.5
[2020-10-27 08:31] VITALS: BMI 41.3
--- NOTE | 2020-11-01 12:42 | ECHOCS_ITS ---
Reason For Study: Isch CMP Procedure This was a 2D Doppler, Color Flow transthoracic echocardiogram. Very technically difficult study due to patients body habitus. Contrast injection performed. Attempted views from multiple positions to obtain best image quality. Exam performed in department. Left Ventricle Moderately dilated left ventricle. The estimated ejection fraction is 25 %. Stage 1 diastolic dysfunction. There is severe global hypokinesis of the left ventricle. Right Ventricle Normal RV size. ICD or pacer leads identified within the right ventricle. Mild to moderate global right ventricular systolic dysfunction. Atria Normal left atrium. Normal right atrium. Mitral Valve Normal mitral valve. Tricuspid Valve Normal tricuspid valve. Mild (1+) tricuspid valve insufficiency. Pulmonary artery systolic pressure is 35 mmHg. Aortic Valve Trisinus/trileaflet aortic valve. Pulmonic Valve The pulmonic valve is not well visualized. Great Vessels Normal aortic root. The pulmonary artery is normal size. Normal inferior vena cava. Pericardium/Pleural No pericardial effusion. Medication 22 gauge I.V. with prn adaptor inserted into right arm. Diluted definity 9ml given slow IV push to enhance endocardial definition. MMode/2D Measurements & Calculations LVIDd: 6.3 cm IVSd: 1.2 cm LA dimension: 3.8 cm LVIDs: 5.2 cm LVPWd: 0.96 cm FS: 17.7 % LAV(MOD-bp): 74.0 ml LVAd ap4: 40.8 cm2 SV(MOD-sp4): 52.9 ml LAV(MOD-bp) Indexed: 29.0 ml/m2 LVLd ap4: 8.1 cm LAV(MOD-sp2): 79.4 ml EDV(MOD-sp4): 164.5 ml LAV(MOD-sp4): 67.1 ml EDV(sp4-el): 174.0 ml LVAs ap4: 33.5 cm2 LVLs ap4: 8.0 cm ESV(MOD-sp4): 111.6 ml ESV(sp4-el): 118.3 ml EF(MOD-sp4): 32.2 % EF(sp4-el): 32.0 % SV(sp4-el): 55.7 ml LA A4 area: 20.9 cm2 RA A4 area: 14.5 cm2 Time Measurements MV dec time: 0.23 sec Doppler Measurements & Calculations MV E max param: 60.8 cm/sec Lat Peak E' Param: 5.7 cm/sec Med Peak E' Param: 4.5 cm/sec MV A max param: 97.0 cm/sec E/E' lat: 10.6 E/E' med: 13.5 MV E/A: 0.63 MV V2 max: 94.7 cm/sec MV P1/2t max param: 69.0 cm/sec Ao V2 max: 123.8 cm/sec MV max P.6 mmHg MV P1/2t: 108.3 msec Ao max P.1 mmHg MV V2 mean: 49.5 cm/sec MV mean P.2 mmHg MV dec slope: 186.7 cm/sec2 MV V2 VTI: 31.3 cm MVA(P1/2t): 2.0 cm2 LV V1 max: 79.6 cm/sec PA V2 max: 92.7 cm/sec TR max param: 277.7 cm/sec LV V1 max P.5 mmHg TR max P.8 mmHg ECHO/Echo Complete W/ Contrast Interpretation Summary Moderately dilated left ventricle. The estimated ejection fraction is 25 %. Stage 1 diastolic dysfunction. Contrast injection was performed. Compared to previous study, the left ventricu lar systolic function is the same.. Ordering Physician: Margarita Bonilla Referring Physician: Baudilio Mason Performed By: Rowdy Etienne RCS
== END ==
PROVIDERS: PCP Family Medicine; Referring Provider Physician Assistant Medical; Visit Provider Physician Assistant Medical
DX: I25.5 Ischemic cardiomyopathy (principal); I50.9 Heart failure, unspecified
CPT/HCPCS: 93306; Q9957; A4216; C8929; J3490

== ENCOUNTER 2021-03-17 13:17 | Inpatient (IN) | payer MEDICARE, SELFPAY ==
[2017-12-07 11:23] VITALS: BMI 40.4
[2021-03-17] VITALS (10 sets, daily range): BP systolic 101–138; BP diastolic 53–98; PULSE 80–104; RESP 16–28; TEMP 36.3–36.8; O2SAT 84–98; BMI 40.0; BMI 36.1
--- NOTE | 2021-03-17 15:10 | EKG12_ITS ---
Test Reason : FALL Blood Pressure : / mmHG Vent. Rate : 102 BPM Atrial Rate : 102 BPM P-R Int : 166 ms QRS Dur : 096 ms QT Int : 332 ms P-R-T Axes : 083 071 -25 degrees QTc Int : 432 ms Atrial-sensed ventricular-paced rhythm Biventricular pacemaker detected Abnormal ECG Confirmed by JENNY SOTO, MINH ([id number]), online editor MADISON DAS ([id number]) on 03/18/2021 11:35:55 AM Referred By: Confirmed By:MINH ALVARADO MD
--- NOTE | 2021-03-17 15:12 | EX.ED.DYSGE1 ---
HPI History of Present Illness Chief Complaint: Weakness Informant: patient Onset/Context/Timing Onset: Days Current Severity: Moderate Maximum Severity: Moderate Narrative Narrative: Patient presents via EMS secondary to weakness after a fall. He fell on Sunday, 4 days ago and states has been on the floor since. He got up in the middle the night to use the restroom and states he did not realize his feet were asleep. He took one step and fell. He was then too weak to get himself back up. He reports having a cough for the past month. No fever or chills. No vomiting or diarrhea. He was noted to be hypoxic on arrival. He states he did wear oxygen at one time after having a heart attack, but only for a brief time and was able to be weaned off of it. [facility] Medical History (Updated 03/17/21 @ 18:[address] Belgica Domingo MD) Atherosclerosis of coronary artery of [place] heart without angina pectoris Cardiogenic shock History of ST elevation myocardial infarction (STEMI) (12/07/17) Hyperlipidemia Hypersomnia, unspecified Ischemic cardiomyopathy Left bundle branch block Obesity Old inferior wall myocardial infarction Secondary pulmonary arterial hypertension Type 2 diabetes mellitus Home Medications aspirin 81 mg PO DAILY@0800 12/07/17 [History Last Taken Unknown] glyburide 2.5 mg PO DAILY@0800 tab 12/18/17 [Rx Last Taken Unknown] nitroglycerin 0.4 mg sublingual tablet 0.4 mg SUBLINGUAL Q5-15M PRN #25 tab 01/16/18 [Rx Last Taken Unknown] atorvastatin 40 mg tablet 40 mg PO QHS #90 tab 10/27/20 [Rx Last Taken Unknown] clopidogrel 75 mg tablet 75 mg PO DAILY #90 tab 10/27/20 [Rx Last Taken Unknown] furosemide 40 mg tablet 40 mg PO QAM #100 tab 10/27/20 [Rx Last Taken Unknown] sacubitril 49 mg-valsartan 51 mg tablet 1 tab PO BID #60 tab 11/03/20 [Rx Last Taken Unknown] carvedilol 12.5 mg tablet 25 mg PO BID #180 tab 02/09/21 [Rx Last Taken Unknown] Allergy/AdvReac Type Severity Reaction Status Date / Time No Known Allergies Allergy Verified 03/17/21 13:25 Family History Father Sudden cardiac Myocardial infarction Mother Myocardial infarction Other CAD (coronary artery disease) Surgical History History of coronary artery stent placement (09/17/10) History of left heart catheterization (12/07/17) Presence of biventricular implantable cardioverter-defibrillator (ICD) (09/16/18) Social History Smoking Status: Former smoker ROS ROS ED Constitutional Constitutional ED: Denies chills or fever(s) Eyes Eyes: Denies change in vision ENT ENT ED: Denies sore throat Cardiovascular Cardiovascular: Denies chest pain Respiratory/Chest Respiratory/Chest: Reports cough; Denies dyspnea Gastrointestinal Gastrointestinal: Denies abdominal pain, diarrhea, nausea or vomiting Genitourinary Genitourinary ED: Denies dysuria Musculoskeletal Musculoskeletal: Denies back pain Integumentary Denies rash Neurologic Neurologic: Reports weakness; Denies headache(s) Allergic/Immunologic Allergic/Immunologic ED: Denies urticaria EXAM Physical Exam Const Vital Signs: 03/17/21 13:22 03/17/21 13:24 03/17/21 14:16 Temperature 97.6 F L 97.6 F L Temperature Source Temporal Temporal Pulse Rate 101 H 100 Respiratory Rate 24 H 24 H Respiratory Effort Normal Non-Labored Respiratory Pattern Normal Blood Pressure 138/81 H 138/81 H Blood Pressure Mean 100 100 Pulse Ox 84 91 Oxygen Delivery Method Room Air Nasal Cannula Oxygen Flow Rate (L/min) 3 03/17/21 16:00 03/17/21 17:58 03/17/21 18:00 Temperature 97.3 F L 97.3 F L Temperature Source Temporal Temporal Pulse Rate 95 104 H 93 Respiratory Rate 28 H 21 H 25 H Respiratory Effort Respiratory Pattern Blood Pressure 102/67 102/70 Blood Pressure Mean 78 80 Pulse Ox 95 98 96 Oxygen Delivery Method Nasal Cannula Room Air Nasal Cannula Oxygen Flow Rate (L/min) 2 2 Positive well nourished and well developed General Appearance ED: well developed HEENT Reports normocephalic and head/scalp atraumatic Eyes PERRL and EOMs intact bilaterally Neck supple Chest Wall inspection of chest normal and palpation of chest normal Resp normal respiratory effort and clear to auscultation bilaterally Cardio regular rate and regular rhythm GI normal to inspection, nondistended, normoactive bowel sounds and non-tender Palpation: soft Extremity normal to inspection Neuro oriented x3 Neuro Narrative: Moves all 4 extremities Sensorium / Orientation: alert Psych mental status grossly normal Skin no rashes or lesions noted MDM MDM MDM Narrative Medical decision making narrative: Lab work, urinalysis, chest x-ray ordered. Covid PCR obtained as patient reports has had a cough for a month. Lab Data Attestation: I reviewed the patient's lab results. Labs: Laboratory Results - last 24 hr 03/17/21 03/17/21 03/17/21 14:42 14:42 14:42 WBC 7.5 RBC 5.16 Hgb 15.3 Hct 48.4 MCV 93.8 MCH 29.7 MCHC 31.6 L RDW Std Deviation 59.3 H RDW Coeff of Nirav 17.1 H Plt Count 226 MPV 9.9 Immature Gran % (Auto) 0.800 Neut % (Auto) 82.6 H Lymph % (Auto) 11.1 L [place] % (Auto) 4.6 Eos % (Auto) 0.5 Baso % (Auto) 0.4 Absolute Neuts (auto) 6.2 Absolute Lymphs (auto) 0.83 Platelet Estimate ADEQUATE Plt Morphology Comment LARGE RBC Morphology N CHROM Anisocytosis RARE Macrocytosis RARE Sodium 140 Potassium 4.6 Chloride 106 Carbon Dioxide 23.0 Anion Gap 11 BUN 42 H Creatinine 1.36 H Estim Creat Clear Calc 52.30 Est GFR (MDRD) Af Amer 66 Est GFR (MDRD) Non-Af 54 L BUN/Creatinine Ratio 30.9 H Glucose 147 H Lactic Acid 1.3 Calcium 8.8 Total Bilirubin 0.60 Direct Bilirubin 0.20 AST 89 H ALT 48 Alkaline Phosphatase 141 H Total Creatine Kinase 1096 H Troponin I High Sens 38 Total Protein 7.6 Albumin 3.0 L Globulin 4.6 H Urine Color Urine Clarity Urine pH Ur Specific [place] Urine Protein Urine Glucose (UA) Urine Ketones Urine Occult Blood Urine Nitrite Urine Bilirubin Urine Urobilinogen Ur Leukocyte Esterase Urine RBC Urine WBC Ur Squamous Epith Cells Urine Bacteria Coarse Granular Casts Urine Mucus COVID-19 (TAMARA) 03/17/21 03/17/21 15:20 18:00 WBC RBC Hgb Hct MCV MCH MCHC RDW Std Deviation RDW Coeff of Nirav Plt Count MPV Immature Gran % (Auto) Neut % (Auto) Lymph % (Auto) [place] % (Auto) Eos % (Auto) Baso % (Auto) Absolute Neuts (auto) Absolute Lymphs (auto) Platelet Estimate Plt Morphology Comment RBC Morphology Anisocytosis Macrocytosis Sodium Potassium Chloride Carbon Dioxide Anion Gap BUN Creatinine Estim Creat Clear Calc Est GFR (MDRD) Af Amer Est GFR (MDRD) Non-Af BUN/Creatinine Ratio Glucose Lactic Acid Calcium Total Bilirubin Direct Bilirubin AST ALT Alkaline Phosphatase Total Creatine Kinase Troponin I High Sens Total Protein Albumin Globulin Urine Color Yellow Urine Clarity Clear Urine pH 5.0 Ur Specific [place] 1.020 Urine Protein 30 H Urine Glucose (UA) Normal Urine Ketones 50 H Urine Occult Blood Negative Urine Nitrite Negative Urine Bilirubin Negative Urine Urobilinogen Normal Ur Leukocyte Esterase Negative Urine RBC 0 SEEN Urine WBC 0-5 SEEN Ur Squamous Epith Cells 0-5 SEEN Urine Bacteria 0 SEEN Coarse Granular Casts 0-5 SEEN Urine Mucus 0 SEEN COVID-19 (TAMARA) Detected Radiography Chest X-Ray - ED: 1 View, Read by ED Physician and Chronic Changes Diagnostic Testing: Clinical Impression(s) from Imaging Studies Chest X-Ray 03/17/21 17:00 IMPRESSION: Chronic interstitial changes, no superimposed acute pulmonary process Electronically Signed: Hayden Oconnor MD at 17:34 EST , Service support , EKG Initial EKG: Attestation: I personally reviewed and interpreted this EKG as follows: Comments: Patient with a ventricular rhythm of 102. No acute ischemia. Treatment and Re-Evaluation Comments:: On repeat evaluation patient resting comfortably. He does have evidence of rhabdomyolysis with a CK level just over 1000. In light of this he was given a 500 cc IV fluid bolus. Covid test does return positive. Chest x-ray reveals chronic changes and other blood work largely unremarkable. BUN and creatinine are 42 and 1.36 respectively. On repeat evaluation patient's on 2 L nasal cannula satting in the 90s. Test results discussed with him. He is given a dose of Decadron and I will speak with the hospitalist. Discharge Plan Triage Chief Complaint: Weakness ED Provider: Belgica Domingo Dx/Rx/DC Orders Clinical Impression: Rhabdomyolysis, COVID-19 Prescriptions: No Action nitroglycerin 0.4 mg tablet, sublingual 0.4 mg SUBLINGUAL Q5-15M PRN (Reason: chest pain) Qty: 25 RF: 6 atorvastatin 40 mg tablet 40 mg PO QHS Qty: 90 RF: 3 clopidogrel 75 mg tablet 75 mg PO DAILY Qty: 90 RF: 3 furosemide [Lasix] 40 mg tablet 40 mg PO QAM Qty: 100 RF: 3 aspirin 81 MG tablet,chewable 81 mg PO DAILY@0800 RF: 0 glyburide 2.5 MG tablet 2.5 mg PO DAILY@0800 RF: 0 Entresto 49-51 mg tablet 1 tab PO BID Qty: 60 RF: 11 carvedilol [Coreg] 12.5 mg tablet 25 mg PO BID Qty: 180 RF: 3 Primary Care Provider: Baudilio Mason Referrals: Baudilio Mason MD [Primary Care Provider] - Disposition Disposition: Acute Care Hospital [facility]
[2021-03-17 15:54] LABS: Lactic Acid 1.3 mmol/L (0.4-1.9)
[2021-03-17 16:13] LABS: AST(SGOT) 89 U/L (15-37); Alanine Aminotransfer ALT/SGPT 48 U/L (16-61); Alkaline Phosphatase 141 U/L (45-117); Anion Gap 11 (5-15); BUN 42 mg/dL (7-18); BUN/Creat Ratio 30.9 RATIO (10-20); CPK Total, Creatine Kinase 1096 U/L (39-308); Calcium,Total 8.8 mg/dL (8.5-10.1); Chloride 106 mmol/L (98-107); Creatinine, Serum 1.36 mg/dL (0.70-1.30); EST Glomerular Filtration Rate 54 mL/min (>60); Est Glom Filt Rate - Afr Amer 66 mL/min (>60); Globulin 4.6 g/dL (2.2-4.2); Glucose 147 mg/dL (74-106); Potassium 4.6 mmol/L (3.5-5.1); Protein, Total 7.6 g/dL (6.4-8.2); Sodium Level 140 mmol/L (136-145); Troponin-I HS 38 pg/mL (3.0-78.0)
[2021-03-17 16:35] LABS: Red Blood Count 5.16 M/mm3 (4.6-6.2); White Blood Count 7.5 K/mm3 (4.4-11.0)
[2021-03-17 16:36] LABS: Differential Indicated SCAN CRITERIA MET; Hematocrit 48.4 % (40-54); Hemoglobin 15.3 g/dL (13.0-16.5); Mean Corp Hgb Conc 31.6 g/dL (32-36); Mean Corpuscular Hgb 29.7 pg (27.0-32.0); Mean Corpuscular Volume 93.8 fL (80-94); Mean Platelet Vol. 9.9 fl (6.2-12.0); Neutrophil % 82.6 % (47-70); POSITIVE COUNT YES; POSITIVE DIFFERENTIAL NO; POSITIVE MORPHOLOGY NO; Platelet Count 226 K/mm3 (150-450); RBC Distribution Width CV 17.1 % (11.6-14.6); RBC Distribution Width SD 59.3 fl (35.1-43.9)
[2021-03-17 16:37] LABS: Absolute Lymphocyte Count 0.83 X10^3/uL (0.83-4.51); Absolute Neutrophil Count 6.2 X10^3/uL (2.0-7.7); Basophil# 0.03 X10^3/uL; Basophil% 0.4 % (0-1); Eosinophil# 0.04 X10^3/uL; Eosinophils% 0.5 % (0-5); Lymphocyte # 0.83 X10^3/ul (0.83-4.51); Lymphocyte % 11.1 % (19-41); Monocyte# 0.34 X10^3/uL; Monocyte% 4.6 % (0-10); Neutrophil # 6.17 X10^3/uL (2.7-7.7)
[2021-03-17 16:38] LABS: Anisocytosis RARE; Macrocytosis RARE; Platelet Estimate ADEQUATE (ADEQ); Platelet Morphology LARGE; Red Cell Morphology N CHROM NORMAL (NORM C&C)
--- NOTE | 2021-03-17 17:00 | RAD_ITS ---
STUDY: X-RAY CHEST REASON FOR EXAM: Male, 75 years old. Fever and cough TECHNIQUE: Single AP portable view of the chest. COMPARISON: 12/14/2017 FINDINGS: EKG leads overlie the chest. A left subclavian pacemaker is noted, leads in satisfactory position, no complications There are interstitial changes of the lungs. There is no demonstrated pleural abnormality. Normal size heart. Normal mediastinum and jorge. Normal visualized pulmonary arteries. Normal visualized aortic arch and descending thoracic aorta. There are diffuse degenerative changes of the visualized thoracic spine. Normal visualized ribs, clavicles, and shoulders. There is no demonstrated abnormality of the visualized soft tissue structures of the upper abdomen. RAD/Chest 1 View (Portable) IMPRESSION: Chronic interstitial changes, no superimposed acute pulmonary process Electronically Signed: Hayden Oconnor MD at 17:34 EST , Service support ,
[2021-03-17 18:04] LABS: Bacteria 0 SEEN /hpf (None Seen); Mucous, Urine 0 SEEN /hpf (<or=2+); Red Blood Cells-Urine 0 SEEN /hpf (0-5)
[2021-03-17 18:06] LABS: Color, Urine Yellow (Yellow); Glucose, Dipstick Normal (Normal); Ketone-Dipstick 50 mg/dl (Negative); Leukocyte Esterase-Dipstick Negative /ul (Negative); Nitrite-Dipstick Negative (Negative); Occult Blood-Urine Negative /ul (Negative); Protein-Dipstick 30 mg/dl (Negative); Urine Bilirubin Dipstick Negative (Negative); Urine Clarity Clear (Clear); Urine Urobilinogen Normal (Normal)
[2021-03-17 18:17] LABS: Squamous Epithelial Cells - UA 0-5 SEEN /hpf (0-5); White Blood Cells 0-5 SEEN /hpf (0-5)
[2021-03-17 18:18] LABS: Coarse Granular Cast 0-5 SEEN /lpf (0-5 /lpf)
[2021-03-17] MEDS: dexAMETHasone 4 MG/ML Vial 6 MG IV (18:27)
--- NOTE | 2021-03-17 19:21 | HP.PCM.HOS_ITS ---
[facility] - General General Date of Admission: 03/17/21 HPI Narrative TREVON LEAL, is a 75 M with a significant history of CAD status post stent; diabetes mellitus; heart failure with reduced ejection fraction who presents with a fall. Patient fell 4 days before presentation. Reportedly he woke up tripped and fell. He said he fell because of both his legs and feet went to sleep. He was too weak to get up so he laid down onto the day of presentation when his friend came to his house and called the ambulance for him. He reports a productive cough of clear sputum for the past 2 and half weeks to 3 weeks. 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 He reports two pillow orthopnea?no change. He denies orthopnea or paroxysmal nocturnal dyspnea. 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 Ischemic cardiomyopathy Kidney stones Left bundle branch block Obesity Old inferior wall myocardial infarction Secondary pulmonary arterial hypertension Type 2 diabetes mellitus Home Medications aspirin 81 mg PO DAILY@0800 12/07/17 [History Last Taken Unknown] glyburide 2.5 mg PO DAILY@0800 tab 12/18/17 [Rx Last Taken Unknown] nitroglycerin 0.4 mg sublingual tablet 0.4 mg SUBLINGUAL Q5-15M PRN #25 tab 01/16/18 [Rx Last Taken Unknown] atorvastatin 40 mg tablet 40 mg PO QHS #90 tab 10/27/20 [Rx Last Taken Unknown] clopidogrel 75 mg tablet 75 mg PO DAILY #90 tab 10/27/20 [Rx Last Taken Unknown] furosemide 40 mg tablet 40 mg PO QAM #100 tab 10/27/20 [Rx Last Taken Unknown] sacubitril 49 mg-valsartan 51 mg tablet 1 tab PO BID #60 tab 11/03/20 [Rx Last Taken Unknown] carvedilol 12.5 mg tablet 25 mg PO BID #180 tab 02/09/21 [Rx Last Taken Unknown] Allergy/AdvReac Type Severity Reaction Status Date / Time No Known Allergies Allergy Verified 03/17/21 13:25 Family History Father Sudden cardiac Myocardial infarction Mother Myocardial infarction Other CAD (coronary artery disease) Surgical History History of coronary artery stent placement (09/17/10) History of left heart catheterization (12/07/17) Presence of biventricular implantable cardioverter-defibrillator (ICD) (09/16/18) Social History Smoking Status: Former smoker ROS ROS Narrative Pertinent positives and pertinent negatives as noted in HPI. All other systems were reviewed and are negative. . Vital Signs Vital Signs Vital Signs: 03/17/21 13:22 03/17/21 13:24 03/17/21 14:16 Temperature 97.6 F L 97.6 F L Temperature Source Temporal Temporal Pulse Rate 101 H 100 Respiratory Rate 24 H 24 H Respiratory Effort Normal Non-Labored Respiratory Pattern Normal Blood Pressure 138/81 H 138/81 H Blood Pressure Mean 100 100 Pulse Ox 84 91 Oxygen Delivery Method Room Air Nasal Cannula Oxygen Flow Rate (L/min) 3 03/17/21 16:00 03/17/21 17:58 03/17/21 18:00 Temperature 97.3 F L 97.3 F L Temperature Source Temporal Temporal Pulse Rate 95 104 H 93 Respiratory Rate 28 H 21 H 25 H Respiratory Effort Respiratory Pattern Blood Pressure 102/67 102/70 Blood Pressure Mean 78 80 Pulse Ox 95 98 96 Oxygen Delivery Method Nasal Cannula Room Air Nasal Cannula Oxygen Flow Rate (L/min) 2 2 03/17/21 19:00 03/17/21 19:18 Temperature 97.3 F L 97.3 F L Temperature Source Temporal Temporal Pulse Rate 93 93 Respiratory Rate 24 H 24 H Respiratory Effort Respiratory Pattern Blood Pressure 102/70 Blood Pressure Mean 80 Pulse Ox 96 96 Oxygen Delivery Method Nasal Cannula Nasal Cannula Oxygen Flow Rate (L/min) 4 4 Weight Weight: 133.8 kg Body Mass Index (BMI) 40.0 Physical Exam Narrative Physical exam: General: Well-nourished, well-developed. Head: Normocephalic, atraumatic, no tenderness Eyes: PERRLA, EOMI ENT, no trauma, moist mucous membranes, no rhinorrhea Neck: Nontender, full range of motion, no spinal tenderness, deformities, step- off CVS: Regular rate and rhythm. S1-S2 present. No murmur, gallop or rub. Respiratory : clear to auscultation bilaterally, chest wall nontender, no wheezing Abdomen: Soft, nontender, nondistended, normal bowel sounds, no masses : Deferred Back: Nontender, no CVA tenderness, no midline spinal tenderness, deformities, step-offs Extremities: Nontender full range of motion, no trauma Skin: Normal color, no trauma, abrasions Neuro: Alert, oriented, cranial nerves II through XII grossly intact. Psychiatry: Normal mood. Normal affect. Not depressed. Not anxious. Results Lab / Micro Data Result Diagrams: 03/18/21 06:56 03/18/21 06:56 Labs: Laboratory Results - last 24 hr 03/17/21 14:42: WBC 7.5, RBC 5.16, Hgb 15.3, Hct 48.4, MCV 93.8, MCH 29.7, MCHC 31.6 L, RDW Std Deviation 59.3 H, RDW Coeff of Nirav 17.1 H, Plt Count 226, MPV 9.9, Immature Gran % (Auto) 0.800, Neut % (Auto) 82.6 H, Lymph % (Auto) 11.1 L, [place] % (Auto) 4.6, Eos % (Auto) 0.5, Baso % (Auto) 0.4, Absolute Neuts (auto) 6.2, Absolute Lymphs (auto) 0.83, Platelet Estimate ADEQUATE, Plt Morphology Comment LARGE, RBC Morphology N CHROM, Anisocytosis RARE, Macrocytosis RARE 03/17/21 14:42: Sodium 140, Potassium 4.6, Chloride 106, Carbon Dioxide 23.0, Anion Gap 11, BUN 42 H, Creatinine 1.36 H, Estim Creat Clear Calc 52.30, Est GFR (MDRD) Af Amer 66, Est GFR (MDRD) Non-Af 54 L, BUN/Creatinine Ratio 30.9 H, Glucose 147 H, Calcium 8.8, Total Bilirubin 0.60, Direct Bilirubin 0.20, AST 89 H, ALT 48, Alkaline Phosphatase 141 H, Total Creatine Kinase 1096 H, Troponin I High Sens 38, Total Protein 7.6, Albumin 3.0 L, Globulin 4.6 H 03/17/21 14:42: Lactic Acid 1.3 03/17/21 15:20: COVID-19 (TAMARA) Detected 03/17/21 18:00: Urine Color Yellow, Urine Clarity Clear, Urine pH 5.0, Ur Specific [place] 1.020, Urine Protein 30 H, Urine Glucose (UA) Normal, Urine Ketones 50 H, Urine Occult Blood Negative, Urine Nitrite Negative, Urine Bilirubin Negative, Urine Urobilinogen Normal, Ur Leukocyte Esterase Negative, Urine RBC 0 SEEN, Urine WBC 0-5 SEEN, Ur Squamous Epith Cells 0-5 SEEN, Urine Bacteria 0 SEEN, Coarse Granular Casts 0-5 SEEN, Urine Mucus 0 SEEN Radiology Impression Chest X-Ray 03/17/21 17:00 IMPRESSION: Chronic interstitial changes, no superimposed acute pulmonary process Electronically Signed: Hayden Oconnor MD at 17:34 EST , Service support , Assessment & Plan Assessment/Plan (1) Rhabdomyolysis: QUALIFIERS: Rhabdomyolysis type: non-traumatic Qualified Code(s): M62.82 - Rhabdomyolysis (2) COVID-19: PLAN: Acute hypoxemic respiratory failure secondary to SARS- COV 2 Oxygen saturation emergency department was 84% on room air. Supplemental oxygen was initiated from the ED. Supplemental oxygen continued to keep oxygen saturation to at least 90%. Covid PCR emergency department was positive. Impression of chest x-ray by radiologist: Chronic interstitial changes. Current chest x-ray and previous chest x-ray image was independently interpreted and I agree radiologist interpretation. CBC showed normal white count of 6.8 with bandemia of 1.3%; neutrophilia of 85.3% and lymphopenia of 9.6%. Tylenol for fever Review of labs showed estimated creatinine clearance of 52.3. Mild elevation of AST of 89 and ALT of normal value. Decadron and remdesivir ordered Trend CBC and CMP. Generalized weakness PT and OT to work with patient for strengthening and balance training. Rhabdomyolysis CPK to emergency department was found to 1096. Received normal saline bolus at the emergency department. Gentle IV hydration ordered because of a concomitant COVID-19 infection. CKD stage IIIb CKD likely secondary to diabetes mellitus. Creatinine appears to be at baseline. Trend CMP. Diabetes mellitus Blood glucose on presentation was mildly elevated. Home glipizide continued. Accu-Chek with correction scale insulin added. DVT prophylaxis: Subcutaneous Lovenox ordered. Charges/Coding Visit Charges Inpatient E&M: 91874 Init Hosp L3
--- NOTE | 2021-03-17 19:24 | ED.RN ---
pt had soiled bed, cleaned and bedding changed.
--- NOTE | 2021-03-17 20:16 | PCS.PANDOC ---
PANDEMIC DOCUMENTATION INITIATED: Date: 03/17/2021 Time: 2014
[2021-03-17] MEDS: 0.9% Normal Saline 1,000 ML 75 ML IV (21:37)
[2021-03-17] MEDS: 0.9% Saline Lock 10 ML Syringe IV (21:37)
[2021-03-17] MEDS: MELATONIN 3 MG TABLET PO (21:38)
[2021-03-17] MEDS: Atorvastatin Calcium 40 MG Tablet PO (21:38)
[2021-03-17] MEDS: Acetaminophen 325 MG Tablet 650 MG PO (21:38)
[2021-03-17] MEDS: Enoxaparin 40 MG/0.4 ML Syringe SC (21:38)
[2021-03-17] MEDS: Carvedilol 25 MG Tablet PO (21:39)
[2021-03-17] MEDS: SACUBITRIL/VALSARTAN 49-51 MG TABLET 1 EACH PO (21:46)
[2021-03-17] MEDS: Insulin Lispro 100 UNIT/ML INSULN.PEN SC (21:46)
[2021-03-17] MEDS: Aspirin 81 MG TAB.CHEW PO (21:51)
[2021-03-17 22:00] LABS: Bedside Glucose 229 mg/dL (70-110)
[2021-03-18] VITALS (28 sets, daily range): BP systolic 70–108; BP diastolic 34–80; PULSE 61–74; RESP 16–26; TEMP 36–36.8; O2SAT 86–96
[2021-03-18] MEDS: Insulin Lispro 100 UNIT/ML INSULN.PEN SC ×4 (05:33→22:21)
[2021-03-18 05:51] LABS: Bedside Glucose 334 mg/dL (70-110)
[2021-03-18 07:12] LABS: Absolute Lymphocyte Count 0.65 X10^3/uL (0.83-4.51); Absolute Neutrophil Count 5.8 X10^3/uL (2.0-7.7); Basophil# 0.02 X10^3/uL; Basophil% 0.3 % (0-1); Hematocrit 44.3 % (40-54); Hemoglobin 14.1 g/dL (13.0-16.5); Lymphocyte # 0.65 X10^3/ul (0.83-4.51); Lymphocyte % 9.6 % (19-41); Mean Corp Hgb Conc 31.8 g/dL (32-36); Mean Corpuscular Hgb 30.3 pg (27.0-32.0); Mean Corpuscular Volume 95.1 fL (80-94); Mean Platelet Vol. 9.5 fl (6.2-12.0); Monocyte# 0.24 X10^3/uL; Monocyte% 3.5 % (0-10); NRBC Flagged by Analyzer 0 % (0-5); Neutrophil # 5.77 X10^3/uL (2.7-7.7); Neutrophil % 85.3 % (47-70); Platelet Count 270 K/mm3 (150-450); RBC Distribution Width CV 17.5 % (11.6-14.6); RBC Distribution Width SD 61.4 fl (35.1-43.9); Red Blood Count 4.66 M/mm3 (4.6-6.2); White Blood Count 6.8 K/mm3 (4.4-11.0)
[2021-03-18 07:42] LABS: ALB/GLOB Ratio 0.6 RATIO (0.9-2.4); AST(SGOT) 60 U/L (15-37); Alanine Aminotransfer ALT/SGPT 39 U/L (16-61); Albumin, Serum 2.4 g/dL (3.2-5.0); Alkaline Phosphatase 133 U/L (45-117); Anion Gap 6 (5-15); BUN 54 mg/dL (7-18); BUN/Creat Ratio 27.7 RATIO (10-20); CPK Total, Creatine Kinase 559 U/L (39-308); Chloride 106 mmol/L (98-107); Creatinine, Serum 1.95 mg/dL (0.70-1.30); EST Glomerular Filtration Rate 36 mL/min (>60); Est Glom Filt Rate - Afr Amer 43 mL/min (>60); Estimated Creatinine Clearance 38.64 ml/min; Globulin 4.3 g/dL (2.2-4.2); Glucose 310 mg/dL (74-106); Potassium 4.9 mmol/L (3.5-5.1); Protein, Total 6.7 g/dL (6.4-8.2); Sodium Level 138 mmol/L (136-145)
--- NOTE | 2021-03-18 09:05 | NURSING ---
sats 84%, pt confused unsure of time and place, hard to wake. bp low, sats 85%. dr irvin notified.
[2021-03-18] MEDS: dexAMETHasone 4 MG Tablet 6 MG PO (09:16)
[2021-03-18] MEDS: glyBURIDE 2.5 MG Tablet PO (09:17)
[2021-03-18] MEDS: Enoxaparin 40 MG/0.4 ML Syringe SC (09:17)
[2021-03-18] MEDS: Clopidogrel Bisulfate 75 MG Tablet PO (09:17)
[2021-03-18 09:36] LABS: Bedside Glucose 235 mg/dL (70-110)
[2021-03-18] MEDS: 0.9% Normal Saline 1,000 ML 75 ML IV (11:15)
[2021-03-18 11:23] LABS: Troponin-I HS 20 pg/mL (3.0-78.0)
--- NOTE | 2021-03-18 12:03 | CASEMGMT ---
Social Work Assessment Referral Date: 03/18/2021 Date of Assessment: 03/18/2021 Reason for consult: Financial Informant: RN Personal Status: SW met with pt to complete initial assessment as SW received consult for financial. SW introduced self and role at [facility]. Pt appears alert and orientated and engages in conversation appropriately. Living Arrangements: Pt states that he lives alone in a two story home with steps to enter the home. Pt states she has railings by the steps. Pt states that he primarily stays on first floor. PCP: Baudilio Mason [facility]: [facility] ADLs: Pt states he was previously independent with ADLs Transportation: Pt drives self Supports: Pt states he has a brother that lives close HHC: None SNF: [facility] Hx: Pt denied Substance Abuse Hx: Pt states he used to smoke cigarettes, states he no longer does. DME: None. Pt states he used to have Oxygen through [employer] states he doesn't currently have oxygen at home. SOMMER asked pt about financial concerns. Pt states he doesn't know how he is going to pay for hospital stay with his bills at home. SW informed pt that he has insurance (Medicare) so the hospital stay will get billed under that. SW informed pt that if he gets a bill for hospital stay, he can speak with [facility] and develop a payment plan for pt. SW asked pt about his bills. Pt states he is linked up with [facility]. SW encouraged pt to call [facility] and his providers to let them know his financial concerns and see if they can assist. SOMMER spoke with pt about [facility] [employer] and informed pt that this worker can provide him with information regarding this and also additional financial resources. Pt agreeable to taking financial resources. SW also spoke with pt about Medicaid. Pt states he has applied for Medicaid multiple times but apparently doesn't qualify. SW spoke with pt about discharge plans. Pt states he would like to go home at discharge. Pt states if Oxygen is needed he would prefer to use [employer]. SW informed pt that SW and CURT KOEHLER will continue to follow along for discharge plans. Patient was provided a list of SNF providers including quality and resource use data and consistent with the patient?s preferred geographic region, medical needs, and insurance network in the event SNF is needed. SOMMER highlighted [facility] as this is the only SNF that can accept COVID+ pt's in [facility]. SOMMER updated RN CM. SW to provide pt with financial resources. Plan: Home. Pt prefers to return home. SOMMER and RN CM to continue to follow. Trudy Nick SURGICAL INSTRUMENT REPAIR SPECIALIST, HOUSE PAINTER
[2021-03-18 12:05] LABS: Bedside Glucose 279 mg/dL (70-110)
--- NOTE | 2021-03-18 12:59 | PCM.PN.HOSP ---
Subjective Subjective Follow-up on acute hypoxic respiratory failure/acute COVID-19 pneumonia/Hypertension: Patient was seen and examined. His blood pressures have been low since being admitted. His oxygen requirements have also worsened. Patient was seen to have some altered mental status with spacing out. He was easily aroused. At time of being seen he was alert oriented x3. He has received fluid boluses prior blood pressures remain low. Objective Data Objective Data Vital Signs: Vital Signs Temp Pulse Resp BP Pulse Ox 97.6 F L 71 18 81/45 L 90 03/18/21 12:47 03/18/21 12:47 03/18/21 12:47 03/18/21 12:47 03/18/21 12:47 Oxygen Flow Rate (L/min) 10 Oxygen Delivery Method High Flow Weight: 127.913 kg Body Mass Index (BMI) 36.1 Intake & Output: Intake and Output for Last 24 Hours 03/16/21 03/17/21 03/18/21 23:59 23:59 23:59 Intake Total 750 / 750 1882.5 / 1882.5 Balance 750 / 750 1882.5 / 1882.5 Medical Nutrition Assessment Dietitian: Malnutrition Criteria Met Start: 03/18/21 12:18 Freq: Status: Active Protocol: Document 03/18/21 12:18 CONNOR (Rec: 03/18/21 12:19 CONNOR [id number]) Nutrition Malnutrition Evidence of Malnutrition Exists Yes Malnutrition (severe): Acute Illness/Injury Evidenced By Suboptimal Energy Intake ( Severe),Weight Loss (Severe) Clinical Problem Altered Nutrient-Related Laboratory Values Etiology related to diabetes, steroid administration and rhabdomyolosis Signs/Symptoms as evidenced by gluc 310, BUN 54, Cr 1.95 Status Active Problem Acute Disease or Injury Related Malnutrition Etiology related to pt falling and being down on 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 so unable to consume adequate nutrition to meet pt est nutritional needs Signs/Symptoms as evidenced by 2.8% wt loss and no po intake x 4 days machine captain Status Active Problem Recommendation Dietitian Recommendations/Changes Will liberalize diet to regular d/t signs/symptoms of malnutrition Will continue glucerna shake w / meals for increased nutrition if consumed Lab / Micro Data Result Diagrams: 03/18/21 06:56 03/18/21 06:56 Labs: Laboratory Results - last 24 hr 03/17/21 14:42: WBC 7.5, RBC 5.16, Hgb 15.3, Hct 48.4, MCV 93.8, MCH 29.7, MCHC 31.6 L, RDW Std Deviation 59.3 H, RDW Coeff of Nirav 17.1 H, Plt Count 226, MPV 9.9, Immature Gran % (Auto) 0.800, Neut % (Auto) 82.6 H, Lymph % (Auto) 11.1 L, [place] % (Auto) 4.6, Eos % (Auto) 0.5, Baso % (Auto) 0.4, Absolute Neuts (auto) 6.2, Absolute Lymphs (auto) 0.83, Platelet Estimate ADEQUATE, Plt Morphology Comment LARGE, RBC Morphology N CHROM, Anisocytosis RARE, Macrocytosis RARE 03/17/21 14:42: Sodium 140, Potassium 4.6, Chloride 106, Carbon Dioxide 23.0, Anion Gap 11, BUN 42 H, Creatinine 1.36 H, Estim Creat Clear Calc 52.30, Est GFR (MDRD) Af Amer 66, Est GFR (MDRD) Non-Af 54 L, BUN/Creatinine Ratio 30.9 H, Glucose 147 H, Calcium 8.8, Total Bilirubin 0.60, Direct Bilirubin 0.20, AST 89 H, ALT 48, Alkaline Phosphatase 141 H, Total Creatine Kinase 1096 H, Troponin I High Sens 38, Total Protein 7.6, Albumin 3.0 L, Globulin 4.6 H 03/17/21 14:42: Lactic Acid 1.3 03/17/21 15:20: COVID-19 (TAMARA) Detected 03/17/21 18:00: Urine Color Yellow, Urine Clarity Clear, Urine pH 5.0, Ur Specific [place] 1.020, Urine Protein 30 H, Urine Glucose (UA) Normal, Urine Ketones 50 H, Urine Occult Blood Negative, Urine Nitrite Negative, Urine Bilirubin Negative, Urine Urobilinogen Normal, Ur Leukocyte Esterase Negative, Urine RBC 0 SEEN, Urine WBC 0-5 SEEN, Ur Squamous Epith Cells 0-5 SEEN, Urine Bacteria 0 SEEN, Coarse Granular Casts 0-5 SEEN, Urine Mucus 0 SEEN 03/17/21 21:45: POC Glucose 229 H 03/18/21 05:14: POC Glucose 334 H 03/18/21 06:56: Sodium 138, Potassium 4.9, Chloride 106, Carbon Dioxide 26.0, Anion Gap 6, BUN 54 H, Creatinine 1.95 H, Estim Creat Clear Calc 38.64, Est GFR (MDRD) Af Amer 43 L, Est GFR (MDRD) Non-Af 36 L, BUN/Creatinine Ratio 27.7 H, Glucose 310 H, Calcium 8.0 L, Total Bilirubin 0.30, AST 60 H, ALT 39, Alkaline Phosphatase 133 H, Total Creatine Kinase 559 H, Total Protein 6.7, Albumin 2.4 L, Globulin 4.3 H, Albumin/Globulin Ratio 0.6 L 03/18/21 06:56: WBC 6.8, RBC 4.66, Hgb 14.1, Hct 44.3, MCV 95.1 H, MCH 30.3, MCHC 31.8 L, RDW Std Deviation 61.4 H, RDW Coeff of Nirav 17.5 H, Plt Count 270, MPV 9.5, Immature Gran % (Auto) 1.300 H, Neut % (Auto) 85.3 H, Lymph % (Auto) 9.6 L, [place] % (Auto) 3.5, Eos % (Auto) 0.0, Baso % (Auto) 0.3, Absolute Neuts (auto) 5.8, Absolute Lymphs (auto) 0.65 L, Nucleated RBC % 0 03/18/21 06:56: Magnesium 3.0 H 03/18/21 08:45: POC Glucose 235 H 03/18/21 10:42: Troponin I High Sens 20 03/18/21 11:40: POC Glucose 279 H Radiography Diagnostic Testing: Radiology Impression Chest X-Ray 03/17/21 17:00 IMPRESSION: Chronic interstitial changes, no superimposed acute pulmonary process Electronically Signed: Hayden Oconnor MD at 17:34 EST , Service support , Physical Exam Narrative Physical exam: General: Alert, Oriented x3, Cooperative, No apparent distress, appears disheveled, on 12 L of oxygen HEENT: Atraumatic Oral: Moist Mucosa Neck: Supple Lungs: Diminished to auscultation Cardiovascular: HS I+II, regular, no murmurs Abdomen: Bowel Sounds Present, Soft, Non Tender Extremities: No edema Assessment & Plan Assessment/Plan (1) Acute respiratory failure with hypoxia: (2) Pneumonia due to COVID-19 virus: PLAN: 1. Acute hypoxic respiratory failure secondary to acute COVID-19 pneumonia Patient is currently on 12 L of oxygen His COVID-19 PCR is positive; chest x-ray shows interstitial changes Patient stated that his symptoms started 2 to 3 weeks ago -we will discontinue remdesivir Attempt at obtaining ABG was unsuccessful Continue on Decadron, encourage use of incentive spirometer 2. Hypotension, unclear etiology, likely secondary to dehydration Patient received fluid boluses Hold Entresto, Coreg, Lasix Check blood cultures, high-sensitivity troponin 3. Acute metabolic encephalopathy secondary to #1 and 2, will continue to monitor 4. Chronic systolic CHF, EF of 25%, status post AICD, status post pacemaker Will be careful with IV fluids not to push patient into acute CHF Pacemaker check 5. Type II DM, on glipizide, will hold glipizide Continue blood glucose checks and insulin sliding scale Charges/Coding Visit Charges Inpatient E&M: 38255 Subs Hosp L3
--- NOTE | 2021-03-18 14:00 | NURSING ---
called report to icu. pt transferred to icu bed 5
[2021-03-18 14:44] LABS: Procalcitonin 0.25 ng/mL (0.00-0.09)
--- NOTE | 2021-03-18 16:26 | CON.PCM.CC_ITS ---
Assessment & Plan Assessment/Plan (1) Pneumonia due to COVID-19 virus: (2) Acute respiratory failure with hypoxia: (3) Ischemic cardiomyopathy: (4) Secondary pulmonary arterial hypertension: PLAN: RECOMMENDATIONS: 1. Place central line for possible pressors. Levophed if necessary to ac hieve MAP greater than 65 2. No further fluid boluses 3. BiPAP rescue overnight if necessary 4. Initiate empiric antibiotics pending culture data 5. Wean oxygen as tolerated 6. Continue Decadron (03/28/2021) IMPRESSIONS: 1. Distributive shock of unclear etiology Patient with significant low blood pressures on the floor. Patient does have significant ischemic cardiomyopathy with baseline beta-becky. Unclear if this represents medications, cardiogenic shock or septic shock. Pancultures have been ordered. Will initiate empiric antibiotics pending culture data. If cultures are negative at 48 hours, plan on discontinuation of Vanco and Zosyn. Did discuss with the patient about the risks of further endorgan damage with hy potension. Patient understands of his blood pressures are on the edge and after review the risks, benefits and alternatives, patient is willing to have a central line placed. Patient does have signs of endorgan damage including an increase in creatinine to 1.95 from a baseline of 1.36. Did stressed to the patient the importance of using Acapella, incentive spirometer and prone positioning as tolerated. 2. Acute hypoxic respiratory failure secondary to COVID-19 Patient with significant elevation from a base of 2 L on admission to 12 L/min to maintain saturations at this time. No further fluid boluses have been given as this has been shown to worsen hypoxic respiratory failure and COVID-19. Patient is on Decadron therapy. Patient is presenting late for Remdesivir. Defer to hospitalist on inclusion of infectious disease for baricitinib. Patient would be at high risk for obstructive sleep apnea clinically. Cannot exclude the need for BiPAP overnight. 3. Acute metabolic encephalopathy/chronic systolic CHF (25%)/diabetes mellitus/unvaccinated/obesity Complicates care, management, recovery and prognosis. Mentation appears to be improving with improvement in blood pressure. Patient is on Decadron therapy, so will likely need to add basal insulin. TIME: 33 minutes critical care time spent addressing patient's distributive shock, acute hypoxic respiratory failure, diabetes mellitus, CHF, review of all data and collaboration with care team HPI Consult Data Date of Consult: 03/18/21 HPI Narrative HPI Narrative: TREVON LEAL is a 75 M, with past medical history listed below, who presents to [facility] on 03/17/2021 secondary to progressive weakness leading to a fall. Patient reportedly fell 4 days prior to her admission and found the floor ever since. Patient reportedly had gotten up to go to the bathroom overnight and his feet were asleep and fell. Patient was too weak to get himself back up. Patient reportedly had a cough for the past month without subjective fever or chills. No nausea, vomiting or diarrhea was noted. Patient reportedly is not on supplemental oxygen at baseline, but wa s hypoxic when found by EMS. Patient reportedly is not immunized against COVID- 19. On arrival to the ER, patient was afebrile, but tachycardic at 101 bpm. Patient was normotensive, but required 3 L/min as room air saturations were only 84%. Laboratory data showed a white blood cell count of 7.5, creatinine of 1.36 and a CK of 1096. COVID-19 was tested and positive. UA was unremarkable. Chest x- ray showed chronic interstitial changes and pacemaker. EKG showed a paced ventricular rhythm of 102 bpm. Patient was given a 500 cc bolus, Decadron and admitted to the hospital. Overnight, patient has become progressively more hypotensive. Patient was given 2 L of IV fluids by the hospitalist without significant improvement. Patient was transferred to the intensive care unit for further evaluation. Patient overall felt that he was doing okay when he arrived to the intensive care unit. Patient had gone from 2 L nasal cannula to 10 L nasal cannula to maintain saturations. Patient was not reporting any significant cough or abdominal pain. Patient was unclear if his weakness was any better. Patient states he has been known to have lower blood pressures because of his heart, but was unaware of his typical blood pressure. Review of systems otherwise negative from a constitutional, HEENT, respiratory, cardiovascular, GI, genitourinary, musculoskeletal, skin, neurologic, psych iatric and hematologic system unless stated above. 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 Ischemic cardiomyopathy Kidney stones Left bundle branch block Obesity Old inferior wall myocardial infarction Secondary pulmonary arterial hypertension Type 2 diabetes mellitus Home Medications aspirin 81 mg PO DAILY@0800 12/07/17 [History Last Taken Unknown] glyburide 2.5 mg PO DAILY@0800 tab 12/18/17 [Rx Last Taken Unknown] nitroglycerin 0.4 mg sublingual tablet 0.4 mg SUBLINGUAL Q5-15M PRN #25 tab 01/16/18 [Rx Last Taken Unknown] atorvastatin 40 mg tablet 40 mg PO QHS #90 tab 10/27/20 [Rx Last Taken Unknown] clopidogrel 75 mg tablet 75 mg PO DAILY #90 tab 10/27/20 [Rx Last Taken Unknown] furosemide 40 mg tablet 40 mg PO QAM #100 tab 10/27/20 [Rx Last Taken Unknown] sacubitril 49 mg-valsartan 51 mg tablet 1 tab PO BID #60 tab 11/03/20 [Rx Last Taken Unknown] carvedilol 12.5 mg tablet 25 mg PO BID #180 tab 02/09/21 [Rx Last Taken Unknown] Allergy/AdvReac Type Severity Reaction Status Date / Time No Known Allergies Allergy Verified 03/17/21 13:25 Family History Father Sudden cardiac Myocardial infarction Mother Myocardial infarction Other CAD (coronary artery disease) Surgical History History of coronary artery stent placement (09/17/10) History of left heart catheterization (12/07/17) Presence of biventricular implantable cardioverter-defibrillator (ICD) (09/16/18) Social History Smoking Status: Former smoker ROS ROS Narrative See HPI Physical Exam Const alert and oriented x3 General Appearance: cooperative, well developed and appears older than stated age Nutritional Appearance: obese HEENT normocephalic, head/scalp atraumatic and moist oral mucous membranes Eyes PERRL and EOMs intact bilaterally Neck full ROM and no lymphadenopathy Chest inspection of chest normal Chest: symmetrical chest wall rise; Negative for crepitus Resp Effort and Inspection: tachypneic and actively coughing; Negative for uses accessory muscles, audible wheezes or tracheal deviation Auscultation: clear to auscultation bilaterally; Negative for rales, rhonchi or wheezes Percussion: Negative for dullness Cardio regular rate, regular rhythm, S1 normal heart sound, S2 normal heart sound, no murmurs, no rub and no gallops Cardio Narrative: Paced rhythm on telemetry GI normal to inspection, nondistended, normoactive bowel sounds no CVA tenderness Extremity no clubbing, cyanosis or edema Skin no rashes or lesions noted Neuro oriented x3, CN's II-XII intact bilaterally, moves all extremities and no focal motor deficits Psych cooperative and affect normal Medical Records Data Medical Nutrition Assessment Dietitian: Malnutrition Criteria Met Start: 03/18/21 12:18 Freq: Status: Active Protocol: Document 03/18/21 12:18 [facility] (Rec: 03/18/21 12:19 [facility] [id number]) Nutrition Malnutrition Evidence of Malnutrition Exists Yes Malnutrition (severe): Acute Illness/Injury Evidenced By Suboptimal Energy Intake ( Severe),Weight Loss (Severe) Clinical Problem Altered Nutrient-Related Laboratory Values Etiology related to diabetes, steroid administration and rhabdomyolosis Signs/Symptoms as evidenced by gluc 310, BUN 54, Cr 1.95 Status Active Problem Acute Disease or Injury Related Malnutrition Etiology related to pt falling and 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 to meet pt est nutritional needs Signs/Symptoms as evidenced by 2.8% wt loss and no po intake x 4 days 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 Status Active Problem Recommendation Dietitian Recommendations/Changes Will liberalize diet to regular d/t signs/symptoms of malnutrition Will continue glucerna shake w / meals for increased nutrition if consumed Lab / Micro Data Result Diagrams: 03/18/21 06:56 03/18/21 06:56 Labs: Laboratory Results - last 24 hr 03/17/21 14:42: WBC 7.5, RBC 5.16, Hgb 15.3, Hct 48.4, MCV 93.8, MCH 29.7, MCHC 31.6 L, RDW Std Deviation 59.3 H, RDW Coeff of Nirav 17.1 H, Plt Count 226, MPV 9.9, Immature Gran % (Auto) 0.800, Neut % (Auto) 82.6 H, Lymph % (Auto) 11.1 L, Bland % (Auto) 4.6, Eos % (Auto) 0.5, Baso % (Auto) 0.4, Absolute Neuts (auto) 6.2, Absolute Lymphs (auto) 0.83, Platelet Estimate ADEQUATE, Plt Morphology Comment LARGE, RBC Morphology N CHROM, Anisocytosis RARE, Macrocytosis RARE 03/17/21 15:20: COVID-19 (TAMARA) Detected 03/17/21 18:00: Urine Color Yellow, Urine Clarity Clear, Urine pH 5.0, Ur Specific Keller 1.020, Urine Protein 30 H, Urine Glucose (UA) Normal, Urine Ketones 50 H, Urine Occult Blood Negative, Urine Nitrite Negative, Urine B ilirubin Negative, Urine Urobilinogen Normal, Ur Leukocyte Esterase Negative, Urine RBC 0 SEEN, Urine WBC 0-5 SEEN, Ur Squamous Epith Cells 0-5 SEEN, Urine Bacteria 0 SEEN, Coarse Granular Casts 0-5 SEEN, Urine Mucus 0 SEEN 03/17/21 21:45: POC Glucose 229 H 03/18/21 05:14: POC Glucose 334 H 03/18/21 06:56: Sodium 138, Potassium 4.9, Chloride 106, Carbon Dioxide 26.0, Anion Gap 6, BUN 54 H, Creatinine 1.95 H, Estim Creat Clear Calc 38.64, Est GFR (MDRD) Af Amer 43 L, Est GFR (MDRD) Non-Af 36 L, BUN/Creatinine Ratio 27.7 H, Glucose 310 H, Calcium 8.0 L, Total Bilirubin 0.30, AST 60 H, ALT 39, Alkaline Phosphatase 133 H, Total Creatine Kinase 559 H, Total Protein 6.7, Albumin 2.4 L , Globulin 4.3 H, Albumin/Globulin Ratio 0.6 L 03/18/21 06:56: WBC 6.8, RBC 4.66, Hgb 14.1, Hct 44.3, MCV 95.1 H, MCH 30.3, MCHC 31.8 L, RDW Std Deviation 61.4 H, RDW Coeff of Nirav 17.5 H, Plt Count 270, MPV 9.5, Immature Gran % (Auto) 1.300 H, Neut % (Auto) 85.3 H, Lymph % (Auto) 9.6 L, Bland % (Auto) 3.5, Eos % (Auto) 0.0, Baso % (Auto) 0.3, Absolute Neuts (auto) 5.8, Absolute Lymphs (auto) 0.65 L, Nucleated RBC % 0 03/18/21 06:56: Magnesium 3.0 H 03/18/21 06:56: C-React Prot Ext Range 137.00 H 03/18/21 08:45: POC Glucose 235 H 03/18/21 10:42: Troponin I High Sens 20 03/18/21 11:40: POC Glucose 279 H 03/18/21 14:00: D-Dimer Quant (PE/DVT) 1.00 H* 03/18/21 14:00: Procalcitonin 0.25 H Radiology Impression Chest X-Ray 03/17/21 17:00 IMPRESSION: Chronic interstitial changes, no superimposed acute pulmonary process Electronically Signed: Hayden Oconnor MD at 17:34 EST , Service support , Charges/Coding Procedures Hospitalists Procedures: [id number] Critial Care 1st Hr
--- NOTE | 2021-03-18 16:41 | RAD_ITS ---
We are attempting to reach an attending provider to discuss findings. An addendum with communication details will be sent when the communication is complete. STUDY: X-RAY CHEST REASON FOR EXAM: Male, 75 years old. Central line TECHNIQUE: AP portable COMPARISON: 03/17/2021 FINDINGS: There is interstitial thickening within both lower lobes and right upper lobe with patchy areas of increased density suspicious for atypical viral pneumonia. There is calcified granuloma in left upper lobe.. There is no demonstrated pleural abnormality. Heart is mildly enlarged. Pacer noted on the left with electrodes in satisfactory position.. Normal mediastinum and jorge. Normal visualized pulmonary arteries. Normal visualized aortic arch and descending thoracic aorta. Central line seen on the right with tip in proximal superior vena cava and should be advanced approximately 7 cm. No evidence for pneumothorax status post central line placement Normal visualized thoracic spine. Normal visualized ribs, clavicles, and shoulders. There is no demonstrated abnormality of the visualized soft tissue structures of the upper abdomen. RAD/CXR for Line Placement IMPRESSION: Findings suspicious for changes of Covid 19 pneumonia. Central line placement on the right with tip in the proximal superior vena cava and should be advanced approximately 7 cm Electronically Signed: Min Hudson MD at 18:36 EST , Service support ,
--- NOTE | 2021-03-18 16:48 | PCM.OP.BLANK ---
Operative Report Date of Procedure: 03/18/21 Central line placement procedure note Indication: IV access/hemodynamic instability/vasoactive medications Procedure: A time-out was completed to verify correct patient, indication, medication allergies, procedure, coagulation studies, informed consent signed, and equipment needed. The patient was placed in the supine position for a central line placement to the rt IJ vein. The patients rt neck was prepped using chlorhexidine and a full body sterile drape was applied. 1% lidocaine was used to anesthetize the surrounding skin. A 7fr 16 cm blue guard triple lumen catheter introduced into the internal jugular vein using the modified seldinger technique with the assistance of ultrasound. The catheter was threaded smoothly over the guidewire, the guidewire was removed easily, nonpulsatile blood returned. All ports were aspirated of air and flushed with sterile saline. The catheter was sutured in place and covered with an occlusive dressing impregnated with chlorhexidine. Post-procedure: The patient tolerated the procedure well. Vital signs remained stable. EBL 3cc. No complications. Chest X Ray ordered to confirm tip placement and the absence of pneumothorax. Procedures Hospitalists Procedures: [id number] Insert Non-tunnel CV Cath
[2021-03-18 17:05] LABS: Bedside Glucose 226 mg/dL (70-110)
[2021-03-18] MEDS: 0.9% Saline Lock 10 ML Syringe IV (18:14)
--- NOTE | 2021-03-18 18:47 | PCM.RX.CS ---
Consult Pharmacy has been consulted to manage selected antiobiotic: Vancomycin Type of Consult: New start Labs: Sodium 138 mmol/L (136-145) 03/18/21 06:56 Potassium 4.9 mmol/L (3.5-5.1) 03/18/21 06:56 Chloride 106 mmol/L (98-107) 03/18/21 06:56 Carbon Dioxide 26.0 mmol/L (21.0-32.0) 03/18/21 06:56 Anion Gap 6 (5-15) 03/18/21 06:56 BUN 54 mg/dL (7-18) H 03/18/21 06:56 Creatinine 1.95 mg/dL (0.70-1.30) H 03/18/21 06:56 Est GFR (MDRD) Af Amer 43 mL/min (>60) L 03/18/21 06:56 Est GFR (MDRD) Non-Af 36 mL/min (>60) L 03/18/21 06:56 BUN/Creatinine Ratio 27.7 RATIO (10-20) H 03/18/21 06:56 Glucose 310 mg/dL (74-106) H 03/18/21 06:56 Weight used for dosin.9 kg Estimated Creatinine Clearance: 39 ML/MIN Goal Trough: 15-20 mcg/mL Pharmacy Plan for Drug Dosing: Give initial loading dose of 2000mg IV x1, then continue with 1500mg IV q24h. Will check a trough before the 3rd total dose. Pharmacy Service will continue to monitor and adjust dosing as required. Follow-Up Labs: Trough Vancomycin Labs to be done on [date and time ordered]: 03/20/21 17:30
[2021-03-18] MEDS: Atorvastatin Calcium 40 MG Tablet PO (22:20)
[2021-03-18] MEDS: Aspirin 81 MG TAB.CHEW PO (22:20)
[2021-03-19] VITALS (28 sets, daily range): BP systolic 89–131; BP diastolic 48–77; PULSE 63–87; RESP 14–25; TEMP 36.6–36.7; O2SAT 89–95
[2021-03-19 00:21] LABS: Bedside Glucose 210 mg/dL (70-110)
[2021-03-19 05:54] LABS: Absolute Lymphocyte Count 0.88 X10^3/uL (0.83-4.51); Absolute Neutrophil Count 11.6 X10^3/uL (2.0-7.7); Basophil# 0.03 X10^3/uL; Basophil% 0.2 % (0-1); Hematocrit 45.7 % (40-54); Hemoglobin 14.1 g/dL (13.0-16.5); Lymphocyte # 0.88 X10^3/ul (0.83-4.51); Lymphocyte % 6.6 % (19-41); Mean Corp Hgb Conc 30.9 g/dL (32-36); Mean Corpuscular Hgb 29.6 pg (27.0-32.0); Mean Platelet Vol. 9.8 fl (6.2-12.0); Monocyte# 0.64 X10^3/uL; Monocyte% 4.8 % (0-10); NRBC Flagged by Analyzer 0 % (0-5); Neutrophil # 11.55 X10^3/uL (2.7-7.7); Neutrophil % 86.6 % (47-70); Platelet Count 335 K/mm3 (150-450); RBC Distribution Width CV 17.8 % (11.6-14.6); RBC Distribution Width SD 63.4 fl (35.1-43.9); Red Blood Count 4.76 M/mm3 (4.6-6.2); White Blood Count 13.3 K/mm3 (4.4-11.0)
[2021-03-19 06:05] LABS: ALB/GLOB Ratio 0.5 RATIO (0.9-2.4); AST(SGOT) 52 U/L (15-37); Alanine Aminotransfer ALT/SGPT 39 U/L (16-61); Albumin, Serum 2.2 g/dL (3.2-5.0); Alkaline Phosphatase 135 U/L (45-117); Anion Gap 6 (5-15); BUN 78 mg/dL (7-18); BUN/Creat Ratio 35.6 RATIO (10-20); Calcium,Total 7.8 mg/dL (8.5-10.1); Chloride 109 mmol/L (98-107); Creatinine, Serum 2.19 mg/dL (0.70-1.30); EST Glomerular Filtration Rate 31 mL/min (>60); Est Glom Filt Rate - Afr Amer 38 mL/min (>60); Estimated Creatinine Clearance 34.41 ml/min; Globulin 4.2 g/dL (2.2-4.2); Glucose 328 mg/dL (74-106); Potassium 5.1 mmol/L (3.5-5.1); Protein, Total 6.4 g/dL (6.4-8.2); Sodium Level 140 mmol/L (136-145)
--- NOTE | 2021-03-19 08:08 | PN.CC_ITS ---
Assessment & Plan Assessment/Plan (1) Pneumonia due to COVID-19 virus: (2) Acute respiratory failure with hypoxia: (3) Ischemic cardiomyopathy: (4) Secondary pulmonary arterial hypertension: PLAN: RECOMMENDATIONS: 1. Levophed if necessary to achieve MAP greater than 65 2. No further fluid boluses. Consider therapeutic Lovenox 3. BiPAP rescue overnight if necessary 4. Continue empiric antibiotics pending culture data 5. Wean oxygen as tolerated. Encourage incentive spirometer, Acapella and prone positioning 6. Continue Decadron (03/28/2021) IMPRESSIONS: 1. Distributive shock of unclear etiology Patient with significant low blood pressures on the floor. Patient does have significant ischemic cardiomyopathy with baseline beta-becky. Unclear if this represents medications, cardiogenic shock or septic shock. Pancultures have been ordered. Will initiate empiric antibiotics pending culture data. If cultures are negative at 48 hours, plan on discontinuation of Vanco and Zosyn. Did discuss with the patient about the risks of further endorgan damage with hypotension. Patient understands of his blood pressures are on the edge and after review the risks, benefits and alternatives, patient is willing to have a central line placed. Patient does have signs of endorgan damage including an increase in creatinine to 1.95 from a baseline of 1.36. Did stressed to the patient the importance of using Acapella, incentive spirometer and prone positioning as tolerated. 2. Acute hypoxic respiratory failure secondary to COVID-19 Patient with significant elevation from a base of 2 L on admission to 12 L/min to maintain saturations at this time. No further fluid boluses have been given as this has been shown to worsen hypoxic respiratory failure and COVID-19. Patient is on Decadron therapy. Patient is presenting late for Remdesivir. Defer to hospitalist on inclusion of infectious disease for baricitinib. Patient would be at high risk for obstructive sleep apnea clinically. Cannot exclude the need for BiPAP overnight. 3. Acute metabolic encephalopathy/chronic systolic CHF (25%)/diabetes mellitus/unvaccinated/obesity Complicates care, management, recovery and prognosis. Mentation appears to be improving with improvement in blood pressure. Patient is on Decadron therapy, so will likely need to add basal insulin. Defer to hospitalist on inclusion of cardiology given severity of heart history Subjective Subjective Patient did okay overnight. Blood pressures have remained marginal, but no Levophed had to be initiated. Patient was desaturating with sleep, but remains on nasal cannula oxygen. Patient does not report any history of obstructive sle ep apnea in the past. However, patient has never been tested either. Objective Data Objective Data Vital Signs: Vital Signs Temp Pulse Resp BP Pulse Ox 36.7 C 70 18 102/57 L 92 03/19/21 04:00 03/19/21 06:00 03/19/21 06:00 03/19/21 06:00 03/19/21 07:12 Oxygen Flow Rate (L/min) 12 Oxygen Delivery Method Nasal Cannula Weight: 127.913 kg Body Mass Index (BMI) 36.1 Intake & Output: Intake and Output for Last 24 Hours 03/17/21 03/18/21 03/19/21 23:59 23:59 23:59 Intake Total 750 / 750 2993.75 / 2993.75 50 / 50 Output Total 0 / 0 Balance 750 / 750 2993.75 / 2993.75 50 / 50 Medical Nutrition Assessment Dietitian: Malnutrition Criteria Met Start: 03/18/21 12:18 Freq: Status: Active Protocol: Document 03/18/21 12:18 [facility] (Rec: 03/18/21 12:19 [facility] [id number]) Nutrition Malnutrition Evidence of Malnutrition Exists Yes Malnutrition (severe): Acute Illness/Injury Evidenced By Suboptimal Energy Intake ( Severe),Weight Loss (Severe) Clinical Problem Altered Nutrient-Related Laboratory Values Etiology related to diabetes, steroid administration and rhabdomyolosis Signs/Symptoms as evidenced by gluc 310, BUN 54, Cr 1.95 Status Active Problem Acute Disease or Injury Related Malnutrition Etiology related to pt falling and 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 to meet pt est nutritional needs Signs/Symptoms as evidenced by 2.8% wt loss and no po intake x 4 days 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 Status Active Problem Recommendation Dietitian Recommendations/Changes Will liberalize diet to regular d/t signs/symptoms of malnutrition Will continue glucerna shake w / meals for increased nutrition if consumed Lab / Micro Data Result Diagrams: 03/19/21 04:00 03/19/21 04:00 Labs: Laboratory Results - last 24 hr 03/18/21 06:56: Magnesium 3.0 H 03/18/21 06:56: C-React Prot Ext Range 137.00 H 03/18/21 08:45: POC Glucose 235 H 03/18/21 10:42: Troponin I High Sens 20 03/18/21 11:40: POC Glucose 279 H 03/18/21 14:00: D-Dimer Quant (PE/DVT) 1.00 H* 03/18/21 14:00: Procalcitonin 0.25 H 03/18/21 16:17: POC Glucose 226 H 03/18/21 22:17: POC Glucose 210 H 03/19/21 04:00: WBC 13.3 H, RBC 4.76, Hgb 14.1, Hct 45.7, MCV 96.0 H, MCH 29.6, MCHC 30.9 L, RDW Std Deviation 63.4 H, RDW Coeff of Nirav 17.8 H, Plt Count 335, MPV 9.8, Immature Gran % (Auto) 1.800 H, Neut % (Auto) 86.6 H, Lymph % (Auto) 6.6 L, [place] % (Auto) 4.8, Eos % (Auto) 0.0, Baso % (Auto) 0.2, Absolute Neuts (auto) 11.6 H, Absolute Lymphs (auto) 0.88, Nucleated RBC % 0 03/19/21 04:00: Sodium 140, Potassium 5.1, Chloride 109 H, Carbon Dioxide 25.0, Anion Gap 6, BUN 78 H, Creatinine 2.19 H, Estim Creat Clear Calc 34.41, Est GFR (MDRD) Af Amer 38 L, Est GFR (MDRD) Non-Af 31 L, BUN/Creatinine Ratio 35.6 H, Glucose 328 H, Calcium 7.8 L, Total Bilirubin 0.40, AST 52 H, ALT 39, Alkaline Phosphatase 135 H, Total Protein 6.4, Albumin 2.2 L, Globulin 4.2, Albumin/Globulin Ratio 0.5 L Radiography Diagnostic Testing: Radiology Impression Chest X-Ray 03/18/21 16:41 IMPRESSION: Findings suspicious for changes of Covid 19 pneumonia. Central line placement on the right with tip in the proximal superior vena cava and should be advanced approximately 7 cm Electronically Signed: Min Hudson MD at 18:36 EST , Service support , ADDENDUM: 03/18/21 1849 IMPRESSION: Findings suspicious for changes of Covid 19 pneumonia. Central line placement on the right with tip in the proximal superior vena cava and should be advanced approximately 7 cm N.B. : The above Results were Read Back by Min Hudson MD to Katie Desai RN, and understanding confirmed on 03/18/2021 18:42:39 (ET). Electronically Signed: Min Hudson MD at 18:36 EST , Service support , Physical Exam Const alert and oriented x3 General Appearance: cooperative, well developed and appears older than stated age Nutritional Appearance: obese HEENT normocephalic, head/scalp atraumatic and moist oral mucous membranes Eyes PERRL and EOMs intact bilaterally Neck full ROM and no lymphadenopathy Chest inspection of chest normal Chest: symmetrical chest wall rise; Negative for crepitus Resp Effort and Inspection: tachypneic and actively coughing; Negative for uses accessory muscles, audible wheezes or tracheal deviation Auscultation: clear to auscultation bilaterally; Negative for rales, rhonchi or wheezes Percussion: Negative for dullness Cardio regular rate, regular rhythm, S1 normal heart sound, S2 normal heart sound, no murmurs, no rub and no gallops Cardio Narrative: Paced rhythm on telemetry GI normal to inspection, nondistended, normoactive bowel sounds no CVA tenderness Extremity no clubbing, cyanosis or edema Skin no rashes or lesions noted Neuro oriented x3, CN's II-XII intact bilaterally, moves all extremities and no focal motor deficits Psych cooperative and affect normal Charges/Coding Visit Charges Inpatient E&M: 99245 Subs Hosp L3
[2021-03-19] MEDS: dexAMETHasone 4 MG Tablet 6 MG PO (09:08)
[2021-03-19] MEDS: Clopidogrel Bisulfate 75 MG Tablet PO (09:08)
[2021-03-19] MEDS: Acetaminophen 325 MG Tablet 650 MG PO ×2 (09:08→20:17)
[2021-03-19] MEDS: Enoxaparin 120 MG/0.8 ML Syringe SC ×2 (09:14→20:14)
[2021-03-19 09:15] LABS: Bedside Glucose 255 mg/dL (70-110)
[2021-03-19] MEDS: 0.9% Normal Saline 1,000 ML 15 ML IV (11:05)
[2021-03-19] MEDS: Insulin Lispro 100 UNIT/ML INSULN.PEN SC ×4 (11:06→22:58)
[2021-03-19 13:57] LABS: Bedside Glucose 245 mg/dL (70-110)
--- NOTE | 2021-03-19 14:32 | PN.HOSP_ITS ---
Subjective Subjective Follow-up on acute hypoxic respiratory failure/acute COVID-19 pneumonia/Hypertension: Patient was seen and examined. Patient is off pressors. He is currently on 12 L of oxygen. Denies any new complaints Objective Data Objective Data Vital Signs: Vital Signs Temp Pulse Resp BP Pulse Ox 97.9 F 63 14 92/61 95 03/19/21 12:00 03/19/21 12:00 03/19/21 12:00 03/19/21 12:00 03/19/21 12:00 Oxygen Flow Rate (L/min) 12 Oxygen Delivery Method Nasal Cannula Weight: 127.913 kg Body Mass Index (BMI) 36.1 Intake & Output: Intake and Output for Last 24 Hours 03/17/21 03/18/21 03/19/21 23:59 23:59 23:59 Intake Total 750 / 750 2993.75 / 2993.75 100 / 100 Output Total 0 / 0 Balance 750 / 750 2993.75 / 2993.75 100 / 100 Medical Nutrition Assessment Dietitian: Malnutrition Criteria Met Start: 03/18/21 12:1 8 Freq: Status: Active Protocol: Document 03/18/21 12:18 [facility] (Rec: 03/18/21 12:19 [facility] [id number]) Nutrition Malnutrition Evidence of Malnutrition Exists Yes Malnutrition (severe): Acute Illness/Injury Evidenced By Suboptimal Energy Intake ( Severe),Weight Loss (Severe) Clinical Problem Altered Nutrient-Related Laboratory Values Etiology related to diabetes, steroid administration and rhabdomyolosis Signs/Symptoms as evidenced by gluc 310, BUN 54, Cr 1.95 Status Active Problem Acute Disease or Injury Related Malnutrition Etiology related to pt falling and being down on floor 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 to consume adequate nutrition to meet pt est nutritional needs Signs/Symptoms as evidenced by 2.8% wt loss and no po intake x 4 days service captain Status Active Problem Recommendation Dietitian Recommendations/Changes Will liberalize diet to regular d/t signs/symptoms of malnutrition Will continue glucerna shake w / meals for increased nutrition if consumed Lab / Micro Data Result Diagrams: 03/19/21 04:00 03/19/21 04:00 Labs: Laboratory Results - last 24 hr 03/18/21 14:00: Procalcitonin 0.25 H 03/18/21 16:17: POC Glucose 226 H 03/18/21 22:17: POC Glucose 210 H 03/19/21 04:00: WBC 13.3 H, RBC 4.76, Hgb 14.1, Hct 45.7, MCV 96.0 H, MCH 29.6, MCHC 30.9 L, RDW Std Deviation 63.4 H, RDW Coeff of Nirav 17.8 H, Plt Count 335, MPV 9.8, Immature Gran % (Auto) 1.800 H, Neut % (Auto) 86.6 H, Lymph % (Auto) 6.6 L, [place] % (Auto) 4.8, Eos % (Auto) 0.0, Baso % (Auto) 0.2, Absolute Neuts (auto) 11.6 H, Absolute Lymphs (auto) 0.88, Nucleated RBC % 0 03/19/21 04:00: Sodium 140, Potassium 5.1, Chloride 109 H, Carbon Dioxide 25.0, Anion Gap 6, BUN 78 H, Creatinine 2.19 H, Estim Creat Clear Calc 34.41, Est GFR (MDRD) Af Amer 38 L, Est GFR (MDRD) Non-Af 31 L, BUN/Creatinine Ratio 35.6 H, Glucose 328 H, Calcium 7.8 L, Total Bilirubin 0.40, AST 52 H, ALT 39, Alkaline Phosphatase 135 H, Total Protein 6.4, Albumin 2.2 L, Globulin 4.2, Albumin/Globulin Ratio 0.5 L 03/19/21 09:00: POC Glucose 255 H 03/19/21 13:00: POC Glucose 245 H Micro: Microbiology 03/17/21 18:00 Urine, Midstream Urine Culture - Final Mixed Gram Positive Organisms Radiography Diagnostic Testing: Radiology Impression Chest X-Ray 03/18/21 16:41 IMPRESSION: Findings suspicious for changes of Covid 19 pneumonia. Central line placement on the right with tip in the proximal superior vena cava and should be advanced approximately 7 cm Electronically Signed: Min Hudson MD at 18:36 EST , Service support , ADDENDUM: 03/18/21 [id number] IMPRESSION: Findings suspicious for changes of Covid 19 pneumonia. Central line placement on the right with tip in the proximal superior vena cava and should be advanced approximately 7 cm N.B. : The above Results were Read Back by Min Hudson MD to Katie Desai RN, and understanding confirmed on 03/18/2021 18:42:39 (ET). Electronically Signed: Min Hudson MD at 18:36 EST , Service support , Physical Exam Narrative Physical exam: General: Alert, Oriented x3, Cooperative, No apparent distress, appears disheve led, on 12 L of oxygen HEENT: Atraumatic Oral: Moist Mucosa Neck: Supple Lungs: Diminished to auscultation Cardiovascular: HS I+II, regular, no murmurs Abdomen: Bowel Sounds Present, Soft, Non Tender Extremities: No edema Assessment & Plan Assessment/Plan (1) Acute respiratory failure with hypoxia: (2) Pneumonia due to COVID-19 virus: PLAN: 1. Acute hypoxic respiratory failure secondary to acute COVID-19 pneumonia Remains on 12 L of oxygen His COVID-19 PCR is positive; chest x-ray shows interstitial changes Patient stated that his symptoms started 2 to 3 weeks ago -we will discontinue remdesivir Continue on Decadron, encourage use of incentive spirometer 2. Shock, unclear etiology for now, blood pressures are improved Currently off Levophed Blood cultures are pending; will follow Continue on empiric IV vancomycin and Zosyn 3. Acute metabolic encephalopathy secondary to #1 and 2, appears resolved 4. Acute kidney injury on CKD stage IIIb, Creatinine today is 2.19, baseline is between 1.3-1.4 Continue to trend 5. Chronic systolic CHF, EF of 25%, status post AICD, status post pacemaker Will be careful with IV fluids not to push patient into acute CHF Pacemaker check 6. Type II DM, blood sugars uncontrolled Continue to hold glipizide in light of acute kidney injury Charges/Coding Visit Charges Inpatient E&M: 74343 Subs Hosp L2
[2021-03-19 17:56] LABS: Bedside Glucose 222 mg/dL (70-110)
[2021-03-19] MEDS: Aspirin 81 MG TAB.CHEW PO (20:14)
[2021-03-19] MEDS: Atorvastatin Calcium 40 MG Tablet PO (20:16)
[2021-03-19 23:05] LABS: Bedside Glucose 251 mg/dL (70-110)
[2021-03-20] VITALS (17 sets, daily range): BP systolic 98–141; BP diastolic 56–70; PULSE 64–81; RESP 18–23; TEMP 36.4–36.8; O2SAT 89–96
[2021-03-20 05:12] LABS: ALB/GLOB Ratio 0.6 RATIO (0.9-2.4); AST(SGOT) 36 U/L (15-37); Alanine Aminotransfer ALT/SGPT 40 U/L (16-61); Albumin, Serum 2.3 g/dL (3.2-5.0); Alkaline Phosphatase 116 U/L (45-117); Anion Gap 8 (5-15); BUN 79 mg/dL (7-18); BUN/Creat Ratio 38.2 RATIO (10-20); Chloride 111 mmol/L (98-107); Creatinine, Serum 2.07 mg/dL (0.70-1.30); EST Glomerular Filtration Rate 34 mL/min (>60); Est Glom Filt Rate - Afr Amer 41 mL/min (>60); Glucose 215 mg/dL (74-106); Potassium 4.6 mmol/L (3.5-5.1); Protein, Total 6.3 g/dL (6.4-8.2); Sodium Level 143 mmol/L (136-145)
[2021-03-20 05:56] LABS: Absolute Lymphocyte Count 0.59 X10^3/uL (0.83-4.51); Basophil# 0.05 X10^3/uL; Basophil% 0.4 % (0-1); Eosinophil# 0.68 X10^3/uL; Eosinophils% 5.1 % (0-5); Hematocrit 42.7 % (40-54); Hemoglobin 13.4 g/dL (13.0-16.5); Lymphocyte # 0.59 X10^3/ul (0.83-4.51); Lymphocyte % 4.4 % (19-41); Mean Corp Hgb Conc 31.4 g/dL (32-36); Mean Corpuscular Hgb 29.8 pg (27.0-32.0); Mean Corpuscular Volume 94.9 fL (80-94); Mean Platelet Vol. 9.9 fl (6.2-12.0); Monocyte# 0.66 X10^3/uL; NRBC Flagged by Analyzer 0 % (0-5); Neutrophil # 11.03 X10^3/uL (2.7-7.7); Neutrophil % 83.1 % (47-70); POSITIVE DIFFERENTIAL YES; POSITIVE MORPHOLOGY YES; Platelet Count 326 K/mm3 (150-450); RBC Distribution Width CV 18.1 % (11.6-14.6); RBC Distribution Width SD 63.2 fl (35.1-43.9); White Blood Count 13.3 K/mm3 (4.4-11.0)
[2021-03-20 06:01] LABS: Differential Indicated SCAN CRITERIA MET
--- NOTE | 2021-03-20 06:21 | PN.CC_ITS ---
Assessment & Plan Assessment/Plan (1) Pneumonia due to COVID-19 virus: (2) Acute respiratory failure with hypoxia: (3) Ischemic cardiomyopathy: (4) Secondary pulmonary arterial hypertension: PLAN: RECOMMENDATIONS: 1. Levophed if necessary to achieve MAP greater than 65 2. No further fluid boluses. Initiate Levophed if necessary 3. BiPAP rescue overnight if necessary 4. Continue empiric antibiotics pending culture data 5. Wean oxygen as tolerated. Encourage incentive spirometer, Acapella and prone positioning 6. Continue Decadron (03/28/2021) IMPRESSIONS: 1. Distributive shock of unclear etiology/acute kidney injury Patient with significant low blood pressures on the floor. Patient does have significant ischemic cardiomyopathy with baseline beta-becky. Unclear if this represents medications, cardiogenic shock or septic shock. Pancultures have been ordered. Urine culture will be reordered given contamination. On empiric antibiotics pending culture data. If cultures are negative at 48 hours, plan on discontinuation of Vanco and Zosyn. Did discuss with the patient about the risks of further endorgan damage with hypotension. Patient does have signs of endorgan damage including an increase in creatinine to 1.95 from a baseline of 1.36. Did stressed to the patient the importance of using Acapella, incentive spirometer and prone positioning as tolerated. 2. Acute hypoxic respiratory failure secondary to COVID-19 Patient with significant elevation from a base of 2 L on admission to 15 L/min to maintain saturations at this time. No further fluid boluses have been given as this has been shown to worsen hypoxic respiratory failure and COVID-19. Patient is on Decadron therapy. Patient is presenting late for Remdesivir. Defer to hospitalist on inclusion of infectious disease for baricitinib. Patient would be at high risk for obstructive sleep apnea clinically. Cannot exclude the need for BiPAP overnight. Would like to diurese the patient, but still has significant renal dysfunction 3. Acute metabolic encephalopathy/chronic systolic CHF (25%)/diabetes mellitus/unvaccinated/obesity Complicates care, management, recovery and prognosis. Mentation appears to be improving with improvement in blood pressure. Patient is on Decadron therapy, so will likely need to add basal insulin. Defer to hospitalist on inclusion of cardiology given severity of heart history Subjective Subjective Patient did okay overnight. Blood pressures have improved compared to previous. However, patient continues to require significant FiO2 to maintain saturations. Patient subjectively feels unchanged compared to previous. Objective Data Objective Data Vital Signs: Vital Signs Temp Pulse Resp BP Pulse Ox 36.5 C L 68 21 H 112/60 91 03/20/21 04:00 03/20/21 05:00 03/20/21 05:00 03/20/21 05:00 03/20/21 05:00 Oxygen Flow Rate (L/min) 15 Oxygen Delivery Method High Flow Weight: 127.913 kg Body Mass Index (BMI) 36.1 Intake & Output: Intake and Output for Last 24 Hours 03/18/21 03/19/21 03/20/21 23:59 23:59 23:59 Intake Total 2993.75 / 2993.75 1470 / 1710 290 / 290 Output Total 650 / 870 220 / 220 Balance 2993.75 / 2993.75 820 / 840 70 / 70 Medical Nutrition Assessment Dietitian: Malnutrition Criteria Met Start: 03/18/21 12:18 Freq: Status: Active Protocol: Document 03/19/21 16:22 RMA (Rec: 03/19/21 16:22 RMA [id number]) Nutrition Malnutrition Evidence of Malnutrition Exists Yes Malnutrition (severe): Acute Illness/Injury Evidenced By Suboptimal Energy Intake ( Severe),Weight Loss (Severe) Clinical Problem Acute Disease or Injury Related Malnutrition Etiology related to acute illness/ decreased oral intake Signs/Symptoms as evidenced by 2.8% wt loss, PO meeting less than 50% estimated nutrition needs x 5 days Status Active Problem Recommendation Dietitian Recommendations/Changes Will change diet to carbohydrate-controlled; cardiac/sodium-restricted. Will adjust glucerna shake w/ meals to 120ml TID instead of 240ml. Lab / Micro Data Result Diagrams: 03/20/21 02:00 03/20/21 02:00 Labs: Laboratory Results - last 24 hr 03/19/21 09:00: POC Glucose 255 H 03/19/21 13:00: POC Glucose 245 H 03/19/21 17:46: POC Glucose 222 H 03/19/21 22:56: POC Glucose 251 H 03/20/21 02:00: WBC 13.3 H, RBC 4.50 L, Hgb 13.4, Hct 42.7, MCV 94.9 H, MCH 29.8, MCHC 31.4 L, RDW Std Deviation 63.2 H, RDW Coeff of Nirav 18.1 H, Plt Count 326, MPV 9.9, Immature Gran % (Auto) 2.000 H, Neut % (Auto) 83.1 H, Lymph % (Auto) 4.4 L, [place] % (Auto) 5.0, Eos % (Auto) 5.1 H, Baso % (Auto) 0.4, Absolute Neuts (auto) 11.0 H, Absolute Lymphs (auto) 0.59 L, Nucleated RBC % 0 03/20/21 02:00: Sodium 143, Potassium 4.6, Chloride 111 H, Carbon Dioxide 24.0, Anion Gap 8, BUN 79 H, Creatinine 2.07 H, Estim Creat Clear Calc 36.40, Est GFR (MDRD) Af Amer 41 L, Est GFR (MDRD) Non-Af 34 L, BUN/Creatinine Ratio 38.2 H, Glucose 215 H, Calcium 8.0 L, Total Bilirubin 0.30, AST 36, ALT 40, Alkaline Phosphatase 116, Total Protein 6.3 L, Albumin 2.3 L, Globulin 4.0, Albumin/Globulin Ratio 0.6 L Micro: Microbiology 03/17/21 15:35 Blood Culture (Wb) - Left Hand Blood Culture - Preliminary No growth in 48 hours. 03/17/21 14:42 Blood Culture (Wb) - Anticubital Right Blood Culture - Preliminary No growth in 48 hours. 03/17/21 18:00 Urine, Midstream Urine Culture - Final Mixed Gram Positive Organisms Physical Exam Const alert and oriented x3 General Appearance: cooperative, well developed and appears older than stated age Nutritional Appearance: obese HEENT normocephalic, head/scalp atraumatic and moist oral mucous membranes Eyes PERRL and EOMs intact bilaterally Neck full ROM and no lymphadenopathy Chest inspection of chest normal Chest: symmetrical chest wall rise; Negative for crepitus Resp Effort and Inspection: tachypneic and actively coughing; Negative for uses accessory muscles, audible wheezes or tracheal deviation Auscultation: clear to auscultation bilaterally; Negative for rales, rhonchi or wheezes Percussion: Negative for dullness Cardio regular rate, regular rhythm, S1 normal heart sound, S2 normal heart sound, no murmurs, no rub and no gallops Cardio Narrative: Paced rhythm on telemetry GI normal to inspection, nondistended, normoactive bowel sounds no CVA tenderness Extremity no clubbing, cyanosis or edema Skin no rashes or lesions noted Neuro oriented x3, CN's II-XII intact bilaterally, moves all extremities and no focal motor deficits Psych cooperative and affect normal Charges/Coding Visit Charges Inpatient E&M: 61690 Subs Hosp L3
[2021-03-20] MEDS: Insulin Lispro 100 UNIT/ML INSULN.PEN SC ×3 (08:29→16:38)
[2021-03-20] MEDS: Carvedilol 25 MG Tablet PO ×2 (08:30→22:40)
[2021-03-20] MEDS: Enoxaparin 120 MG/0.8 ML Syringe SC ×2 (08:30→22:42)
[2021-03-20] MEDS: Clopidogrel Bisulfate 75 MG Tablet PO (08:30)
[2021-03-20] MEDS: dexAMETHasone 4 MG Tablet 6 MG PO (08:31)
[2021-03-20 09:40] LABS: Bedside Glucose 164 mg/dL (70-110)
--- NOTE | 2021-03-20 11:04 | PN.HOSP_ITS ---
Subjective Subjective Follow-up on acute hypoxic respiratory failure/acute COVID-19 pneumonia/Hypertension: Patient was seen and examined. Blood pressures remain improved, patient remains off pressors. He is currently on 15 L of oxygen. He denied any new complaints. Objective Data Objective Data Vital Signs: Vital Signs Temp Pulse Resp BP Pulse Ox 98.1 F 81 18 98/69 92 03/20/21 09:00 03/20/21 09:00 03/20/21 09:00 03/20/21 09:00 03/20/21 09:56 Oxygen Flow Rate (L/min) 15 Oxygen Delivery Method Nasal Cannula Weight: 127.913 kg Body Mass Index (BMI) 36.1 Intake & Output: Intake and Output for Last 24 Hours 03/18/21 03/19/21 03/20/21 23:59 23:59 23:59 Intake Total 2993.75 / 2993.75 1470 / 1710 770 / 770 Output Total 650 / 870 720 / 720 Balance 2993.75 / 2993.75 820 / 840 50 / 50 Medical Nutrition Assessment Dietitian: Malnutrition Criteria Met Start: 03/18/21 12:18 Freq: Status: Active Protocol: Document 03/19/21 16:22 RMA (Rec: 03/19/21 16:22 RMA [id number]) Nutrition Malnutrition Evidence of Malnutrition Exists Yes Malnutrition (severe): Acute Illness/Injury Evidenced By Suboptimal Energy Intake ( Severe),Weight Loss (Severe) Clinical Problem Acute Disease or Injury Related Malnutrition Etiology related to acute illness/ decreased oral intake Signs/Symptoms as evidenced by 2.8% wt loss, PO meeting less than 50% estimated nutrition needs x 5 days Status Active Problem Recommendation Dietitian Recommendations/Changes Will change diet to carbohydrate-controlled; cardiac/sodium-restricted. Will adjust glucerna shake w/ meals to 120ml TID instead of 240ml. Lab / Micro Data Result Diagrams: 03/20/21 02:00 03/20/21 02:00 Labs: Laboratory Results - last 24 hr 03/19/21 13:00: POC Glucose 245 H 03/19/21 17:46: POC Glucose 222 H 03/19/21 22:56: POC Glucose 251 H 03/20/21 02:00: WBC 13.3 H, RBC 4.50 L, Hgb 13.4, Hct 42.7, MCV 94.9 H, MCH 29.8, MCHC 31.4 L, RDW Std Deviation 63.2 H, RDW Coeff of Nirav 18.1 H, Plt Count 326, MPV 9.9, Immature Gran % (Auto) 2.000 H, Neut % (Auto) 83.1 H, Lymph % (Auto) 4.4 L, [place] % (Auto) 5.0, Eos % (Auto) 5.1 H, Baso % (Auto) 0.4, Absolute Neuts (auto) 11.0 H, Absolute Lymphs (auto) 0.59 L, Nucleated RBC % 0 03/20/21 02:00: Sodium 143, Potassium 4.6, Chloride 111 H, Carbon Dioxide 24.0, Anion Gap 8, BUN 79 H, Creatinine 2.07 H, Estim Creat Clear Calc 36.40, Est GFR (MDRD) Af Amer 41 L, Est GFR (MDRD) Non-Af 34 L, BUN/Creatinine Ratio 38.2 H, Glucose 215 H, Calcium 8.0 L, Total Bilirubin 0.30, AST 36, ALT 40, Alkaline Phosphatase 116, Total Protein 6.3 L, Albumin 2.3 L, Globulin 4.0, Albumin/Globulin Ratio 0.6 L 03/20/21 08:28: POC Glucose 164 H Micro: Microbiology 03/17/21 15:35 Blood Culture (Wb) - Left Hand Blood Culture - Preliminary No growth in 48 hours. 03/17/21 14:42 Blood Culture (Wb) - Anticubital Right Blood Culture - Preliminary No growth in 48 hours. 03/17/21 18:00 Urine, Midstream Urine Culture - Final Mixed Gram Positive Organisms Physical Exam Narrative Physical exam: General: Alert, Oriented x3, Cooperative, No apparent distress, appears disheveled, on 15 L of oxygen HEENT: Atraumatic Oral: Moist Mucosa Neck: Supple Lungs: Diminished to auscultation Cardiovascular: HS I+II, regular, no murmurs Abdomen: Bowel Sounds Present, Soft, Non Tender Extremities: Bilateral pedal edema +1 Assessment & Plan Assessment/Plan (1) Acute respiratory failure with hypoxia: (2) Pneumonia due to COVID-19 virus: PLAN: 1. Acute hypoxic respiratory failure secondary to acute COVID-19 pneumonia, slightly worsening Currently on 15 L of oxygen His COVID-19 PCR is positive; chest x-ray shows interstitial changes Patient stated that his symptoms started 2 to 3 weeks prior to admission Continue on Decadron, Remdesivir discontinued Encourage use of incentive spirometer 2. Shock, unclear etiology for now, blood pressures are improved Remains off Levophed Blood cultures are pending; urine cultures showed mixed organisms likely contaminant Urine cultures being repeated Continue on empiric IV vancomycin and Zosyn 3. Acute metabolic encephalopathy secondary to #1 and 2, appears resolved 4. Acute kidney injury on CKD stage IIIb, slowly improving Creatinine today is 2.07, baseline is between 1.3-1.4 Continue to trend 5. Chronic systolic CHF, EF of 25%, status post AICD, status post pacemaker Stable, not in acute CHF Pacemaker check -negative for arrhythmias 6. Type II DM, blood sugars are better controlled Continue to hold glipizide in light of acute kidney injury Continue insulin sliding scale 7. 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
[2021-03-20 13:06] LABS: Bedside Glucose 257 mg/dL (70-110)
[2021-03-20 17:25] LABS: Bedside Glucose 261 mg/dL (70-110)
[2021-03-20 17:39] LABS: Vancomycin, Trough Level 17.8 ug/mL (5.0-15.0)
--- NOTE | 2021-03-20 19:18 | PCM.RX.CS ---
Consult Pharmacy has been consulted to manage selected antiobiotic: Vancomycin Type of Consult: Follow-up Labs: Sodium 143 mmol/L (136-145) 03/20/21 02:00 Potassium 4.6 mmol/L (3.5-5.1) 03/20/21 02:00 Chloride 111 mmol/L (98-107) H 03/20/21 02:00 Carbon Dioxide 24.0 mmol/L (21.0-32.0) 03/20/21 02:00 Anion Gap 8 (5-15) 03/20/21 02:00 BUN 79 mg/dL (7-18) H 03/20/21 02:00 Creatinine 2.07 mg/dL (0.70-1.30) H 03/20/21 02:00 Est GFR (MDRD) Af Amer 41 mL/min (>60) L 03/20/21 02:00 Est GFR (MDRD) Non-Af 34 mL/min (>60) L 03/20/21 02:00 BUN/Creatinine Ratio 38.2 RATIO (10-20) H 03/20/21 02:00 Glucose 215 mg/dL (74-106) H 03/20/21 02:00 Vancomycin Trough 17.8 ug/mL (5.0-15.0) H 03/20/21 16:45 Microbiology: Microbiology 03/18/21 10:42 Blood Culture (Wb) - Anticubital Right Blood Culture - Preliminary No growth in 48 hours. 03/18/21 10:47 Blood Culture (Wb) - Right Wrist Blood Culture - Preliminary No growth in 48 hours. 03/17/21 15:35 Blood Culture (Wb) - Left Hand Blood Culture - Preliminary No growth in 48 hours. 03/17/21 14:42 Blood Culture (Wb) - Anticubital Right Blood Culture - Preliminary No growth in 48 hours. 03/17/21 18:00 Urine, Midstream Urine Culture - Final Mixed Gram Positive Organisms Goal Trough: 15-20 mcg/mL Pharmacy Plan for Drug Dosing: VANCOMYCIN LEVEL RECEIVED Current Vancomycin Dose: 1500MG IV Q24H Number of Doses Received: 3 (2 prior to trough draw) Vancomycin Level: 17.8 Hours Since Last Dose: 22hr Renal Function: 2.07 Renal Function Trend: stable Lab/Micro: Pending Vancomycin Plan/Comments: Patient had trough draw which resulted in a value of 17.8 (drawn 22hrs from last administered dose). Although trough was drawn early, it is likely the patient is still within therapeutic goal range of 15-20. Continue current dose of 1500mg IV Q24h and check a trough in 2 days to assess dosing at that time. Pending Level: 03/22/21 @9996 Pharmacy Service will continue to monitor and adjust dosing as required.
[2021-03-20] MEDS: Aspirin 81 MG TAB.CHEW PO (22:40)
[2021-03-20] MEDS: Atorvastatin Calcium 40 MG Tablet PO (22:40)
[2021-03-20] MEDS: Acetaminophen 325 MG Tablet 650 MG PO (22:40)
[2021-03-20] MEDS: 0.9% Saline Lock 10 ML Syringe IV (22:41)
[2021-03-20 23:21] LABS: Bedside Glucose 140 mg/dL (70-110)
[2021-03-21] VITALS (12 sets, daily range): BP systolic 105–148; BP diastolic 57–94; PULSE 64–80; RESP 18–20; TEMP 36.3–36.6; O2SAT 94–97
[2021-03-21 05:10] LABS: Absolute Neutrophil Count 9.7 X10^3/uL (2.0-7.7); Basophil# 0.05 X10^3/uL; Basophil% 0.4 % (0-1); Eosinophil# 0.09 X10^3/uL; Eosinophils% 0.7 % (0-5); Hematocrit 40.3 % (40-54); Hemoglobin 12.6 g/dL (13.0-16.5); Lymphocyte % 6.6 % (19-41); Mean Corp Hgb Conc 31.3 g/dL (32-36); Mean Corpuscular Hgb 29.9 pg (27.0-32.0); Mean Corpuscular Volume 95.5 fL (80-94); Mean Platelet Vol. 9.8 fl (6.2-12.0); Monocyte% 8.3 % (0-10); NRBC Flagged by Analyzer 0 % (0-5); Neutrophil # 9.73 X10^3/uL (2.7-7.7); Neutrophil % 80.8 % (47-70); Platelet Count 363 K/mm3 (150-450); RBC Distribution Width CV 18.4 % (11.6-14.6); RBC Distribution Width SD 64.3 fl (35.1-43.9); Red Blood Count 4.22 M/mm3 (4.6-6.2); White Blood Count 12.1 K/mm3 (4.4-11.0)
[2021-03-21 05:28] LABS: ALB/GLOB Ratio 0.6 RATIO (0.9-2.4); AST(SGOT) 25 U/L (15-37); Alanine Aminotransfer ALT/SGPT 35 U/L (16-61); Albumin, Serum 2.2 g/dL (3.2-5.0); Alkaline Phosphatase 105 U/L (45-117); Anion Gap 4 (5-15); BUN 69 mg/dL (7-18); BUN/Creat Ratio 48.6 RATIO (10-20); Calcium,Total 8.2 mg/dL (8.5-10.1); Chloride 117 mmol/L (98-107); Creatinine, Serum 1.42 mg/dL (0.70-1.30); EST Glomerular Filtration Rate 52 mL/min (>60); Est Glom Filt Rate - Afr Amer 63 mL/min (>60); Estimated Creatinine Clearance 53.06 ml/min; Globulin 3.7 g/dL (2.2-4.2); Glucose 136 mg/dL (74-106); Potassium 4.7 mmol/L (3.5-5.1); Protein, Total 5.9 g/dL (6.4-8.2); Sodium Level 147 mmol/L (136-145)
--- NOTE | 2021-03-21 07:21 | PN.CC_ITS ---
Assessment & Plan Assessment/Plan (1) Pneumonia due to COVID-19 virus: (2) Acute respiratory failure with hypoxia: (3) Ischemic cardiomyopathy: (4) Secondary pulmonary arterial hypertension: PLAN: RECOMMENDATIONS: 1. Continue to wean supplemental oxygen to maintain saturations at or above 90%. 2. Continue antimicrobials. 3. Continue Lovenox. 4. Continue Decadron to complete 10 days of therapy. 5. Encourage incentive spirometer use and mobilize patient as tolerated. IMPRESSIONS: 1. Acute hypoxic respiratory failure secondary to COVID-19 The patient initially presented to the emergency department on March 17 with hypoxemia and cough. The patient was found to be positive for COVID-19. He also has a history of systolic heart failure with an ejection fraction of 25%. The patient was placed on antimicrobials and Decadron. The patient was felt to be outside of the window for remdesivir administration. Oxygenation status is relatively stable on nasal cannula at the present time. Underlying renal insufficiency has limited the use of diuretics. Encourage incentive spirometer use and mobilize patient as tolerated. 2. Acute kidney injury Improving. Likely prerenal in etiology. Avoid nephrotoxic medications. Continue to hold diuretics for now. No current indication for renal replacement therapy. 3. Acute metabolic encephalopathy/chronic systolic CHF (25%)/diabetes mellitus/unvaccinated/obesity Complicates care, management, recovery and prognosis. Continue Lantus and sliding scale insulin coverage. Resume Lasix once renal function improves. This note was generated with [employer] dictation software. It may contain incorrect words, spelling, and punctuation that were not noted in checking the note before signing. Subjective Subjective The patient was seen and examined at the bedside this morning. Events from the last 24 hours have been reviewed. The patient is currently afebrile, hemodynamically stable and maintaining appropriate oxygen saturations on 15 L/min high flow nasal cannula. The patient is currently documented to be overall net +6.5 L for the hospitalization. Creatinine has improved to 1.42 this morning. The patient remains on antimicrobials, along with Decadron and therapeutic Lovenox. Objective Data Objective Data The patient's most recent lab work, culture data and imaging studies have all been personally reviewed. Surface echocardiogram from October 2020 demonstrated a moderately dilated LV with an ejection fraction of 25% and stage I diastolic dysfunction. Pulmonary artery systolic pressure was estimated to be 35 mmHg. Vital Signs: Vital Signs Temp Pulse Resp BP Pulse Ox 97.5 F L 69 20 H 119/57 L 94 03/21/21 03:00 03/21/21 04:00 03/21/21 03:00 03/21/21 03:00 03/21/21 03:00 Oxygen Flow Rate (L/min) 15 Oxygen Delivery Method High Flow Weight: 134.1 kg Body Mass Index (BMI) 36.1 Intake & Output: Intake and Output for Last 24 Hours 03/19/21 03/20/21 03/21/21 23:59 23:59 23:59 Intake Total 1470 / 1710 2609.00 / 2849.00 599.25 / 599.25 Output Total 650 / 870 1795 / 1795 Balance 820 / 840 814.00 / 1054.00 599.25 / 599.25 Medical Nutrition Assessment Dietitian: Malnutrition Criteria Met Start: 03/18/21 12:18 Freq: Status: Active Protocol: Document 03/19/21 16:22 RMA (Rec: 03/19/21 16:22 RMA [id number]) Nutrition Malnutrition Evidence of Malnutrition Exists Yes Malnutrition (severe): Acute Illness/Injury Evidenced By Suboptimal Energy Intake ( Severe),Weight Loss (Severe) Clinical Problem Acute Disease or Injury Related Malnutrition Etiology related to acute illness/ decreased oral intake Signs/Symptoms as evidenced by 2.8% wt loss, PO meeting less than 50% estimated nutrition needs x 5 days Status Active Problem Recommendation Dietitian Recommendations/Changes Will change diet to carbohydrate-controlled; cardiac/sodium-restricted. Will adjust glucerna shake w/ meals to 120ml TID instead of 240ml. Lab / Micro Data Attestation: I reviewed the patient's lab results. Result Diagrams: 03/21/21 04:20 03/21/21 04:20 Labs: Laboratory Results - last 24 hr 03/20/21 08:28: POC Glucose 164 H 03/20/21 12:17: POC Glucose 257 H 03/20/21 16:37: POC Glucose 261 H 03/20/21 16:45: Vancomycin Trough 17.8 H 03/20/21 22:39: POC Glucose 140 H 03/21/21 04:20: WBC 12.1 H, RBC 4.22 L, Hgb 12.6 L, Hct 40.3, MCV 95.5 H, MCH 29.9, MCHC 31.3 L, RDW Std Deviation 64.3 H, RDW Coeff of Nirav 18.4 H, Plt Count 363, MPV 9.8, Immature Gran % (Auto) 3.200 H, Neut % (Auto) 80.8 H, Lymph % (Auto) 6.6 L, [place] % (Auto) 8.3, Eos % (Auto) 0.7, Baso % (Auto) 0.4, Absolute Neuts (auto) 9.7 H, Absolute Lymphs (auto) 0.80 L, Nucleated RBC % 0 03/21/21 04:20: Sodium 147 H, Potassium 4.7, Chloride 117 H, Carbon Dioxide 26.0, Anion Gap 4 L, BUN 69 H, Creatinine 1.42 H, Estim Creat Clear Calc 53.06, Est GFR (MDRD) Af Amer 63, Est GFR (MDRD) Non-Af 52 L, BUN/Creatinine Ratio 48.6 H, Glucose 136 H, Calcium 8.2 L, Total Bilirubin 0.40, AST 25, ALT 35, Alkaline Phosphatase 105, Total Protein 5.9 L, Albumin 2.2 L, Globulin 3.7, Albumin/Globulin Ratio 0.6 L Micro: Microbiology 03/18/21 10:42 Blood Culture (Wb) - Anticubital Right Blood Culture - Preliminary No growth in 48 hours. 03/18/21 10:47 Blood Culture (Wb) - Right Wrist Blood Culture - Preliminary No growth in 48 hours. 03/17/21 15:35 Blood Culture (Wb) - Left Hand Blood Culture - Preliminary No growth in 48 hours. 03/17/21 14:42 Blood Culture (Wb) - Anticubital Right Blood Culture - Preliminary No growth in 48 hours. 03/17/21 18:00 Urine, Midstream Urine Culture - Final Mixed Gram Positive Organisms Physical Exam Const alert and no apparent distress General Appearance: cooperative Nutritional Appearance: obese HEENT normocephalic and head/scalp atraumatic Eyes PERRL, EOMs intact bilaterally and conjunctivae normal Neck supple General: trachea midline Chest inspection of chest normal Resp Auscultation: diminished lung sounds; Negative for rales, rhonchi or wheezes Cardio regular rate and regular rhythm GI normal to inspection, nondistended, normoactive bowel sounds Extremity no clubbing, cyanosis or edema Skin no rashes or lesions noted Neuro moves all extremities and no focal motor deficits Psych Mood & Affect: flat affect Charges/Coding Visit Charges Inpatient E&M: 16604 Subs Hosp L3
--- NOTE | 2021-03-21 08:57 | PCM.PN.HOSP ---
Subjective Subjective Patient on high flow oxygen. Patient on therapeutic dose Lovenox, Decadron and antibiotic. Was admitted with fall and was laying on the floor for 4 days prior to admission. Objective Data Objective Data Vital Signs: Vital Signs Temp Pulse Resp BP Pulse Ox 97.5 F L 69 20 H 119/57 L 94 03/21/21 03:00 03/21/21 04:00 03/21/21 03:00 03/21/21 03:00 03/21/21 03:00 Oxygen Flow Rate (L/min) 15 Oxygen Delivery Method High Flow Weight: 295 lb 10.238 oz Body Mass Index (BMI) 36.1 Intake & Output: Intake and Output for Last 24 Hours 03/19/21 03/20/21 03/21/21 23:59 23:59 23:59 Intake Total 1470 / 1710 2609.00 / 2849.00 599.25 / 599.25 Output Total 650 / 870 1795 / 1795 Balance 820 / 840 814.00 / 1054.00 599.25 / 599.25 Medical Nutrition Assessment Dietitian: Malnutrition Criteria Met Start: 03/18/21 12:18 Freq: Status: Active Protocol: Document 03/19/21 16:22 RMA (Rec: 03/19/21 16:22 RMA [id number]) Nutrition Malnutrition Evidence of Malnutrition Exists Yes Malnutrition (severe): Acute Illness/Injury Evidenced By Suboptimal Energy Intake ( Severe),Weight Loss (Severe) Clinical Problem Acute Disease or Injury Related Malnutrition Etiology related to acute illness/ decreased oral intake Signs/Symptoms as evidenced by 2.8% wt loss, PO meeting less than 50% estimated nutrition needs x 5 days Status Active Problem Recommendation Dietitian Recommendations/Changes Will change diet to carbohydrate-controlled; cardiac/sodium-restricted. Will adjust glucerna shake w/ meals to 120ml TID instead of 240ml. Lab / Micro Data Result Diagrams: 03/21/21 04:20 03/21/21 04:20 Labs: Laboratory Results - last 24 hr 03/20/21 08:28: POC Glucose 164 H 03/20/21 12:17: POC Glucose 257 H 03/20/21 16:37: POC Glucose 261 H 03/20/21 16:45: Vancomycin Trough 17.8 H 03/20/21 22:39: POC Glucose 140 H 03/21/21 04:20: WBC 12.1 H, RBC 4.22 L, Hgb 12.6 L, Hct 40.3, MCV 95.5 H, MCH 29.9, MCHC 31.3 L, RDW Std Deviation 64.3 H, RDW Coeff of Nirav 18.4 H, Plt Count 363, MPV 9.8, Immature Gran % (Auto) 3.200 H, Neut % (Auto) 80.8 H, Lymph % (Auto) 6.6 L, [place] % (Auto) 8.3, Eos % (Auto) 0.7, Baso % (Auto) 0.4, Absolute Neuts (auto) 9.7 H, Absolute Lymphs (auto) 0.80 L, Nucleated RBC % 0 03/21/21 04:20: Sodium 147 H, Potassium 4.7, Chloride 117 H, Carbon Dioxide 26.0, Anion Gap 4 L, BUN 69 H, Creatinine 1.42 H, Estim Creat Clear Calc 53.06, Est GFR (MDRD) Af Amer 63, Est GFR (MDRD) Non-Af 52 L, BUN/Creatinine Ratio 48.6 H, Glucose 136 H, Calcium 8.2 L, Total Bilirubin 0.40, AST 25, ALT 35, Alkaline Phosphatase 105, Total Protein 5.9 L, Albumin 2.2 L, Globulin 3.7, Albumin/Globulin Ratio 0.6 L Micro: Microbiology 03/18/21 10:42 Blood Culture (Wb) - Anticubital Right Blood Culture - Preliminary No growth in 48 hours. 03/18/21 10:47 Blood Culture (Wb) - Right Wrist Blood Culture - Preliminary No growth in 48 hours. 03/17/21 15:35 Blood Culture (Wb) - Left Hand Blood Culture - Preliminary No growth in 48 hours. 03/17/21 14:42 Blood Culture (Wb) - Anticubital Right Blood Culture - Preliminary No growth in 48 hours. 03/17/21 18:00 Urine, Midstream Urine Culture - Final Mixed Gram Positive Organisms Physical Exam Narrative General: Mild lethargy but answers questions appropriately. HEENT: Atraumatic, PERRLA, EOMI, Normocephalic Oral: No Gingival or Mucosal Lesions/ Ulcerations Neck: Supple, No JVD, Negative Carotid Bruits Lungs: Air entry diminished in bilateral lung bases. On high flow oxygen. Cardiovascular: Paced rhythm, left subclavicular pacemaker. Normal S1, Normal S2, No murmurs Abdomen: Bowel Sounds Present, Soft, Non Tender, Non-Distended, diarrhea incontinent : No renal angle tenderness. No suprapubic tenderness. Extremities: No edema, Capillary Refill Less than 3 Seconds Skin: No rashes, No breakdown Musculoskeletal: No Tenderness to Palpation of Joints or Extremities Neurological: Cranial nerves II-XII grossly intact, DTR 2+/4. Psych/Mental Status: Flat affect Assessment & Plan Assessment/Plan (1) Acute respiratory failure with hypoxia: (2) Pneumonia due to COVID-19 virus: PLAN: 1. Acute hypoxic respiratory failure secondary to acute COVID-19 pneumonia: His COVID-19 PCR is positive; chest x-ray shows interstitial changes Patient stated that his symptoms started 2 to 3 weeks prior to admission Continue on Decadron, Remdesivir discontinued. ID consult to see indication for baricitinib. Currently on high flow 15 L of oxygen. Continue incentive spirometry and Pep. 2. Shock, unclear etiology for now, blood pressures are improved Remains off Levophed Blood cultures are pending; urine cultures showed mixed organisms likely contaminant Urine cultures being repeated Continue on empiric IV vancomycin and Zosyn 3. Acute metabolic encephalopathy secondary to #1 and 2: Patient responds appropriately to still mild lethargy. 4. Acute kidney injury on CKD stage IIIb, slowly improving Creatinine gradually improving, baseline is between 1.3-1.4 5. Chronic systolic CHF, EF of 25%, status post AICD, status post pacemaker Stable, not in acute CHF Pacemaker check -negative for arrhythmias 6. Type II DM, blood sugars are better controlled Continue to hold glipizide.Continue insulin sliding scale. Blood sugar is controlled 7. Severe malnutrition, clearance center manager consulted, on supplements Charges/Coding Visit Charges Inpatient E&M: 89897 [facility] Hosp L3
[2021-03-21] MEDS: Clopidogrel Bisulfate 75 MG Tablet PO (09:23)
[2021-03-21] MEDS: Enoxaparin 120 MG/0.8 ML Syringe SC ×2 (09:23→21:41)
[2021-03-21] MEDS: Carvedilol 25 MG Tablet PO ×2 (09:23→22:08)
[2021-03-21] MEDS: dexAMETHasone 4 MG Tablet 6 MG PO (09:23)
--- NOTE | 2021-03-21 10:07 | PCM.RX.CS ---
Consult Pharmacy has been consulted to manage selected antiobiotic: Vancomycin Type of Consult: Follow-up Prior Doses of Antibiotics Received/Current Regimen: 1500mg iv q24h Labs: Sodium 147 mmol/L (136-145) H 03/21/21 04:20 Potassium 4.7 mmol/L (3.5-5.1) 03/21/21 04:20 Chloride 117 mmol/L (98-107) H 03/21/21 04:20 Carbon Dioxide 26.0 mmol/L (21.0-32.0) 03/21/21 04:20 Anion Gap 4 (5-15) L 03/21/21 04:20 BUN 69 mg/dL (7-18) H 03/21/21 04:20 Creatinine 1.42 mg/dL (0.70-1.30) H 03/21/21 04:20 Est GFR (MDRD) Af Amer 63 mL/min (>60) 03/21/21 04:20 Est GFR (MDRD) Non-Af 52 mL/min (>60) L 03/21/21 04:20 BUN/Creatinine Ratio 48.6 RATIO (10-20) H 03/21/21 04:20 Glucose 136 mg/dL (74-106) H 03/21/21 04:20 Vancomycin Trough 17.8 ug/mL (5.0-15.0) H 03/20/21 16:45 Microbiology: Microbiology 03/18/21 10:42 Blood Culture (Wb) - Anticubital Right Blood Culture - Preliminary No growth in 48 hours. 03/18/21 10:47 Blood Culture (Wb) - Right Wrist Blood Culture - Preliminary No growth in 48 hours. 03/17/21 15:35 Blood Culture (Wb) - Left Hand Blood Culture - Preliminary No growth in 48 hours. 03/17/21 14:42 Blood Culture (Wb) - Anticubital Right Blood Culture - Preliminary No growth in 48 hours. 03/17/21 18:00 Urine, Midstream Urine Culture - Final Mixed Gram Positive Organisms Weight used for dosin kg Estimated Creatinine Clearance: 53ml/min Goal Trough: 15-20 mcg/mL Pharmacy Plan for Drug Dosing: Renal function has improved. Will change dose to 1250mg iv q12h per protocol. Trough ordered for before 4th dose of new regimen. Pharmacy Service will continue to monitor and adjust dosing as required. Follow-Up Labs: Trough Vancomycin - 12.14.21@2330 before 0000 dose
--- NOTE | 2021-03-21 11:06 | NURSING ---
report called to niki SIMONS RN at 1100
[2021-03-21] MEDS: Insulin Lispro 100 UNIT/ML INSULN.PEN SC ×3 (11:54→21:42)
[2021-03-21 12:10] LABS: Bedside Glucose 184 mg/dL (70-110)
--- NOTE | 2021-03-21 13:06 | CASEMGMT ---
Social Work SW placed envelope of financial resources in pt's room on the counter, pt is working w/aide at present. RN aware the envelope is there for pt. XOCHITL Marinelli
[2021-03-21 16:25] LABS: Bedside Glucose 273 mg/dL (70-110)
[2021-03-21] MEDS: Aspirin 81 MG TAB.CHEW PO (21:40)
[2021-03-21] MEDS: Atorvastatin Calcium 40 MG Tablet PO (21:41)
--- NOTE | 2021-03-21 21:42 | CON.PCM.ID_ITS ---
Assessment & Plan Assessment/Plan (1) Pneumonia due to COVID-19 virus: PLAN: Covid sx for 2+ weeks at this point. Would isolate until 03/28. On dex. Will stop vanc/zosyn, cxs neg. With worsening O2, reviewed EUA and risks/benefits, we agree to start baricitinib. Will follow, thank you (2) Acute respiratory failure with hypoxia: HPI Consult Data Date of Consult: 03/21/21 HPI Narrative HPI Narrative: TREVON LEAL, is a 75 M who presented 03/17 after being down at home for 4 days. Some cough weakness, fatigue, dyspnea, not feeling well for about 2.5 weeks prior. Covid (+), admitted to icu with shock, vanc/zosyn empirically with dex. Worsening O2, feeling ok. Full ROS performed and neg except as noted above. [facility] Medical History Atherosclerosis of coronary artery of [place] heart without angina pectoris Cardiogenic shock Diabetes Former smoker History of ST elevation myocardial infarction (STEMI) (12/07/17) Hyperlipidemia Hypersomnia, unspecified ICD (implantable cardioverter-defibrillator) in place ICD (implantable cardioverter-defibrillator) in place Ischemic cardiomyopathy Kidney stones Left bundle branch block Obesity Old inferior wall myocardial infarction Secondary pulmonary arterial hypertension Type 2 diabetes mellitus Home Medications aspirin 81 mg PO DAILY@0800 12/07/17 [History Last Taken Unknown] glyburide 2.5 mg PO DAILY@0800 tab 12/18/17 [Rx Last Taken Unknown] nitroglycerin 0.4 mg sublingual tablet 0.4 mg SUBLINGUAL Q5-15M PRN #25 tab 01/16/18 [Rx Last Taken Unknown] atorvastatin 40 mg tablet 40 mg PO QHS #90 tab 10/27/20 [Rx Last Taken Unknown] clopidogrel 75 mg tablet 75 mg PO DAILY #90 tab 10/27/20 [Rx Last Taken Unknown] furosemide 40 mg tablet 40 mg PO QAM #100 tab 10/27/20 [Rx Last Taken Unknown] sacubitril 49 mg-valsartan 51 mg tablet 1 tab PO BID #60 tab 11/03/20 [Rx Last Taken Unknown] carvedilol 12.5 mg tablet 25 mg PO BID #180 tab 02/09/21 [Rx Last Taken Unknown] Allergy/AdvReac Type Severity Reaction Status Date / Time No Known Allergies Allergy Verified 03/17/21 13:25 Family History Father Sudden cardiac Myocardial infarction Mother Myocardial infarction Other CAD (coronary artery disease) Surgical History History of coronary artery stent placement (09/17/10) History of left heart catheterization (12/07/17) Presence of biventricular implantable cardioverter-defibrillator (ICD) (09/16/18) Social History Smoking Status: Former smoker Physical Exam Const alert and no apparent distress General Appearance: cooperative Exam Limitations: no limitations HEENT normocephalic and head/scalp atraumatic Eyes PERRL and EOMs intact bilaterally Neck supple and No nodes Resp Auscultation: diminished lung sounds Cardio regular rate and regular rhythm GI normal to inspection, nondistended, normoactive bowel sounds Extremity no clubbing, cyanosis or edema Skin no rashes or lesions noted Neuro CN's II-XII intact bilaterally Medical Records Data Medical Nutrition Assessment Dietitian: Malnutrition Criteria Met Start: 03/18/21 12:18 Freq: Status: Active Protocol: Document 03/19/21 16:22 RMA (Rec: 03/19/21 16:22 RMA [id number]) Nutrition Malnutrition Evidence of Malnutrition Exists Yes Malnutrition (severe): Acute Illness/Injury Evidenced By Suboptimal Energy Intake ( Severe),Weight Loss (Severe) Clinical Problem Acute Disease or Injury Related Malnutrition Etiology related to acute illness/ decreased oral intake Signs/Symptoms as evidenced by 2.8% wt loss, PO meeting less than 50% estimated nutrition needs x 5 days Status Active Problem Recommendation Dietitian Recommendations/Changes Will change diet to carbohydrate-controlled; cardiac/sodium-restricted. Will adjust glucerna shake w/ meals to 120ml TID instead of 240ml. Lab / Micro Data Result Diagrams: 03/21/21 04:20 03/21/21 04:20 Labs: Laboratory Results - last 24 hr 03/20/21 22:39: POC Glucose 140 H 03/21/21 04:20: WBC 12.1 H, RBC 4.22 L, Hgb 12.6 L, Hct 40.3, MCV 95.5 H, MCH 29.9, MCHC 31.3 L, RDW Std Deviation 64.3 H, RDW Coeff of Nirav 18.4 H, Plt Count 363, MPV 9.8, Immature Gran % (Auto) 3.200 H, Neut % (Auto) 80.8 H, Lymph % (Auto) 6.6 L, [place] % (Auto) 8.3, Eos % (Auto) 0.7, Baso % (Auto) 0.4, Absolute Neuts (auto) 9.7 H, Absolute Lymphs (auto) 0.80 L, Nucleated RBC % 0 03/21/21 04:20: Sodium 147 H, Potassium 4.7, Chloride 117 H, Carbon Dioxide 26.0, Anion Gap 4 L, BUN 69 H, Creatinine 1.42 H, Estim Creat Clear Calc 53.06, Est GFR (MDRD) Af Amer 63, Est GFR (MDRD) Non-Af 52 L, BUN/Creatinine Ratio 48.6 H, Glucose 136 H, Calcium 8.2 L, Total Bilirubin 0.40, AST 25, ALT 35, Alkaline Phosphatase 105, Total Protein 5.9 L, Albumin 2.2 L, Globulin 3.7, Albumin/Gl obulin Ratio 0.6 L 03/21/21 11:54: POC Glucose 184 H 03/21/21 16:06: POC Glucose 273 H Micro: Microbiology 03/20/21 12:50 Urine, Clean Catch Urine Culture - Preliminary Culture exhibits no growth.
[2021-03-21 22:51] LABS: Bedside Glucose 239 mg/dL (70-110)
[2021-03-21] MEDS: INHALER, ASSIST DEVICES 1 EACH SPACER INHALATION (22:54)
[2021-03-21] MEDS: Albuterol Sulfate 8 gm Inhaler (60 puffs) 2 PUFF INHALATION (22:55)
[2021-03-22] VITALS (15 sets, daily range): BP systolic 108–164; BP diastolic 47–76; PULSE 66–88; RESP 18–20; TEMP 36.3–36.7; O2SAT 92–97
[2021-03-22] MEDS: Insulin Lispro 100 UNIT/ML INSULN.PEN SC ×4 (06:37→21:30)
[2021-03-22] MEDS: Sodium Chloride 0.65% 1 SPRAY SPRAY.BTL 2 SPRAY NASAL ×4 (06:38→21:32)
[2021-03-22 06:45] LABS: Bedside Glucose 170 mg/dL (70-110)
[2021-03-22 08:45] LABS: Hemoglobin 10.2 g/dL (13.0-16.5); Mean Corp Hgb Conc 30.9 g/dL (32-36); Mean Corpuscular Hgb 29.7 pg (27.0-32.0); Mean Corpuscular Volume 95.9 fL (80-94); Mean Platelet Vol. 9.9 fl (6.2-12.0); POSITIVE COUNT YES; POSITIVE MORPHOLOGY YES; Platelet Count 337 K/mm3 (150-450); RBC Distribution Width CV 18.2 % (11.6-14.6); RBC Distribution Width SD 63.6 fl (35.1-43.9); Red Blood Count 3.44 M/mm3 (4.6-6.2); White Blood Count 10.8 K/mm3 (4.4-11.0)
[2021-03-22 08:53] LABS: Differential Indicated MANUAL DIFF
[2021-03-22 09:32] LABS: ALB/GLOB Ratio 0.6 RATIO (0.9-2.4); AST(SGOT) 30 U/L (15-37); Alanine Aminotransfer ALT/SGPT 35 U/L (16-61); Alkaline Phosphatase 95 U/L (45-117); Anion Gap 1 (5-15); BUN 69 mg/dL (7-18); BUN/Creat Ratio 63.9 RATIO (10-20); Calcium,Total 8.9 mg/dL (8.5-10.1); Chloride 116 mmol/L (98-107); Creatinine, Serum 1.08 mg/dL (0.70-1.30); EST Glomerular Filtration Rate 71 mL/min (>60); Est Glom Filt Rate - Afr Amer 86 mL/min (>60); Estimated Creatinine Clearance 69.77 ml/min; Globulin 3.6 g/dL (2.2-4.2); Glucose 183 mg/dL (74-106); Protein, Total 5.6 g/dL (6.4-8.2); Sodium Level 146 mmol/L (136-145)
[2021-03-22] MEDS: Clopidogrel Bisulfate 75 MG Tablet PO (09:58)
[2021-03-22] MEDS: dexAMETHasone 4 MG Tablet 6 MG PO (09:58)
[2021-03-22] MEDS: Carvedilol 25 MG Tablet PO ×2 (09:58→21:28)
[2021-03-22] MEDS: Enoxaparin 120 MG/0.8 ML Syringe SC ×2 (09:59→21:29)
--- NOTE | 2021-03-22 10:05 | PCM.PN.INT ---
Assessment & Plan Assessment/Plan (1) Pneumonia due to COVID-19 virus: (2) Acute respiratory failure with hypoxia: (3) Ischemic cardiomyopathy: (4) Secondary pulmonary arterial hypertension: PLAN: RECOMMENDATIONS: 1. Continue to wean supplemental oxygen to maintain saturations at or above 90%. 2. Baricitinib per ID recommendations. 3. Continue Lovenox. 4. Continue Decadron to complete 10 days of therapy. 5. Encourage incentive spirometer use and mobilize patient as tolerated. IMPRESSIONS: 1. Acute hypoxic respiratory failure secondary to COVID-19 The patient initially presented to the emergency department on March 17 with hypoxemia and cough. The patient was found to be positive for COVID-19. He also has a history of systolic heart failure with an ejection fraction of 25%. The patient was placed on antimicrobials and Decadron. Following evaluation by infectious diseases, the patient was also placed on baricitinib. The patient was felt to be outside of the window for remdesivir administration. Oxygenation status is relatively stable on nasal cannula at the present time. Encourage incentive spirometer use and mobilize patient as tolerated. Diuretics can be utilized as needed to maintain euvolemic state. 2. Acute metabolic encephalopathy/chronic systolic CHF (25%)/diabetes mellitus/unvaccinated/obesity Complicates care, management, recovery and prognosis. Continue Lantus and sliding scale insulin coverage. Resume Lasix once renal function improves. This note was generated with [employer] dictation software. It may contain incorrect words, spelling, and punctuation that were not noted in checking the note before signing. Subjective Subjective The patient was seen and examined at the bedside this morning. Events from the last 24 hours have been reviewed. The patient is currently afebrile, hemodynamically stable and maintaining appropriate oxygen saturations on 15 L/min high flow nasal cannula. The patient is currently documented to be overall net +7 L for the hospitalization. The patient remains on Decadron, therapeutic Lovenox and baricitinib. Hemoglobin is down to 10.2 g/dL this morning. Creatinine has normalized. Liver function is stable. Objective Data Objective Data The patient's most recent lab work, culture data and imaging studies have all been personally reviewed. Surface echocardiogram from October 2020 demonstrated a moderately dilated LV with an ejection fraction of 25% and stage I diastolic dysfunction. Pulmonary artery systolic pressure was estimated to be 35 mmHg. Vital Signs: Vital Signs Temp Pulse Resp BP Pulse Ox 98.0 F 74 18 164/74 H 94 03/22/21 09:55 03/22/21 09:55 03/22/21 09:55 03/22/21 09:55 03/22/21 09:55 Oxygen Flow Rate (L/min) 15 Oxygen Delivery Method Nasal Cannula Weight: 134.1 kg Body Mass Index (BMI) 36.1 Intake & Output: Intake and Output for Last 24 Hours 03/20/21 03/21/21 03/22/21 23:59 23:59 23:59 Intake Total 2609.00 / 2849.00 1739.75 / 1739.75 Output Total 1795 / 1795 650 / 650 Balance 814.00 / 1054.00 1089.75 / 1089.75 Medical Nutrition Assessment Dietitian: Malnutrition Criteria Met Start: 03/18/21 12:18 Freq: Status: Active Protocol: Document 03/19/21 16:22 RMA (Rec: 03/19/21 16:22 RMA [id number]) Nutrition Malnutrition Evidence of Malnutrition Exists Yes Malnutrition (severe): Acute Illness/Injury Evidenced By Suboptimal Energy Intake ( Severe),Weight Loss (Severe) Clinical Problem Acute Disease or Injury Related Malnutrition Etiology related to acute illness/ decreased oral intake Signs/Symptoms as evidenced by 2.8% wt loss, PO meeting less than 50% estimated nutrition needs x 5 days Status Active Problem Recommendation Dietitian Recommendations/Changes Will change diet to carbohydrate-controlled; cardiac/sodium-restricted. Will adjust glucerna shake w/ meals to 120ml TID instead of 240ml. Lab / Micro Data Attestation: I reviewed the patient's lab results. Result Diagrams: 03/22/21 07:00 03/22/21 07:00 Labs: Laboratory Results - last 24 hr 03/21/21 11:54: POC Glucose 184 H 03/21/21 16:06: POC Glucose 273 H 03/21/21 21:29: POC Glucose 239 H 03/22/21 06:35: POC Glucose 170 H 03/22/21 07:00: WBC 10.8, RBC 3.44 L, Hgb 10.2 L, Hct 33.0 L, MCV 95.9 H, MCH 29.7, MCHC 30.9 L, RDW Std Deviation 63.6 H, RDW Coeff of Nirav 18.2 H, Plt Count 337, MPV 9.9, Neut % (Auto) Not Reportable 03/22/21 07:00: Sodium 146 H, Potassium 5.0, Chloride 116 H, Carbon Dioxide 29.0, Anion Gap 1 L, BUN 69 H, Creatinine 1.08, Estim Creat Clear Calc 69.77, Est GFR (MDRD) Af Amer 86, Est GFR (MDRD) Non-Af 71, BUN/Creatinine Ratio 63.9 H, Glucose 183 H, Calcium 8.9, Total Bilirubin 0.50, AST 30, ALT 35, Alkaline Phosphatase 95, Total Protein 5.6 L, Albumin 2.0 L, Globulin 3.6, Albumin/Globulin Ratio 0.6 L Micro: Microbiology 03/20/21 12:50 Urine, Clean Catch Urine Culture - Final Culture exhibits no growth. 03/18/21 10:42 Blood Culture (Wb) - Anticubital Right Blood Culture - Preliminary No growth in 48 hours. 03/18/21 10:47 Blood Culture (Wb) - Right Wrist Blood Culture - Preliminary No growth in 48 hours. 03/17/21 15:35 Blood Culture (Wb) - Left Hand Blood Culture - Preliminary No growth in 48 hours. 03/17/21 14:42 Blood Culture (Wb) - Anticubital Right Blood Culture - Preliminary No growth in 48 hours. 03/17/21 18:00 Urine, Midstream Urine Culture - Final Mixed Gram Positive Organisms Physical Exam Const alert and no apparent distress General Appearance: cooperative Nutritional Appearance: obese HEENT normocephalic and head/scalp atraumatic Eyes PERRL, EOMs intact bilaterally and conjunctivae normal Neck supple General: trachea midline Chest inspection of chest normal Resp Auscultation: diminished lung sounds; Negative for rales, rhonchi or wheezes Cardio regular rate and regular rhythm GI normal to inspection, nondistended, normoactive bowel sounds Extremity no clubbing, cyanosis or edema Skin no rashes or lesions noted Neuro moves all extremities and no focal motor deficits Psych Mood & Affect: flat affect Charges/Coding Visit Charges Inpatient E&M: 50036 Subs Hosp L2
[2021-03-22 10:12] LABS: Lymphocyte 12 % (19-41); Monocyte 5 % (0-10); Neutrophil-Band 14 % (0-5); Neutrophil-Segmented 69 % (47-70); Total Cells Counted 100 (MANUAL DIFF)
[2021-03-22 10:13] LABS: Absolute Neutrophil Count 8.9 X10^3/uL (2.0-7.7); Atypical Lymphocyte RARE %; Red Cell Morphology NORM C+C NORMAL (NORM C&C)
[2021-03-22 12:36] LABS: Bedside Glucose 170 mg/dL (70-110)
[2021-03-22 13:29] LABS: Pathologist Review Reviewed
[2021-03-22] MEDS: guaiFENesin/D-Methorphan TAB.SR.12H 1 TABLET PO ×2 (13:50→21:28)
--- NOTE | 2021-03-22 15:55 | PCM.PN.HOSP ---
Subjective Subjective Patient is very short of breath on 15 to 16 L of oxygen. Objective Data Objective Data Vital Signs: Vital Signs Temp Pulse Resp BP Pulse Ox 98.0 F 78 18 132/76 H 93 03/22/21 14:10 03/22/21 14:51 03/22/21 14:10 03/22/21 14:10 03/22/21 15:07 Oxygen Flow Rate (L/min) 10 Oxygen Delivery Method Nasal Cannula Weight: 295 lb 10.238 oz Body Mass Index (BMI) 36.1 Intake & Output: Intake and Output for Last 24 Hours 03/20/21 03/21/21 03/22/21 23:59 23:59 23:59 Intake Total 2609.00 / 2849.00 1739.75 / 1739.75 240 / 240 Output Total 1795 / 1795 650 / 650 Balance 814.00 / 1054.00 1089.75 / 1089.75 240 / 240 Medical Nutrition Assessment Dietitian: Malnutrition Criteria Met Start: 03/18/21 12:18 Freq: Status: Active Protocol: Document 03/19/21 16:22 RMA (Rec: 03/19/21 16:22 RMA [id number]) Nutrition Malnutrition Evidence of Malnutrition Exists Yes Malnutrition (severe): Acute Illness/Injury Evidenced By Suboptimal Energy Intake ( Severe),Weight Loss (Severe) Clinical Problem Acute Disease or Injury Related Malnutrition Etiology related to acute illness/ decreased oral intake Signs/Symptoms as evidenced by 2.8% wt loss, PO meeting less than 50% estimated nutrition needs x 5 days Status Active Problem Recommendation Dietitian Recommendations/Changes Will change diet to carbohydrate-controlled; cardiac/sodium-restricted. Will adjust glucerna shake w/ meals to 120ml TID instead of 240ml. Lab / Micro Data Result Diagrams: 03/22/21 07:00 03/22/21 07:00 Labs: Laboratory Results - last 24 hr 03/21/21 16:06: POC Glucose 273 H 03/21/21 21:29: POC Glucose 239 H 03/22/21 06:35: POC Glucose 170 H 03/22/21 07:00: WBC 10.8, RBC 3.44 L, Hgb 10.2 L, Hct 33.0 L, MCV 95.9 H, MCH 29.7, MCHC 30.9 L, RDW Std Deviation 63.6 H, RDW Coeff of Nirav 18.2 H, Plt Count 337, MPV 9.9, Neut % (Auto) Not Reportable, Absolute Neuts (auto) 8.9 H, Absolute Lymphs (auto) 1.20, Total Counted 100, Neutrophils % (Manual) 69, Band Neutrophils % 14 H, Lymphocytes % (Manual) 12 L, Monocytes % (Manual) 5, Diff Path Review Reviewed, Atypical Lymphocytes RARE, RBC Morphology NORM C+C 03/22/21 07:00: Sodium 146 H, Potassium 5.0, Chloride 116 H, Carbon Dioxide 29.0, Anion Gap 1 L, BUN 69 H, Creatinine 1.08, Estim Creat Clear Calc 69.77, Est GFR (MDRD) Af Amer 86, Est GFR (MDRD) Non-Af 71, BUN/Creatinine Ratio 63.9 H, Glucose 183 H, Calcium 8.9, Total Bilirubin 0.50, AST 30, ALT 35, Alkaline Phosphatase 95, Total Protein 5.6 L, Albumin 2.0 L, Globulin 3.6, Albumin/Globulin Ratio 0.6 L 03/22/21 12:01: POC Glucose 170 H Micro: Microbiology 03/20/21 12:50 Urine, Clean Catch Urine Culture - Final Culture exhibits no growth. 03/18/21 10:42 Blood Culture (Wb) - Anticubital Right Blood Culture - Preliminary No growth in 48 hours. 03/18/21 10:47 Blood Culture (Wb) - Right Wrist Blood Culture - Preliminary No growth in 48 hours. 03/17/21 15:35 Blood Culture (Wb) - Left Hand Blood Culture - Preliminary No growth in 48 hours. 03/17/21 14:42 Blood Culture (Wb) - Anticubital Right Blood Culture - Preliminary No growth in 48 hours. 03/17/21 18:00 Urine, Midstream Urine Culture - Final Mixed Gram Positive Organisms Physical Exam Narrative General: Alert, awake oriented x3. Answering questions appropriately. HEENT: Atraumatic, PERRLA, EOMI, Normocephalic Oral: No Gingival or Mucosal Lesions/ Ulcerations Neck: Supple, No JVD, Negative Carotid Bruits Lungs: Air entry diminished in bilateral lung bases. No crepitations. On high flow oxygen. Cardiovascular: Paced rhythm, left subclavicular pacemaker. Normal S1, Normal S2, No murmurs Abdomen: Bowel Sounds Present, Soft, Non Tender, Non-Distended, frequent diarrhea. : No renal angle tenderness. No suprapubic tenderness. Extremities: No edema, Capillary Refill Less than 3 Seconds Skin: No rashes, No breakdown Musculoskeletal: No Tenderness to Palpation of Joints or Extremities Neurological: Cranial nerves II-XII grossly intact, DTR 2+/4. Psych/Mental Status: Flat affect Assessment & Plan Assessment/Plan (1) Acute respiratory failure with hypoxia: (2) Pneumonia due to COVID-19 virus: PLAN: 1. Acute hypoxic respiratory failure secondary to acute COVID-19 pneumonia: His COVID-19 PCR is positive; chest x-ray shows interstitial changes Patient stated that his symptoms started 2 to 3 weeks prior to admission Continue on Decadron, Remdesivir discontinued. ID consult to see indication for baricitinib. Currently on high flow 15 L of oxygen. Continue incentive spirometry and Pep. 03/22 patient was transferred to PCU yesterday. Seen by ID next week to start baricitinib. Stop vancomycin and Zosyn. Cultures are negative. Isolation until 03/28. 2. Shock, unclear etiology for now, blood pressures are improved Remains off Levophed 03/22: Urine culture shows no growth. Blood cultures are negative for more than 48 hours. 3. Acute metabolic encephalopathy secondary to #1 and 2: Patient responds appropriately to still mild lethargy. 4. Acute kidney injury on CKD stage IIIb, slowly improving Creatinine gradually improving, baseline is between 1.3-1.4 5. Chronic systolic CHF, EF of 25%, status post AICD, status post pacemaker Stable, not in acute CHF Pacemaker check -negative for arrhythmias 6. Type II DM, blood sugars are better controlled Continue to hold glipizide.Continue insulin sliding scale. Blood sugar is controlled 7. Severe malnutrition, private branch exchange service adviser consulted, on supplements Charges/Coding Visit Charges Inpatient E&M: 20486 Subs Hosp L2
[2021-03-22 16:40] LABS: Bedside Glucose 243 mg/dL (70-110)
[2021-03-22] MEDS: Aspirin 81 MG TAB.CHEW PO (21:28)
[2021-03-22] MEDS: 0.9% Saline Lock 10 ML Syringe IV (21:29)
[2021-03-22] MEDS: Atorvastatin Calcium 40 MG Tablet PO (21:29)
[2021-03-22] MEDS: Menthol/Lanolin/Calamine/Znox 113 GM Tube 1 APPLIC TOPICAL (21:30)
[2021-03-22 21:45] LABS: Bedside Glucose 250 mg/dL (70-110)
[2021-03-23] VITALS (18 sets, daily range): BP systolic 108–132; BP diastolic 44–73; PULSE 60–82; RESP 18–20; TEMP 36.3–36.6; O2SAT 75–96
[2021-03-23 06:12] LABS: Hematocrit 25.4 % (40-54); Hemoglobin 8.2 g/dL (13.0-16.5); Mean Corp Hgb Conc 32.3 g/dL (32-36); Mean Corpuscular Hgb 30.3 pg (27.0-32.0); Mean Corpuscular Volume 93.7 fL (80-94); Mean Platelet Vol. 10.2 fl (6.2-12.0); POSITIVE COUNT YES; POSITIVE DIFFERENTIAL YES; POSITIVE MORPHOLOGY YES; Platelet Count 344 K/mm3 (150-450); RBC Distribution Width SD 60.9 fl (35.1-43.9); Red Blood Count 2.71 M/mm3 (4.6-6.2); White Blood Count 15.3 K/mm3 (4.4-11.0)
[2021-03-23 06:13] LABS: Differential Indicated MANUAL DIFF
[2021-03-23] MEDS: Sodium Chloride 0.65% 1 SPRAY SPRAY.BTL 2 SPRAY NASAL (06:25)
[2021-03-23] MEDS: Insulin Lispro 100 UNIT/ML INSULN.PEN SC ×4 (06:25→21:53)
[2021-03-23 06:36] LABS: Bedside Glucose 188 mg/dL (70-110)
[2021-03-23 06:42] LABS: Absolute Lymphocyte Count 1.83 X10^3/uL (0.83-4.51); Absolute Neutrophil Count 11.6 X10^3/uL (2.0-7.7); Total Cells Counted 100 (MANUAL DIFF)
[2021-03-23 06:43] LABS: Anisocytosis 2+; Lymphocyte 12 % (19-41); Metamyelocyte 0 % (0-1); Monocyte 7 % (0-10); Myelocyte 3 % (0-0); Neutrophil-Band 0 % (0-5); Neutrophil-Segmented 76 % (47-70); Platelet Estimate ADEQUATE (ADEQ); Promyelocyte 2 % (0-0); Red Cell Morphology NORM C+C NORMAL (NORM C&C)
[2021-03-23 06:45] LABS: Atypical Lymphocyte 2+ %
[2021-03-23 06:51] LABS: ALB/GLOB Ratio 0.6 RATIO (0.9-2.4); AST(SGOT) 36 U/L (15-37); Alanine Aminotransfer ALT/SGPT 46 U/L (16-61); Albumin, Serum 2.1 g/dL (3.2-5.0); Alkaline Phosphatase 83 U/L (45-117); Anion Gap 4 (5-15); BUN 75 mg/dL (7-18); Calcium,Total 8.9 mg/dL (8.5-10.1); Chloride 118 mmol/L (98-107); Creatinine, Serum 1.19 mg/dL (0.70-1.30); EST Glomerular Filtration Rate 64 mL/min (>60); Est Glom Filt Rate - Afr Amer 77 mL/min (>60); Estimated Creatinine Clearance 63.32 ml/min; Globulin 3.5 g/dL (2.2-4.2); Glucose 199 mg/dL (74-106); Potassium 5.2 mmol/L (3.5-5.1); Protein, Total 5.6 g/dL (6.4-8.2); Sodium Level 147 mmol/L (136-145)
[2021-03-23] MEDS: dexAMETHasone 4 MG Tablet 6 MG PO (09:15)
[2021-03-23] MEDS: Enoxaparin 120 MG/0.8 ML Syringe SC ×2 (09:15→21:52)
[2021-03-23] MEDS: Carvedilol 25 MG Tablet PO ×2 (09:16→21:51)
[2021-03-23] MEDS: guaiFENesin/D-Methorphan TAB.SR.12H 1 TABLET PO ×2 (09:16→21:52)
[2021-03-23] MEDS: Clopidogrel Bisulfate 75 MG Tablet PO (09:16)
[2021-03-23] MEDS: Menthol/Lanolin/Calamine/Znox 113 GM Tube 1 APPLIC TOPICAL ×2 (09:40→21:52)
[2021-03-23 12:46] LABS: Bedside Glucose 210 mg/dL (70-110)
[2021-03-23 14:14] LABS: Pathologist Review Reviewed
--- NOTE | 2021-03-23 15:31 | PCM.PN.HOSP ---
Objective Data Objective Data Vital Signs: Vital Signs Temp Pulse Resp BP Pulse Ox 97.9 F 82 18 132/54 H 90 03/23/21 12:35 03/23/21 12:35 03/23/21 12:35 03/23/21 12:35 03/23/21 14:50 Oxygen Flow Rate (L/min) 10 Oxygen Delivery Method Nasal Cannula Weight: 295 lb 10.238 oz Body Mass Index (BMI) 36.1 Intake & Output: Intake and Output for Last 24 Hours 03/21/21 03/22/21 03/23/21 23:59 23:59 23:59 Intake Total 1739.75 / 1739.75 480 / 480 200 / 200 Output Total 650 / 650 1 / Balance 1089.75 / 1089.75 480 / 480 199 / 199 Medical Nutrition Assessment Dietitian: Malnutrition Criteria Met Start: 03/18/21 12:18 Freq: Status: Active Protocol: Document 03/19/21 16:22 RMA (Rec: 03/19/21 16:22 RMA [id number]) Nutrition Malnutrition Evidence of Malnutrition Exists Yes Malnutrition (severe): Acute Illness/Injury Evidenced By Suboptimal Energy Intake ( Severe),Weight Loss (Severe) Clinical Problem Acute Disease or Injury Related Malnutrition Etiology related to acute illness/ decreased oral intake Signs/Symptoms as evidenced by 2.8% wt loss, PO meeting less than 50% estimated nutrition needs x 5 days Status Active Problem Recommendation Dietitian Recommendations/Changes Will change diet to carbohydrate-controlled; cardiac/sodium-restricted. Will adjust glucerna shake w/ meals to 120ml TID instead of 240ml. Lab / Micro Data Result Diagrams: 03/23/21 05:34 03/23/21 05:34 Labs: Laboratory Results - last 24 hr 03/22/21 16:24: POC Glucose 243 H 03/22/21 21:27: POC Glucose 250 H 03/23/21 05:34: WBC 15.3 H, RBC 2.71 L, Hgb 8.2 L, Hct 25.4 L, MCV 93.7, MCH 30.3, MCHC 32.3, RDW Std Deviation 60.9 H, RDW Coeff of Nirav 18.0 H, Plt Count 344, MPV 10.2, Neut % (Auto) Not Reportable, Absolute Neuts (auto) 11.6 H, Absolute Lymphs (auto) 1.83, Total Counted 100, Neutrophils % (Manual) 76 H, Band Neutrophils % 0, Lymphocytes % (Manual) 12 L, Monocytes % (Manual) 7, Metamyelocytes % 0, Myelocytes % 3 H, Promyelocytes % 2 H, Diff Path Review Reviewed, Atypical Lymphocytes 2+, Platelet Estimate ADEQUATE, RBC Morphology NORM C+C, Anisocytosis 2+ 03/23/21 05:34: Sodium 147 H, Potassium 5.2 H, Chloride 118 H, Carbon Dioxide 25.0, Anion Gap 4 L, BUN 75 H, Creatinine 1.19, Estim Creat Clear Calc 63.32, Est GFR (MDRD) Af Amer 77, Est GFR (MDRD) Non-Af 64, BUN/Creatinine Ratio 63.0 H, Glucose 199 H, Calcium 8.9, Total Bilirubin 0.40, AST 36, ALT 46, Alkaline Phosphatase 83, Total Protein 5.6 L, Albumin 2.1 L, Globulin 3.5, Albumin/Globulin Ratio 0.6 L 03/23/21 06:24: POC Glucose 188 H 03/23/21 12:35: POC Glucose 210 H Micro: Microbiology 03/18/21 10:47 Blood Culture (Wb) - Right Wrist Blood Culture - Final No growth in 5 days. 03/18/21 10:42 Blood Culture (Wb) - Anticubital Right Blood Culture - Final No growth in 5 days. 03/17/21 15:35 Blood Culture (Wb) - Left Hand Blood Culture - Final No growth in 5 days. 03/17/21 14:42 Blood Culture (Wb) - Anticubital Right Blood Culture - Final No growth in 5 days. 03/20/21 12:50 Urine, Clean Catch Urine Culture - Final Culture exhibits no growth. 03/17/21 18:00 Urine, Midstream Urine Culture - Final Mixed Gram Positive Organisms Physical Exam Narrative Seen and examined Patient looks more comfortable today as compared to yesterday. No fever or chills. Heart rate in 60s. Patient on 10 L/min oxygen high flow. Respiratory rate 20/min General: Alert, awake oriented x3. HEENT: Atraumatic, PERRLA, EOMI, Normocephalic Oral: No Gingival or Mucosal Lesions/ Ulcerations Neck: Supple, No JVD, Negative Carotid Bruits Lungs: Air entry diminished in bilateral lung bases. No crepitations. On high flow oxygen. Cardiovascular: Paced rhythm, left subclavicular pacemaker. Normal S1, Normal S2, No murmurs Abdomen: Bowel Sounds Present, Soft, Non Tender, Non-Distended, frequent diarrhea. : No renal angle tenderness. No suprapubic tenderness. Extremities: No edema, Capillary Refill Less than 3 Seconds Skin: No rashes, No breakdown Musculoskeletal: No Tenderness to Palpation of Joints or Extremities Neurological: Cranial nerves II-XII grossly intact, DTR 2+/4. Psych/Mental Status: Flat affect Assessment & Plan Assessment/Plan (1) Acute respiratory failure with hypoxia: (2) Pneumonia due to COVID-19 virus: PLAN: 1. Acute hypoxic respiratory failure secondary to acute COVID-19 pneumonia: His COVID-19 PCR is positive; chest x-ray shows interstitial changes Patient stated that his symptoms started 2 to 3 weeks prior to admission Continue on Decadron, Remdesivir discontinued. ID consult to see indication for baricitinib. Currently on high flow 15 L of oxygen. Continue incentive spirometry and Pep. 03/22 patient was transferred to PCU yesterday. Seen by ID and started on baricitinib. Stop vancomycin and Zosyn. Cultures are negative. Isolation until 03/28. 03/23: Patient on 10 L of oxygen improvement in yesterday. 2. Shock, unclear etiology for now, blood pressures are improved Remains off Levophed 03/22: Urine culture shows no growth. Blood cultures are negative for more than 48 hours. 3. Acute metabolic encephalopathy secondary to #1 and 2: Patient responds appropriately to still mild lethargy. 03/23: Resolved 4. Acute kidney injury on CKD stage IIIb, slowly improving Creatinine gradually improving, baseline is between 1.3-1.4 5. Chronic systolic CHF, EF of 25%, status post AICD, status post pacemaker Stable, not in acute CHF Pacemaker check -negative for arrhythmias 6. Type II DM, blood sugars are better controlled Continue to hold glipizide.Continue insulin sliding scale. Blood sugar is controlled 7. Severe malnutrition, component lab tech consulted, on supplements Charges/Coding Visit Charges Inpatient E&M: 99195 Subs Hosp L2
[2021-03-23 17:31] LABS: Bedside Glucose 199 mg/dL (70-110)
[2021-03-23] MEDS: Atorvastatin Calcium 40 MG Tablet PO (21:51)
[2021-03-23] MEDS: Aspirin 81 MG TAB.CHEW PO (21:51)
[2021-03-23 22:00] LABS: Bedside Glucose 269 mg/dL (70-110)
[2021-03-24] VITALS (13 sets, daily range): BP systolic 58–154; BP diastolic 36–110; PULSE 0–86; RESP 18–31; TEMP 35.6–36.9; O2SAT 92–97
[2021-03-24] MEDS: Sodium Chloride 0.65% 1 SPRAY SPRAY.BTL 2 SPRAY NASAL ×3 (06:13→14:41)
[2021-03-24] MEDS: Insulin Lispro 100 UNIT/ML INSULN.PEN SC ×3 (06:15→17:02)
[2021-03-24 06:20] LABS: Bedside Glucose 176 mg/dL (70-110)
[2021-03-24] MEDS: Menthol/Lanolin/Calamine/Znox 113 GM Tube 1 APPLIC TOPICAL (09:52)
[2021-03-24] MEDS: Clopidogrel Bisulfate 75 MG Tablet PO (09:53)
[2021-03-24] MEDS: dexAMETHasone 4 MG Tablet 6 MG PO (09:53)
[2021-03-24] MEDS: guaiFENesin/D-Methorphan TAB.SR.12H 1 TABLET PO (09:53)
[2021-03-24] MEDS: Enoxaparin 120 MG/0.8 ML Syringe SC (09:53)
[2021-03-24] MEDS: Carvedilol 25 MG Tablet PO (09:53)
[2021-03-24 11:30] LABS: Bedside Glucose 229 mg/dL (70-110)
--- NOTE | 2021-03-24 15:58 | PN.HOSP_ITS ---
Subjective Subjective Patient reports subjective improvement in shortness of breath. On 6 L of oxygen. Afebrile Objective Data Objective Data Vital Signs: Vital Signs Temp Pulse Resp BP Pulse Ox 98.1 F 64 18 154/110 H 92 03/24/21 15:12 03/24/21 15:12 03/24/21 15:12 03/24/21 15:12 03/24/21 15:12 Oxygen Flow Rate (L/min) 6 Oxygen Delivery Method High Flow Weight: 295 lb 10.238 oz Body Mass Index (BMI) 36.1 Intake & Output: Intake and Output for Last 24 Hours 03/22/21 03/23/21 03/24/21 23:59 23:59 23:59 Intake Total 480 / 480 200 / 200 400 / 400 Output Total Balance 480 / 480 199 / 199 400 / 400 Medical Nutrition Assessment Dietitian: Malnutrition Criteria Met Start: 03/18/21 12:18 Freq: Status: Active Protocol: Document 03/19/21 16:22 RMA (Rec: 03/19/21 16:22 RMA [id number]) Nutrition Malnutrition Evidence of Malnutrition Exists Yes Malnutrition (severe): Acute Illness/Injury Evidenced By Suboptimal Energy Intake ( Severe),Weight Loss (Severe) Clinical Problem Acute Disease or Injury Related Malnutrition Etiology related to acute illness/ decreased oral intake Signs/Symptoms as evidenced by 2.8% wt loss, PO meeting less than 50% estimated nutrition needs x 5 days Status Active Problem Recommendation Dietitian Recommendations/Changes Will change diet to carbohydrate-controlled; cardiac/sodium-restricted. Will adjust glucerna shake w/ meals to 120ml TID instead of 240ml. Lab / Micro Data Result Diagrams: 03/23/21 05:34 03/23/21 05:34 Labs: Laboratory Results - last 24 hr 03/23/21 16:15: POC Glucose 199 H 03/23/21 21:42: POC Glucose 269 H 03/24/21 06:12: POC Glucose 176 H 03/24/21 11:21: POC Glucose 229 H Micro: Microbiology 03/18/21 10:47 Blood Culture (Wb) - Right Wrist Blood Culture - Final No growth in 5 days. 03/18/21 10:42 Blood Culture (Wb) - Anticubital Right Blood Culture - Final No growth in 5 days. 03/17/21 15:35 Blood Culture (Wb) - Left Hand Blood Culture - Final No growth in 5 days. 03/17/21 14:42 Blood Culture (Wb) - Anticubital Right Blood Culture - Final No growth in 5 days. 03/20/21 12:50 Urine, Clean Catch Urine Culture - Final Culture exhibits no growth. 03/17/21 18:00 Urine, Midstream Urine Culture - Final Mixed Gram Positive Organisms Physical Exam Narrative Seen and examined General: Alert, awake oriented x3. HEENT: Atraumatic, PERRLA, EOMI, Normocephalic Oral: No Gingival or Mucosal Lesions/ Ulcerations Neck: Supple, No JVD, Negative Carotid Bruits Lungs: Air entry diminished in bilateral lung bases. No crepitations. Hypoxia getting better. Cardiovascular: Paced rhythm, left subclavicular pacemaker. Normal S1, Normal S2, No murmurs Abdomen: Bowel Sounds Present, Soft, Non Tender, Non-Distended, frequent diarrhea. : No renal angle tenderness. No suprapubic tenderness. Extremities: Mild bilateral lower leg and ankle, 2 edema, Capillary Refill Less than 3 Seconds Skin: No rashes, No breakdown Musculoskeletal: No Tenderness to Palpation of Joints or Extremities Neurological: Cranial nerves II-XII grossly intact, DTR 2+/4. Psych/Mental Status: Flat affect Assessment & Plan Assessment/Plan (1) Acute respiratory failure with hypoxia: (2) Pneumonia due to COVID-19 virus: PLAN: 1. Acute hypoxic respiratory failure secondary to acute COVID-19 pneumonia: His COVID-19 PCR is positive; chest x-ray shows interstitial changes Patient stated that his symptoms started 2 to 3 weeks prior to admission Continue on Decadron, Remdesivir discontinued. ID consult to see indication for baricitinib. Currently on high flow 15 L of oxygen. Continue incentive spirometry and Pep. 03/22 patient was transferred to PCU yesterday. Seen by ID and started on baricitinib. Stop vancomycin and Zosyn. Cultures are negative. Isolation until 03/28. 03/23: Patient on 10 L of oxygen improvement in yesterday. 03/24: On 6 L of oxygen. Patient has bilateral leg edema probably due to fluid he got during solicitation in ICU. Lasix 40 mg IV was ordered. 2. Shock, unclear etiology for now, blood pressures are improved Remains off Levophed 03/22: Urine culture shows no growth. Blood cultures are negative for more than 48 hours. 03/23: Shock resolved. BP 154/110 3. Acute metabolic encephalopathy secondary to #1 and 2: Patient responds appropriately to still mild lethargy. 03/23: Resolved 4. Acute kidney injury on CKD stage IIIb, slowly improving Creatinine gradually improving, baseline is between 1.3-1.4 03/24 mild hyperkalemia, probably will corrected by Lasix. Patient not on potassium supplement or spironolactone. 5. Chronic systolic CHF, EF of 25%, status post AICD, status post pacemaker Stable, not in acute CHF Pacemaker check -negative for arrhythmias 6. Type II DM, blood sugars are better controlled Continue to hold glipizide.Continue insulin sliding scale. Blood sugar is controlled 7. Severe malnutrition, general service officer consulted, on supplements Charges/Coding Visit Charges Inpatient E&M: 57905 Subs Hosp L2
[2021-03-24 17:05] LABS: Bedside Glucose 289 mg/dL (70-110)
[2021-03-24 17:23] LABS: Hematocrit 15.3 % (40-54); Mean Corp Hgb Conc 30.7 g/dL (32-36); Mean Corpuscular Hgb 30.5 pg (27.0-32.0); Mean Corpuscular Volume 99.4 fL (80-94); Mean Platelet Vol. 10.8 fl (6.2-12.0); POSITIVE COUNT YES; POSITIVE MORPHOLOGY YES; Platelet Count 333 K/mm3 (150-450); RBC Distribution Width CV 17.4 % (11.6-14.6); RBC Distribution Width SD 61.6 fl (35.1-43.9); Red Blood Count 1.54 M/mm3 (4.6-6.2); White Blood Count 17.8 K/mm3 (4.4-11.0)
--- NOTE | 2021-03-24 17:23 | NURSING ---
Abraham Desai, RN in to fix pt's telemetry leads and noticed pt looked in distress. Took bp and was low. Pt c/o dizziness and pale in color. RETAIL WIRELESS ASSOCIATE called due to low bp 58/36. Dr. Prieto and Dr. Washington in to see pt with this RN and rn discharge and nursing rail gang supervisor. Pt stable at this time. BP WNL. Labs ordered and stool sent. Blood thinners dc per . Will continue to monitor.
[2021-03-24 17:27] LABS: Anion Gap 7 (5-15); BUN 92 mg/dL (7-18); BUN/Creat Ratio 44.7 RATIO (10-20); Calcium,Total 8.4 mg/dL (8.5-10.1); Chloride 117 mmol/L (98-107); Creatinine, Serum 2.06 mg/dL (0.70-1.30); EST Glomerular Filtration Rate 34 mL/min (>60); Est Glom Filt Rate - Afr Amer 41 mL/min (>60); Estimated Creatinine Clearance 36.58 ml/min; Glucose 329 mg/dL (74-106); Magnesium 2.9 mg/dL (1.6-2.6); Phosphorus 5.9 mg/dL (2.5-4.9); Potassium 6.7 mmol/L (3.5-5.1); Sodium Level 145 mmol/L (136-145); Troponin-I HS 25 pg/mL (3.0-78.0)
[2021-03-24 17:45] LABS: Hemoglobin 4.7 g/dL (13.0-16.5)
[2021-03-24 17:46] LABS: Differential Indicated MANUAL DIFF
[2021-03-24 17:55] LABS: Lymphocyte 16 % (19-41); Metamyelocyte 3 % (0-1); Monocyte 2 % (0-10); Myelocyte 2 % (0-0); Neutrophil-Band 2 % (0-5); Neutrophil-Segmented 75 % (47-70); Nucleated Red Bld Cells,Manual 2 % (0-5); Total Cells Counted 100 (MANUAL DIFF)
[2021-03-24 17:57] LABS: Absolute Lymphocyte Count 2.85 X10^3/uL (0.83-4.51); Absolute Neutrophil Count 13.7 X10^3/uL (2.0-7.7)
--- NOTE | 2021-03-24 19:43 | EXP.PCM_ITS ---
Preliminary Cause of Preliminary Cause of Preliminary Cause of : 1. Shock, multiple ; hematologic from upper GI bleed and septic shock from pneumonia 2. Acute hypoxic respiratory failure secondary to acute bilateral COVID-19 pneumonia 3. Acute metabolic encephalopathy due to respiratory failure and shock 4. Acute kidney injury on CKD stage IIIb complicated with hyperkalemia 5. Chronic systolic heart failure EF 25 per status post AICD 6. Type 2 diabetes mellitus 7. severe malnutrition Date of Admission: 03/17/21 Date of : 03/24/21 Principle Diagnosis Problem List: Active and Suspected Problems (Updated 03/18/21 @ 13:[address] Aubree Bolaños MD) Pneumonia due to COVID-19 virus (Acute) Acute respiratory failure with hypoxia (Acute) Rhabdomyolysis (Acute) COVID-19 (Acute) Hospital Course 75-year-old woman with history of ischemic cardiomyopathy, coronary artery status post stents, EF 25%, AICD was admitted with fall 4 days prior to admission, generalized weakness, productive cough of clear sputum for 3 weeks. He has chronic two-pillow orthopnea, chronic dyspnea at rest on exertion no recent change. His blood pressure was low since admission. Patient has been altered mental status, intermittent and fluctuating. Patient was initially admitted to [facility] and then transferred to PCU and then ICU because of worsening condition. Patient was comanaged with silk screen printer and infectious disease specialist. Patient also has rhabdomyolysis with CPK 1096. His further hospital course and management as follows 1. Acute hypoxic respiratory failure secondary to acute COVID-19 pneumonia: His COVID-19 PCR is positive; chest x-ray shows interstitial changes. Patient is on Decadron. Patient had 1 dose of remdesivir. Patient also had baricitinib started by ID. Remdesivir later discontinued because of kidney function. Patient was on initially started on vancomycin and Zosyn but later on discontinued by ID as cultures were negative. Patient was transferred to PCU on 03/21. His oxygenation requirement was gradually getting better from 15 L to 6 L. Patient on incentive spirometry and Pep. 03/24 patient was not given Lasix because of hypotension. 2. Shock, most likely septic shock, blood pressures are improved Patient was treated with Levophed remains off Levophed 03/22: Urine culture shows no growth. Blood cultures are negative for more than 48 hours. 12/15: Shock resolved. BP 154/110 3. Acute metabolic encephalopathy secondary to #1 and 2: Patient responds appropriately to still mild lethargy. 03/23: Resolved 4. Acute kidney injury on CKD stage IIIb, slowly improving Creatinine gradually improving, baseline is between 1.3-1.4 Patient had hyperkalemia most likely due to severe anemia or acute kidney injury or hemolysis or combined. 5. Chronic systolic CHF, EF of 25%, status post AICD, status post pacemaker Stable, not in acute CHF Pacemaker check -negative for arrhythmias 6. Type II DM, blood sugars are better controlled Continue to hold glipizide.Continue insulin sliding scale. Blood sugar is controlled 7. Severe malnutrition, pulley worker consulted, on supplements 8. Upper GI bleed with severe symptomatic anemia, hematologic shock Patient had rapid response in the evening and patient found hypotension 58/60, heart rate 65, paced rhythm. Patient has pacemaker. Patient diaper was also found full of black tarry stool patient conjunctivitis pale. Started on IV fluid normal saline 1 L bolus. Patient has history of heart failure status post AICD. Last echo in October 2020 shows moderately dilated LV with EF 25% with stage I diastolic dysfunction. PASP 35 Hg. Patient has history of heart failure, pulmonary hypertension. Was in ICU for acute hypoxic respiratory failure due to COVID-19 pneumonia. Patient initially was on Lovenox prophylactic dose was increased to therapeutic dose on 03/19 related increased risk for coagulation/COVID-[address] not done because of chronic kidney disease, stage IIIb taken care of by my previous colleague/hospitalist. Patient has history of pulmonary hypertension heart failure with high D-dimer. Patient blood pressure is responding well and 115/91 after starting bolus. Stat labs ordered. 2 units PRBC type and crossmatch. It looks upper GI bleed from enoxaparin. GI was consulted and informed about upper GI bleed and need for urgent EGD. Patient has right triple-lumen catheter. CODE BLUE was called off at 1853 hrs. after 25 minutes of no meaningful recove ry, ROSC. No palpable pulse. Time of 1853 hrs. on 03/24/21. Labs showed hemoglobin 4.7/hematocrit 15, platelet count 10 33,000, potassium 6.7, BUN/creatinine 92/2.06 elevated from 1.19. Hyperkalemia cocktail, calcium chloride and calcium gluconate given, IV insulin was given. Bicarb was also given during code. Unfortunately patient could not be resuscitated. I called patient's brother Mr. Lennox Murray [phone] and disclosed a bad news. I explained the whole clinical course, rapid response course and CODE BLUE but unfortunately he . He was thankful that what ever we did in order to save him. Addendum Addendum: Please cancel the billing charge of the progress note of the same date. Visit Charges Inpatient E&M: [id number] Disch Hosp
--- NOTE | 2021-03-24 22:20 | NURSING ---
Pt released to [facility] home at this time.
--- NOTE | 2021-03-24 22:43 | CM.ED ---
SOMMER Note Referral Reason: Code Blue Referral Source: Code Blue SW responded to PCU for Code Blue. SOMMER called patient's brother, Lennox Murray, multiple times and left voice mail for him to call SW at [facility]. SOMMER also had called another listed phone number for patient's brother which was [phone] and SW called this number and got voice mail for Roque and SW left voice mail message. SW called Willie Murray, nephew and that phone number was disconnected. SOMMER reviewed paper chart and [facility] chart to determine if another number could be secured. Per team patient was pronounced . SW will update patient's brother when he calls. SW had waited approximately 1 hour and no call back from Lennox Murray. SOMMER called ice skating coach and was advised that patient's brother had called and spoke to the MD. Plan: Patient . Attempted to contact family Gabriela WHITAKER
[2021-03-25 02:17] LABS: Platelet Estimate ADEQUATE (ADEQ)
[2021-03-25 02:18] LABS: Red Cell Morphology NORM C+C NORMAL (NORM C&C)
[2021-03-28 10:21] LABS: Pathologist Review Reviewed
== END 2021-03-24 22:20 | DRG 177 ==
LOC: ED 18:44 → MS3 19:51 → ICU 03-18 14:07 → PCU 03-21 11:41
PROVIDERS: Internal Medicine; Internal Medicine Critical Care Medicine; Admitting Provider Hospitalist; Emergency Provider Emergency Medicine; PCP Family Medicine; Visit Provider Internal Medicine
DX: U07.1 COVID-19 (principal); J96.01 Acute respiratory failure with hypoxia; J12.82 Pneumonia due to coronavirus disease 2019; G93.41 Metabolic encephalopathy; E43 Unspecified severe protein-calorie malnutrition; A41.89 Other specified sepsis; R65.21 Severe sepsis with septic shock; I13.0 Hypertensive heart and chronic kidney disease with heart failure and stage 1 through stage 4 chronic kidney disease, or unspecified chronic kidney disease; I50.22 Chronic systolic (congestive) heart failure; N17.9 Acute kidney failure, unspecified; M62.82 Rhabdomyolysis; K92.2 Gastrointestinal hemorrhage, unspecified; E11.22 Type 2 diabetes mellitus with diabetic chronic kidney disease; N18.32 Chronic kidney disease, stage 3b; R57.8 Other shock; E86.0 Dehydration; E87.5 Hyperkalemia; T45.515A Adverse effect of anticoagulants, initial encounter; Y92.9 Unspecified place or not applicable; D64.9 Anemia, unspecified; I25.10 Atherosclerotic heart disease of native coronary artery without angina pectoris; I25.5 Ischemic cardiomyopathy; I27.21 Secondary pulmonary arterial hypertension; Z23 Encounter for immunization; E78.5 Hyperlipidemia, unspecified; G47.10 Hypersomnia, unspecified; E66.9 Obesity, unspecified; Z79.02 Long term (current) use of antithrombotics/antiplatelets; Z79.82 Long term (current) use of aspirin; Z79.899 Other long term (current) drug therapy; I25.2 Old myocardial infarction; Z87.891 Personal history of nicotine dependence; Z95.5 Presence of coronary angioplasty implant and graft; Z95.810 Presence of automatic (implantable) cardiac defibrillator; Z68.36 Body mass index [BMI] 36.0-36.9, adult
CPT/HCPCS: 36415; 71045; 80048; 80053; 80076; 80202; 81001; 82274; 82550; 82962; 83605; 83735; 84100; 84145; 84484; 85025; 85379; 86140; 86850; 86900; 86901; 86920; 86922; 87040; 87086; 87088; 87635; 92950; 93005; 94762; 97110; 97162; 97165; 97530; 97535; 99251; 99285; G0008; J7030; J7040; J7050; P9016; U0005; 90686; A4216; G0463; U0003